=== PATIENT | female | born 1935 | race Caucasian/White ===

== ENCOUNTER 2017-10-27 21:48 | Inpatient (IN) | payer MEDICARE, MEDICAID ==
--- NOTE | 2017-10-27 22:20 | ED Physician Chart ---
ED Chief Complaint/HPI - Patient Information Date Seen:: 10/27/17 Time Seen:: 22:16 Chief Complaint:: AGITATION History of Present Illness:: 89 YR OLD FEMALE WITH AGITATION FOR 2 DAYS T HERE FOR EVALUATION Allergies:: Allergies Allergy/AdvReac Type Severity Reaction Status Date / Time haloperidol [From Haldol] Allergy Verified 10/27/17 21:59 olanzapine [From Zyprexa] Allergy Verified 10/27/17 21:59 Vitals:: Vital Signs - 8 hr 10/27/17 21:50 Temp 99.4 F HR 75 RR 20 BP 162/73 O2 Sat % 97 ED Review of Systems - Review of Systems General/Constitutional: No chills Skin: No skin lesions Eyes: No loss of vision ENT: Other Neck: No neck pain Cardio Vascular: No chest pain, other (I FEEL SHOES WITH SOME PROBLEMS) GI: No nausea, Vomiting G/U: No dysuria Psychiatric: Prior psych history Hematopoietic: No bruising Allergic/Immuno: No urticaria Neurological: No focal symptoms Family Medical History - Family Member Mother History Unknown: Yes ED Assessment - Assessment General Assessment: BACK PAIN ABD ISS ED Septic Shock - . Is Septic Shock (SBP<90, OR Lactate>4 mmol\L) present?: No - <6hrs of presentation: Vital Signs: Vital Signs - 8 hr 10/27/17 21:50 Temp 99.4 F HR 75 RR 20 BP 162/73 O2 Sat % 97 ED Discharge Plan - Patient Disposition Admit/Discharge/Transfer: Home Health IV Service
[2017-10-28 00:20] LABS: % BASOPHILS 0.4 % (0.0-2.0); % EOSINOPHILS 2.9 % (0.0-5.0); % LYMPHOCYTES 27.9 % (20.0-50.0); % MONOCYTES 8.9 % (2.0-10.0); % NEUTROPHILS 59.9 % (40.0-80.0); EOSINOPHILE ABSOLUTE 0.2 Th/cmm (0.1-0.4); HEMATOCRIT 43.6 % (41.0-60); HEMOGLOBIN 14.5 gm/dL (12-16); LYMPHOCYTE ABSOLUTE 2.1 Th/cmm (1.5-3.0); MEAN CELL VOLUME 95.9 fl (81-100); MEAN CORPUSCULAR HEMOGLOBIN 31.8 pg (27.0-31.0); MEAN CORPUSCULAR HGB CONC 33.2 pg (28.0-36.0); MEAN PLATELET VOLUME 7.7 fl; MONOCYTE ABSOLUTE 0.7 Th/cmm (0.3-1.0); NEUTROPHILE ABSOLUTE 4.5 Th/cmm (1.8-8.0); PLATELET COUNT 201 Th/cmm (150-400); RED BLOOD COUNT 4.55 Mil/cmm (3.80-5.20); RED CELL DISTRIBUTION WIDTH 13.3 % (11.5-20.0); WHITE BLOOD COUNT 7.5 Th/cmm (4.8-10.8)
[2017-10-28 00:40] LABS: ALB/GLOB RATIO 1.8 (1.0-1.8); ALBUMIN 3.7 gm/dL (3.7-5.3); ALKALINE PHOSPHATASE 97 U/L (34-104); ANION GAP 9.4 (7.0-16.0); BILIRUBIN,TOTAL 0.3 mg/dL (0.3-1.0); BUN - UREA NITROGEN 23 mg/dL (7-25); CALCIUM SERUM 9.2 mg/dL (8.6-10.3); CARBON DIOXIDE 24.1 mEq/L (21.0-31.0); CHLORIDE 110 mEq/L (98-107); CREATININE - SERUM 0.8 mg/dL (0.6-1.2); GLUCOSE 103 mg/dL (70-105); POTASSIUM SERUM 4.5 mEq/L (3.5-5.1); SGOT 14 U/L (13-39); SGPT/ALT 13 U/L (7-52); SODIUM SERUM 139 mEq/L (136-145); TOTAL PROTEIN,SERUM 5.8 gm/dL (6.0-8.3)
[2017-10-28] MEDS ORDERED: Magnesium Hydroxide (MOM) 30 mL UDC PO PRN ×2 (02:08→21:43)
[2017-10-28] MEDS ORDERED: Maalox 30 mL Cup PO PRN (02:08)
[2017-10-28 02:19] VITALS: BP 142/57
[2017-10-28] MEDS ORDERED: VALSARTAN 40 MG PO SCH (09:00)
[2017-10-28] MEDS: Multivitamin Tab PO SCH (09:16)
[2017-10-28] MEDS: Calcium Carb/Vit D 500 mg/200 U Tab PO SCH ×2 (09:17→16:13)
[2017-10-28] MEDS: Prednisolone 1% Ophth Susp 5 mL Bottle EACH EYE SCH ×3 (09:19→21:04)
--- NOTE | 2017-10-28 12:34 | Psychosocial Evaluation ---
DATE OF SERVICE: 10/28/2017 IDENTIFYING INFORMATION: The patient is an 82-year-old female. CHIEF COMPLAINT: No answer. HISTORY OF PRESENT ILLNESS: The patient was referred from [place] because of some agitation, unable to redirect, very easily agitated. I did talk to her through a minesweeping officer and the patient was very irritable. She was able to tell the date roughly. She knows this is Friday, but she does not know why she is in the hospital. She was upset, not answering questions appropriately. Easily agitated. The patient is a well well-known case to me. I have seen her at [place] with a history of dementia. The patient believes that she was sent here because she could not pay the money to the rehab place where she was at. The patient is unpredictable, impulsive, and a poor historian. PAST PSYCHIATRIC HISTORY: Psychosis, agitation. MEDICATIONS: Amlodipine 10 mg daily, atorvastatin 10 mg at bedtime, calcium 1 tablet twice a day. She is on hydralazine 50 mg daily, metoprolol 50 mg twice a day, multivitamin tablet daily, prednisone eye drops 3 times a day, valsartan 40 mg daily that was discontinued. FAMILY AND SOCIAL HISTORY: The patient has one daughter and she is . [facility] Unable to give further information. She got upset why do we want all of this information. She is paranoid, not willing to tell how much she went to school, she did for living. Denies substance abuse. MENTAL STATUS EXAMINATION: The patient is appropriately dressed, not well groomed, ____ minesweeping officer. The patient was able to tell the date roughly. She was not sure of her age. She believes she is 39 years of age. She has been agitated, unable to answer questions appropriately. Unable to participate in memory testing, paranoid, suspicious, resistant to care, refused to take medication. She has a poor long and short-term memory. Her insight and judgment is impaired. IMPRESSION: AXIS I: Psychosis, not otherwise specified, rule out bipolar disorder, also dementia. MEDICAL DIAGNOSES: Hypertension, hyperlipidemia. Her assets so far, she seems to have good support system, ____ poor coping skills. INITIAL TREATMENT PLAN: The patient will be started on Abilify. We will do group therapy, milieu therapy, and individual therapy. ESTIMATED LENGTH OF STAY: 3-7 days. DISCHARGE CRITERIA: Decreased psychosis and agitation. After discharge, outpatient treatment. JOB# [id number]
[2017-10-28] MEDS ORDERED: [UNRECOGNIZED DRUG - OTHER] PO SCH (17:00)
[2017-10-28] MEDS ORDERED: VITAMIN D3 PO SCH (17:00)
[2017-10-28] MEDS ORDERED: CALCIUM CARBONATE PO SCH (17:00)
[2017-10-28] MEDS: Atorvastatin Calcium 10 MG TAB PO SCH (20:49)
--- NOTE | 2017-10-28 22:33 | History & Physical ---
ADMIT DATE: 10/28/2017 HISTORY OF PRESENT ILLNESS: The patient is an 82-year-old female with long history of hypertension, hyperlipidemia, degenerative joint disease, dementia, and psychosis; admitted to [facility] under Dr. Antonio's service for evaluation and treatment. The patient is a very poor historian. PAST MEDICAL HISTORY: Significant for hypertension, hyperlipidemia, degenerative joint disease, dementia, and psychosis. PAST SURGICAL HISTORY: No recent surgery. ALLERGIES: She is allergic to HALOPERIDOL and OLANZAPINE. MEDICATIONS: Follow admission reconciliation. SOCIAL HISTORY: No smoking, no alcohol, no drug. FAMILY HISTORY: Noncontributory. REVIEW OF SYSTEMS: IMMUNOSYSTEM: No history of chronic renal disorder. CARDIOVASCULAR SYSTEM: She has history of hypertension. ENDOCRINE SYSTEM: No diabetes or thyroid problem. GASTROINTESTINAL SYSTEM: No upper or lower GI bleeding. NEUROLOGICAL SYSTEM: No seizure disorder. MUSCULOSKELETAL SYSTEM: She has degenerative joint disease. PHYSICAL EXAMINATION: GENERAL: She is awake, not coherent. VITAL SIGNS: Temperature 98.6, heart rate 98, and blood pressure 130/88. HEENT: Normocephalic. Pupils reactive to light and accommodation. Sclerae clear. NECK: Supple. Negative for lymphadenopathy, JVD, or bruit. CHEST: Entry of air bilateral normal. No rhonchi or wheezing. HEART: S1, S2 normal. Gallop rhythm. ABDOMEN: Soft, bowel sounds positive. EXTREMITIES: No edema. NEUROLOGIC: She is awake, alert, not fully oriented. No focal motor or sensory deficit. ASSESSMENT: 1. Hypertension. 2. Hyperlipidemia. 3. Degenerative joint disease. 4. Dementia. 5. Psychosis. PLAN: The patient admitted to the hospital under Dr. Antonio's service. Medical problems addressed during hospitalization are dementia, psychosis. Medical problem to be addressed at discharge are hypertension, hyperlipidemia, degenerative joint disease. The patient is medically stable for activity. Thank you, Dr. Antonio, for asking me to see your patient. JOB# [id number]
[2017-10-29] MEDS ORDERED: Non-Formulary Item 1 EA (Cranberry Fruit Concentrate [Cranberry] 450 MG) PO SCH (09:00)
[2017-10-29] MEDS: Multivitamin Tab PO SCH (09:20)
[2017-10-29] MEDS: Prednisolone 1% Ophth Susp 5 mL Bottle EACH EYE SCH ×3 (09:20→20:26)
[2017-10-29] MEDS: Calcium Carb/Vit D 500 mg/200 U Tab PO SCH ×2 (09:20→16:14)
--- NOTE | 2017-10-29 09:51 | Progress Notes ---
DATE: 10/29/2017 SUBJECTIVE: Case was discussed with staff of the patient, reviewed records. The patient continues to be unpredictable, impulsive, continues to have poor insight. Continues to be unable to state plan for self-care. Continues to be easily agitated. I did initiate Abilify on her however refused the medication. I asked her why she is not taking medication, she would not give me any answer. She is argumentative, loud, unable to carry out reasonable conversation or respond to questions appropriately. No side effects with the medication so far, but she is not taking most of it and will continue it. She is still at risk because of her behavior. We do have lab work on her and it shows that she has high MCH, the rest of CBC within normal range. Chemistry panel showed high chloride and low protein. The rest within normal range. TSH within normal range. She is at a fall risk. She is on a Donna chair and will continue the patient with group therapy, milieu therapy and adjust medications as needed. JOB# [id number]
--- NOTE | 2017-10-29 19:17 | Internal Medicine Prog Note ---
Internal Medicine Subjective - Subjective Service Date: 10/29/17 Patient seen and examined:: with staff Patient is:: awake, verbal, in bed, confused Per staff patient has:: no adverse event Internal Medicine Objective - Results Result Diagrams: 10/28/17 00:05 10/28/17 00:05 Recent Labs: Laboratory Last Values WBC 7.5 Th/cmm (4.8-10.8) 10/28/17 00:05 RBC 4.55 Mil/cmm (3.80-5.20) 10/28/17 00:05 Hgb 14.5 gm/dL (12-16) 10/28/17 00:05 Hct 43.6 % (41.0-60) 10/28/17 00:05 MCV 95.9 fl (81-100) 10/28/17 00:05 MCH 31.8 pg (27.0-31.0) H 10/28/17 00:05 MCHC Differential 33.2 pg (28.0-36.0) 10/28/17 00:05 RDW 13.3 % (11.5-20.0) 10/28/17 00:05 Plt Count 201 Th/cmm (150-400) 10/28/17 00:05 MPV 7.7 fl 10/28/17 00:05 Neutrophils % 59.9 % (40.0-80.0) 10/28/17 00:05 Lymphocytes % 27.9 % (20.0-50.0) 10/28/17 00:05 Monocytes % 8.9 % (2.0-10.0) 10/28/17 00:05 Eosinophils % 2.9 % (0.0-5.0) 10/28/17 00:05 Basophils % 0.4 % (0.0-2.0) 10/28/17 00:05 Sodium 139 mEq/L (136-145) 10/28/17 00:05 Potassium 4.5 mEq/L (3.5-5.1) 10/28/17 00:05 Chloride 110 mEq/L (98-107) H 10/28/17 00:05 Carbon Dioxide 24.1 mEq/L (21.0-31.0) 10/28/17 00:05 Anion Gap 9.4 (7.0-16.0) 10/28/17 00:05 BUN 23 mg/dL (7-25) 10/28/17 00:05 Creatinine 0.8 mg/dL (0.6-1.2) 10/28/17 00:05 Est GFR ( Amer) TNP 10/28/17 00:05 Est GFR (Non-Af Amer) TNP 10/28/17 00:05 BUN/Creatinine Ratio 28.8 10/28/17 00:05 Glucose 103 mg/dL (70-105) 10/28/17 00:05 Calcium 9.2 mg/dL (8.6-10.3) 10/28/17 00:05 Total Bilirubin 0.3 mg/dL (0.3-1.0) 10/28/17 00:05 AST 14 U/L (13-39) 10/28/17 00:05 ALT 13 U/L (7-52) 10/28/17 00:05 Alkaline Phosphatase 97 U/L (34-104) 10/28/17 00:05 Total Protein 5.8 gm/dL (6.0-8.3) L 10/28/17 00:05 Albumin 3.7 gm/dL (3.7-5.3) 10/28/17 00:05 Globulin 2.1 gm/dL 10/28/17 00:05 Albumin/Globulin Ratio 1.8 (1.0-1.8) 10/28/17 00:05 TSH 1.34 uIU/ml (0.34-5.60) 10/28/17 00:05 - Physical Exam Vitals and I&O: Vital Signs Temp 97.9 F 10/29/17 14:51 Pulse 94 10/29/17 14:51 Resp 20 10/29/17 14:51 BP 158/84 10/29/17 14:51 Pulse Ox 96 10/29/17 14:51 Intake & Output 10/29/17 10/29/17 10/30/17 06:59 18:59 06:59 Intake Total 120 Balance 120 Intake: Oral 120 Other: # Voids 3 Active Medications: Current Medications Acetaminophen (Tylenol) 650 mg PO Q4HR PRN PRN Reason: Mild Pain / Temp above 100 Stop: 12/27/17 02:07 Al Hydrox/Mg Hydrox/Simethicone (Maalox) 30 ml PO Q4HR PRN PRN Reason: GI DISTRESS Stop: 12/27/17 02:07 Amlodipine Besylate (Norvasc) 10 mg PO DAILY COUNT [facility]CLUDES [facility] Stop: 12/27/17 08:59 Last Admin: 10/29/17 09:20 Dose: Not Given Aripiprazole (Abilify) 2.5 mg PO DAILY COUNT INCLUDES THE [facility]; Protocol Stop: 12/28/17 08:59 Last Admin: 10/29/17 09:20 Dose: Not Given Atorvastatin Calcium (Lipitor) 10 mg PO HS COUNT INCLUDES THE [facility]; Protocol Stop: 12/27/17 20:59 Last Admin: 10/28/17 20:49 Dose: Not Given Calcium/Vitamin D (Oscal W/Vitamin D) 1 tab PO BID COUNT INCLUDES THE [facility] Stop: 12/27/17 08:59 Last Admin: 10/29/17 16:14 Dose: Not Given Clonidine HCl (Kmwbrlde-Iox-6) 1 patch TD Mo@0900 COUNT INCLUDES THE [facility] Stop: 01/02/18 08:59 Docusate Sodium (Colace) 100 mg PO DAILY COUNT INCLUDES THE [facility] Stop: 12/27/17 08:59 Last Admin: 10/29/17 09:20 Dose: Not Given Hydralazine HCl (Apresoline) 50 mg PO DAILY COUNT INCLUDES [facility] Stop: 12/27/17 08:59 Last Admin: 10/29/17 09:20 Dose: Not Given Lorazepam (Ativan) 0.5 mg PO Q4HR PRN; Protocol PRN Reason: Anxiety/agitation Stop: 11/27/17 02:07 Last Admin: 10/29/17 17:36 Dose: 0.5 mg Losartan Potassium (Cozaar) 25 mg PO DAILY COUNT INCLUDES THE [facility] Stop: 12/27/17 08:59 Last Admin: 10/29/17 09:20 Dose: Not Given Magnesium Hydroxide (Milk Of Magnesia) 30 ml PO HS PRN PRN Reason: Constipation Metoprolol Tartrate (Lopressor) 50 mg PO BID COUNT INCLUDES THE [facility] Stop: 12/27/17 08:59 Last Admin: 10/29/17 16:15 Dose: Not Given Multivitamins/Vitamin C (Theragran) 1 tab PO DAILY COUNT INCLUDES THE [facility] Stop: 12/27/17 08:59 Last Admin: 10/29/17 09:20 Dose: Not Given Prednisolone Acetate (Pred Forte 1% Ophth Susp) 2 drop EACH EYE TID COUNT INCLUDES THE [facility] Stop: 12/27/17 08:59 Last Admin: 10/29/17 13:24 Dose: Not Given Zolpidem Tartrate (Ambien) 5 mg PO HS PRN PRN Reason: Insomnia Stop: 12/27/17 02:07 General: demented HEENT: NC/AT, PERRLA, EOMI, anicteric sclerae, throat clear Neck: Supple, No JVD, No thyromegaly, +2 carotid pulse wo bruit, No LAD Lungs: CTAB Cardiovascular: Normal S1, Normal S2, without murmur Abdomen: non-tender, non-distended Extremities: clear Neurological: no change Internal Medicine Assmt/Plan - Assessment Assessment: 1.HTN. 2.HYPERLIPIDEMIA. 3.DJD. 4.DEMENTIA. - Plan Plan: CONTINUE ON CURRENT MEDICATION AND DIET.
[2017-10-29] MEDS: Atorvastatin Calcium 10 MG TAB PO SCH (20:27)
[2017-10-30] MEDS: Calcium Carb/Vit D 500 mg/200 U Tab PO SCH ×2 (09:48→18:38)
[2017-10-30] MEDS: Prednisolone 1% Ophth Susp 5 mL Bottle EACH EYE SCH ×3 (09:49→20:17)
[2017-10-30] MEDS: Multivitamin Tab PO SCH (09:49)
--- NOTE | 2017-10-30 17:37 | Internal Medicine Prog Note ---
Internal Medicine Subjective - Subjective Service Date: 10/30/17 Patient seen and examined:: with staff Patient is:: awake, verbal, in bed, confused Per staff patient has:: no adverse event Internal Medicine Objective - Results Result Diagrams: 10/28/17 00:05 10/28/17 00:05 Recent Labs: Laboratory Last Values WBC 7.5 Th/cmm (4.8-10.8) 10/28/17 00:05 RBC 4.55 Mil/cmm (3.80-5.20) 10/28/17 00:05 Hgb 14.5 gm/dL (12-16) 10/28/17 00:05 Hct 43.6 % (41.0-60) 10/28/17 00:05 MCV 95.9 fl (81-100) 10/28/17 00:05 MCH 31.8 pg (27.0-31.0) H 10/28/17 00:05 MCHC Differential 33.2 pg (28.0-36.0) 10/28/17 00:05 RDW 13.3 % (11.5-20.0) 10/28/17 00:05 Plt Count 201 Th/cmm (150-400) 10/28/17 00:05 MPV 7.7 fl 10/28/17 00:05 Neutrophils % 59.9 % (40.0-80.0) 10/28/17 00:05 Lymphocytes % 27.9 % (20.0-50.0) 10/28/17 00:05 Monocytes % 8.9 % (2.0-10.0) 10/28/17 00:05 Eosinophils % 2.9 % (0.0-5.0) 10/28/17 00:05 Basophils % 0.4 % (0.0-2.0) 10/28/17 00:05 Sodium 139 mEq/L (136-145) 10/28/17 00:05 Potassium 4.5 mEq/L (3.5-5.1) 10/28/17 00:05 Chloride 110 mEq/L (98-107) H 10/28/17 00:05 Carbon Dioxide 24.1 mEq/L (21.0-31.0) 10/28/17 00:05 Anion Gap 9.4 (7.0-16.0) 10/28/17 00:05 BUN 23 mg/dL (7-25) 10/28/17 00:05 Creatinine 0.8 mg/dL (0.6-1.2) 10/28/17 00:05 Est GFR ( Amer) TNP 10/28/17 00:05 Est GFR (Non-Af Amer) TNP 10/28/17 00:05 BUN/Creatinine Ratio 28.8 10/28/17 00:05 Glucose 103 mg/dL (70-105) 10/28/17 00:05 Calcium 9.2 mg/dL (8.6-10.3) 10/28/17 00:05 Total Bilirubin 0.3 mg/dL (0.3-1.0) 10/28/17 00:05 AST 14 U/L (13-39) 10/28/17 00:05 ALT 13 U/L (7-52) 10/28/17 00:05 Alkaline Phosphatase 97 U/L (34-104) 10/28/17 00:05 Total Protein 5.8 gm/dL (6.0-8.3) L 10/28/17 00:05 Albumin 3.7 gm/dL (3.7-5.3) 10/28/17 00:05 Globulin 2.1 gm/dL 10/28/17 00:05 Albumin/Globulin Ratio 1.8 (1.0-1.8) 10/28/17 00:05 TSH 1.34 uIU/ml (0.34-5.60) 10/28/17 00:05 - Physical Exam Vitals and I&O: Vital Signs Temp 98.0 F 10/30/17 14:00 Pulse 70 10/30/17 14:00 Resp 20 10/30/17 14:00 BP 129/73 10/30/17 14:00 Pulse Ox 99 10/30/17 14:00 Intake & Output 10/29/17 10/30/17 10/30/17 18:59 06:59 18:59 Intake Total 120 Balance 120 Intake: Oral 120 Other: # Voids 3 Active Medications: Current Medications Acetaminophen (Tylenol) 650 mg PO Q4HR PRN PRN Reason: Mild Pain / Temp above 100 Stop: 12/27/17 02:07 Al Hydrox/Mg Hydrox/Simethicone (Maalox) 30 ml PO Q4HR PRN PRN Reason: GI DISTRESS Stop: 12/27/17 02:07 Amlodipine Besylate (Norvasc) 10 mg PO DAILY [facility] Stop: 12/27/17 08:59 Last Admin: 10/30/17 09:47 Dose: Not Given Aripiprazole (Abilify) 2.5 mg PO DAILY [facility]; Protocol Stop: 12/28/17 08:59 Last Admin: 10/30/17 09:47 Dose: Not Given Atorvastatin Calcium (Lipitor) 10 mg PO HS [facility]; Protocol Stop: 12/27/17 20:59 Last Admin: 10/29/17 20:27 Dose: 10 mg Calcium/Vitamin D (Oscal W/Vitamin D) 1 tab PO BID [facility] Stop: 12/27/17 08:59 Last Admin: 10/30/17 09:48 Dose: Not Given Clonidine HCl (Ewshmrdy-Won-9) 1 patch TD Mo@0900 [facility] Stop: 01/02/18 08:59 Docusate Sodium (Colace) 100 mg PO DAILY [facility] Stop: 12/27/17 08:59 Last Admin: 10/30/17 09:48 Dose: Not Given Hydralazine HCl (Apresoline) 50 mg PO DAILY [facility] Stop: 12/27/17 08:59 Last Admin: 10/30/17 09:48 Dose: Not Given Lorazepam (Ativan) 0.5 mg PO Q4HR PRN; Protocol PRN Reason: Anxiety/agitation Stop: 11/27/17 02:07 Last Admin: 10/29/17 17:36 Dose: 0.5 mg Losartan Potassium (Cozaar) 25 mg PO DAILY [facility] Stop: 12/27/17 08:59 Last Admin: 10/30/17 09:48 Dose: Not Given Magnesium Hydroxide (Milk Of Magnesia) 30 ml PO HS PRN PRN Reason: Constipation Metoprolol Tartrate (Lopressor) 50 mg PO BID [facility] Stop: 12/27/17 08:59 Last Admin: 10/30/17 09:49 Dose: Not Given Multivitamins/Vitamin C (Theragran) 1 tab PO DAILY [facility] Stop: 12/27/17 08:59 Last Admin: 10/30/17 09:49 Dose: Not Given Prednisolone Acetate (Pred Forte 1% Ophth Susp) 2 drop EACH EYE TID [facility] Stop: 12/27/17 08:59 Last Admin: 10/30/17 14:19 Dose: 2 drop Zolpidem Tartrate (Ambien) 5 mg PO HS PRN PRN Reason: Insomnia Stop: 12/27/17 02:07 Last Admin: 10/29/17 20:27 Dose: 5 mg General: demented HEENT: NC/AT, PERRLA, EOMI, anicteric sclerae, throat clear Neck: Supple, No JVD, No thyromegaly, +2 carotid pulse wo bruit, No LAD Lungs: CTAB Cardiovascular: Normal S1, Normal S2, without murmur Abdomen: non-tender, non-distended Extremities: clear Neurological: no change Internal Medicine Assmt/Plan - Assessment Assessment: 1.HTN. 2.HYPERLIPIDEMIA. 3.DJD. 4.DEMENTIA. - Plan Plan: CONTINUE ON CURRENT MEDICATION AND DIET.
[2017-10-30] MEDS: Atorvastatin Calcium 10 MG TAB PO SCH (20:16)
--- NOTE | 2017-10-30 21:47 | Progress Notes ---
DATE: 10/30/2017 Case was discussed with staff of the patient, reviewed records. The patient continues to be unpredictable, impulsive, angry. She has been refusing medication and is responding well to redirection. She is unpredictable, impulsive, very poor insight. Unable to participate in meaningful conversation even having a blackjack dealer. She is rambling. We will try to pursue R[place] hearing because she refused medications. Depending on her behavior, we will continue to have the patient in group therapy, milieu therapy, and adjust medications as needed. JOB# [id number]
[2017-10-31] MEDS: Calcium Carb/Vit D 500 mg/200 U Tab PO SCH ×2 (08:02→16:33)
[2017-10-31] MEDS: Multivitamin Tab PO SCH (08:03)
[2017-10-31] MEDS: Prednisolone 1% Ophth Susp 5 mL Bottle EACH EYE SCH ×3 (08:03→22:04)
[2017-10-31] MEDS ORDERED: chlorproMAZINE 25 mg/mL 2mL Amp IM ONE (08:10)
[2017-10-31] MEDS ORDERED: chlorproMAZINE 25 mg/mL 2mL Amp ONE (08:11)
--- NOTE | 2017-10-31 16:10 | Internal Medicine Prog Note ---
Internal Medicine Subjective - Subjective Service Date: 10/31/17 Patient seen and examined:: with staff Patient is:: awake, verbal, in bed, confused Per staff patient has:: no adverse event Internal Medicine Objective - Results Result Diagrams: 10/28/17 00:05 10/28/17 00:05 Recent Labs: Laboratory Last Values WBC 7.5 Th/cmm (4.8-10.8) 10/28/17 00:05 RBC 4.55 Mil/cmm (3.80-5.20) 10/28/17 00:05 Hgb 14.5 gm/dL (12-16) 10/28/17 00:05 Hct 43.6 % (41.0-60) 10/28/17 00:05 MCV 95.9 fl (81-100) 10/28/17 00:05 MCH 31.8 pg (27.0-31.0) H 10/28/17 00:05 MCHC Differential 33.2 pg (28.0-36.0) 10/28/17 00:05 RDW 13.3 % (11.5-20.0) 10/28/17 00:05 Plt Count 201 Th/cmm (150-400) 10/28/17 00:05 MPV 7.7 fl 10/28/17 00:05 Neutrophils % 59.9 % (40.0-80.0) 10/28/17 00:05 Lymphocytes % 27.9 % (20.0-50.0) 10/28/17 00:05 Monocytes % 8.9 % (2.0-10.0) 10/28/17 00:05 Eosinophils % 2.9 % (0.0-5.0) 10/28/17 00:05 Basophils % 0.4 % (0.0-2.0) 10/28/17 00:05 Sodium 139 mEq/L (136-145) 10/28/17 00:05 Potassium 4.5 mEq/L (3.5-5.1) 10/28/17 00:05 Chloride 110 mEq/L (98-107) H 10/28/17 00:05 Carbon Dioxide 24.1 mEq/L (21.0-31.0) 10/28/17 00:05 Anion Gap 9.4 (7.0-16.0) 10/28/17 00:05 BUN 23 mg/dL (7-25) 10/28/17 00:05 Creatinine 0.8 mg/dL (0.6-1.2) 10/28/17 00:05 Est GFR ( Amer) TNP 10/28/17 00:05 Est GFR (Non-Af Amer) TNP 10/28/17 00:05 BUN/Creatinine Ratio 28.8 10/28/17 00:05 Glucose 103 mg/dL (70-105) 10/28/17 00:05 Calcium 9.2 mg/dL (8.6-10.3) 10/28/17 00:05 Total Bilirubin 0.3 mg/dL (0.3-1.0) 10/28/17 00:05 AST 14 U/L (13-39) 10/28/17 00:05 ALT 13 U/L (7-52) 10/28/17 00:05 Alkaline Phosphatase 97 U/L (34-104) 10/28/17 00:05 Total Protein 5.8 gm/dL (6.0-8.3) L 10/28/17 00:05 Albumin 3.7 gm/dL (3.7-5.3) 10/28/17 00:05 Globulin 2.1 gm/dL 10/28/17 00:05 Albumin/Globulin Ratio 1.8 (1.0-1.8) 10/28/17 00:05 TSH 1.34 uIU/ml (0.34-5.60) 10/28/17 00:05 RPR NONREACTIVE (NONREACTIVE) 10/28/17 00:05 - Physical Exam Vitals and I&O: Vital Signs Temp 98.0 F 10/30/17 14:00 Pulse 70 10/30/17 14:00 Resp 20 10/30/17 14:00 BP 129/73 10/30/17 14:00 Pulse Ox 99 10/30/17 14:00 Intake & Output 10/30/17 10/31/17 10/31/17 18:59 06:59 18:59 Intake Total 1000 Balance 1000 Intake: Oral 1000 Other: # Voids 3 # Bowel Movements 1 Active Medications: Current Medications Acetaminophen (Tylenol) 650 mg PO Q4HR PRN PRN Reason: Mild Pain / Temp above 100 Stop: 12/27/17 02:07 Al Hydrox/Mg Hydrox/Simethicone (Maalox) 30 ml PO Q4HR PRN PRN Reason: GI DISTRESS Stop: 12/27/17 02:07 Amlodipine Besylate (Norvasc) 10 mg PO DAILY [facility] Stop: 12/27/17 08:59 Last Admin: 10/31/17 08:02 Dose: Not Given Aripiprazole (Abilify) 2.5 mg PO DAILY [facility]; Protocol Stop: 12/28/17 08:59 Last Admin: 10/31/17 08:02 Dose: Not Given Atorvastatin Calcium (Lipitor) 10 mg PO HS [facility]; Protocol Stop: 12/27/17 20:59 Last Admin: 10/30/17 20:16 Dose: 10 mg Calcium/Vitamin D (Oscal W/Vitamin D) 1 tab PO BID [facility] Stop: 12/27/17 08:59 Last Admin: 10/31/17 08:02 Dose: Not Given Clonidine HCl (Tqycgtnr-Apk-1) 1 patch TD Mo@0900 [facility] Stop: 01/02/18 08:59 Docusate Sodium (Colace) 100 mg PO DAILY [facility] Stop: 12/27/17 08:59 Last Admin: 10/31/17 08:02 Dose: Not Given Hydralazine HCl (Apresoline) 50 mg PO DAILY [facility] Stop: 12/27/17 08:59 Last Admin: 10/31/17 08:02 Dose: Not Given Lorazepam (Ativan) 0.5 mg PO Q4HR PRN; Protocol PRN Reason: Anxiety/agitation Stop: 11/27/17 02:07 Last Admin: 10/29/17 17:36 Dose: 0.5 mg Losartan Potassium (Cozaar) 25 mg PO DAILY [facility] Stop: 12/27/17 08:59 Last Admin: 10/31/17 08:02 Dose: Not Given Magnesium Hydroxide (Milk Of Magnesia) 30 ml PO HS PRN PRN Reason: Constipation Metoprolol Tartrate (Lopressor) 50 mg PO BID [facility] Stop: 12/27/17 08:59 Last Admin: 10/31/17 08:03 Dose: Not Given Multivitamins/Vitamin C (Theragran) 1 tab PO DAILY [facility] Stop: 12/27/17 08:59 Last Admin: 10/31/17 08:03 Dose: Not Given Prednisolone Acetate (Pred Forte 1% Ophth Susp) 2 drop EACH EYE TID NANCY Stop: 12/27/17 08:59 Last Admin: 10/31/17 13:49 Dose: Not Given Zolpidem Tartrate (Ambien) 5 mg PO HS PRN PRN Reason: Insomnia Stop: 12/27/17 02:07 Last Admin: 10/30/17 20:17 Dose: 5 mg General: demented HEENT: NC/AT, PERRLA, EOMI, anicteric sclerae, throat clear Neck: Supple, No JVD, No thyromegaly, +2 carotid pulse wo bruit, No LAD Lungs: CTAB Cardiovascular: Normal S1, Normal S2, without murmur Abdomen: non-tender, non-distended Extremities: clear Neurological: no change Internal Medicine Assmt/Plan - Assessment Assessment: 1.HTN. 2.HYPERLIPIDEMIA. 3.DJD. 4.DEMENTIA. - Plan Plan: CONTINUE ON CURRENT MEDICATION AND DIET. Nutritional Asmnt/Malnutr-PDOC - Dietary Evaluation Malnutrition Findings (Please click <Entered> for more info): Nutritional Asmnt/Malnutrition Start: 10/31/17 14: 08 Text: Status: Complete Freq: Protocol: Document 10/31/17 14:08 LCHENG (Rec: 10/31/17 14:15 [email or web address]) Nutritional Asmnt/Malnutrition Patient General Information Nutritional Screening Moderate Risk Diagnosis psychosis Pertinent Medical Hx/Surgical Hx HTN, hyperlipidemia, DJD, dementia, psychosis Subjective Information Pt seen in gallo-chair at time of visit. Pt has episodes of agitation. per CLOTH WEIGHER, pt eats everything. Per EMR, Po intake 100% of meals. Current Diet Order/ [facility], LUCY Pertinent Medications lipitor, oscal w/vit D, colace , theragran Pertinent Labs 10/28 Cl 110 Nutritional Hx/Data Height 1.6 m Height (Calculated Centimeters) 160.0 Current Weight (lbs) 54.431 kg Weight (Calculated Kilograms) 54.4 Weight (Calculated Grams) 84862.1 [place] Body Weight 115 Body Mass Index (BMI) 21.2 Weight Status Approriate GI Symptoms GI Symptoms None Last BM 10/30 Difficult in: None Skin Integrity/Comment: intact Current %PO Good (75-100%) Estimated Nutritional Goals BEE in Kcals: Using Current wt Calories/Kcals/Kg 25-30 Kcals Calculated 5785-1942 Protein: Using Current wt Protein g/k Protein Calculated 55 Fluid: ml 1375-1650ml (1ml/kcal) Nutritional Problem No current Nutrition Prob Problem N/A Malnutrition Alert Is there a minimum of two criteria No selected? Query Text:Check all the applicable criteria. A minimum of two criteria are recommended for diagnosis of either severe or non-severe malnutrition. Malnutrition Related to Morbid Obesity Malnutrition related to morbid obesity No Intervention/Recommendation Comments 1. Continue with [facility] soft chopped LUCY diet as ordered. 2. Monitor PO intake, wt, labs and skin integrity 3. F/U as low risk in 7 days, / Expected Outcomes/Goals Expected Outcomes/Goals 1. PO intake to meet at least 75% of nutritional needs. 2. Wt stability, skin to remain intact, labs to approach WNL.
[2017-10-31] MEDS: Atorvastatin Calcium 10 MG TAB PO SCH ×2 (21:36→21:45)
--- NOTE | 2017-11-01 00:17 | Progress Notes ---
DATE: 10/31/2017 Case was discussed with staff of the patient, reviewed records. The patient has been acting out this morning, very hard to redirect, had to be medicated with chlorpromazine as she is ALLERGIC TO HALDOL AND ZYPREXA. Also, Prolixin was not available as an injection. The patient continues to have poor insight, easily agitated, and unable to make safe plan for self-care. Unable to participate in meaningful conversation, demented, confused. She did take larger pill earlier today and it did not really affect her, so ____ no side effects of the medications. ____ as this is the medication she took this morning, not the chlorpromazine. She has not been taking her medication ____. We will continue the patient in group therapy, milieu therapy, and adjust the medication as needed. JOB# [id number]
[2017-11-01] MEDS: Calcium Carb/Vit D 500 mg/200 U Tab PO SCH ×2 (09:09→16:12)
[2017-11-01] MEDS: Prednisolone 1% Ophth Susp 5 mL Bottle EACH EYE SCH ×3 (09:10→21:54)
[2017-11-01] MEDS: Multivitamin Tab PO SCH (09:10)
--- NOTE | 2017-11-01 11:07 | Internal Medicine Prog Note ---
Internal Medicine Subjective - Subjective Service Date: 11/01/17 Patient seen and examined:: with staff Patient is:: awake, verbal, in bed, confused Per staff patient has:: no adverse event Internal Medicine Objective - Results Result Diagrams: 10/28/17 00:05 10/28/17 00:05 Recent Labs: Laboratory Last Values WBC 7.5 Th/cmm (4.8-10.8) 10/28/17 00:05 RBC 4.55 Mil/cmm (3.80-5.20) 10/28/17 00:05 Hgb 14.5 gm/dL (12-16) 10/28/17 00:05 Hct 43.6 % (41.0-60) 10/28/17 00:05 MCV 95.9 fl (81-100) 10/28/17 00:05 MCH 31.8 pg (27.0-31.0) H 10/28/17 00:05 MCHC Differential 33.2 pg (28.0-36.0) 10/28/17 00:05 RDW 13.3 % (11.5-20.0) 10/28/17 00:05 Plt Count 201 Th/cmm (150-400) 10/28/17 00:05 MPV 7.7 fl 10/28/17 00:05 Neutrophils % 59.9 % (40.0-80.0) 10/28/17 00:05 Lymphocytes % 27.9 % (20.0-50.0) 10/28/17 00:05 Monocytes % 8.9 % (2.0-10.0) 10/28/17 00:05 Eosinophils % 2.9 % (0.0-5.0) 10/28/17 00:05 Basophils % 0.4 % (0.0-2.0) 10/28/17 00:05 Sodium 139 mEq/L (136-145) 10/28/17 00:05 Potassium 4.5 mEq/L (3.5-5.1) 10/28/17 00:05 Chloride 110 mEq/L (98-107) H 10/28/17 00:05 Carbon Dioxide 24.1 mEq/L (21.0-31.0) 10/28/17 00:05 Anion Gap 9.4 (7.0-16.0) 10/28/17 00:05 BUN 23 mg/dL (7-25) 10/28/17 00:05 Creatinine 0.8 mg/dL (0.6-1.2) 10/28/17 00:05 Est GFR ( Amer) TNP 10/28/17 00:05 Est GFR (Non-Af Amer) TNP 10/28/17 00:05 BUN/Creatinine Ratio 28.8 10/28/17 00:05 Glucose 103 mg/dL (70-105) 10/28/17 00:05 Calcium 9.2 mg/dL (8.6-10.3) 10/28/17 00:05 Total Bilirubin 0.3 mg/dL (0.3-1.0) 10/28/17 00:05 AST 14 U/L (13-39) 10/28/17 00:05 ALT 13 U/L (7-52) 10/28/17 00:05 Alkaline Phosphatase 97 U/L (34-104) 10/28/17 00:05 Total Protein 5.8 gm/dL (6.0-8.3) L 10/28/17 00:05 Albumin 3.7 gm/dL (3.7-5.3) 10/28/17 00:05 Globulin 2.1 gm/dL 10/28/17 00:05 Albumin/Globulin Ratio 1.8 (1.0-1.8) 10/28/17 00:05 TSH 1.34 uIU/ml (0.34-5.60) 10/28/17 00:05 RPR NONREACTIVE (NONREACTIVE) 10/28/17 00:05 - Physical Exam Vitals and I&O: Vital Signs Temp 98.2 F 11/01/17 06:52 Pulse 74 11/01/17 06:52 Resp 19 11/01/17 06:52 BP 134/79 11/01/17 06:52 Pulse Ox 97 11/01/17 06:52 Intake & Output 10/31/17 11/01/17 11/01/17 18:59 06:59 18:59 Intake Total 1000 360 Output Total 1 Balance 1000 359 Intake: Oral 1000 360 Output: Urine/Stool Mix 1 Other: # Voids 3 1 # Bowel Movements 1 Active Medications: Current Medications Acetaminophen (Tylenol) 650 mg PO Q4HR PRN PRN Reason: Mild Pain / Temp above 100 Stop: 12/27/17 02:07 Al Hydrox/Mg Hydrox/Simethicone (Maalox) 30 ml PO Q4HR PRN PRN Reason: GI DISTRESS Stop: 12/27/17 02:07 Amlodipine Besylate (Norvasc) 10 mg PO DAILY [facility] Stop: 12/27/17 08:59 Last Admin: 11/01/17 09:09 Dose: Not Given Aripiprazole (Abilify) 2.5 mg PO DAILY [facility]; Protocol Stop: 12/28/17 08:59 Last Admin: 11/01/17 10:00 Dose: Not Given Atorvastatin Calcium (Lipitor) 10 mg PO HS [facility]; Protocol Stop: 12/27/17 20:59 Last Admin: 10/31/17 21:45 Dose: 10 mg Calcium/Vitamin D (Oscal W/Vitamin D) 1 tab PO BID [facility] Stop: 12/27/17 08:59 Last Admin: 11/01/17 09:09 Dose: Not Given Clonidine HCl (Esuomshk-Aan-4) 1 patch TD Mo@0900 [facility] Stop: 01/02/18 08:59 Docusate Sodium (Colace) 100 mg PO DAILY [facility] Stop: 12/27/17 08:59 Last Admin: 11/01/17 09:09 Dose: Not Given Hydralazine HCl (Apresoline) 50 mg PO DAILY [facility] Stop: 12/27/17 08:59 Last Admin: 11/01/17 09:10 Dose: Not Given Lorazepam (Ativan) 0.5 mg PO Q4HR PRN; Protocol PRN Reason: Anxiety/agitation Stop: 11/27/17 02:07 Last Admin: 10/29/17 17:36 Dose: 0.5 mg Losartan Potassium (Cozaar) 25 mg PO DAILY [facility] Stop: 12/27/17 08:59 Last Admin: 11/01/17 09:11 Dose: Not Given Magnesium Hydroxide (Milk Of Magnesia) 30 ml PO HS PRN PRN Reason: Constipation Metoprolol Tartrate (Lopressor) 50 mg PO BID [facility] Stop: 12/27/17 08:59 Last Admin: 11/01/17 09:10 Dose: Not Given Multivitamins/Vitamin C (Theragran) 1 tab PO DAILY [facility] Stop: 12/27/17 08:59 Last Admin: 11/01/17 09:10 Dose: Not Given Prednisolone Acetate (Pred Forte 1% Ophth Susp) 2 drop EACH EYE TID NANCY Stop: 12/27/17 08:59 Last Admin: 11/01/17 09:10 Dose: Not Given Zolpidem Tartrate (Ambien) 5 mg PO HS PRN PRN Reason: Insomnia Stop: 12/27/17 02:07 Last Admin: 10/31/17 22:04 Dose: 5 mg General: demented HEENT: NC/AT, PERRLA, EOMI, anicteric sclerae, throat clear Neck: Supple, No JVD, No thyromegaly, +2 carotid pulse wo bruit, No LAD Lungs: CTAB Cardiovascular: Normal S1, Normal S2, without murmur Abdomen: non-tender, non-distended Extremities: clear Neurological: no change Internal Medicine Assmt/Plan - Assessment Assessment: 1.HTN. 2.HYPERLIPIDEMIA. 3.DJD. 4.DEMENTIA. - Plan Plan: CONTINUE ON CURRENT MEDICATION AND DIET. Nutritional Asmnt/Malnutr-PDOC - Dietary Evaluation Malnutrition Findings (Please click <Entered> for more info): Nutritional Asmnt/Malnutrition Start: 10/31/17 14: 08 Text: Status: Complete Freq: Protocol: Document 10/31/17 14:08 LCHENG (Rec: 10/31/17 14:15 [email or web address]) Nutritional Asmnt/Malnutrition Patient General Information Nutritional Screening Moderate Risk Diagnosis psychosis Pertinent Medical Hx/Surgical Hx HTN, hyperlipidemia, DJD, dementia, psychosis Subjective Information Pt seen in gallo-chair at time of visit. Pt has episodes of agitation. per SAP PROJECT MANAGER, pt eats everything. Per EMR, Po intake 100% of meals. Current Diet Order/ [facility], LUCY Pertinent Medications lipitor, oscal w/vit D, colace , theragran Pertinent Labs 10/28 Cl 110 Nutritional Hx/Data Height 1.6 m Height (Calculated Centimeters) 160.0 Current Weight (lbs) 54.431 kg Weight (Calculated Kilograms) 54.4 Weight (Calculated Grams) 34010.1 [place] Body Weight 115 Body Mass Index (BMI) 21.2 Weight Status Approriate GI Symptoms GI Symptoms None Last BM 10/30 Difficult in: None Skin Integrity/Comment: intact Current %PO Good (75-100%) Estimated Nutritional Goals BEE in Kcals: Using Current wt Calories/Kcals/Kg 25-30 Kcals Calculated 6144-5264 Protein: Using Current wt Protein g/k Protein Calculated 55 Fluid: ml 1375-1650ml (1ml/kcal) Nutritional Problem No current Nutrition Prob Problem N/A Malnutrition Alert Is there a minimum of two criteria No selected? Query Text:Check all the applicable criteria. A minimum of two criteria are recommended for diagnosis of either severe or non-severe malnutrition. Malnutrition Related to Morbid Obesity Malnutrition related to morbid obesity No Intervention/Recommendation Comments 1. Continue with [facility] soft chopped LUCY diet as ordered. 2. Monitor PO intake, wt, labs and skin integrity 3. F/U as low risk in 7 days, 11/07 Expected Outcomes/Goals Expected Outcomes/Goals 1. PO intake to meet at least 75% of nutritional needs. 2. Wt stability, skin to remain intact, labs to approach WNL.
[2017-11-01] MEDS ORDERED: chlorproMAZINE 25 mg/mL 2mL Amp ONE (11:20)
[2017-11-01] MEDS ORDERED: chlorproMAZINE 25 mg/mL 2mL Amp IM ONE (11:27)
--- NOTE | 2017-11-01 18:38 | Progress Notes ---
DATE: 11/01/2017 Case was discussed with staff of the patient. The patient continues to be extremely agitated, irritable, continues to refuse medication, had to be medicated today with Thorazine 50 mg at an IM. We gave her Thorazine yesterday 25 ____ to be followed within 1-2 hours with Ativan and Benadryl because of her extremely psychotic, agitated behavior. Today, we decided that 50 mg may be better idea, so we do not have to give her so many medication. The patient continues to have poor insight, aggressive, irritable, acting out, threatening staff, ____ staff. No side effects to the medication, no sedation, no nausea and no extrapyramidal symptoms. We will continue to work with the patient in group therapy, milieu therapy, and adjust the medication as needed. JOB# [id number]
[2017-11-01] MEDS: Atorvastatin Calcium 10 MG TAB PO SCH (21:54)
[2017-11-02] MEDS: Multivitamin Tab PO SCH (09:15)
[2017-11-02] MEDS: Calcium Carb/Vit D 500 mg/200 U Tab PO SCH ×2 (09:15→17:26)
[2017-11-02] MEDS: Prednisolone 1% Ophth Susp 5 mL Bottle EACH EYE SCH ×3 (09:16→20:57)
[2017-11-02] MEDS ORDERED: chlorproMAZINE 25 mg/mL 2mL Amp IM STA (10:59)
--- NOTE | 2017-11-02 13:36 | Internal Medicine Prog Note ---
Internal Medicine Subjective - Subjective Service Date: 11/02/17 Patient seen and examined:: with staff Patient is:: awake, verbal, in bed, confused Per staff patient has:: no adverse event Internal Medicine Objective - Results Result Diagrams: 10/28/17 00:05 10/28/17 00:05 Recent Labs: Laboratory Last Values WBC 7.5 Th/cmm (4.8-10.8) 10/28/17 00:05 RBC 4.55 Mil/cmm (3.80-5.20) 10/28/17 00:05 Hgb 14.5 gm/dL (12-16) 10/28/17 00:05 Hct 43.6 % (41.0-60) 10/28/17 00:05 MCV 95.9 fl (81-100) 10/28/17 00:05 MCH 31.8 pg (27.0-31.0) H 10/28/17 00:05 MCHC Differential 33.2 pg (28.0-36.0) 10/28/17 00:05 RDW 13.3 % (11.5-20.0) 10/28/17 00:05 Plt Count 201 Th/cmm (150-400) 10/28/17 00:05 MPV 7.7 fl 10/28/17 00:05 Neutrophils % 59.9 % (40.0-80.0) 10/28/17 00:05 Lymphocytes % 27.9 % (20.0-50.0) 10/28/17 00:05 Monocytes % 8.9 % (2.0-10.0) 10/28/17 00:05 Eosinophils % 2.9 % (0.0-5.0) 10/28/17 00:05 Basophils % 0.4 % (0.0-2.0) 10/28/17 00:05 Sodium 139 mEq/L (136-145) 10/28/17 00:05 Potassium 4.5 mEq/L (3.5-5.1) 10/28/17 00:05 Chloride 110 mEq/L (98-107) H 10/28/17 00:05 Carbon Dioxide 24.1 mEq/L (21.0-31.0) 10/28/17 00:05 Anion Gap 9.4 (7.0-16.0) 10/28/17 00:05 BUN 23 mg/dL (7-25) 10/28/17 00:05 Creatinine 0.8 mg/dL (0.6-1.2) 10/28/17 00:05 Est GFR ( Amer) TNP 10/28/17 00:05 Est GFR (Non-Af Amer) TNP 10/28/17 00:05 BUN/Creatinine Ratio 28.8 10/28/17 00:05 Glucose 103 mg/dL (70-105) 10/28/17 00:05 Calcium 9.2 mg/dL (8.6-10.3) 10/28/17 00:05 Total Bilirubin 0.3 mg/dL (0.3-1.0) 10/28/17 00:05 AST 14 U/L (13-39) 10/28/17 00:05 ALT 13 U/L (7-52) 10/28/17 00:05 Alkaline Phosphatase 97 U/L (34-104) 10/28/17 00:05 Total Protein 5.8 gm/dL (6.0-8.3) L 10/28/17 00:05 Albumin 3.7 gm/dL (3.7-5.3) 10/28/17 00:05 Globulin 2.1 gm/dL 10/28/17 00:05 Albumin/Globulin Ratio 1.8 (1.0-1.8) 10/28/17 00:05 TSH 1.34 uIU/ml (0.34-5.60) 10/28/17 00:05 RPR NONREACTIVE (NONREACTIVE) 10/28/17 00:05 - Physical Exam Vitals and I&O: Vital Signs Temp 97.2 F 11/02/17 06:31 Pulse 64 11/02/17 06:31 Resp 18 11/02/17 06:31 BP 118/66 11/02/17 06:31 Pulse Ox 97 11/02/17 06:31 Intake & Output 11/01/17 11/02/17 11/02/17 18:59 06:59 18:59 Intake Total 1000 120 Balance 1000 120 Intake: Oral 1000 120 Other: # Voids 3 3 # Bowel Movements 1 Active Medications: Current Medications Acetaminophen (Tylenol) 650 mg PO Q4HR PRN PRN Reason: Mild Pain / Temp above 100 Stop: 12/27/17 02:07 Al Hydrox/Mg Hydrox/Simethicone (Maalox) 30 ml PO Q4HR PRN PRN Reason: GI DISTRESS Stop: 12/27/17 02:07 Amlodipine Besylate (Norvasc) 10 mg PO DAILY [facility] Stop: 12/27/17 08:59 Last Admin: 11/02/17 09:15 Dose: Not Given Aripiprazole (Abilify) 2.5 mg PO DAILY [facility]; Protocol Stop: 12/28/17 08:59 Last Admin: 11/02/17 09:15 Dose: Not Given Atorvastatin Calcium (Lipitor) 10 mg PO HS [facility]; Protocol Stop: 12/27/17 20:59 Last Admin: 11/01/17 21:54 Dose: Not Given Calcium/Vitamin D (Oscal W/Vitamin D) 1 tab PO BID [facility] Stop: 12/27/17 08:59 Last Admin: 11/02/17 09:15 Dose: Not Given Clonidine HCl (Stwzitdg-Jyf-5) 1 patch TD Mo@0900 [facility] Stop: 01/02/18 08:59 Docusate Sodium (Colace) 100 mg PO DAILY [facility] Stop: 12/27/17 08:59 Last Admin: 11/02/17 09:15 Dose: Not Given Hydralazine HCl (Apresoline) 50 mg PO DAILY [facility] Stop: 12/27/17 08:59 Last Admin: 11/02/17 09:15 Dose: Not Given Lorazepam (Ativan) 0.5 mg PO Q4HR PRN; Protocol PRN Reason: Anxiety/agitation Stop: 11/27/17 02:07 Last Admin: 10/29/17 17:36 Dose: 0.5 mg Losartan Potassium (Cozaar) 25 mg PO DAILY [facility] Stop: 12/27/17 08:59 Last Admin: 11/02/17 09:15 Dose: Not Given Magnesium Hydroxide (Milk Of Magnesia) 30 ml PO HS PRN PRN Reason: Constipation Metoprolol Tartrate (Lopressor) 50 mg PO BID [facility] Stop: 12/27/17 08:59 Last Admin: 11/02/17 09:15 Dose: Not Given Multivitamins/Vitamin C (Theragran) 1 tab PO DAILY [facility] Stop: 12/27/17 08:59 Last Admin: 11/02/17 09:15 Dose: Not Given Prednisolone Acetate (Pred Forte 1% Ophth Susp) 2 drop EACH EYE TID NANCY Stop: 12/27/17 08:59 Last Admin: 11/02/17 09:16 Dose: Not Given Zolpidem Tartrate (Ambien) 5 mg PO HS PRN PRN Reason: Insomnia Stop: 12/27/17 02:07 Last Admin: 10/31/17 22:04 Dose: 5 mg General: demented HEENT: NC/AT, PERRLA, EOMI, anicteric sclerae, throat clear Neck: Supple, No JVD, No thyromegaly, +2 carotid pulse wo bruit, No LAD Lungs: CTAB Cardiovascular: Normal S1, Normal S2, without murmur Abdomen: non-tender, non-distended Extremities: clear Neurological: no change Internal Medicine Assmt/Plan - Assessment Assessment: 1.HTN. 2.HYPERLIPIDEMIA. 3.DJD. 4.DEMENTIA. - Plan Plan: CONTINUE ON CURRENT MEDICATION AND DIET. Nutritional Asmnt/Malnutr-PDOC - Dietary Evaluation Malnutrition Findings (Please click <Entered> for more info): Nutritional Asmnt/Malnutrition Start: 10/31/17 14: 08 Text: Status: Complete Freq: Protocol: Document 10/31/17 14:08 LCHENG (Rec: 10/31/17 14:15 [email or web address] [email or web address]) Nutritional Asmnt/Malnutrition Patient General Information Nutritional Screening Moderate Risk Diagnosis psychosis Pertinent Medical Hx/Surgical Hx HTN, hyperlipidemia, DJD, dementia, psychosis Subjective Information Pt seen in gallo-chair at time of visit. Pt has episodes of agitation. per EXECUTIVE LEGAL SECRETARY, pt eats everything. Per EMR, Po intake 100% of meals. Current Diet Order/ Nutrition Support [facility] soft chopped, LUCY Pertinent Medications lipitor, oscal w/vit D, colace , theragran Pertinent Labs 10/28 Cl 110 Nutritional Hx/Data Height 1.6 m Height (Calculated Centimeters) 160.0 Current Weight (lbs) 54.431 kg Weight (Calculated Kilograms) 54.4 Weight (Calculated Grams) 96907.1 [place] Body Weight 115 Body Mass Index (BMI) 21.2 Weight Status Approriate GI Symptoms GI Symptoms None Last BM 10/30 Difficult in: None Skin Integrity/Comment: intact Current %PO Good (75-100%) Estimated Nutritional Goals BEE in Kcals: Using Current wt Calories/Kcals/Kg 25-30 Kcals Calculated 1063-3067 Protein: Using Current wt Protein g/k Protein Calculated 55 Fluid: ml 1375-1650ml (1ml/kcal) Nutritional Problem No current Nutrition Prob Problem N/A Malnutrition Alert Is there a minimum of two criteria No selected? Query Text:Check all the applicable criteria. A minimum of two criteria are recommended for diagnosis of either severe or non-severe malnutrition. Malnutrition Related to Morbid Obesity Malnutrition related to morbid obesity No Intervention/Recommendation Comments 1. Continue with [facility] soft chopped LUCY diet as ordered. 2. Monitor PO intake, wt, labs and skin integrity 3. F/U as low risk in 7 days, 11/07 Expected Outcomes/Goals Expected Outcomes/Goals 1. PO intake to meet at least 75% of nutritional needs. 2. Wt stability, skin to remain intact, labs to approach WNL.
--- NOTE | 2017-11-02 20:03 | Progress Notes ---
DATE: 11/02/2017 Case was discussed with staff of the patient, reviewed records. The patient continues to be yelling and screaming, acting out, refusing to take her medication. Continues to be unpredictable, impulsive, needing redirection. Continues to have poor insight. Continues to need emergency medication and will be giving her 50 mg IM now because of her yelling and screaming, pounding on the table, screaming loud, refusing to take her medication. ____ taking her medications. She would no answer me. She kept yelling and screaming, unable to carry on a conversation or make safe plan for self-care and unpredictable and impulsive. She is a high fall risk. She is on a wheelchair. I will continue to work with the patient in group therapy, milieu therapy, adjusting medications as needed. JOB# [id number]
[2017-11-02] MEDS: Atorvastatin Calcium 10 MG TAB PO SCH (20:57)
[2017-11-03] MEDS: Calcium Carb/Vit D 500 mg/200 U Tab PO SCH ×2 (08:28→16:11)
[2017-11-03] MEDS: cloNIDine 0.2 mg/24 hr Tdm TD SCH (08:28)
[2017-11-03] MEDS: Prednisolone 1% Ophth Susp 5 mL Bottle EACH EYE SCH ×3 (08:29→22:00)
[2017-11-03] MEDS: Multivitamin Tab PO SCH (08:29)
--- NOTE | 2017-11-03 18:20 | Internal Medicine Prog Note ---
Internal Medicine Subjective - Subjective Service Date: 11/03/17 Patient seen and examined:: with staff Patient is:: awake, verbal, in bed, confused Per staff patient has:: no adverse event Internal Medicine Objective - Results Result Diagrams: 10/28/17 00:05 10/28/17 00:05 Recent Labs: Laboratory Last Values WBC 7.5 Th/cmm (4.8-10.8) 10/28/17 00:05 RBC 4.55 Mil/cmm (3.80-5.20) 10/28/17 00:05 Hgb 14.5 gm/dL (12-16) 10/28/17 00:05 Hct 43.6 % (41.0-60) 10/28/17 00:05 MCV 95.9 fl (81-100) 10/28/17 00:05 MCH 31.8 pg (27.0-31.0) H 10/28/17 00:05 MCHC Differential 33.2 pg (28.0-36.0) 10/28/17 00:05 RDW 13.3 % (11.5-20.0) 10/28/17 00:05 Plt Count 201 Th/cmm (150-400) 10/28/17 00:05 MPV 7.7 fl 10/28/17 00:05 Neutrophils % 59.9 % (40.0-80.0) 10/28/17 00:05 Lymphocytes % 27.9 % (20.0-50.0) 10/28/17 00:05 Monocytes % 8.9 % (2.0-10.0) 10/28/17 00:05 Eosinophils % 2.9 % (0.0-5.0) 10/28/17 00:05 Basophils % 0.4 % (0.0-2.0) 10/28/17 00:05 Sodium 139 mEq/L (136-145) 10/28/17 00:05 Potassium 4.5 mEq/L (3.5-5.1) 10/28/17 00:05 Chloride 110 mEq/L (98-107) H 10/28/17 00:05 Carbon Dioxide 24.1 mEq/L (21.0-31.0) 10/28/17 00:05 Anion Gap 9.4 (7.0-16.0) 10/28/17 00:05 BUN 23 mg/dL (7-25) 10/28/17 00:05 Creatinine 0.8 mg/dL (0.6-1.2) 10/28/17 00:05 Est GFR ( Amer) TNP 10/28/17 00:05 Est GFR (Non-Af Amer) TNP 10/28/17 00:05 BUN/Creatinine Ratio 28.8 10/28/17 00:05 Glucose 103 mg/dL (70-105) 10/28/17 00:05 Calcium 9.2 mg/dL (8.6-10.3) 10/28/17 00:05 Total Bilirubin 0.3 mg/dL (0.3-1.0) 10/28/17 00:05 AST 14 U/L (13-39) 10/28/17 00:05 ALT 13 U/L (7-52) 10/28/17 00:05 Alkaline Phosphatase 97 U/L (34-104) 10/28/17 00:05 Total Protein 5.8 gm/dL (6.0-8.3) L 10/28/17 00:05 Albumin 3.7 gm/dL (3.7-5.3) 10/28/17 00:05 Globulin 2.1 gm/dL 10/28/17 00:05 Albumin/Globulin Ratio 1.8 (1.0-1.8) 10/28/17 00:05 TSH 1.34 uIU/ml (0.34-5.60) 10/28/17 00:05 RPR NONREACTIVE (NONREACTIVE) 10/28/17 00:05 - Physical Exam Vitals and I&O: Vital Signs Temp 98.0 F 11/03/17 15:10 Pulse 87 11/03/17 15:10 Resp 19 11/03/17 15:10 BP 138/68 11/03/17 15:10 Pulse Ox 97 11/03/17 15:10 Intake & Output 11/02/17 11/03/17 11/03/17 18:59 06:59 18:59 Intake Total 1200 120 900 Balance 1200 120 900 Intake: Oral 1200 120 900 Other: # Voids 3 3 4 # Bowel Movements 1 Active Medications: Current Medications Acetaminophen (Tylenol) 650 mg PO Q4HR PRN PRN Reason: Mild Pain / Temp above 100 Stop: 12/27/17 02:07 Al Hydrox/Mg Hydrox/Simethicone (Maalox) 30 ml PO Q4HR PRN PRN Reason: GI DISTRESS Stop: 12/27/17 02:07 Amlodipine Besylate (Norvasc) 10 mg PO DAILY [facility] Stop: 12/27/17 08:59 Last Admin: 11/03/17 08:28 Dose: Not Given Aripiprazole (Abilify) 2.5 mg PO DAILY [facility]; Protocol Stop: 12/28/17 08:59 Last Admin: 11/03/17 08:28 Dose: Not Given Atorvastatin Calcium (Lipitor) 10 mg PO HS [facility]; Protocol Stop: 12/27/17 20:59 Last Admin: 11/02/17 20:57 Dose: 10 mg Calcium/Vitamin D (Oscal W/Vitamin D) 1 tab PO BID [facility] Stop: 12/27/17 08:59 Last Admin: 11/03/17 16:11 Dose: Not Given Clonidine HCl (Adkrtyhc-Osp-8) 1 patch TD Mo@0900 [facility] Stop: 01/02/18 08:59 Last Admin: 11/03/17 08:28 Dose: Not Given Docusate Sodium (Colace) 100 mg PO DAILY [facility] Stop: 12/27/17 08:59 Last Admin: 11/03/17 08:28 Dose: Not Given Hydralazine HCl (Apresoline) 50 mg PO DAILY [facility] Stop: 12/27/17 08:59 Last Admin: 11/03/17 08:29 Dose: Not Given Lorazepam (Ativan) 0.5 mg PO Q4HR PRN; Protocol PRN Reason: Anxiety/agitation Stop: 11/27/17 02:07 Last Admin: 11/03/17 05:09 Dose: 0.5 mg Losartan Potassium (Cozaar) 25 mg PO DAILY [facility] Stop: 12/27/17 08:59 Last Admin: 11/03/17 08:29 Dose: Not Given Magnesium Hydroxide (Milk Of Magnesia) 30 ml PO HS PRN PRN Reason: Constipation Metoprolol Tartrate (Lopressor) 50 mg PO BID [facility] Stop: 12/27/17 08:59 Last Admin: 11/03/17 16:11 Dose: Not Given Multivitamins/Vitamin C (Theragran) 1 tab PO DAILY [facility] Stop: 12/27/17 08:59 Last Admin: 11/03/17 08:29 Dose: Not Given Prednisolone Acetate (Pred Forte 1% Ophth Susp) 2 drop EACH EYE TID [facility] Stop: 12/27/17 08:59 Last Admin: 11/03/17 14:31 Dose: Not Given Zolpidem Tartrate (Ambien) 5 mg PO HS PRN PRN Reason: Insomnia Stop: 12/27/17 02:07 Last Admin: 11/02/17 20:58 Dose: 5 mg General: demented HEENT: NC/AT, PERRLA, EOMI, anicteric sclerae, throat clear Neck: Supple, No JVD, No thyromegaly, +2 carotid pulse wo bruit, No LAD Lungs: CTAB Cardiovascular: Normal S1, Normal S2, without murmur Abdomen: non-tender, non-distended Extremities: clear Neurological: no change Internal Medicine Assmt/Plan - Assessment Assessment: 1.HTN. 2.HYPERLIPIDEMIA. 3.DJD. 4.DEMENTIA. - Plan Plan: CONTINUE ON CURRENT MEDICATION AND DIET. Nutritional Asmnt/Malnutr-PDOC - Dietary Evaluation Malnutrition Findings (Please click <Entered> for more info): Nutritional Asmnt/Malnutrition Start: 10/31/17 14: 08 Text: Status: Complete Freq: Protocol: Document 10/31/17 14:08 LCHENG (Rec: 10/31/17 14:15 [email or web address] [email or web address]) Nutritional Asmnt/Malnutrition Patient General Information Nutritional Screening Moderate Risk Diagnosis psychosis Pertinent Medical Hx/Surgical Hx HTN, hyperlipidemia, DJD, dementia, psychosis Subjective Information Pt seen in gallo-chair at time of visit. Pt has episodes of agitation. per DRESS FINISHER, pt eats everything. Per EMR, Po intake 100% of meals. Current Diet Order/ Nutrition Support mech soft chopped, LUCY Pertinent Medications lipitor, oscal w/vit D, colace , theragran Pertinent Labs 10/28 Cl 110 Nutritional Hx/Data Height 1.6 m Height (Calculated Centimeters) 160.0 Current Weight (lbs) 54.431 kg Weight (Calculated Kilograms) 54.4 Weight (Calculated Grams) 74216.1 [place] Body Weight 115 Body Mass Index (BMI) 21.2 Weight Status Approriate GI Symptoms GI Symptoms None Last BM 6/28 Difficult in: None Skin Integrity/Comment: intact Current %PO Good (75-100%) Estimated Nutritional Goals BEE in Kcals: Using Current wt Calories/Kcals/Kg 25-30 Kcals Calculated 7777-4327 Protein: Using Current wt Protein g/k Protein Calculated 55 Fluid: ml 1375-1650ml (1ml/kcal) Nutritional Problem No current Nutrition Prob Problem N/A Malnutrition Alert Is there a minimum of two criteria No selected? Query Text:Check all the applicable criteria. A minimum of two criteria are recommended for diagnosis of either severe or non-severe malnutrition. Malnutrition Related to Morbid Obesity Malnutrition related to morbid obesity No Intervention/Recommendation Comments 1. Continue with [facility] soft chopped LUCY diet as ordered. 2. Monitor PO intake, wt, labs and skin integrity 3. F/U as low risk in 7 days, /6 Expected Outcomes/Goals Expected Outcomes/Goals 1. PO intake to meet at least 75% of nutritional needs. 2. Wt stability, skin to remain intact, labs to approach WNL.
--- NOTE | 2017-11-03 19:12 | Internal Medicine Prog Note ---
Internal Medicine Subjective - Subjective Service Date: 11/03/17 Patient seen and examined:: with staff Patient is:: awake, verbal, in bed, confused Per staff patient has:: no adverse event Internal Medicine Objective - Results Result Diagrams: 10/28/17 00:05 10/28/17 00:05 Recent Labs: Laboratory Last Values WBC 7.5 Th/cmm (4.8-10.8) 10/28/17 00:05 RBC 4.55 Mil/cmm (3.80-5.20) 10/28/17 00:05 Hgb 14.5 gm/dL (12-16) 10/28/17 00:05 Hct 43.6 % (41.0-60) 10/28/17 00:05 MCV 95.9 fl (81-100) 10/28/17 00:05 MCH 31.8 pg (27.0-31.0) H 10/28/17 00:05 MCHC Differential 33.2 pg (28.0-36.0) 10/28/17 00:05 RDW 13.3 % (11.5-20.0) 10/28/17 00:05 Plt Count 201 Th/cmm (150-400) 10/28/17 00:05 MPV 7.7 fl 10/28/17 00:05 Neutrophils % 59.9 % (40.0-80.0) 10/28/17 00:05 Lymphocytes % 27.9 % (20.0-50.0) 10/28/17 00:05 Monocytes % 8.9 % (2.0-10.0) 10/28/17 00:05 Eosinophils % 2.9 % (0.0-5.0) 10/28/17 00:05 Basophils % 0.4 % (0.0-2.0) 10/28/17 00:05 Sodium 139 mEq/L (136-145) 10/28/17 00:05 Potassium 4.5 mEq/L (3.5-5.1) 10/28/17 00:05 Chloride 110 mEq/L (98-107) H 10/28/17 00:05 Carbon Dioxide 24.1 mEq/L (21.0-31.0) 10/28/17 00:05 Anion Gap 9.4 (7.0-16.0) 10/28/17 00:05 BUN 23 mg/dL (7-25) 10/28/17 00:05 Creatinine 0.8 mg/dL (0.6-1.2) 10/28/17 00:05 Est GFR ( Amer) TNP 10/28/17 00:05 Est GFR (Non-Af Amer) TNP 10/28/17 00:05 BUN/Creatinine Ratio 28.8 10/28/17 00:05 Glucose 103 mg/dL (70-105) 10/28/17 00:05 Calcium 9.2 mg/dL (8.6-10.3) 10/28/17 00:05 Total Bilirubin 0.3 mg/dL (0.3-1.0) 10/28/17 00:05 AST 14 U/L (13-39) 10/28/17 00:05 ALT 13 U/L (7-52) 10/28/17 00:05 Alkaline Phosphatase 97 U/L (34-104) 10/28/17 00:05 Total Protein 5.8 gm/dL (6.0-8.3) L 10/28/17 00:05 Albumin 3.7 gm/dL (3.7-5.3) 10/28/17 00:05 Globulin 2.1 gm/dL 10/28/17 00:05 Albumin/Globulin Ratio 1.8 (1.0-1.8) 10/28/17 00:05 TSH 1.34 uIU/ml (0.34-5.60) 10/28/17 00:05 RPR NONREACTIVE (NONREACTIVE) 10/28/17 00:05 - Physical Exam Vitals and I&O: Vital Signs Temp 98.0 F 11/03/17 15:10 Pulse 87 11/03/17 15:10 Resp 19 11/03/17 15:10 BP 138/68 11/03/17 15:10 Pulse Ox 97 11/03/17 15:10 Intake & Output 11/03/17 11/03/17 11/04/17 06:59 18:59 06:59 Intake Total 120 900 Balance 120 900 Intake: Oral 120 900 Other: # Voids 3 4 # Bowel Movements 1 Active Medications: Current Medications Acetaminophen (Tylenol) 650 mg PO Q4HR PRN PRN Reason: Mild Pain / Temp above 100 Stop: 12/27/17 02:07 Al Hydrox/Mg Hydrox/Simethicone (Maalox) 30 ml PO Q4HR PRN PRN Reason: GI DISTRESS Stop: 12/27/17 02:07 Amlodipine Besylate (Norvasc) [address] [facility] Stop: 12/27/17 08:59 Last Admin: 11/03/17 08:28 Dose: Not Given Aripiprazole (Abilify) 2.[address] [facility]; Protocol Stop: 12/28/17 08:59 Last Admin: 11/03/17 08:28 Dose: Not Given Atorvastatin Calcium (Lipitor) [address] [facility]; Protocol Stop: 12/27/17 20:59 Last Admin: 11/02/17 20:57 Dose: 10 mg Calcium/Vitamin D (Oscal W/Vitamin D) [address] [facility] Stop: 12/27/17 08:59 Last Admin: 11/03/17 16:11 Dose: Not Given Clonidine HCl (Bkgmbgbg-Zcv-3) 1 patch TD Mo@0900 [facility] Stop: 01/02/18 08:59 Last Admin: 11/03/17 08:28 Dose: Not Given Docusate Sodium (Colace) [address] [facility] Stop: 12/27/17 08:59 Last Admin: 11/03/17 08:28 Dose: Not Given Hydralazine HCl (Apresoline) [address] [facility] Stop: 12/27/17 08:59 Last Admin: 11/03/17 08:29 Dose: Not Given Lorazepam (Ativan) 0.5 mg PO Q4HR PRN; Protocol PRN Reason: Anxiety/agitation Stop: 11/27/17 02:07 Last Admin: 11/03/17 05:09 Dose: 0.5 mg Losartan Potassium (Cozaar) [address] [facility] Stop: 12/27/17 08:59 Last Admin: 11/03/17 08:29 Dose: Not Given Magnesium Hydroxide (Milk Of Magnesia) 30 ml PO HS PRN PRN Reason: Constipation Metoprolol Tartrate (Lopressor) [address] [facility] Stop: 12/27/17 08:59 Last Admin: 11/03/17 16:11 Dose: Not Given Multivitamins/Vitamin C (Theragran) [address] [facility] Stop: 12/27/17 08:59 Last Admin: 11/03/17 08:29 Dose: Not Given Prednisolone Acetate (Pred Forte 1% Ophth Susp) 2 drop EACH EYE TID [facility] Stop: 12/27/17 08:59 Last Admin: 11/03/17 14:31 Dose: Not Given Zolpidem Tartrate (Ambien) 5 mg PO HS PRN PRN Reason: Insomnia Stop: 12/27/17 02:07 Last Admin: 11/02/17 20:58 Dose: 5 mg General: demented HEENT: NC/AT, PERRLA, EOMI, anicteric sclerae, throat clear Neck: Supple, No JVD, No thyromegaly, +2 carotid pulse wo bruit, No LAD Lungs: CTAB Cardiovascular: Normal S1, Normal S2, without murmur Abdomen: non-tender, non-distended Extremities: clear Neurological: no change Internal Medicine Assmt/Plan - Assessment Assessment: 1.HTN. 2.HYPERLIPIDEMIA. 3.DJD. 4.DEMENTIA. - Plan Plan: CONTINUE ON CURRENT MEDICATION AND DIET. Nutritional Asmnt/Malnutr-PDOC - Dietary Evaluation Malnutrition Findings (Please click <Entered> for more info): Nutritional Asmnt/Malnutrition Start: 10/31/17 14: 08 Text: Status: Complete Freq: Protocol: Document 10/31/17 14:08 LCHENG (Rec: 10/31/17 14:15 [email or web address] [email or web address]) Nutritional Asmnt/Malnutrition Patient General Information Nutritional Screening Moderate Risk Diagnosis psychosis Pertinent Medical Hx/Surgical Hx HTN, hyperlipidemia, DJD, dementia, psychosis Subjective Information Pt seen in gallo-chair at time of visit. Pt has episodes of agitation. per MANAGER UI, pt eats everything. Per EMR, Po intake 100% of meals. Current Diet Order/ [facility]UC[facility] Pertinent Medications lipitor, oscal w/vit D, colace , theragran Pertinent Labs 10/28 Cl 110 Nutritional Hx/Data Height 1.6 m Height (Calculated Centimeters) 160.0 Current Weight (lbs) 54.431 kg Weight (Calculated Kilograms) 54.4 Weight (Calculated Grams) 88675.1 [place] Body Weight 115 Body Mass Index (BMI) 21.2 Weight Status Approriate GI Symptoms GI Symptoms None Last BM 10/30 Difficult in: None Skin Integrity/Comment: intact Current %PO Good (75-100%) Estimated Nutritional Goals BEE in Kcals: Using Current wt Calories/Kcals/Kg 25-30 Kcals Calculated 1522-0944 Protein: Using Current wt Protein g/k Protein Calculated 55 Fluid: ml 1375-1650ml (1ml/kcal) Nutritional Problem No current Nutrition Prob Problem N/A Malnutrition Alert Is there a minimum of two criteria No selected? Query Text:Check all the applicable criteria. A minimum of two criteria are recommended for diagnosis of either severe or non-severe malnutrition. Malnutrition Related to Morbid Obesity Malnutrition related to morbid obesity No Intervention/Recommendation Comments 1. Continue with [facility] soft chopped LUCY diet as ordered. 2. Monitor PO intake, wt, labs and skin integrity 3. F/U as low risk in 7 days, 11/07 Expected Outcomes/Goals Expected Outcomes/Goals 1. PO intake to meet at least 75% of nutritional needs. 2. Wt stability, skin to remain intact, labs to approach WNL.
[2017-11-03] MEDS: Atorvastatin Calcium 10 MG TAB PO SCH (22:00)
--- NOTE | 2017-11-03 23:34 | Progress Notes ---
DATE: 11/03/2017 SUBJECTIVE: Case was discussed with staff of the patient, reviewed records. The patient continues to be agitated, refusing medication. She continues to be unable to make safe plan for self-care. She is very agitated, yelling and screaming, threatening staff at times. When I talked to her with a [place] speaking staff about the reason why she is not taking medication, she said she should not be on medication that the doctor only prescribed her eye drops and I told her I am a doctor and I am prescribing her medications. She said I am not doctor. She would not listen, would not tell me why, or participate in meaningful conversation. She is still gravely disabled. She is unable to make safe plan for self-care. So, we are going to initiated the process of trying to put her on medication. We will continue to work with the patient in group therapy, milieu therapy, and adjust the medications as needed. JOB# [id number]
[2017-11-04] MEDS: Multivitamin Tab PO SCH ×2 (10:20→11:11)
[2017-11-04] MEDS: Calcium Carb/Vit D 500 mg/200 U Tab PO SCH ×3 (10:21→14:34)
[2017-11-04] MEDS: Prednisolone 1% Ophth Susp 5 mL Bottle EACH EYE SCH ×3 (11:11→20:25)
[2017-11-04] MEDS: Atorvastatin Calcium 10 MG TAB PO SCH (20:25)
--- NOTE | 2017-11-04 21:32 | Internal Medicine Prog Note ---
Internal Medicine Subjective - Subjective Service Date: 11/04/17 Patient seen and examined:: with staff Patient is:: awake, verbal, in bed, confused Per staff patient has:: no adverse event Internal Medicine Objective - Results Result Diagrams: 10/28/17 00:05 10/28/17 00:05 Recent Labs: Laboratory Last Values WBC 7.5 Th/cmm (4.8-10.8) 10/28/17 00:05 RBC 4.55 Mil/cmm (3.80-5.20) 10/28/17 00:05 Hgb 14.5 gm/dL (12-16) 10/28/17 00:05 Hct 43.6 % (41.0-60) 10/28/17 00:05 MCV 95.9 fl (81-100) 10/28/17 00:05 MCH 31.8 pg (27.0-31.0) H 10/28/17 00:05 MCHC Differential 33.2 pg (28.0-36.0) 10/28/17 00:05 RDW 13.3 % (11.5-20.0) 10/28/17 00:05 Plt Count 201 Th/cmm (150-400) 10/28/17 00:05 MPV 7.7 fl 10/28/17 00:05 Neutrophils % 59.9 % (40.0-80.0) 10/28/17 00:05 Lymphocytes % 27.9 % (20.0-50.0) 10/28/17 00:05 Monocytes % 8.9 % (2.0-10.0) 10/28/17 00:05 Eosinophils % 2.9 % (0.0-5.0) 10/28/17 00:05 Basophils % 0.4 % (0.0-2.0) 10/28/17 00:05 Sodium 139 mEq/L (136-145) 10/28/17 00:05 Potassium 4.5 mEq/L (3.5-5.1) 10/28/17 00:05 Chloride 110 mEq/L (98-107) H 10/28/17 00:05 Carbon Dioxide 24.1 mEq/L (21.0-31.0) 10/28/17 00:05 Anion Gap 9.4 (7.0-16.0) 10/28/17 00:05 BUN 23 mg/dL (7-25) 10/28/17 00:05 Creatinine 0.8 mg/dL (0.6-1.2) 10/28/17 00:05 Est GFR ( Amer) TNP 10/28/17 00:05 Est GFR (Non-Af Amer) TNP 10/28/17 00:05 BUN/Creatinine Ratio 28.8 10/28/17 00:05 Glucose 103 mg/dL (70-105) 10/28/17 00:05 Calcium 9.2 mg/dL (8.6-10.3) 10/28/17 00:05 Total Bilirubin 0.3 mg/dL (0.3-1.0) 10/28/17 00:05 AST 14 U/L (13-39) 10/28/17 00:05 ALT 13 U/L (7-52) 10/28/17 00:05 Alkaline Phosphatase 97 U/L (34-104) 10/28/17 00:05 Total Protein 5.8 gm/dL (6.0-8.3) L 10/28/17 00:05 Albumin 3.7 gm/dL (3.7-5.3) 10/28/17 00:05 Globulin 2.1 gm/dL 10/28/17 00:05 Albumin/Globulin Ratio 1.8 (1.0-1.8) 10/28/17 00:05 TSH 1.34 uIU/ml (0.34-5.60) 10/28/17 00:05 RPR NONREACTIVE (NONREACTIVE) 10/28/17 00:05 - Physical Exam Vitals and I&O: Vital Signs Temp 99.4 F 11/04/17 15:09 Pulse 93 11/04/17 15:09 Resp 20 11/04/17 15:09 BP 157/93 11/04/17 15:09 Pulse Ox 96 11/04/17 15:09 Intake & Output 11/04/17 11/04/17 11/05/17 06:59 18:59 06:59 Intake Total 240 900 120 Output Total 1 Balance 239 900 120 Intake: Oral 240 900 120 Output: Urine/Stool Mix 1 Other: # Voids 1 3 1 # Bowel Movements 1 0 Active Medications: Current Medications Acetaminophen (Tylenol) 650 mg PO Q4HR PRN PRN Reason: Mild Pain / Temp above 100 Stop: 12/27/17 02:07 Al Hydrox/Mg Hydrox/Simethicone (Maalox) 30 ml PO Q4HR PRN PRN Reason: GI DISTRESS Stop: 12/27/17 02:07 Amlodipine Besylate (Norvasc) 10 mg PO DAILY [facility] Stop: 12/27/17 08:59 Last Admin: 11/04/17 11:09 Dose: Not Given Aripiprazole (Abilify) 2.5 mg PO DAILY [facility]; Protocol Stop: 12/28/17 08:59 Last Admin: 11/04/17 11:10 Dose: Not Given Atorvastatin Calcium (Lipitor) 10 mg PO HS [facility]; Protocol Stop: 12/27/17 20:59 Last Admin: 11/04/17 20:25 Dose: Not Given Calcium/Vitamin D (Oscal W/Vitamin D) 1 tab PO BID [facility] Stop: 12/27/17 08:59 Last Admin: 11/04/17 14:34 Dose: Not Given Clonidine HCl (Fecqtcoz-Iod-7) 1 patch TD Mo@0900 [facility] Stop: 01/02/18 08:59 Last Admin: 11/03/17 08:28 Dose: Not Given Docusate Sodium (Colace) 100 mg PO DAILY [facility] Stop: 12/27/17 08:59 Last Admin: 11/04/17 11:10 Dose: Not Given Hydralazine HCl (Apresoline) 50 mg PO DAILY [facility] Stop: 12/27/17 08:59 Last Admin: 11/04/17 11:10 Dose: Not Given Lorazepam (Ativan) 0.5 mg PO Q4HR PRN; Protocol PRN Reason: Anxiety/agitation Stop: 11/27/17 02:07 Last Admin: 11/03/17 05:09 Dose: 0.5 mg Losartan Potassium (Cozaar) 25 mg PO DAILY [facility] Stop: 12/27/17 08:59 Last Admin: 11/04/17 11:10 Dose: Not Given Magnesium Hydroxide (Milk Of Magnesia) 30 ml PO HS PRN PRN Reason: Constipation Metoprolol Tartrate (Lopressor) 50 mg PO BID [facility] Stop: 12/27/17 08:59 Last Admin: 11/04/17 14:34 Dose: Not Given Multivitamins/Vitamin C (Theragran) 1 tab PO DAILY [facility] Stop: 12/27/17 08:59 Last Admin: 11/04/17 11:11 Dose: Not Given Prednisolone Acetate (Pred Forte 1% Ophth Susp) 2 drop EACH EYE TID [facility] Stop: 12/27/17 08:59 Last Admin: 11/04/17 20:25 Dose: Not Given Zolpidem Tartrate (Ambien) 5 mg PO HS PRN PRN Reason: Insomnia Stop: 12/27/17 02:07 Last Admin: 11/02/17 20:58 Dose: 5 mg General: demented HEENT: NC/AT, PERRLA, EOMI, anicteric sclerae, throat clear Neck: Supple, No JVD, No thyromegaly, +2 carotid pulse wo bruit, No LAD Lungs: CTAB Cardiovascular: Normal S1, Normal S2, without murmur Abdomen: non-tender, non-distended Extremities: clear Neurological: no change Internal Medicine Assmt/Plan - Assessment Assessment: 1.HTN. 2.HYPERLIPIDEMIA. 3.DJD. 4.DEMENTIA. - Plan Plan: CONTINUE ON CURRENT MEDICATION AND DIET. Nutritional Asmnt/Malnutr-PDOC - Dietary Evaluation Malnutrition Findings (Please click <Entered> for more info): Nutritional Asmnt/Malnutrition Start: 10/31/17 14: 08 Text: Status: Complete Freq: Protocol: Document 10/31/17 14:08 LCHENG (Rec: 10/31/17 14:15 LCHENG [email or web address]) Nutritional Asmnt/Malnutrition Patient General Information Nutritional Screening Moderate Risk Diagnosis psychosis Pertinent Medical Hx/Surgical Hx HTN, hyperlipidemia, DJD, dementia, psychosis Subjective Information Pt seen in gallo-chair at time of visit. Pt has episodes of agitation. per BATTERY CHARGER TESTER, pt eats everything. Per EMR, Po intake 100% of meals. Current Diet Order/ Nutrition Support mech soft chopped, LUCY Pertinent Medications lipitor, oscal w/vit D, colace , theragran Pertinent Labs 10/28 Cl 110 Nutritional Hx/Data Height 1.6 m Height (Calculated Centimeters) 160.0 Current Weight (lbs) 54.431 kg Weight (Calculated Kilograms) 54.4 Weight (Calculated Grams) 67919.1 [place] Body Weight 115 Body Mass Index (BMI) 21.2 Weight Status Approriate GI Symptoms GI Symptoms None Last BM 6/28 Difficult in: None Skin Integrity/Comment: intact Current %PO Good (75-100%) Estimated Nutritional Goals BEE in Kcals: Using Current wt Calories/Kcals/Kg 25-30 Kcals Calculated 3451-9683 Protein: Using Current wt Protein g/k Protein Calculated 55 Fluid: ml 1375-1650ml (1ml/kcal) Nutritional Problem No current Nutrition Prob Problem N/A Malnutrition Alert Is there a minimum of two criteria No selected? Query Text:Check all the applicable criteria. A minimum of two criteria are recommended for diagnosis of either severe or non-severe malnutrition. Malnutrition Related to Morbid Obesity Malnutrition related to morbid obesity No Intervention/Recommendation Comments 1. [facility]UC[facility] as ordered. 2. Monitor PO intake, wt, labs and skin integrity 3. F/U as low risk in 7 days, 11/07 Expected Outcomes/Goals Expected Outcomes/Goals 1. PO intake to meet at least 75% of nutritional needs. 2. Wt stability, skin to remain intact, labs to approach WNL.
--- NOTE | 2017-11-04 23:52 | Progress Notes ---
DATE: 11/04/2017 SUBJECTIVE: Case was discussed with staff of the patient, reviewed records. The patient continues to refuse medication and continues to be acting out. Continues to be yelling and screaming, paranoid, continues to have poor insight. I talked a hand cloth examiner, asked why she is not taking medication and she said, she is not supposed to be on medication that doctor only gave her eyedrops and the staff told her that I am the doctor, she said, no, I am not a doctor. She is delusional, psychotic, confused, demented, unable to make safe plan for self-care. I will be initiating a ____ on her. JOB# [id number]
[2017-11-05] MEDS: Calcium Carb/Vit D 500 mg/200 U Tab PO SCH ×2 (10:17→17:51)
[2017-11-05] MEDS: Prednisolone 1% Ophth Susp 5 mL Bottle EACH EYE SCH ×3 (10:17→21:59)
[2017-11-05] MEDS: Multivitamin Tab PO SCH (10:17)
--- NOTE | 2017-11-05 20:56 | Internal Medicine Prog Note ---
Internal Medicine Subjective - Subjective Service Date: 11/05/17 Patient seen and examined:: with staff Patient is:: awake, verbal, in bed, confused Per staff patient has:: no adverse event Internal Medicine Objective - Results Result Diagrams: 10/28/17 00:05 10/28/17 00:05 Recent Labs: Laboratory Last Values WBC 7.5 Th/cmm (4.8-10.8) 10/28/17 00:05 RBC 4.55 Mil/cmm (3.80-5.20) 10/28/17 00:05 Hgb 14.5 gm/dL (12-16) 10/28/17 00:05 Hct 43.6 % (41.0-60) 10/28/17 00:05 MCV 95.9 fl (81-100) 10/28/17 00:05 MCH 31.8 pg (27.0-31.0) H 10/28/17 00:05 MCHC Differential 33.2 pg (28.0-36.0) 10/28/17 00:05 RDW 13.3 % (11.5-20.0) 10/28/17 00:05 Plt Count 201 Th/cmm (150-400) 10/28/17 00:05 MPV 7.7 fl 10/28/17 00:05 Neutrophils % 59.9 % (40.0-80.0) 10/28/17 00:05 Lymphocytes % 27.9 % (20.0-50.0) 10/28/17 00:05 Monocytes % 8.9 % (2.0-10.0) 10/28/17 00:05 Eosinophils % 2.9 % (0.0-5.0) 10/28/17 00:05 Basophils % 0.4 % (0.0-2.0) 10/28/17 00:05 Sodium 139 mEq/L (136-145) 10/28/17 00:05 Potassium 4.5 mEq/L (3.5-5.1) 10/28/17 00:05 Chloride 110 mEq/L (98-107) H 10/28/17 00:05 Carbon Dioxide 24.1 mEq/L (21.0-31.0) 10/28/17 00:05 Anion Gap 9.4 (7.0-16.0) 10/28/17 00:05 BUN 23 mg/dL (7-25) 10/28/17 00:05 Creatinine 0.8 mg/dL (0.6-1.2) 10/28/17 00:05 Est GFR ( Amer) TNP 10/28/17 00:05 Est GFR (Non-Af Amer) TNP 10/28/17 00:05 BUN/Creatinine Ratio 28.8 10/28/17 00:05 Glucose 103 mg/dL (70-105) 10/28/17 00:05 Calcium 9.2 mg/dL (8.6-10.3) 10/28/17 00:05 Total Bilirubin 0.3 mg/dL (0.3-1.0) 10/28/17 00:05 AST 14 U/L (13-39) 10/28/17 00:05 ALT 13 U/L (7-52) 10/28/17 00:05 Alkaline Phosphatase 97 U/L (34-104) 10/28/17 00:05 Total Protein 5.8 gm/dL (6.0-8.3) L 10/28/17 00:05 Albumin 3.7 gm/dL (3.7-5.3) 10/28/17 00:05 Globulin 2.1 gm/dL 10/28/17 00:05 Albumin/Globulin Ratio 1.8 (1.0-1.8) 10/28/17 00:05 TSH 1.34 uIU/ml (0.34-5.60) 10/28/17 00:05 RPR NONREACTIVE (NONREACTIVE) 10/28/17 00:05 - Physical Exam Vitals and I&O: Vital Signs Temp 98 F 11/05/17 06:36 Pulse 62 11/05/17 06:36 Resp 18 11/05/17 06:36 BP 140/67 11/05/17 06:36 Pulse Ox 98 11/05/17 06:36 Intake & Output 11/05/17 11/05/17 11/06/17 06:59 18:59 06:59 Intake Total 360 1200 Output Total 2 Balance 358 1200 Intake: Oral 360 1200 Output: Urine 1 Urine/Stool Mix 1 Other: # Voids 1 3 # Bowel Movements 0 Active Medications: Current Medications Acetaminophen (Tylenol) 650 mg PO Q4HR PRN PRN Reason: Mild Pain / Temp above 100 Stop: 12/27/17 02:07 Al Hydrox/Mg Hydrox/Simethicone (Maalox) 30 ml PO Q4HR PRN PRN Reason: GI DISTRESS Stop: 12/27/17 02:07 Amlodipine Besylate (Norvasc) 10 mg PO DAILY [facility] Stop: 12/27/17 08:59 Last Admin: 11/05/17 10:16 Dose: Not Given Aripiprazole (Abilify) 2.5 mg PO DAILY [facility]; Protocol Stop: 12/28/17 08:59 Last Admin: 11/05/17 10:17 Dose: Not Given Atorvastatin Calcium (Lipitor) 10 mg PO HS [facility]; Protocol Stop: 12/27/17 20:59 Last Admin: 11/04/17 20:25 Dose: Not Given Calcium/Vitamin D (Oscal W/Vitamin D) 1 tab PO BID [facility] Stop: 12/27/17 08:59 Last Admin: 11/05/17 17:51 Dose: Not Given Clonidine HCl (Rqdcqoeb-Yxw-4) 1 patch TD Mo@0900 [facility] Stop: 01/02/18 08:59 Last Admin: 11/03/17 08:28 Dose: Not Given Docusate Sodium (Colace) 100 mg PO DAILY [facility] Stop: 12/27/17 08:59 Last Admin: 11/05/17 10:17 Dose: Not Given Hydralazine HCl (Apresoline) 50 mg PO DAILY [facility] Stop: 12/27/17 08:59 Last Admin: 11/05/17 10:17 Dose: Not Given Lorazepam (Ativan) 0.5 mg PO Q4HR PRN; Protocol PRN Reason: Anxiety/agitation Stop: 11/27/17 02:07 Last Admin: 11/03/17 05:09 Dose: 0.5 mg Losartan Potassium (Cozaar) 25 mg PO DAILY [facility] Stop: 12/27/17 08:59 Last Admin: 11/05/17 10:17 Dose: Not Given Magnesium Hydroxide (Milk Of Magnesia) 30 ml PO HS PRN PRN Reason: Constipation Metoprolol Tartrate (Lopressor) 50 mg PO BID [facility] Stop: 12/27/17 08:59 Last Admin: 11/05/17 17:51 Dose: Not Given Multivitamins/Vitamin C (Theragran) 1 tab PO DAILY [facility] Stop: 12/27/17 08:59 Last Admin: 11/05/17 10:17 Dose: Not Given Prednisolone Acetate (Pred Forte 1% Ophth Susp) 2 drop EACH EYE TID NANCY Stop: 12/27/17 08:59 Last Admin: 11/05/17 13:09 Dose: Not Given Zolpidem Tartrate (Ambien) 5 mg PO HS PRN PRN Reason: Insomnia Stop: 12/27/17 02:07 Last Admin: 11/02/17 20:58 Dose: 5 mg General: demented HEENT: NC/AT, PERRLA, EOMI, anicteric sclerae, throat clear Neck: Supple, No JVD, No thyromegaly, +2 carotid pulse wo bruit, No LAD Lungs: CTAB Cardiovascular: Normal S1, Normal S2, without murmur Abdomen: non-tender, non-distended Extremities: clear Neurological: no change Internal Medicine Assmt/Plan - Assessment Assessment: 1.HTN. 2.HYPERLIPIDEMIA. 3.DJD. 4.DEMENTIA. - Plan Plan: CONTINUE ON CURRENT MEDICATION AND DIET. Nutritional Asmnt/Malnutr-PDOC - Dietary Evaluation Malnutrition Findings (Please click <Entered> for more info): Nutritional Asmnt/Malnutrition Start: 10/31/17 14: 08 Text: Status: Complete Freq: Protocol: Document 10/31/17 14:08 LCHENG (Rec: 10/31/17 14:15 [email or web address]) Nutritional Asmnt/Malnutrition Patient General Information Nutritional Screening Moderate Risk Diagnosis psychosis Pertinent Medical Hx/Surgical Hx HTN, hyperlipidemia, DJD, dementia, psychosis Subjective Information Pt seen in gallo-chair at time of visit. Pt has episodes of agitation. per FIRESTOPPER INSTALLER, pt eats everything. Per EMR, Po intake 100% of meals. Current Diet Order/ Nutrition Support [facility] soft chopped, LUCY Pertinent Medications lipitor, oscal w/vit D, colace , theragran Pertinent Labs 10/28 Cl 110 Nutritional Hx/Data Height 1.6 m Height (Calculated Centimeters) 160.0 Current Weight (lbs) 54.431 kg Weight (Calculated Kilograms) 54.4 Weight (Calculated Grams) 52445.1 [place] Body Weight 115 Body Mass Index (BMI) 21.2 Weight Status Approriate GI Symptoms GI Symptoms None Last BM 10/30 Difficult in: None Skin Integrity/Comment: intact Current %PO Good (75-100%) Estimated Nutritional Goals BEE in Kcals: Using Current wt Calories/Kcals/Kg 25-30 Kcals Calculated 1754-2697 Protein: Using Current wt Protein g/k Protein Calculated 55 Fluid: ml 1375-1650ml (1ml/kcal) Nutritional Problem No current Nutrition Prob Problem N/A Malnutrition Alert Is there a minimum of two criteria No selected? Query Text:Check all the applicable criteria. A minimum of two criteria are recommended for diagnosis of either severe or non-severe malnutrition. Malnutrition Related to Morbid Obesity Malnutrition related to morbid obesity No Intervention/Recommendation Comments 1. Continue with [facility] soft chopped LUCY diet as ordered. 2. Monitor PO intake, wt, labs and skin integrity 3. F/U as low risk in 7 days, 11/07 Expected Outcomes/Goals Expected Outcomes/Goals 1. PO intake to meet at least 75% of nutritional needs. 2. Wt stability, skin to remain intact, labs to approach WNL.
[2017-11-05] MEDS: Atorvastatin Calcium 10 MG TAB PO SCH (21:59)
--- NOTE | 2017-11-05 23:59 | Progress Notes ---
DATE: 11/05/2017 Case was discussed with staff of the patient. The patient continues to refuse medication. Continues to be rambling, continues to be unable to make safe plan for self-care. Files for Michelle for her, but we do not have a date yet. She is sleeping well, eating well. Continues to have episodes of agitation, irritability, needing multiple times of having to take emergency medication, but none in the last day. She is a bit calmer since she got an injection in the last 2 days. No side effects with the medication, no sedation, no nausea, no extrapyramidal symptoms. The patient would not tell me why she is not taking her medication or if there is any medication to take or any side effects and she says she does not take medication. The only medication she was prescribed is eyedrops. We will continue to have the patient in group therapy, milieu therapy, and adjust medications as needed. JOB# [id number]
[2017-11-06] MEDS: Calcium Carb/Vit D 500 mg/200 U Tab PO SCH ×2 (12:48→17:13)
[2017-11-06] MEDS: Prednisolone 1% Ophth Susp 5 mL Bottle EACH EYE SCH ×3 (12:49→21:40)
[2017-11-06] MEDS: Multivitamin Tab PO SCH (12:49)
[2017-11-06] MEDS ORDERED: chlorproMAZINE 25 mg/mL 2mL Amp IM STA (14:15)
--- NOTE | 2017-11-06 17:14 | Internal Medicine Prog Note ---
Internal Medicine Subjective - Subjective Service Date: 11/06/17 Patient seen and examined:: with staff Patient is:: awake, verbal, in bed, confused Per staff patient has:: no adverse event Internal Medicine Objective - Results Result Diagrams: 10/28/17 00:05 10/28/17 00:05 Recent Labs: Laboratory Last Values WBC 7.5 Th/cmm (4.8-10.8) 10/28/17 00:05 RBC 4.55 Mil/cmm (3.80-5.20) 10/28/17 00:05 Hgb 14.5 gm/dL (12-16) 10/28/17 00:05 Hct 43.6 % (41.0-60) 10/28/17 00:05 MCV 95.9 fl (81-100) 10/28/17 00:05 MCH 31.8 pg (27.0-31.0) H 10/28/17 00:05 MCHC Differential 33.2 pg (28.0-36.0) 10/28/17 00:05 RDW 13.3 % (11.5-20.0) 10/28/17 00:05 Plt Count 201 Th/cmm (150-400) 10/28/17 00:05 MPV 7.7 fl 10/28/17 00:05 Neutrophils % 59.9 % (40.0-80.0) 10/28/17 00:05 Lymphocytes % 27.9 % (20.0-50.0) 10/28/17 00:05 Monocytes % 8.9 % (2.0-10.0) 10/28/17 00:05 Eosinophils % 2.9 % (0.0-5.0) 10/28/17 00:05 Basophils % 0.4 % (0.0-2.0) 10/28/17 00:05 Sodium 139 mEq/L (136-145) 10/28/17 00:05 Potassium 4.5 mEq/L (3.5-5.1) 10/28/17 00:05 Chloride 110 mEq/L (98-107) H 10/28/17 00:05 Carbon Dioxide 24.1 mEq/L (21.0-31.0) 10/28/17 00:05 Anion Gap 9.4 (7.0-16.0) 10/28/17 00:05 BUN 23 mg/dL (7-25) 10/28/17 00:05 Creatinine 0.8 mg/dL (0.6-1.2) 10/28/17 00:05 Est GFR ( Amer) TNP 10/28/17 00:05 Est GFR (Non-Af Amer) TNP 10/28/17 00:05 BUN/Creatinine Ratio 28.8 10/28/17 00:05 Glucose 103 mg/dL (70-105) 10/28/17 00:05 Calcium 9.2 mg/dL (8.6-10.3) 10/28/17 00:05 Total Bilirubin 0.3 mg/dL (0.3-1.0) 10/28/17 00:05 AST 14 U/L (13-39) 10/28/17 00:05 ALT 13 U/L (7-52) 10/28/17 00:05 Alkaline Phosphatase 97 U/L (34-104) 10/28/17 00:05 Total Protein 5.8 gm/dL (6.0-8.3) L 10/28/17 00:05 Albumin 3.7 gm/dL (3.7-5.3) 10/28/17 00:05 Globulin 2.1 gm/dL 10/28/17 00:05 Albumin/Globulin Ratio 1.8 (1.0-1.8) 10/28/17 00:05 TSH 1.34 uIU/ml (0.34-5.60) 10/28/17 00:05 RPR NONREACTIVE (NONREACTIVE) 10/28/17 00:05 - Physical Exam Vitals and I&O: Vital Signs Temp 97.9 F 11/05/17 20:00 Pulse 97 11/05/17 20:00 Resp 20 11/05/17 20:00 BP 185/96 11/05/17 20:00 Pulse Ox 97 11/05/17 20:00 Intake & Output 11/05/17 11/06/17 11/06/17 18:59 06:59 18:59 Intake Total 1200 540 Balance 1200 540 Intake: Oral 1200 540 Other: # Voids 3 1 Active Medications: Current Medications Acetaminophen (Tylenol) 650 mg PO Q4HR PRN PRN Reason: Mild Pain / Temp above 100 Stop: 12/27/17 02:07 Al Hydrox/Mg Hydrox/Simethicone (Maalox) 30 ml PO Q4HR PRN PRN Reason: GI DISTRESS Stop: 12/27/17 02:07 Amlodipine Besylate (Norvasc) 10 mg PO DAILY [facility] Stop: 12/27/17 08:59 Last Admin: 11/06/17 12:48 Dose: Not Given Aripiprazole (Abilify) 2.5 mg PO DAILY [facility]; Protocol Stop: 12/28/17 08:59 Last Admin: 11/06/17 12:48 Dose: Not Given Atorvastatin Calcium (Lipitor) 10 mg PO HS [facility]; Protocol Stop: 12/27/17 20:59 Last Admin: 11/05/17 21:59 Dose: Not Given Calcium/Vitamin D (Oscal W/Vitamin D) 1 tab PO BID [facility] Stop: 12/27/17 08:59 Last Admin: 11/06/17 17:13 Dose: Not Given Clonidine HCl (Tvybxdjp-Qft-7) 1 patch TD Mo@0900 [facility] Stop: 01/02/18 08:59 Last Admin: 11/03/17 08:28 Dose: Not Given Docusate Sodium (Colace) 100 mg PO DAILY [facility] Stop: 12/27/17 08:59 Last Admin: 11/06/17 12:48 Dose: Not Given Hydralazine HCl (Apresoline) 50 mg PO DAILY [facility] Stop: 12/27/17 08:59 Last Admin: 11/06/17 12:49 Dose: Not Given Lorazepam (Ativan) 0.5 mg PO Q4HR PRN; Protocol PRN Reason: Anxiety/agitation Stop: 11/27/17 02:07 Last Admin: 11/03/17 05:09 Dose: 0.5 mg Losartan Potassium (Cozaar) 25 mg PO DAILY [facility] Stop: 12/27/17 08:59 Last Admin: 11/06/17 12:49 Dose: Not Given Magnesium Hydroxide (Milk Of Magnesia) 30 ml PO HS PRN PRN Reason: Constipation Metoprolol Tartrate (Lopressor) 50 mg PO BID [facility] Stop: 12/27/17 08:59 Last Admin: 11/06/17 17:13 Dose: Not Given Multivitamins/Vitamin C (Theragran) 1 tab PO DAILY [facility] Stop: 12/27/17 08:59 Last Admin: 11/06/17 12:49 Dose: Not Given Prednisolone Acetate (Pred Forte 1% Ophth Susp) 2 drop EACH EYE TID NANCY Stop: 12/27/17 08:59 Last Admin: 11/06/17 17:13 Dose: Not Given Zolpidem Tartrate (Ambien) 5 mg PO HS PRN PRN Reason: Insomnia Stop: 12/27/17 02:07 Last Admin: 11/02/17 20:58 Dose: 5 mg General: demented HEENT: NC/AT, PERRLA, EOMI, anicteric sclerae, throat clear Neck: Supple, No JVD, No thyromegaly, +2 carotid pulse wo bruit, No LAD Lungs: CTAB Cardiovascular: Normal S1, Normal S2, without murmur Abdomen: non-tender, non-distended Extremities: clear Neurological: no change Internal Medicine Assmt/Plan - Assessment Assessment: 1.HTN. 2.HYPERLIPIDEMIA. 3.DJD. 4.DEMENTIA. - Plan Plan: CONTINUE ON CURRENT MEDICATION AND DIET. Nutritional Asmnt/Malnutr-PDOC - Dietary Evaluation Malnutrition Findings (Please click <Entered> for more info): Nutritional Asmnt/Malnutrition Start: 10/31/17 14: 08 Text: Status: Complete Freq: Protocol: Document 10/31/17 14:08 LCHENG (Rec: 10/31/17 14:15 [email or web address]) Nutritional Asmnt/Malnutrition Patient General Information Nutritional Screening Moderate Risk Diagnosis psychosis Pertinent Medical Hx/Surgical Hx HTN, hyperlipidemia, DJD, dementia, psychosis Subjective Information Pt seen in gallo-chair at time of visit. Pt has episodes of agitation. per CLASSIFIED COPY CONTROL CLERK, pt eats everything. Per EMR, Po intake 100% of meals. Current Diet Order/ Nutrition Support [facility] soft chopped, LUCY Pertinent Medications lipitor, oscal w/vit D, colace , theragran Pertinent Labs 10/28 Cl 110 Nutritional Hx/Data Height 1.6 m Height (Calculated Centimeters) 160.0 Current Weight (lbs) 54.431 kg Weight (Calculated Kilograms) 54.4 Weight (Calculated Grams) 46969.1 [place] Body Weight 115 Body Mass Index (BMI) 21.2 Weight Status Approriate GI Symptoms GI Symptoms None Last BM 10/30 Difficult in: None Skin Integrity/Comment: intact Current %PO Good (75-100%) Estimated Nutritional Goals BEE in Kcals: Using Current wt Calories/Kcals/Kg 25-30 Kcals Calculated 2168-4692 Protein: Using Current wt Protein g/k Protein Calculated 55 Fluid: ml 1375-1650ml (1ml/kcal) Nutritional Problem No current Nutrition Prob Problem N/A Malnutrition Alert Is there a minimum of two criteria No selected? Query Text:Check all the applicable criteria. A minimum of two criteria are recommended for diagnosis of either severe or non-severe malnutrition. Malnutrition Related to Morbid Obesity Malnutrition related to morbid obesity No Intervention/Recommendation Comments 1. Continue with [facility] soft chopped LUCY diet as ordered. 2. Monitor PO intake, wt, labs and skin integrity 3. F/U as low risk in 7 days, 11/07 Expected Outcomes/Goals Expected Outcomes/Goals 1. PO intake to meet at least 75% of nutritional needs. 2. Wt stability, skin to remain intact, labs to approach WNL.
--- NOTE | 2017-11-06 20:40 | Progress Notes ---
DATE: 11/06/2017 Case was discussed with staff of the patient, reviewed records. The patient continues to be acting agitated, refusing medication. I talked with her conductor and engineer why she would not take her medication, she does not believe she needs to be on medication. Continues to be unpredictable, impulsive, needing redirection. Continues to have poor insight. I did file for Rimarnie waiting for date. She has been combative and we will be giving her medication today, Thorazine ____ mg IM because of her agitated, combative behavior, and work with the patient in group therapy and milieu therapy, adjust medications as needed. JOB# [id number]
[2017-11-06] MEDS: Atorvastatin Calcium 10 MG TAB PO SCH (21:39)
--- NOTE | 2017-11-07 16:31 | Internal Medicine Prog Note ---
Internal Medicine Subjective - Subjective Service Date: 11/07/17 Patient seen and examined:: with staff Patient is:: awake, verbal, in bed, confused Per staff patient has:: no adverse event Internal Medicine Objective - Results Result Diagrams: 10/28/17 00:05 10/28/17 00:05 Recent Labs: Laboratory Last Values WBC 7.5 Th/cmm (4.8-10.8) 10/28/17 00:05 RBC 4.55 Mil/cmm (3.80-5.20) 10/28/17 00:05 Hgb 14.5 gm/dL (12-16) 10/28/17 00:05 Hct 43.6 % (41.0-60) 10/28/17 00:05 MCV 95.9 fl (81-100) 10/28/17 00:05 MCH 31.8 pg (27.0-31.0) H 10/28/17 00:05 MCHC Differential 33.2 pg (28.0-36.0) 10/28/17 00:05 RDW 13.3 % (11.5-20.0) 10/28/17 00:05 Plt Count 201 Th/cmm (150-400) 10/28/17 00:05 MPV 7.7 fl 10/28/17 00:05 Neutrophils % 59.9 % (40.0-80.0) 10/28/17 00:05 Lymphocytes % 27.9 % (20.0-50.0) 10/28/17 00:05 Monocytes % 8.9 % (2.0-10.0) 10/28/17 00:05 Eosinophils % 2.9 % (0.0-5.0) 10/28/17 00:05 Basophils % 0.4 % (0.0-2.0) 10/28/17 00:05 Sodium 139 mEq/L (136-145) 10/28/17 00:05 Potassium 4.5 mEq/L (3.5-5.1) 10/28/17 00:05 Chloride 110 mEq/L (98-107) H 10/28/17 00:05 Carbon Dioxide 24.1 mEq/L (21.0-31.0) 10/28/17 00:05 Anion Gap 9.4 (7.0-16.0) 10/28/17 00:05 BUN 23 mg/dL (7-25) 10/28/17 00:05 Creatinine 0.8 mg/dL (0.6-1.2) 10/28/17 00:05 Est GFR ( Amer) TNP 10/28/17 00:05 Est GFR (Non-Af Amer) TNP 10/28/17 00:05 BUN/Creatinine Ratio 28.8 10/28/17 00:05 Glucose 103 mg/dL (70-105) 10/28/17 00:05 Calcium 9.2 mg/dL (8.6-10.3) 10/28/17 00:05 Total Bilirubin 0.3 mg/dL (0.3-1.0) 10/28/17 00:05 AST 14 U/L (13-39) 10/28/17 00:05 ALT 13 U/L (7-52) 10/28/17 00:05 Alkaline Phosphatase 97 U/L (34-104) 10/28/17 00:05 Total Protein 5.8 gm/dL (6.0-8.3) L 10/28/17 00:05 Albumin 3.7 gm/dL (3.7-5.3) 10/28/17 00:05 Globulin 2.1 gm/dL 10/28/17 00:05 Albumin/Globulin Ratio 1.8 (1.0-1.8) 10/28/17 00:05 TSH 1.34 uIU/ml (0.34-5.60) 10/28/17 00:05 RPR NONREACTIVE (NONREACTIVE) 10/28/17 00:05 - Physical Exam Vitals and I&O: Vital Signs Temp 98.2 F 11/07/17 14:00 Pulse 91 11/07/17 14:00 Resp 20 11/07/17 14:00 BP 172/90 11/07/17 14:00 Pulse Ox 97 11/07/17 14:00 Intake & Output 11/06/17 11/07/17 11/07/17 18:59 06:59 18:59 Intake Total 1200 Balance 1200 Intake: Oral 1200 Other: # Voids 3 Active Medications: Current Medications Acetaminophen (Tylenol) 650 mg PO Q4HR PRN PRN Reason: Mild Pain / Temp above 100 Stop: 12/27/17 02:07 Al Hydrox/Mg Hydrox/Simethicone (Maalox) 30 ml PO Q4HR PRN PRN Reason: GI DISTRESS Stop: 12/27/17 02:07 Amlodipine Besylate (Norvasc) 10 mg PO DAILY [facility] Stop: 12/27/17 08:59 Last Admin: 11/06/17 12:48 Dose: Not Given Aripiprazole (Abilify) 2.5 mg PO DAILY [facility]; Protocol Stop: 12/28/17 08:59 Last Admin: 11/06/17 12:48 Dose: Not Given Atorvastatin Calcium (Lipitor) 10 mg PO HS [facility]; Protocol Stop: 12/27/17 20:59 Last Admin: 11/06/17 21:39 Dose: Not Given Calcium/Vitamin D (Oscal W/Vitamin D) 1 tab PO BID [facility] Stop: 12/27/17 08:59 Last Admin: 11/06/17 17:13 Dose: Not Given Clonidine HCl (Nkmbcnxp-Xbe-0) 1 patch TD Mo@0900 [facility] Stop: 01/02/18 08:59 Last Admin: 11/03/17 08:28 Dose: Not Given Docusate Sodium (Colace) 100 mg PO DAILY [facility] Stop: 12/27/17 08:59 Last Admin: 11/06/17 12:48 Dose: Not Given Hydralazine HCl (Apresoline) 50 mg PO DAILY [facility] Stop: 12/27/17 08:59 Last Admin: 11/06/17 12:49 Dose: Not Given Lorazepam (Ativan) 0.5 mg PO Q4HR PRN; Protocol PRN Reason: Anxiety/agitation Stop: 11/27/17 02:07 Last Admin: 11/07/17 14:32 Dose: 0.5 mg Losartan Potassium (Cozaar) 25 mg PO DAILY [facility] Stop: 12/27/17 08:59 Last Admin: 11/06/17 12:49 Dose: Not Given Magnesium Hydroxide (Milk Of Magnesia) 30 ml PO HS PRN PRN Reason: Constipation Metoprolol Tartrate (Lopressor) 50 mg PO BID [facility] Stop: 12/27/17 08:59 Last Admin: 11/06/17 17:13 Dose: Not Given Multivitamins/Vitamin C (Theragran) 1 tab PO DAILY [facility] Stop: 12/27/17 08:59 Last Admin: 11/06/17 12:49 Dose: Not Given Prednisolone Acetate (Pred Forte 1% Ophth Susp) 2 drop EACH EYE TID NANCY Stop: 12/27/17 08:59 Last Admin: 11/06/17 21:40 Dose: 2 drop Zolpidem Tartrate (Ambien) 5 mg PO HS PRN PRN Reason: Insomnia Stop: 12/27/17 02:07 Last Admin: 11/02/17 20:58 Dose: 5 mg General: demented HEENT: NC/AT, PERRLA, EOMI, anicteric sclerae, throat clear Neck: Supple, No JVD, No thyromegaly, +2 carotid pulse wo bruit, No LAD Lungs: CTAB Cardiovascular: Normal S1, Normal S2, without murmur Abdomen: non-tender, non-distended Extremities: clear Neurological: no change Internal Medicine Assmt/Plan - Assessment Assessment: 1.HTN. 2.HYPERLIPIDEMIA. 3.DJD. 4.DEMENTIA. - Plan Plan: CONTINUE ON CURRENT MEDICATION AND DIET. Nutritional Asmnt/Malnutr-PDOC - Dietary Evaluation Malnutrition Findings (Please click <Entered> for more info): Nutritional Asmnt/Malnutrition Start: 10/31/17 14: 08 Text: Status: Complete Freq: Protocol: Document 10/31/17 14:08 LCHENG (Rec: 10/31/17 14:15 LCHENG [email or web address]) Nutritional Asmnt/Malnutrition Patient General Information Nutritional Screening Moderate Risk Diagnosis psychosis Pertinent Medical Hx/Surgical Hx HTN, hyperlipidemia, DJD, dementia, psychosis Subjective Information Pt seen in gallo-chair at time of visit. Pt has episodes of agitation. per VESSEL ENGINEER, pt eats everything. Per EMR, Po intake 100% of meals. Current Diet Order/ Nutrition Support [facility] soft chopped, LUCY Pertinent Medications lipitor, oscal w/vit D, colace , theragran Pertinent Labs 10/28 Cl 110 Nutritional Hx/Data Height 1.6 m Height (Calculated Centimeters) 160.0 Current Weight (lbs) 54.431 kg Weight (Calculated Kilograms) 54.4 Weight (Calculated Grams) 92814.1 [place] Body Weight 115 Body Mass Index (BMI) 21.2 Weight Status Approriate GI Symptoms GI Symptoms None Last BM 10/30 Difficult in: None Skin Integrity/Comment: intact Current %PO Good (75-100%) Estimated Nutritional Goals BEE in Kcals: Using Current wt Calories/Kcals/Kg 25-30 Kcals Calculated 9252-0982 Protein: Using Current wt Protein g/k Protein Calculated 55 Fluid: ml 1375-1650ml (1ml/kcal) Nutritional Problem No current Nutrition Prob Problem N/A Malnutrition Alert Is there a minimum of two criteria No selected? Query Text:Check all the applicable criteria. A minimum of two criteria are recommended for diagnosis of either severe or non-severe malnutrition. Malnutrition Related to Morbid Obesity Malnutrition related to morbid obesity No Intervention/Recommendation Comments 1. Continue with [facility] soft chopped LUCY diet as ordered. 2. Monitor PO intake, wt, labs and skin integrity 3. F/U as low risk in 7 days, 11/07 Expected Outcomes/Goals Expected Outcomes/Goals 1. PO intake to meet at least 75% of nutritional needs. 2. Wt stability, skin to remain intact, labs to approach WNL.
[2017-11-07] MEDS: Prednisolone 1% Ophth Susp 5 mL Bottle EACH EYE SCH ×2 (18:06→21:29)
[2017-11-07] MEDS: Multivitamin Tab PO SCH (18:06)
[2017-11-07] MEDS: Calcium Carb/Vit D 500 mg/200 U Tab PO SCH ×2 (18:07)
[2017-11-07] MEDS: Atorvastatin Calcium 10 MG TAB PO SCH (21:30)
--- NOTE | 2017-11-08 02:33 | Progress Notes ---
DATE: 11/07/2017 SUBJECTIVE: Case was discussed with the staff of the patient and reviewed records. The patient had a Riese hearing today and it was upheld by the gore seamer on the ground of grave disability and danger to others. The patient attended the meeting. The patient continues to be irritable and aggressive, continues to have poor insight, continues to be easily agitated, very poor insight about the whole process, unable to make safe plan for her self-care. ASSESSMENT AND PLAN: She is already on Abilify and I added Thorazine 50 mg to be given when the patient refuses to take Abilify by mouth and discussed side effects. We will continue to have the patient in group therapy, milieu therapy, and adjust medications as needed. JOB# [id number]
--- NOTE | 2017-11-08 15:57 | Internal Medicine Prog Note ---
Internal Medicine Subjective - Subjective Service Date: 11/08/17 Patient seen and examined:: with staff Patient is:: awake, verbal, in bed, confused Per staff patient has:: no adverse event Internal Medicine Objective - Results Result Diagrams: 10/28/17 00:05 10/28/17 00:05 Recent Labs: Laboratory Last Values WBC 7.5 Th/cmm (4.8-10.8) 10/28/17 00:05 RBC 4.55 Mil/cmm (3.80-5.20) 10/28/17 00:05 Hgb 14.5 gm/dL (12-16) 10/28/17 00:05 Hct 43.6 % (41.0-60) 10/28/17 00:05 MCV 95.9 fl (81-100) 10/28/17 00:05 MCH 31.8 pg (27.0-31.0) H 10/28/17 00:05 MCHC Differential 33.2 pg (28.0-36.0) 10/28/17 00:05 RDW 13.3 % (11.5-20.0) 10/28/17 00:05 Plt Count 201 Th/cmm (150-400) 10/28/17 00:05 MPV 7.7 fl 10/28/17 00:05 Neutrophils % 59.9 % (40.0-80.0) 10/28/17 00:05 Lymphocytes % 27.9 % (20.0-50.0) 10/28/17 00:05 Monocytes % 8.9 % (2.0-10.0) 10/28/17 00:05 Eosinophils % 2.9 % (0.0-5.0) 10/28/17 00:05 Basophils % 0.4 % (0.0-2.0) 10/28/17 00:05 Sodium 139 mEq/L (136-145) 10/28/17 00:05 Potassium 4.5 mEq/L (3.5-5.1) 10/28/17 00:05 Chloride 110 mEq/L (98-107) H 10/28/17 00:05 Carbon Dioxide 24.1 mEq/L (21.0-31.0) 10/28/17 00:05 Anion Gap 9.4 (7.0-16.0) 10/28/17 00:05 BUN 23 mg/dL (7-25) 10/28/17 00:05 Creatinine 0.8 mg/dL (0.6-1.2) 10/28/17 00:05 Est GFR ( Amer) TNP 10/28/17 00:05 Est GFR (Non-Af Amer) TNP 10/28/17 00:05 BUN/Creatinine Ratio 28.8 10/28/17 00:05 Glucose 103 mg/dL (70-105) 10/28/17 00:05 Calcium 9.2 mg/dL (8.6-10.3) 10/28/17 00:05 Total Bilirubin 0.3 mg/dL (0.3-1.0) 10/28/17 00:05 AST 14 U/L (13-39) 10/28/17 00:05 ALT 13 U/L (7-52) 10/28/17 00:05 Alkaline Phosphatase 97 U/L (34-104) 10/28/17 00:05 Total Protein 5.8 gm/dL (6.0-8.3) L 10/28/17 00:05 Albumin 3.7 gm/dL (3.7-5.3) 10/28/17 00:05 Globulin 2.1 gm/dL 10/28/17 00:05 Albumin/Globulin Ratio 1.8 (1.0-1.8) 10/28/17 00:05 TSH 1.34 uIU/ml (0.34-5.60) 10/28/17 00:05 RPR NONREACTIVE (NONREACTIVE) 10/28/17 00:05 - Physical Exam Vitals and I&O: Vital Signs Temp 98.2 F 11/07/17 14:00 Pulse 89 11/07/17 18:06 Resp 18 11/07/17 20:00 BP 165/89 11/07/17 18:06 Pulse Ox 97 11/07/17 14:00 Intake & Output 11/07/17 11/08/17 11/08/17 18:59 06:59 18:59 Intake Total 1000 Balance 1000 Intake: Oral 1000 Other: # Voids 3 # Bowel Movements 1 Active Medications: Current Medications Acetaminophen (Tylenol) 650 mg PO Q4HR PRN PRN Reason: Mild Pain / Temp above 100 Stop: 12/27/17 02:07 Al Hydrox/Mg Hydrox/Simethicone (Maalox) 30 ml PO Q4HR PRN PRN Reason: GI DISTRESS Stop: 12/27/17 02:07 Amlodipine Besylate (Norvasc) 10 mg PO DAILY [facility] Stop: 12/27/17 08:59 Last Admin: 11/07/17 18:07 Dose: Not Given Aripiprazole (Abilify) 2.5 mg PO DAILY [facility]; Protocol Stop: 12/28/17 08:59 Last Admin: 11/07/17 18:06 Dose: 2.5 mg Atorvastatin Calcium (Lipitor) 10 mg PO HS [facility]; Protocol Stop: 12/27/17 20:59 Last Admin: 11/07/17 21:30 Dose: 10 mg Calcium/Vitamin D (Oscal W/Vitamin D) 1 tab PO BID [facility] Stop: 12/27/17 08:59 Last Admin: 11/07/17 18:07 Dose: 1 tab Clonidine HCl (Tjxlfbml-Nmt-0) 1 patch TD Mo@0900 [facility] Stop: 01/02/18 08:59 Last Admin: 11/03/17 08:28 Dose: Not Given Docusate Sodium (Colace) 100 mg PO DAILY [facility] Stop: 12/27/17 08:59 Last Admin: 11/07/17 18:07 Dose: Not Given Hydralazine HCl (Apresoline) 50 mg PO DAILY [facility] Stop: 12/27/17 08:59 Last Admin: 11/07/17 18:07 Dose: Not Given Lorazepam (Ativan) 0.5 mg PO Q4HR PRN; Protocol PRN Reason: Anxiety/agitation Stop: 11/27/17 02:07 Last Admin: 11/07/17 20:05 Dose: 0.5 mg Losartan Potassium (Cozaar) 25 mg PO DAILY [facility] Stop: 12/27/17 08:59 Last Admin: 11/07/17 18:07 Dose: Not Given Magnesium Hydroxide (Milk Of Magnesia) 30 ml PO HS PRN PRN Reason: Constipation Metoprolol Tartrate (Lopressor) 50 mg PO BID [facility] Stop: 12/27/17 08:59 Last Admin: 11/07/17 18:06 Dose: 50 mg Multivitamins/Vitamin C (Theragran) 1 tab PO DAILY [facility] Stop: 12/27/17 08:59 Last Admin: 11/07/17 18:06 Dose: Not Given Prednisolone Acetate (Pred Forte 1% Ophth Susp) 2 drop EACH EYE TID [facility] Stop: 12/27/17 08:59 Last Admin: 11/07/17 21:29 Dose: 2 drop Zolpidem Tartrate (Ambien) 5 mg PO HS PRN PRN Reason: Insomnia Stop: 12/27/17 02:07 Last Admin: 11/07/17 20:30 Dose: 5 mg General: demented HEENT: NC/AT, PERRLA, EOMI, anicteric sclerae, throat clear Neck: Supple, No JVD, No thyromegaly, +2 carotid pulse wo bruit, No LAD Lungs: CTAB Cardiovascular: Normal S1, Normal S2, without murmur Abdomen: non-tender, non-distended Extremities: clear Neurological: no change Internal Medicine Assmt/Plan - Assessment Assessment: 1.HTN. 2.HYPERLIPIDEMIA. 3.DJD. 4.DEMENTIA. - Plan Plan: CONTINUE ON CURRENT MEDICATION AND DIET. Nutritional Asmnt/Malnutr-PDOC - Dietary Evaluation Malnutrition Findings (Please click <Entered> for more info): Nutritional Asmnt/Malnutrition Start: 10/31/17 14: 08 Text: Status: Complete Freq: Protocol: Document 10/31/17 14:08 LCHENG (Rec: 10/31/17 14:15 [email or web address]) Nutritional Asmnt/Malnutrition Patient General Information Nutritional Screening Moderate Risk Diagnosis psychosis Pertinent Medical Hx/Surgical Hx HTN, hyperlipidemia, DJD, dementia, psychosis Subjective Information Pt seen in gallo-chair at time of visit. Pt has episodes of agitation. per RISK CONTROL FIELD REPRESENTATIVE, pt eats everything. Per EMR, Po intake 100% of meals. Current Diet Order/ Nutrition Support mech soft chopped, LUCY Pertinent Medications lipitor, oscal w/vit D, colace , theragran Pertinent Labs 10/28 Cl 110 Nutritional Hx/Data Height 1.6 m Height (Calculated Centimeters) 160.0 Current Weight (lbs) 54.431 kg Weight (Calculated Kilograms) 54.4 Weight (Calculated Grams) 70715.1 [place] Body Weight 115 Body Mass Index (BMI) 21.2 Weight Status Approriate GI Symptoms GI Symptoms None Last BM 10/30 Difficult in: None Skin Integrity/Comment: intact Current %PO Good (75-100%) Estimated Nutritional Goals BEE in Kcals: Using Current wt Calories/Kcals/Kg 25-30 Kcals Calculated 9002-8658 Protein: Using Current wt Protein g/k Protein Calculated 55 Fluid: ml 1375-1650ml (1ml/kcal) Nutritional Problem No current Nutrition Prob Problem N/A Malnutrition Alert Is there a minimum of two criteria No selected? Query Text:Check all the applicable criteria. A minimum of two criteria are recommended for diagnosis of either severe or non-severe malnutrition. Malnutrition Related to Morbid Obesity Malnutrition related to morbid obesity No Intervention/Recommendation Comments 1. Continue with [facility] soft chopped LUCY diet as ordered. 2. Monitor PO intake, wt, labs and skin integrity 3. F/U as low risk in 7 days, 11/07 Expected Outcomes/Goals Expected Outcomes/Goals 1. PO intake to meet at least 75% of nutritional needs. 2. Wt stability, skin to remain intact, labs to approach WNL.
[2017-11-08] MEDS: Calcium Carb/Vit D 500 mg/200 U Tab PO SCH ×2 (16:51→17:41)
[2017-11-08] MEDS: Prednisolone 1% Ophth Susp 5 mL Bottle EACH EYE SCH ×2 (16:52→21:28)
[2017-11-08] MEDS: Multivitamin Tab PO SCH (16:52)
[2017-11-08] MEDS: Atorvastatin Calcium 10 MG TAB PO SCH (21:22)
--- NOTE | 2017-11-09 00:27 | Progress Notes ---
DATE: The patient irate, angry, states that she wants to leave, does not want to go back to her son and daughter. States they are not visiting her. She is very angry with them, mostly isolative, withdrawn, poorly oriented at times. Noted to be labile, yelling at times. Medications were noted including doses and frequencies. ASSESSMENT: The patient has been provoking peers, labile, angry, upset, upset with family. Tells me "I am not crazy and my son and daughter put me here." PLAN: We will continue to monitor. Given her ongoing symptoms, she is not safe for discharge, not safe for a lower level of care. JOB# [id number]
--- NOTE | 2017-11-09 07:31 | Progress Notes ---
DATE: 11/09/2017 SUBJECTIVE: The patient is currently in the hospital very angry, refusing treatment, refusing medications, noted to be combative, shouting, hostile at times. Staff noting she is difficult to approach, difficult to understand at times, seems there may be a history of cognitive decline. The patient slept for about 6 hours. She remains unkempt, easily agitated, demanding, aggressive towards staff, verbally. Medications were noted including doses and frequencies. ASSESSMENT: The patient remains symptomatic, still hostile, combative, refusing treatments except eye drops. PLAN: We will continue to monitor given her ongoing symptoms. She remains symptomatic, highly impulsive and unpredictable, not safe for a lower level of care. [facility]# [id number]
[2017-11-09] MEDS: Calcium Carb/Vit D 500 mg/200 U Tab PO SCH ×2 (09:40→17:15)
[2017-11-09] MEDS: Prednisolone 1% Ophth Susp 5 mL Bottle EACH EYE SCH ×3 (09:41→20:22)
[2017-11-09] MEDS: Multivitamin Tab PO SCH (09:41)
--- NOTE | 2017-11-09 16:04 | Internal Medicine Prog Note ---
Internal Medicine Subjective - Subjective Service Date: 11/09/17 Patient seen and examined:: with staff Patient is:: awake, verbal, in bed, confused Per staff patient has:: no adverse event Internal Medicine Objective - Results Result Diagrams: 10/28/17 00:05 10/28/17 00:05 Recent Labs: Laboratory Last Values WBC 7.5 Th/cmm (4.8-10.8) 10/28/17 00:05 RBC 4.55 Mil/cmm (3.80-5.20) 10/28/17 00:05 Hgb 14.5 gm/dL (12-16) 10/28/17 00:05 Hct 43.6 % (41.0-60) 10/28/17 00:05 MCV 95.9 fl (81-100) 10/28/17 00:05 MCH 31.8 pg (27.0-31.0) H 10/28/17 00:05 MCHC Differential 33.2 pg (28.0-36.0) 10/28/17 00:05 RDW 13.3 % (11.5-20.0) 10/28/17 00:05 Plt Count 201 Th/cmm (150-400) 10/28/17 00:05 MPV 7.7 fl 10/28/17 00:05 Neutrophils % 59.9 % (40.0-80.0) 10/28/17 00:05 Lymphocytes % 27.9 % (20.0-50.0) 10/28/17 00:05 Monocytes % 8.9 % (2.0-10.0) 10/28/17 00:05 Eosinophils % 2.9 % (0.0-5.0) 10/28/17 00:05 Basophils % 0.4 % (0.0-2.0) 10/28/17 00:05 Sodium 139 mEq/L (136-145) 10/28/17 00:05 Potassium 4.5 mEq/L (3.5-5.1) 10/28/17 00:05 Chloride 110 mEq/L (98-107) H 10/28/17 00:05 Carbon Dioxide 24.1 mEq/L (21.0-31.0) 10/28/17 00:05 Anion Gap 9.4 (7.0-16.0) 10/28/17 00:05 BUN 23 mg/dL (7-25) 10/28/17 00:05 Creatinine 0.8 mg/dL (0.6-1.2) 10/28/17 00:05 Est GFR ( Amer) TNP 10/28/17 00:05 Est GFR (Non-Af Amer) TNP 10/28/17 00:05 BUN/Creatinine Ratio 28.8 10/28/17 00:05 Glucose 103 mg/dL (70-105) 10/28/17 00:05 Calcium 9.2 mg/dL (8.6-10.3) 10/28/17 00:05 Total Bilirubin 0.3 mg/dL (0.3-1.0) 10/28/17 00:05 AST 14 U/L (13-39) 10/28/17 00:05 ALT 13 U/L (7-52) 10/28/17 00:05 Alkaline Phosphatase 97 U/L (34-104) 10/28/17 00:05 Total Protein 5.8 gm/dL (6.0-8.3) L 10/28/17 00:05 Albumin 3.7 gm/dL (3.7-5.3) 10/28/17 00:05 Globulin 2.1 gm/dL 10/28/17 00:05 Albumin/Globulin Ratio 1.8 (1.0-1.8) 10/28/17 00:05 TSH 1.34 uIU/ml (0.34-5.60) 10/28/17 00:05 RPR NONREACTIVE (NONREACTIVE) 10/28/17 00:05 - Physical Exam Vitals and I&O: Vital Signs Temp 98.2 F 11/09/17 15:24 Pulse 67 11/09/17 15:24 Resp 20 11/09/17 15:24 BP 144/73 11/09/17 15:24 Pulse Ox 96 11/09/17 15:24 Intake & Output 11/08/17 11/09/17 11/09/17 18:59 06:59 18:59 Intake Total 900 Balance 900 Intake: Oral 900 Other: # Voids 4 # Bowel Movements 1 Active Medications: Current Medications Acetaminophen (Tylenol) 650 mg PO Q4HR PRN PRN Reason: Mild Pain / Temp above 100 Stop: 12/27/17 02:07 Al Hydrox/Mg Hydrox/Simethicone (Maalox) 30 ml PO Q4HR PRN PRN Reason: GI DISTRESS Stop: 12/27/17 02:07 Amlodipine Besylate (Norvasc) 10 mg PO DAILY [facility] Stop: 12/27/17 08:59 Last Admin: 11/09/17 09:40 Dose: Not Given Aripiprazole (Abilify) 2.5 mg PO DAILY [facility]; Protocol Stop: 12/28/17 08:59 Last Admin: 11/09/17 09:40 Dose: Not Given Atorvastatin Calcium (Lipitor) 10 mg PO HS [facility]; Protocol Stop: 12/27/17 20:59 Last Admin: 11/08/17 21:22 Dose: Not Given Calcium/Vitamin D (Oscal W/Vitamin D) 1 tab PO BID [facility] Stop: 12/27/17 08:59 Last Admin: 11/09/17 09:40 Dose: Not Given Clonidine HCl (Xunkkotg-Aow-3) 1 patch TD Mo@0900 [facility] Stop: 01/02/18 08:59 Last Admin: 11/03/17 08:28 Dose: Not Given Docusate Sodium (Colace) 100 mg PO DAILY [facility] Stop: 12/27/17 08:59 Last Admin: 11/09/17 09:40 Dose: Not Given Hydralazine HCl (Apresoline) 50 mg PO DAILY [facility] Stop: 12/27/17 08:59 Last Admin: 11/09/17 09:40 Dose: Not Given Lorazepam (Ativan) 0.5 mg PO Q4HR PRN; Protocol PRN Reason: Anxiety/agitation Stop: 11/27/17 02:07 Last Admin: 11/08/17 17:42 Dose: 0.5 mg Losartan Potassium (Cozaar) 25 mg PO DAILY [facility] Stop: 12/27/17 08:59 Last Admin: 11/09/17 09:41 Dose: Not Given Magnesium Hydroxide (Milk Of Magnesia) 30 ml PO HS PRN PRN Reason: Constipation Metoprolol Tartrate (Lopressor) 50 mg PO BID [facility] Stop: 12/27/17 08:59 Last Admin: 11/09/17 09:41 Dose: Not Given Multivitamins/Vitamin C (Theragran) 1 tab PO DAILY [facility] Stop: 12/27/17 08:59 Last Admin: 11/09/17 09:41 Dose: Not Given Prednisolone Acetate (Pred Forte 1% Ophth Susp) 2 drop EACH EYE TID [facility] Stop: 12/27/17 08:59 Last Admin: 11/09/17 15:12 Dose: Not Given Zolpidem Tartrate (Ambien) 5 mg PO HS PRN PRN Reason: Insomnia Stop: 12/27/17 02:07 Last Admin: 11/07/17 20:30 Dose: 5 mg General: demented HEENT: NC/AT, PERRLA, EOMI, anicteric sclerae, throat clear Neck: Supple, No JVD, No thyromegaly, +2 carotid pulse wo bruit, No LAD Lungs: CTAB Cardiovascular: Normal S1, Normal S2, without murmur Abdomen: non-tender, non-distended Extremities: clear Neurological: no change Internal Medicine Assmt/Plan - Assessment Assessment: 1.HTN. 2.HYPERLIPIDEMIA. 3.DJD. 4.DEMENTIA. - Plan Plan: CONTINUE ON CURRENT MEDICATION AND DIET. Nutritional Asmnt/Malnutr-PDOC - Dietary Evaluation Malnutrition Findings (Please click <Entered> for more info): Nutritional Asmnt/Malnutrition Start: 10/31/17 14: 08 Text: Status: Complete Freq: Protocol: Document 10/31/17 14:08 LCHENG (Rec: 10/31/17 14:15 [email or web address]) Nutritional Asmnt/Malnutrition Patient General Information Nutritional Screening Moderate Risk Diagnosis psychosis Pertinent Medical Hx/Surgical Hx HTN, hyperlipidemia, DJD, dementia, psychosis Subjective Information Pt seen in gallo-chair at time of visit. Pt has episodes of agitation. per MANAGER EDUCATION, pt eats everything. Per EMR, Po intake 100% of meals. Current Diet Order/ Nutrition Support mech soft chopped, LUCY Pertinent Medications lipitor, oscal w/vit D, colace , theragran Pertinent Labs 10/28 Cl 110 Nutritional Hx/Data Height 1.6 m Height (Calculated Centimeters) 160.0 Current Weight (lbs) 54.431 kg Weight (Calculated Kilograms) 54.4 Weight (Calculated Grams) 80741.1 [place] Body Weight 115 Body Mass Index (BMI) 21.2 Weight Status Approriate GI Symptoms GI Symptoms None Last BM 10/30 Difficult in: None Skin Integrity/Comment: intact Current %PO Good (75-100%) Estimated Nutritional Goals BEE in Kcals: Using Current wt Calories/Kcals/Kg 25-30 Kcals Calculated 4580-3666 Protein: Using Current wt Protein g/k Protein Calculated 55 Fluid: ml 1375-1650ml (1ml/kcal) Nutritional Problem No current Nutrition Prob Problem N/A Malnutrition Alert Is there a minimum of two criteria No selected? Query Text:Check all the applicable criteria. A minimum of two criteria are recommended for diagnosis of either severe or non-severe malnutrition. Malnutrition Related to Morbid Obesity Malnutrition related to morbid obesity No Intervention/Recommendation Comments 1. Continue with [facility] soft chopped LUCY diet as ordered. 2. Monitor PO intake, wt, labs and skin integrity 3. F/U as low risk in 7 days, 11/07 Expected Outcomes/Goals Expected Outcomes/Goals 1. PO intake to meet at least 75% of nutritional needs. 2. Wt stability, skin to remain intact, labs to approach WNL.
[2017-11-09] MEDS: Atorvastatin Calcium 10 MG TAB PO SCH (20:21)
[2017-11-10] MEDS: Multivitamin Tab PO SCH (09:14)
[2017-11-10] MEDS: Calcium Carb/Vit D 500 mg/200 U Tab PO SCH ×2 (09:16→16:57)
[2017-11-10] MEDS: cloNIDine 0.2 mg/24 hr Tdm TD SCH ×2 (09:23→10:00)
[2017-11-10] MEDS: Prednisolone 1% Ophth Susp 5 mL Bottle EACH EYE SCH ×3 (09:23→20:32)
--- NOTE | 2017-11-10 17:57 | Internal Medicine Prog Note ---
Internal Medicine Subjective - Subjective Service Date: 11/10/17 Patient seen and examined:: with staff Patient is:: awake, verbal, in bed, confused Per staff patient has:: no adverse event Internal Medicine Objective - Results Result Diagrams: 10/28/17 00:05 10/28/17 00:05 Recent Labs: Laboratory Last Values WBC 7.5 Th/cmm (4.8-10.8) 10/28/17 00:05 RBC 4.55 Mil/cmm (3.80-5.20) 10/28/17 00:05 Hgb 14.5 gm/dL (12-16) 10/28/17 00:05 Hct 43.6 % (41.0-60) 10/28/17 00:05 MCV 95.9 fl (81-100) 10/28/17 00:05 MCH 31.8 pg (27.0-31.0) H 10/28/17 00:05 MCHC Differential 33.2 pg (28.0-36.0) 10/28/17 00:05 RDW 13.3 % (11.5-20.0) 10/28/17 00:05 Plt Count 201 Th/cmm (150-400) 10/28/17 00:05 MPV 7.7 fl 10/28/17 00:05 Neutrophils % 59.9 % (40.0-80.0) 10/28/17 00:05 Lymphocytes % 27.9 % (20.0-50.0) 10/28/17 00:05 Monocytes % 8.9 % (2.0-10.0) 10/28/17 00:05 Eosinophils % 2.9 % (0.0-5.0) 10/28/17 00:05 Basophils % 0.4 % (0.0-2.0) 10/28/17 00:05 Sodium 139 mEq/L (136-145) 10/28/17 00:05 Potassium 4.5 mEq/L (3.5-5.1) 10/28/17 00:05 Chloride 110 mEq/L (98-107) H 10/28/17 00:05 Carbon Dioxide 24.1 mEq/L (21.0-31.0) 10/28/17 00:05 Anion Gap 9.4 (7.0-16.0) 10/28/17 00:05 BUN 23 mg/dL (7-25) 10/28/17 00:05 Creatinine 0.8 mg/dL (0.6-1.2) 10/28/17 00:05 Est GFR ( Amer) TNP 10/28/17 00:05 Est GFR (Non-Af Amer) TNP 10/28/17 00:05 BUN/Creatinine Ratio 28.8 10/28/17 00:05 Glucose 103 mg/dL (70-105) 10/28/17 00:05 Calcium 9.2 mg/dL (8.6-10.3) 10/28/17 00:05 Total Bilirubin 0.3 mg/dL (0.3-1.0) 10/28/17 00:05 AST 14 U/L (13-39) 10/28/17 00:05 ALT 13 U/L (7-52) 10/28/17 00:05 Alkaline Phosphatase 97 U/L (34-104) 10/28/17 00:05 Total Protein 5.8 gm/dL (6.0-8.3) L 10/28/17 00:05 Albumin 3.7 gm/dL (3.7-5.3) 10/28/17 00:05 Globulin 2.1 gm/dL 10/28/17 00:05 Albumin/Globulin Ratio 1.8 (1.0-1.8) 10/28/17 00:05 TSH 1.34 uIU/ml (0.34-5.60) 10/28/17 00:05 RPR NONREACTIVE (NONREACTIVE) 10/28/17 00:05 - Physical Exam Vitals and I&O: Vital Signs Temp 97.5 F 11/10/17 15:26 Pulse 71 11/10/17 16:58 Resp 20 11/10/17 15:26 BP 156/65 11/10/17 16:58 Pulse Ox 98 11/10/17 15:26 Intake & Output 11/09/17 11/10/17 11/10/17 18:59 06:59 18:59 Intake Total 1200 240 Balance 1200 240 Intake: Oral 1200 240 Other: # Voids 4 1 # Bowel Movements 1 1 Active Medications: Current Medications Acetaminophen (Tylenol) 650 mg PO Q4HR PRN PRN Reason: Mild Pain / Temp above 100 Stop: 12/27/17 02:07 Al Hydrox/Mg Hydrox/Simethicone (Maalox) 30 ml PO Q4HR PRN PRN Reason: GI DISTRESS Stop: 12/27/17 02:07 Amlodipine Besylate (Norvasc) 10 mg PO DAILY [facility] Stop: 12/27/17 08:59 Last Admin: 11/10/17 09:17 Dose: 10 mg Atorvastatin Calcium (Lipitor) 10 mg PO HS [facility]; Protocol Stop: 12/27/17 20:59 Last Admin: 11/09/17 20:21 Dose: 10 mg Calcium/Vitamin D (Oscal W/Vitamin D) 1 tab PO BID [facility] Stop: 12/27/17 08:59 Last Admin: 11/10/17 16:57 Dose: 1 tab Chlorpromazine (Thorazine) 50 mg PO BID [facility]; Protocol Stop: 01/09/18 16:59 Last Admin: 11/10/17 16:57 Dose: 50 mg Chlorpromazine (Thorazine) 50 mg IM BID PRN PRN Reason: IF REFUSED PO Stop: 01/09/18 13:35 Clonidine HCl (Qaxzqkfo-Fbu-6) 1 patch TD Mo@0900 [facility] Stop: 01/02/18 08:59 Last Admin: 11/10/17 10:00 Dose: Not Given Docusate Sodium (Colace) 100 mg PO DAILY [facility] Stop: 12/27/17 08:59 Last Admin: 11/10/17 09:14 Dose: 100 mg Hydralazine HCl (Apresoline) 50 mg PO DAILY [facility] Stop: 12/27/17 08:59 Last Admin: 11/10/17 09:17 Dose: 50 mg Lorazepam (Ativan) 0.5 mg PO Q4HR PRN; Protocol PRN Reason: Anxiety/agitation Stop: 11/27/17 02:07 Last Admin: 11/08/17 17:42 Dose: 0.5 mg Losartan Potassium (Cozaar) 25 mg PO DAILY [facility] Stop: 12/27/17 08:59 Last Admin: 11/10/17 09:17 Dose: 25 mg Magnesium Hydroxide (Milk Of Magnesia) 30 ml PO HS PRN PRN Reason: Constipation Metoprolol Tartrate (Lopressor) 50 mg PO BID [facility] Stop: 12/27/17 08:59 Last Admin: 11/10/17 16:58 Dose: 50 mg Multivitamins/Vitamin C (Theragran) 1 tab PO DAILY [facility] Stop: 12/27/17 08:59 Last Admin: 11/10/17 09:14 Dose: 1 tab Prednisolone Acetate (Pred Forte 1% Ophth Susp) 2 drop EACH EYE TID [facility] Stop: 12/27/17 08:59 Last Admin: 11/10/17 15:13 Dose: 2 drop Zolpidem Tartrate (Ambien) 5 mg PO HS PRN PRN Reason: Insomnia Stop: 12/27/17 02:07 Last Admin: 11/07/17 20:30 Dose: 5 mg General: demented HEENT: NC/AT, PERRLA, EOMI, anicteric sclerae, throat clear Neck: Supple, No JVD, No thyromegaly, +2 carotid pulse wo bruit, No LAD Lungs: CTAB Cardiovascular: Normal S1, Normal S2, without murmur Abdomen: non-tender, non-distended Extremities: clear Neurological: no change Internal Medicine Assmt/Plan - Assessment Assessment: 1.HTN. 2.HYPERLIPIDEMIA. 3.DJD. 4.DEMENTIA. - Plan Plan: CONTINUE ON CURRENT MEDICATION AND DIET. Nutritional Asmnt/Malnutr-PDOC - Dietary Evaluation Malnutrition Findings (Please click <Entered> for more info): Nutritional Asmnt/Malnutrition Start: 10/31/17 14: 08 Text: Status: Complete Freq: Protocol: Document 10/31/17 14:08 LCHENG (Rec: 10/31/17 14:15 LCHENG [email or web address]) Nutritional Asmnt/Malnutrition Patient General Information Nutritional Screening Moderate Risk Diagnosis psychosis Pertinent Medical Hx/Surgical Hx HTN, hyperlipidemia, DJD, dementia, psychosis Subjective Information Pt seen in gallo-chair at time of visit. Pt has episodes of agitation. per SURGICAL GARMENT ASSEMBLY SUPERVISOR, pt eats everything. Per EMR, Po intake 100% of meals. Current Diet Order/ Nutrition Support [facility] soft chopped, LUCY Pertinent Medications lipitor, oscal w/vit D, colace , theragran Pertinent Labs 10/28 Cl 110 Nutritional Hx/Data Height 1.6 m Height (Calculated Centimeters) 160.0 Current Weight (lbs) 54.431 kg Weight (Calculated Kilograms) 54.4 Weight (Calculated Grams) 30978.1 [place] Body Weight 115 Body Mass Index (BMI) 21.2 Weight Status Approriate GI Symptoms GI Symptoms None Last BM 10/30 Difficult in: None Skin Integrity/Comment: intact Current %PO Good (75-100%) Estimated Nutritional Goals BEE in Kcals: Using Current wt Calories/Kcals/Kg 25-30 Kcals Calculated 0949-8879 Protein: Using Current wt Protein g/k Protein Calculated 55 Fluid: ml 1375-1650ml (1ml/kcal) Nutritional Problem No current Nutrition Prob Problem N/A Malnutrition Alert Is there a minimum of two criteria No selected? Query Text:Check all the applicable criteria. A minimum of two criteria are recommended for diagnosis of either severe or non-severe malnutrition. Malnutrition Related to Morbid Obesity Malnutrition related to morbid obesity No Intervention/Recommendation Comments 1. Continue with [facility] soft chopped LUCY diet as ordered. 2. Monitor PO intake, wt, labs and skin integrity 3. F/U as low risk in 7 days, 11/07 Expected Outcomes/Goals Expected Outcomes/Goals 1. PO intake to meet at least 75% of nutritional needs. 2. Wt stability, skin to remain intact, labs to approach WNL.
[2017-11-10] MEDS: chlorproMAZINE 25 mg/mL 2mL Amp IM PRN (18:04)
[2017-11-10] MEDS: Atorvastatin Calcium 10 MG TAB PO SCH (20:32)
--- NOTE | 2017-11-10 21:33 | Progress Notes ---
DATE: 11/10/2017 SUBJECTIVE: Case was discussed with staff of the patient, reviewed records. The staff report the patient has been inappropriate. Continues to be unpredictable, impulsive, needing redirection. Continues to have poor insight. Acting psychotic, hypersexual, lying on the floor with her legs open and naked. Continues to be unable to make safe plan for self-care. If she is not showing much progress, I will be increasing the Abilify dose and we will continue the patient in group therapy, milieu therapy, and adjust medication as needed. JOB# [id number]
[2017-11-11] MEDS: Calcium Carb/Vit D 500 mg/200 U Tab PO SCH ×3 (09:27→17:06)
[2017-11-11] MEDS: Multivitamin Tab PO SCH ×2 (09:27→11:25)
[2017-11-11] MEDS: Prednisolone 1% Ophth Susp 5 mL Bottle EACH EYE SCH ×4 (09:30→20:47)
[2017-11-11] MEDS: chlorproMAZINE 25 mg/mL 2mL Amp IM PRN (17:06)
[2017-11-11] MEDS: Atorvastatin Calcium 10 MG TAB PO SCH (20:47)
--- NOTE | 2017-11-11 21:23 | Internal Medicine Prog Note ---
Internal Medicine Subjective - Subjective Service Date: 11/11/17 Patient seen and examined:: with staff Patient is:: awake, verbal, in bed, confused Per staff patient has:: no adverse event Internal Medicine Objective - Results Result Diagrams: 10/28/17 00:05 10/28/17 00:05 Recent Labs: Laboratory Last Values WBC 7.5 Th/cmm (4.8-10.8) 10/28/17 00:05 RBC 4.55 Mil/cmm (3.80-5.20) 10/28/17 00:05 Hgb 14.5 gm/dL (12-16) 10/28/17 00:05 Hct 43.6 % (41.0-60) 10/28/17 00:05 MCV 95.9 fl (81-100) 10/28/17 00:05 MCH 31.8 pg (27.0-31.0) H 10/28/17 00:05 MCHC Differential 33.2 pg (28.0-36.0) 10/28/17 00:05 RDW 13.3 % (11.5-20.0) 10/28/17 00:05 Plt Count 201 Th/cmm (150-400) 10/28/17 00:05 MPV 7.7 fl 10/28/17 00:05 Neutrophils % 59.9 % (40.0-80.0) 10/28/17 00:05 Lymphocytes % 27.9 % (20.0-50.0) 10/28/17 00:05 Monocytes % 8.9 % (2.0-10.0) 10/28/17 00:05 Eosinophils % 2.9 % (0.0-5.0) 10/28/17 00:05 Basophils % 0.4 % (0.0-2.0) 10/28/17 00:05 Sodium 139 mEq/L (136-145) 10/28/17 00:05 Potassium 4.5 mEq/L (3.5-5.1) 10/28/17 00:05 Chloride 110 mEq/L (98-107) H 10/28/17 00:05 Carbon Dioxide 24.1 mEq/L (21.0-31.0) 10/28/17 00:05 Anion Gap 9.4 (7.0-16.0) 10/28/17 00:05 BUN 23 mg/dL (7-25) 10/28/17 00:05 Creatinine 0.8 mg/dL (0.6-1.2) 10/28/17 00:05 Est GFR ( Amer) TNP 10/28/17 00:05 Est GFR (Non-Af Amer) TNP 10/28/17 00:05 BUN/Creatinine Ratio 28.8 10/28/17 00:05 Glucose 103 mg/dL (70-105) 10/28/17 00:05 Calcium 9.2 mg/dL (8.6-10.3) 10/28/17 00:05 Total Bilirubin 0.3 mg/dL (0.3-1.0) 10/28/17 00:05 AST 14 U/L (13-39) 10/28/17 00:05 ALT 13 U/L (7-52) 10/28/17 00:05 Alkaline Phosphatase 97 U/L (34-104) 10/28/17 00:05 Total Protein 5.8 gm/dL (6.0-8.3) L 10/28/17 00:05 Albumin 3.7 gm/dL (3.7-5.3) 10/28/17 00:05 Globulin 2.1 gm/dL 10/28/17 00:05 Albumin/Globulin Ratio 1.8 (1.0-1.8) 10/28/17 00:05 TSH 1.34 uIU/ml (0.34-5.60) 10/28/17 00:05 RPR NONREACTIVE (NONREACTIVE) 10/28/17 00:05 - Physical Exam Vitals and I&O: Vital Signs Temp 98.3 F 11/11/17 19:58 Pulse 86 11/11/17 19:58 Resp 20 11/11/17 19:58 BP 146/66 11/11/17 19:58 Pulse Ox 97 11/11/17 19:58 Intake & Output 11/11/17 11/11/17 11/12/17 06:59 18:59 06:59 Intake Total 800 180 Balance 800 180 Intake: Oral 800 180 Other: # Voids 3 2 # Bowel Movements 1 0 Active Medications: Current Medications Acetaminophen (Tylenol) 650 mg PO Q4HR PRN PRN Reason: Mild Pain / Temp above 100 Stop: 12/27/17 02:07 Al Hydrox/Mg Hydrox/Simethicone (Maalox) 30 ml PO Q4HR PRN PRN Reason: GI DISTRESS Stop: 12/27/17 02:07 Amlodipine Besylate (Norvasc) 10 mg PO DAILY [facility] Stop: 12/27/17 08:59 Last Admin: 11/11/17 11:24 Dose: Not Given Atorvastatin Calcium (Lipitor) 10 mg PO HS [facility]; Protocol Stop: 12/27/17 20:59 Last Admin: 11/11/17 20:47 Dose: Not Given Calcium/Vitamin D (Oscal W/Vitamin D) 1 tab PO BID [facility] Stop: 12/27/17 08:59 Last Admin: 11/11/17 17:06 Dose: Not Given Chlorpromazine (Thorazine) 50 mg PO BID [facility]; Protocol Stop: 01/09/18 16:59 Last Admin: 11/11/17 17:06 Dose: Not Given Chlorpromazine (Thorazine) 50 mg IM BID PRN PRN Reason: IF REFUSED PO Stop: 01/09/18 13:35 Last Admin: 11/11/17 17:06 Dose: 50 mg Clonidine HCl (Kmvncnlx-Hto-2) 1 patch TD Mo@0900 [facility] Stop: 01/02/18 08:59 Last Admin: 11/10/17 10:00 Dose: Not Given Docusate Sodium (Colace) 100 mg PO DAILY [facility] Stop: 12/27/17 08:59 Last Admin: 11/11/17 11:24 Dose: Not Given Hydralazine HCl (Apresoline) 50 mg PO DAILY [facility] Stop: 12/27/17 08:59 Last Admin: 11/11/17 11:24 Dose: Not Given Lorazepam (Ativan) 0.5 mg PO Q4HR PRN; Protocol PRN Reason: Anxiety/agitation Stop: 11/27/17 02:07 Last Admin: 11/08/17 17:42 Dose: 0.5 mg Losartan Potassium (Cozaar) 25 mg PO DAILY [facility] Stop: 12/27/17 08:59 Last Admin: 11/11/17 11:24 Dose: Not Given Magnesium Hydroxide (Milk Of Magnesia) 30 ml PO HS PRN PRN Reason: Constipation Metoprolol Tartrate (Lopressor) 50 mg PO BID [facility] Stop: 12/27/17 08:59 Last Admin: 11/11/17 17:07 Dose: Not Given Multivitamins/Vitamin C (Theragran) 1 tab PO DAILY [facility] Stop: 12/27/17 08:59 Last Admin: 11/11/17 11:25 Dose: Not Given Prednisolone Acetate (Pred Forte 1% Ophth Susp) 2 drop EACH EYE TID [facility] Stop: 12/27/17 08:59 Last Admin: 11/11/17 20:47 Dose: Not Given Zolpidem Tartrate (Ambien) 5 mg PO HS PRN PRN Reason: Insomnia Stop: 12/27/17 02:07 Last Admin: 11/07/17 20:30 Dose: 5 mg General: demented HEENT: NC/AT, PERRLA, EOMI, anicteric sclerae, throat clear Neck: Supple, No JVD, No thyromegaly, +2 carotid pulse wo bruit, No LAD Lungs: CTAB Cardiovascular: Normal S1, Normal S2, without murmur Abdomen: non-tender, non-distended Extremities: clear Neurological: no change Internal Medicine Assmt/Plan - Assessment Assessment: 1.HTN. 2.HYPERLIPIDEMIA. 3.DJD. 4.DEMENTIA. - Plan Plan: CONTINUE ON CURRENT MEDICATION AND DIET. Nutritional Asmnt/Malnutr-PDOC - Dietary Evaluation Malnutrition Findings (Please click <Entered> for more info): Nutritional Asmnt/Malnutrition Start: 10/31/17 14: 08 Text: Status: Complete Freq: Protocol: Document 10/31/17 14:08 JIMENA (Rec: 10/31/17 14:15 BROOKE [email or web address]) Nutritional Asmnt/Malnutrition Patient General Information Nutritional Screening Moderate Risk Diagnosis psychosis Pertinent Medical Hx/Surgical Hx HTN, hyperlipidemia, DJD, dementia, psychosis Subjective Information Pt seen in gallo-chair at time of visit. Pt has episodes of agitation. per SECY, pt eats everything. Per EMR, Po intake 100% of meals. Current Diet Order/ Nutrition Support [facility] soft chopped, LUCY Pertinent Medications lipitor, oscal w/vit D, colace , theragran Pertinent Labs 10/28 Cl 110 Nutritional Hx/Data Height 1.6 m Height (Calculated Centimeters) 160.0 Current Weight (lbs) 54.431 kg Weight (Calculated Kilograms) 54.4 Weight (Calculated Grams) 58602.1 [place] Body Weight 115 Body Mass Index (BMI) 21.2 Weight Status Approriate GI Symptoms GI Symptoms None Last BM 10/30 Difficult in: None Skin Integrity/Comment: intact Current %PO Good (75-100%) Estimated Nutritional Goals BEE in Kcals: Using Current wt Calories/Kcals/Kg 25-30 Kcals Calculated 9535-4270 Protein: Using Current wt Protein g/k Protein Calculated 55 Fluid: ml 1375-1650ml (1ml/kcal) Nutritional Problem No current Nutrition Prob Problem N/A Malnutrition Alert Is there a minimum of two criteria No selected? Query Text:Check all the applicable criteria. A minimum of two criteria are recommended for diagnosis of either severe or non-severe malnutrition. Malnutrition Related to Morbid Obesity Malnutrition related to morbid obesity No Intervention/Recommendation Comments 1. Continue with [facility] soft [facility] LUCY diet as ordered. 2. Monitor PO intake, wt, labs and skin integrity 3. F/U as low risk in 7 days, 11/07 Expected Outcomes/Goals Expected Outcomes/Goals 1. PO intake to meet at least 75% of nutritional needs. 2. Wt stability, skin to remain intact, labs to approach WNL.
--- NOTE | 2017-11-11 22:14 | Progress Notes ---
DATE: 11/11/2017 SUBJECTIVE: Case was discussed with staff of the patient, reviewed records. The patient has been cheeking her medications. The staff has been watching her, they are giving her chlorpromazine injection as she splits her medication or cheeks it. The patient continues to be unpredictable, impulsive, acting inappropriately. Continues to have poor insight. Continues to be unable to make safe plan for self-care. She is able to sleep and eats well, but still very psychotic. We will continue to work with the patient in group therapy, milieu therapy, and adjust the medications as needed. JOB# [id number]
[2017-11-12] MEDS: Calcium Carb/Vit D 500 mg/200 U Tab PO SCH ×3 (09:08→16:26)
[2017-11-12] MEDS: Prednisolone 1% Ophth Susp 5 mL Bottle EACH EYE SCH ×3 (09:10→21:09)
[2017-11-12] MEDS: Multivitamin Tab PO SCH (09:10)
[2017-11-12] MEDS: chlorproMAZINE 25 mg/mL 2mL Amp IM PRN (16:25)
--- NOTE | 2017-11-12 20:23 | Internal Medicine Prog Note ---
Internal Medicine Subjective - Subjective Service Date: 11/12/17 Patient seen and examined:: with staff Patient is:: awake, verbal, in bed, confused Per staff patient has:: no adverse event Internal Medicine Objective - Results Result Diagrams: 10/28/17 00:05 10/28/17 00:05 Recent Labs: Laboratory Last Values WBC 7.5 Th/cmm (4.8-10.8) 10/28/17 00:05 RBC 4.55 Mil/cmm (3.80-5.20) 10/28/17 00:05 Hgb 14.5 gm/dL (12-16) 10/28/17 00:05 Hct 43.6 % (41.0-60) 10/28/17 00:05 MCV 95.9 fl (81-100) 10/28/17 00:05 MCH 31.8 pg (27.0-31.0) H 10/28/17 00:05 MCHC Differential 33.2 pg (28.0-36.0) 10/28/17 00:05 RDW 13.3 % (11.5-20.0) 10/28/17 00:05 Plt Count 201 Th/cmm (150-400) 10/28/17 00:05 MPV 7.7 fl 10/28/17 00:05 Neutrophils % 59.9 % (40.0-80.0) 10/28/17 00:05 Lymphocytes % 27.9 % (20.0-50.0) 10/28/17 00:05 Monocytes % 8.9 % (2.0-10.0) 10/28/17 00:05 Eosinophils % 2.9 % (0.0-5.0) 10/28/17 00:05 Basophils % 0.4 % (0.0-2.0) 10/28/17 00:05 Sodium 139 mEq/L (136-145) 10/28/17 00:05 Potassium 4.5 mEq/L (3.5-5.1) 10/28/17 00:05 Chloride 110 mEq/L (98-107) H 10/28/17 00:05 Carbon Dioxide 24.1 mEq/L (21.0-31.0) 10/28/17 00:05 Anion Gap 9.4 (7.0-16.0) 10/28/17 00:05 BUN 23 mg/dL (7-25) 10/28/17 00:05 Creatinine 0.8 mg/dL (0.6-1.2) 10/28/17 00:05 Est GFR ( Amer) TNP 10/28/17 00:05 Est GFR (Non-Af Amer) TNP 10/28/17 00:05 BUN/Creatinine Ratio 28.8 10/28/17 00:05 Glucose 103 mg/dL (70-105) 10/28/17 00:05 Calcium 9.2 mg/dL (8.6-10.3) 10/28/17 00:05 Total Bilirubin 0.3 mg/dL (0.3-1.0) 10/28/17 00:05 AST 14 U/L (13-39) 10/28/17 00:05 ALT 13 U/L (7-52) 10/28/17 00:05 Alkaline Phosphatase 97 U/L (34-104) 10/28/17 00:05 Total Protein 5.8 gm/dL (6.0-8.3) L 10/28/17 00:05 Albumin 3.7 gm/dL (3.7-5.3) 10/28/17 00:05 Globulin 2.1 gm/dL 10/28/17 00:05 Albumin/Globulin Ratio 1.8 (1.0-1.8) 10/28/17 00:05 TSH 1.34 uIU/ml (0.34-5.60) 10/28/17 00:05 RPR NONREACTIVE (NONREACTIVE) 10/28/17 00:05 - Physical Exam Vitals and I&O: Vital Signs Temp 98.1 F 11/12/17 15:00 Pulse 81 11/12/17 16:23 Resp 20 11/12/17 15:00 BP 154/74 11/12/17 16:23 Pulse Ox 96 11/12/17 15:00 Intake & Output 11/12/17 11/12/17 11/13/17 06:59 18:59 06:59 Intake Total 180 Balance 180 Intake: Oral 180 Other: # Voids 2 # Bowel Movements 0 Active Medications: Current Medications Acetaminophen (Tylenol) 650 mg PO Q4HR PRN PRN Reason: Mild Pain / Temp above 100 Stop: 12/27/17 02:07 Al Hydrox/Mg Hydrox/Simethicone (Maalox) 30 ml PO Q4HR PRN PRN Reason: GI DISTRESS Stop: 12/27/17 02:07 Amlodipine Besylate (Norvasc) 10 mg PO DAILY [facility] Stop: 12/27/17 08:59 Last Admin: 11/12/17 09:08 Dose: Not Given Atorvastatin Calcium (Lipitor) 10 mg PO HS [facility]; Protocol Stop: 12/27/17 20:59 Last Admin: 11/11/17 20:47 Dose: Not Given Calcium/Vitamin D (Oscal W/Vitamin D) 1 tab PO BID [facility] Stop: 12/27/17 08:59 Last Admin: 11/12/17 16:26 Dose: Not Given Chlorpromazine (Thorazine) 50 mg PO BID [facility]; Protocol Stop: 01/09/18 16:59 Last Admin: 11/12/17 16:22 Dose: Not Given Chlorpromazine (Thorazine) 50 mg IM BID PRN PRN Reason: IF REFUSED PO Stop: 01/09/18 13:35 Last Admin: 11/12/17 16:25 Dose: 50 mg Clonidine HCl (Fkwnurvh-Yce-4) 1 patch TD Mo@0900 [facility] Stop: 01/02/18 08:59 Last Admin: 11/10/17 10:00 Dose: Not Given Docusate Sodium (Colace) 100 mg PO DAILY [facility] Stop: 12/27/17 08:59 Last Admin: 11/12/17 09:09 Dose: Not Given Hydralazine HCl (Apresoline) 50 mg PO DAILY [facility] Stop: 12/27/17 08:59 Last Admin: 11/12/17 09:09 Dose: Not Given Lorazepam (Ativan) 0.5 mg PO Q4HR PRN; Protocol PRN Reason: Anxiety/agitation Stop: 11/27/17 02:07 Last Admin: 11/08/17 17:42 Dose: 0.5 mg Losartan Potassium (Cozaar) 25 mg PO DAILY [facility] Stop: 12/27/17 08:59 Last Admin: 11/12/17 09:09 Dose: Not Given Magnesium Hydroxide (Milk Of Magnesia) 30 ml PO HS PRN PRN Reason: Constipation Metoprolol Tartrate (Lopressor) 50 mg PO BID [facility] Stop: 12/27/17 08:59 Last Admin: 11/12/17 16:23 Dose: Not Given Multivitamins/Vitamin C (Theragran) 1 tab PO DAILY [facility] Stop: 12/27/17 08:59 Last Admin: 11/12/17 09:10 Dose: Not Given Prednisolone Acetate (Pred Forte 1% Ophth Susp) 2 drop EACH EYE TID [facility] Stop: 12/27/17 08:59 Last Admin: 11/12/17 13:58 Dose: Not Given Zolpidem Tartrate (Ambien) 5 mg PO HS PRN PRN Reason: Insomnia Stop: 12/27/17 02:07 Last Admin: 11/07/17 20:30 Dose: 5 mg General: demented HEENT: NC/AT, PERRLA, EOMI, anicteric sclerae, throat clear Neck: Supple, No JVD, No thyromegaly, +2 carotid pulse wo bruit, No LAD Lungs: CTAB Cardiovascular: Normal S1, Normal S2, without murmur Abdomen: non-tender, non-distended Extremities: clear Neurological: no change Internal Medicine Assmt/Plan - Assessment Assessment: 1.HTN. 2.HYPERLIPIDEMIA. 3.DJD. 4.DEMENTIA. - Plan Plan: CONTINUE ON CURRENT MEDICATION AND DIET. Nutritional Asmnt/Malnutr-PDOC - Dietary Evaluation Malnutrition Findings (Please click <Entered> for more info): Nutritional Asmnt/Malnutrition Start: 10/31/17 14: 08 Text: Status: Complete Freq: Protocol: Document 10/31/17 14:08 LCHENG (Rec: 10/31/17 14:15 LCHENG [email or web address]) Nutritional Asmnt/Malnutrition Patient General Information Nutritional Screening Moderate Risk Diagnosis psychosis Pertinent Medical Hx/Surgical Hx HTN, hyperlipidemia, DJD, dementia, psychosis Subjective Information Pt seen in gallo-chair at time of visit. Pt has episodes of agitation. 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 Per EMR, Po intake 100% of meals. Current Diet Order/ Nutrition Support [facility] soft chopped, LUCY Pertinent Medications lipitor, oscal w/vit D, colace , theragran Pertinent Labs 10/28 Cl 110 Nutritional Hx/Data Height 1.6 m Height (Calculated Centimeters) 160.0 Current Weight (lbs) 54.431 kg Weight (Calculated Kilograms) 54.4 Weight (Calculated Grams) 11446.1 [place] Body Weight 115 Body Mass Index (BMI) 21.2 Weight Status Approriate GI Symptoms GI Symptoms None Last BM 10/30 Difficult in: None Skin Integrity/Comment: intact Current %PO Good (75-100%) Estimated Nutritional Goals BEE in Kcals: Using Current wt Calories/Kcals/Kg 25-30 Kcals Calculated 8852-8737 Protein: Using Current wt Protein g/k Protein Calculated 55 Fluid: ml 1375-1650ml (1ml/kcal) Nutritional Problem No current Nutrition Prob Problem N/A Malnutrition Alert Is there a minimum of two criteria No selected? Query Text:Check all the applicable criteria. A minimum of two criteria are recommended for diagnosis of either severe or non-severe malnutrition. Malnutrition Related to Morbid Obesity Malnutrition related to morbid obesity No Intervention/Recommendation Comments 1. Continue with [facility] soft chopped LUCY diet as ordered. 2. Monitor PO intake, wt, labs and skin integrity 3. F/U as low risk in 7 days, 11/07 Expected Outcomes/Goals Expected Outcomes/Goals 1. PO intake to meet at least 75% of nutritional needs. 2. Wt stability, skin to remain intact, labs to approach WNL.
[2017-11-12] MEDS: Atorvastatin Calcium 10 MG TAB PO SCH (21:09)
--- NOTE | 2017-11-12 23:43 | Progress Notes ---
DATE: 11/12/2017 SUBJECTIVE: Case was discussed with staff of the patient, reviewed records. The staff report, the patient has been cheeking her medication and sometimes splitting it, so they are watching her now closely. They give an injection to make sure she does not split it. She continues to be unpredictable, impulsive, needing redirection. Continues to have poor insight. Continues to be acting inappropriate sexually. She is sleeping better. She is eating better. No side effects with the medication. No sedation, no nausea and no extrapyramidal symptoms. We will continue to work with the patient in group therapy, milieu therapy, and adjust medication as needed. JOB# [id number]
[2017-11-13] MEDS: Calcium Carb/Vit D 500 mg/200 U Tab PO SCH ×2 (08:18→16:39)
[2017-11-13] MEDS: Prednisolone 1% Ophth Susp 5 mL Bottle EACH EYE SCH ×3 (08:19→20:57)
[2017-11-13] MEDS: Multivitamin Tab PO SCH (08:19)
[2017-11-13] MEDS: chlorproMAZINE 25 mg/mL 2mL Amp IM PRN ×2 (09:46→16:38)
--- NOTE | 2017-11-13 15:56 | Progress Notes ---
DATE: 11/13/2017 SUBJECTIVE: Case was discussed with staff of the patient, reviewed records. The patient continues to be unpredictable, impulsive, cursing staff during refusing to do medication. Today, she said she would rather take the shot. She continues to be acting inappropriately very psychotic, paranoid, unpredictable, and impulsive. Lab work showed high MCH, the rest of the CBC within normal range. Chemistry panel with high chloride and low protein. The rest within normal. TSH within normal. RPR nonreactive. I will be increasing her chlorpromazine to 75 mg twice a day. No side effects to the medications, no sedation, so no extrapyramidal symptoms. We will continue to work with the patient in group therapy, milieu therapy, adjust the medication as needed. JOB# [id number]
[2017-11-13] MEDS: Atorvastatin Calcium 10 MG TAB PO SCH (20:57)
--- NOTE | 2017-11-13 23:12 | Internal Medicine Prog Note ---
Internal Medicine Subjective - Subjective Service Date: 11/13/17 Patient seen and examined:: with staff Patient is:: awake, verbal, in bed, confused Per staff patient has:: no adverse event Internal Medicine Objective - Results Result Diagrams: 10/28/17 00:05 10/28/17 00:05 Recent Labs: Laboratory Last Values WBC 7.5 Th/cmm (4.8-10.8) 10/28/17 00:05 RBC 4.55 Mil/cmm (3.80-5.20) 10/28/17 00:05 Hgb 14.5 gm/dL (12-16) 10/28/17 00:05 Hct 43.6 % (41.0-60) 10/28/17 00:05 MCV 95.9 fl (81-100) 10/28/17 00:05 MCH 31.8 pg (27.0-31.0) H 10/28/17 00:05 MCHC Differential 33.2 pg (28.0-36.0) 10/28/17 00:05 RDW 13.3 % (11.5-20.0) 10/28/17 00:05 Plt Count 201 Th/cmm (150-400) 10/28/17 00:05 MPV 7.7 fl 10/28/17 00:05 Neutrophils % 59.9 % (40.0-80.0) 10/28/17 00:05 Lymphocytes % 27.9 % (20.0-50.0) 10/28/17 00:05 Monocytes % 8.9 % (2.0-10.0) 10/28/17 00:05 Eosinophils % 2.9 % (0.0-5.0) 10/28/17 00:05 Basophils % 0.4 % (0.0-2.0) 10/28/17 00:05 Sodium 139 mEq/L (136-145) 10/28/17 00:05 Potassium 4.5 mEq/L (3.5-5.1) 10/28/17 00:05 Chloride 110 mEq/L (98-107) H 10/28/17 00:05 Carbon Dioxide 24.1 mEq/L (21.0-31.0) 10/28/17 00:05 Anion Gap 9.4 (7.0-16.0) 10/28/17 00:05 BUN 23 mg/dL (7-25) 10/28/17 00:05 Creatinine 0.8 mg/dL (0.6-1.2) 10/28/17 00:05 Est GFR ( Amer) TNP 10/28/17 00:05 Est GFR (Non-Af Amer) TNP 10/28/17 00:05 BUN/Creatinine Ratio 28.8 10/28/17 00:05 Glucose 103 mg/dL (70-105) 10/28/17 00:05 Calcium 9.2 mg/dL (8.6-10.3) 10/28/17 00:05 Total Bilirubin 0.3 mg/dL (0.3-1.0) 10/28/17 00:05 AST 14 U/L (13-39) 10/28/17 00:05 ALT 13 U/L (7-52) 10/28/17 00:05 Alkaline Phosphatase 97 U/L (34-104) 10/28/17 00:05 Total Protein 5.8 gm/dL (6.0-8.3) L 10/28/17 00:05 Albumin 3.7 gm/dL (3.7-5.3) 10/28/17 00:05 Globulin 2.1 gm/dL 10/28/17 00:05 Albumin/Globulin Ratio 1.8 (1.0-1.8) 10/28/17 00:05 TSH 1.34 uIU/ml (0.34-5.60) 10/28/17 00:05 RPR NONREACTIVE (NONREACTIVE) 10/28/17 00:05 - Physical Exam Vitals and I&O: Vital Signs Temp 98.7 F 11/13/17 14:00 Pulse 90 11/13/17 14:00 Resp 18 11/13/17 19:58 BP 174/93 11/13/17 14:00 Pulse Ox 98 11/13/17 14:00 Intake & Output 11/13/17 11/13/17 11/14/17 06:59 18:59 06:59 Intake Total 1100 Output Total 4 Balance 1096 Intake: Oral 1100 Output: Urine 4 Other: # Bowel Movements 1 Active Medications: Current Medications Acetaminophen (Tylenol) 650 mg PO Q4HR PRN PRN Reason: Mild Pain / Temp above 100 Stop: 12/27/17 02:07 Al Hydrox/Mg Hydrox/Simethicone (Maalox) 30 ml PO Q4HR PRN PRN Reason: GI DISTRESS Stop: 12/27/17 02:07 Amlodipine Besylate (Norvasc) 10 mg PO DAILY [facility] Stop: 12/27/17 08:59 Last Admin: 11/13/17 08:17 Dose: Not Given Atorvastatin Calcium (Lipitor) 10 mg PO HS [facility]; Protocol Stop: 12/27/17 20:59 Last Admin: 11/13/17 20:57 Dose: Not Given Calcium/Vitamin D (Oscal W/Vitamin D) 1 tab PO BID [facility] Stop: 12/27/17 08:59 Last Admin: 11/13/17 16:39 Dose: Not Given Chlorpromazine (Thorazine) 75 mg PO BID [facility]; Protocol Stop: 01/12/18 16:59 Last Admin: 11/13/17 16:39 Dose: Not Given Chlorpromazine (Thorazine) 75 mg IM BID PRN PRN Reason: IF REFUSED PO Stop: 01/09/18 13:35 Last Admin: 11/13/17 16:38 Dose: 75 mg Clonidine HCl (Cxlrgxjf-Gwh-5) 1 patch TD Mo@0900 [facility] Stop: 01/02/18 08:59 Last Admin: 11/10/17 10:00 Dose: Not Given Docusate Sodium (Colace) 100 mg PO DAILY [facility] Stop: 12/27/17 08:59 Last Admin: 11/13/17 08:18 Dose: Not Given Hydralazine HCl (Apresoline) 50 mg PO DAILY [facility] Stop: 12/27/17 08:59 Last Admin: 11/13/17 08:18 Dose: Not Given Lorazepam (Ativan) 0.5 mg PO Q4HR PRN; Protocol PRN Reason: Anxiety/agitation Stop: 11/27/17 02:07 Last Admin: 11/08/17 17:42 Dose: 0.5 mg Losartan Potassium (Cozaar) 25 mg PO DAILY [facility] Stop: 12/27/17 08:59 Last Admin: 11/13/17 08:18 Dose: Not Given Magnesium Hydroxide (Milk Of Magnesia) 30 ml PO HS PRN PRN Reason: Constipation Metoprolol Tartrate (Lopressor) 50 mg PO BID [facility] Stop: 12/27/17 08:59 Last Admin: 11/13/17 16:39 Dose: Not Given Multivitamins/Vitamin C (Theragran) 1 tab PO DAILY [facility] Stop: 12/27/17 08:59 Last Admin: 11/13/17 08:19 Dose: Not Given Prednisolone Acetate (Pred Forte 1% Ophth Susp) 2 drop EACH EYE TID [facility] Stop: 12/27/17 08:59 Last Admin: 11/13/17 20:57 Dose: Not Given Zolpidem Tartrate (Ambien) 5 mg PO HS PRN PRN Reason: Insomnia Stop: 12/27/17 02:07 Last Admin: 11/07/17 20:30 Dose: 5 mg General: demented HEENT: NC/AT, PERRLA, EOMI, anicteric sclerae, throat clear Neck: Supple, No JVD, No thyromegaly, +2 carotid pulse wo bruit, No LAD Lungs: CTAB Cardiovascular: Normal S1, Normal S2, without murmur Abdomen: non-tender, non-distended Extremities: clear Neurological: no change Internal Medicine Assmt/Plan - Assessment Assessment: 1.HTN. 2.HYPERLIPIDEMIA. 3.DJD. 4.DEMENTIA. - Plan Plan: CONTINUE ON CURRENT MEDICATION AND DIET. Nutritional Asmnt/Malnutr-PDOC - Dietary Evaluation Malnutrition Findings (Please click <Entered> for more info): Nutritional Asmnt/Malnutrition Start: 10/31/17 14: 08 Text: Status: Complete Freq: Protocol: Document 10/31/17 14:08 KENYAG (Rec: 10/31/17 14:15 SYLVIAG [email or web address]) Nutritional Asmnt/Malnutrition Patient General Information Nutritional Screening Moderate Risk Diagnosis psychosis Pertinent Medical Hx/Surgical Hx HTN, hyperlipidemia, DJD, dementia, psychosis Subjective Information Pt seen in gallo-chair at time of visit. Pt has episodes of agitation. 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 Per EMR, Po intake 100% of meals. Current Diet Order/ Nutrition Support [facility] soft chopped, LUCY Pertinent Medications lipitor, oscal w/vit D, colace , theragran Pertinent Labs 10/28 Cl 110 Nutritional Hx/Data Height 1.6 m Height (Calculated Centimeters) 160.0 Current Weight (lbs) 54.431 kg Weight (Calculated Kilograms) 54.4 Weight (Calculated Grams) 34766.1 [place] Body Weight 115 Body Mass Index (BMI) 21.2 Weight Status Approriate GI Symptoms GI Symptoms None Last BM 10/30 Difficult in: None Skin Integrity/Comment: intact Current %PO Good (75-100%) Estimated Nutritional Goals BEE in Kcals: Using Current wt Calories/Kcals/Kg 25-30 Kcals Calculated 4893-7293 Protein: Using Current wt Protein g/k Protein Calculated 55 Fluid: ml 1375-1650ml (1ml/kcal) Nutritional Problem No current Nutrition Prob Problem N/A Malnutrition Alert Is there a minimum of two criteria No selected? Query Text:Check all the applicable criteria. A minimum of two criteria are recommended for diagnosis of either severe or non-severe malnutrition. Malnutrition Related to Morbid Obesity Malnutrition related to morbid obesity No Intervention/Recommendation Comments 1. [facility] LUCY diet as ordered. 2. Monitor PO intake, wt, labs and skin integrity 3. F/U as low risk in 7 days, 11/07 Expected Outcomes/Goals Expected Outcomes/Goals 1. PO intake to meet at least 75% of nutritional needs. 2. Wt stability, skin to remain intact, labs to approach WNL.
[2017-11-14] MEDS: Calcium Carb/Vit D 500 mg/200 U Tab PO SCH ×2 (08:36→16:07)
[2017-11-14] MEDS: Prednisolone 1% Ophth Susp 5 mL Bottle EACH EYE SCH ×3 (08:37→21:29)
[2017-11-14] MEDS: Multivitamin Tab PO SCH (08:37)
[2017-11-14] MEDS: chlorproMAZINE 25 mg/mL 2mL Amp IM PRN ×2 (09:43→17:38)
--- NOTE | 2017-11-14 18:54 | Internal Medicine Prog Note ---
Internal Medicine Subjective - Subjective Service Date: 11/14/17 Patient seen and examined:: with staff Patient is:: awake, verbal, in bed, confused Per staff patient has:: no adverse event Internal Medicine Objective - Results Result Diagrams: 10/28/17 00:05 10/28/17 00:05 Recent Labs: Laboratory Last Values WBC 7.5 Th/cmm (4.8-10.8) 10/28/17 00:05 RBC 4.55 Mil/cmm (3.80-5.20) 10/28/17 00:05 Hgb 14.5 gm/dL (12-16) 10/28/17 00:05 Hct 43.6 % (41.0-60) 10/28/17 00:05 MCV 95.9 fl (81-100) 10/28/17 00:05 MCH 31.8 pg (27.0-31.0) H 10/28/17 00:05 MCHC Differential 33.2 pg (28.0-36.0) 10/28/17 00:05 RDW 13.3 % (11.5-20.0) 10/28/17 00:05 Plt Count 201 Th/cmm (150-400) 10/28/17 00:05 MPV 7.7 fl 10/28/17 00:05 Neutrophils % 59.9 % (40.0-80.0) 10/28/17 00:05 Lymphocytes % 27.9 % (20.0-50.0) 10/28/17 00:05 Monocytes % 8.9 % (2.0-10.0) 10/28/17 00:05 Eosinophils % 2.9 % (0.0-5.0) 10/28/17 00:05 Basophils % 0.4 % (0.0-2.0) 10/28/17 00:05 Sodium 139 mEq/L (136-145) 10/28/17 00:05 Potassium 4.5 mEq/L (3.5-5.1) 10/28/17 00:05 Chloride 110 mEq/L (98-107) H 10/28/17 00:05 Carbon Dioxide 24.1 mEq/L (21.0-31.0) 10/28/17 00:05 Anion Gap 9.4 (7.0-16.0) 10/28/17 00:05 BUN 23 mg/dL (7-25) 10/28/17 00:05 Creatinine 0.8 mg/dL (0.6-1.2) 10/28/17 00:05 Est GFR ( Amer) TNP 10/28/17 00:05 Est GFR (Non-Af Amer) TNP 10/28/17 00:05 BUN/Creatinine Ratio 28.8 10/28/17 00:05 Glucose 103 mg/dL (70-105) 10/28/17 00:05 Calcium 9.2 mg/dL (8.6-10.3) 10/28/17 00:05 Total Bilirubin 0.3 mg/dL (0.3-1.0) 10/28/17 00:05 AST 14 U/L (13-39) 10/28/17 00:05 ALT 13 U/L (7-52) 10/28/17 00:05 Alkaline Phosphatase 97 U/L (34-104) 10/28/17 00:05 Total Protein 5.8 gm/dL (6.0-8.3) L 10/28/17 00:05 Albumin 3.7 gm/dL (3.7-5.3) 10/28/17 00:05 Globulin 2.1 gm/dL 10/28/17 00:05 Albumin/Globulin Ratio 1.8 (1.0-1.8) 10/28/17 00:05 TSH 1.34 uIU/ml (0.34-5.60) 10/28/17 00:05 RPR NONREACTIVE (NONREACTIVE) 10/28/17 00:05 - Physical Exam Vitals and I&O: Vital Signs Temp 98.3 F 11/14/17 15:18 Pulse 91 11/14/17 15:18 Resp 20 11/14/17 15:18 BP 134/81 11/14/17 15:18 Pulse Ox 97 11/14/17 15:18 Intake & Output 11/13/17 11/14/17 11/14/17 18:59 06:59 18:59 Intake Total 1100 1100 Output Total 4 Balance 1096 1100 Intake: Oral 1100 1100 Output: Urine 4 Other: # Voids 4 # Bowel Movements 1 1 Active Medications: Current Medications Acetaminophen (Tylenol) 650 mg PO Q4HR PRN PRN Reason: Mild Pain / Temp above 100 Stop: 12/27/17 02:07 Al Hydrox/Mg Hydrox/Simethicone (Maalox) 30 ml PO Q4HR PRN PRN Reason: GI DISTRESS Stop: 12/27/17 02:07 Amlodipine Besylate (Norvasc) 10 mg PO DAILY [facility] Stop: 12/27/17 08:59 Last Admin: 11/14/17 08:36 Dose: Not Given Atorvastatin Calcium (Lipitor) 10 mg PO HS [facility]; Protocol Stop: 12/27/17 20:59 Last Admin: 11/13/17 20:57 Dose: Not Given Calcium/Vitamin D (Oscal W/Vitamin D) 1 tab PO BID [facility] Stop: 12/27/17 08:59 Last Admin: 11/14/17 16:07 Dose: Not Given Chlorpromazine (Thorazine) 75 mg PO BID [facility]; Protocol Stop: 01/12/18 16:59 Last Admin: 11/14/17 16:07 Dose: Not Given Chlorpromazine (Thorazine) 75 mg IM BID PRN PRN Reason: IF REFUSED PO Stop: 01/09/18 13:35 Last Admin: 11/14/17 17:38 Dose: 75 mg Clonidine HCl (Picgkmkq-Bvq-8) 1 patch TD Mo@0900 [facility] Stop: 01/02/18 08:59 Last Admin: 11/10/17 10:00 Dose: Not Given Docusate Sodium (Colace) 100 mg PO DAILY [facility] Stop: 12/27/17 08:59 Last Admin: 11/14/17 08:37 Dose: Not Given Hydralazine HCl (Apresoline) 50 mg PO DAILY [facility] Stop: 12/27/17 08:59 Last Admin: 11/14/17 08:37 Dose: Not Given Lorazepam (Ativan) 0.5 mg PO Q4HR PRN; Protocol PRN Reason: Anxiety/agitation Stop: 11/27/17 02:07 Last Admin: 11/08/17 17:42 Dose: 0.5 mg Losartan Potassium (Cozaar) 25 mg PO DAILY [facility] Stop: 12/27/17 08:59 Last Admin: 11/14/17 08:37 Dose: Not Given Magnesium Hydroxide (Milk Of Magnesia) 30 ml PO HS PRN PRN Reason: Constipation Metoprolol Tartrate (Lopressor) 50 mg PO BID [facility] Stop: 12/27/17 08:59 Last Admin: 11/14/17 16:07 Dose: Not Given Multivitamins/Vitamin C (Theragran) 1 tab PO DAILY [facility] Stop: 12/27/17 08:59 Last Admin: 11/14/17 08:37 Dose: Not Given Prednisolone Acetate (Pred Forte 1% Ophth Susp) 2 drop EACH EYE TID [facility] Stop: 12/27/17 08:59 Last Admin: 11/14/17 13:27 Dose: Not Given Zolpidem Tartrate (Ambien) 5 mg PO HS PRN PRN Reason: Insomnia Stop: 12/27/17 02:07 Last Admin: 11/07/17 20:30 Dose: 5 mg General: demented HEENT: NC/AT, PERRLA, EOMI, anicteric sclerae, throat clear Neck: Supple, No JVD, No thyromegaly, +2 carotid pulse wo bruit, No LAD Lungs: CTAB Cardiovascular: Normal S1, Normal S2, without murmur Abdomen: non-tender, non-distended Extremities: clear Neurological: no change Internal Medicine Assmt/Plan - Assessment Assessment: 1.HTN. 2.HYPERLIPIDEMIA. 3.DJD. 4.DEMENTIA. - Plan Plan: CONTINUE ON CURRENT MEDICATION AND DIET. Nutritional Asmnt/Malnutr-PDOC - Dietary Evaluation Malnutrition Findings (Please click <Entered> for more info): Nutritional Asmnt/Malnutrition Start: 10/31/17 14: 08 Text: Status: Complete Freq: Protocol: Document 10/31/17 14:08 LCHENG (Rec: 10/31/17 14:15 [email or web address]) Nutritional Asmnt/Malnutrition Patient General Information Nutritional Screening Moderate Risk Diagnosis psychosis Pertinent Medical Hx/Surgical Hx HTN, hyperlipidemia, DJD, dementia, psychosis Subjective Information Pt seen in gallo-chair at time of visit. Pt has episodes of agitation. per [employer], pt eats everything. Per EMR, Po intake 100% of meals. Current Diet Order/ Nutrition Support [facility] soft chopped, LUCY Pertinent Medications lipitor, oscal w/vit D, colace , theragran Pertinent Labs 10/28 Cl 110 Nutritional Hx/Data Height 1.6 m Height (Calculated Centimeters) 160.0 Current Weight (lbs) 54.431 kg Weight (Calculated Kilograms) 54.4 Weight (Calculated Grams) 56733.1 [place] Body Weight 115 Body Mass Index (BMI) 21.2 Weight Status Approriate GI Symptoms GI Symptoms None Last BM 10/30 Difficult in: None Skin Integrity/Comment: intact Current %PO Good (75-100%) Estimated Nutritional Goals BEE in Kcals: Using Current wt Calories/Kcals/Kg 25-30 Kcals Calculated 2363-6298 Protein: Using Current wt Protein g/k Protein Calculated 55 Fluid: ml 1375-1650ml (1ml/kcal) Nutritional Problem No current Nutrition Prob Problem N/A Malnutrition Alert Is there a minimum of two criteria No selected? Query Text:Check all the applicable criteria. A minimum of two criteria are recommended for diagnosis of either severe or non-severe malnutrition. Malnutrition Related to Morbid Obesity Malnutrition related to morbid obesity No Intervention/Recommendation Comments 1. Continue with [facility] soft chopped LUCY diet as ordered. 2. Monitor PO intake, wt, labs and skin integrity 3. F/U as low risk in 7 days, 11/07 Expected Outcomes/Goals Expected Outcomes/Goals 1. PO intake to meet at least 75% of nutritional needs. 2. Wt stability, skin to remain intact, labs to approach WNL.
[2017-11-14] MEDS: Atorvastatin Calcium 10 MG TAB PO SCH (21:26)
--- NOTE | 2017-11-14 22:14 | Progress Notes ---
DATE: 11/14/2017 Case was discussed with staff of the patient, reviewed records. The patient continues to refuse oral medications. She got an injection yesterday twice and this morning. She is telling the staff again what she was telling me before that she only take eye drops and even she refused to get the eye drops and she continues to have poor insight. She continues to be not ready to go to a lesser level of care because of her severe agitation, refusing medication, acting out behavior, acting inappropriate sexually, hard to redirect, unpredictable, impulsive and needing redirection. No side effects with the medication, no sedation, no nausea and no extrapyramidal symptoms. I will continue outpatient group therapy, milieu therapy, and adjust the medications as needed. JOB# [id number]
[2017-11-15] MEDS: Calcium Carb/Vit D 500 mg/200 U Tab PO SCH ×3 (09:24→16:30)
[2017-11-15] MEDS: Multivitamin Tab PO SCH ×2 (09:25→09:43)
[2017-11-15] MEDS: Prednisolone 1% Ophth Susp 5 mL Bottle EACH EYE SCH ×3 (09:31→20:51)
[2017-11-15] MEDS: chlorproMAZINE 25 mg/mL 2mL Amp IM PRN (16:05)
[2017-11-15] MEDS: CHLORPROMAZINE PO SCH (16:30)
--- NOTE | 2017-11-15 19:12 | Progress Notes ---
DATE: 11/15/2017 Dr. Davis is covering for Dr. Antonio. SUBJECTIVE: Chart reviewed and the patient interviewed. Also discussed the patient's condition with the staff and reviewed records and labs. The patient is still withdrawn and she still has unpredictable behavior. The patient also still needs assurance and she still needs redirections. She also is still depressed. She also had periods of impulsivity and unpredictable behavior. The patient also, according to the staff, refused to take her medications yesterday. ASSESSMENT: The patient is still depressed and withdrawn. TREATMENT PLAN: Continue to monitor her behavior and her condition closely. Also, continue to work on her unpredictable behavior and her depression and continue to follow up. [facility]# [id number]
--- NOTE | 2017-11-15 20:27 | Internal Medicine Prog Note ---
Internal Medicine Subjective - Subjective Service Date: 11/15/17 Patient seen and examined:: with staff Patient is:: awake, verbal, in bed, confused Per staff patient has:: no adverse event Internal Medicine Objective - Results Result Diagrams: 10/28/17 00:05 10/28/17 00:05 Recent Labs: Laboratory Last Values WBC 7.5 Th/cmm (4.8-10.8) 10/28/17 00:05 RBC 4.55 Mil/cmm (3.80-5.20) 10/28/17 00:05 Hgb 14.5 gm/dL (12-16) 10/28/17 00:05 Hct 43.6 % (41.0-60) 10/28/17 00:05 MCV 95.9 fl (81-100) 10/28/17 00:05 MCH 31.8 pg (27.0-31.0) H 10/28/17 00:05 MCHC Differential 33.2 pg (28.0-36.0) 10/28/17 00:05 RDW 13.3 % (11.5-20.0) 10/28/17 00:05 Plt Count 201 Th/cmm (150-400) 10/28/17 00:05 MPV 7.7 fl 10/28/17 00:05 Neutrophils % 59.9 % (40.0-80.0) 10/28/17 00:05 Lymphocytes % 27.9 % (20.0-50.0) 10/28/17 00:05 Monocytes % 8.9 % (2.0-10.0) 10/28/17 00:05 Eosinophils % 2.9 % (0.0-5.0) 10/28/17 00:05 Basophils % 0.4 % (0.0-2.0) 10/28/17 00:05 Sodium 139 mEq/L (136-145) 10/28/17 00:05 Potassium 4.5 mEq/L (3.5-5.1) 10/28/17 00:05 Chloride 110 mEq/L (98-107) H 10/28/17 00:05 Carbon Dioxide 24.1 mEq/L (21.0-31.0) 10/28/17 00:05 Anion Gap 9.4 (7.0-16.0) 10/28/17 00:05 BUN 23 mg/dL (7-25) 10/28/17 00:05 Creatinine 0.8 mg/dL (0.6-1.2) 10/28/17 00:05 Est GFR ( Amer) TNP 10/28/17 00:05 Est GFR (Non-Af Amer) TNP 10/28/17 00:05 BUN/Creatinine Ratio 28.8 10/28/17 00:05 Glucose 103 mg/dL (70-105) 10/28/17 00:05 Calcium 9.2 mg/dL (8.6-10.3) 10/28/17 00:05 Total Bilirubin 0.3 mg/dL (0.3-1.0) 10/28/17 00:05 AST 14 U/L (13-39) 10/28/17 00:05 ALT 13 U/L (7-52) 10/28/17 00:05 Alkaline Phosphatase 97 U/L (34-104) 10/28/17 00:05 Total Protein 5.8 gm/dL (6.0-8.3) L 10/28/17 00:05 Albumin 3.7 gm/dL (3.7-5.3) 10/28/17 00:05 Globulin 2.1 gm/dL 10/28/17 00:05 Albumin/Globulin Ratio 1.8 (1.0-1.8) 10/28/17 00:05 TSH 1.34 uIU/ml (0.34-5.60) 10/28/17 00:05 RPR NONREACTIVE (NONREACTIVE) 10/28/17 00:05 - Physical Exam Vitals and I&O: Vital Signs Temp 97.4 F 11/15/17 15:42 Pulse 82 11/15/17 15:42 Resp 20 11/15/17 15:42 BP 151/80 11/15/17 15:42 Pulse Ox 97 11/15/17 15:42 Intake & Output 11/15/17 11/15/17 11/16/17 06:59 18:59 06:59 Intake Total 1200 Balance 1200 Intake: Oral 1200 Other: # Voids 4 # Bowel Movements 1 Active Medications: Current Medications Acetaminophen (Tylenol) 650 mg PO Q4HR PRN PRN Reason: Mild Pain / Temp above 100 Stop: 12/27/17 02:07 Al Hydrox/Mg Hydrox/Simethicone (Maalox) 30 ml PO Q4HR PRN PRN Reason: GI DISTRESS Stop: 12/27/17 02:07 Amlodipine Besylate (Norvasc) 10 mg PO DAILY [facility] Stop: 12/27/17 08:59 Last Admin: 11/15/17 09:43 Dose: Not Given Atorvastatin Calcium (Lipitor) 10 mg PO HS [facility]; Protocol Stop: 12/27/17 20:59 Last Admin: 11/14/17 21:26 Dose: Not Given Calcium/Vitamin D (Oscal W/Vitamin D) 1 tab PO BID [facility] Stop: 12/27/17 08:59 Last Admin: 11/15/17 16:30 Dose: Not Given Chlorpromazine (Thorazine) 75 mg IM BID PRN PRN Reason: IF REFUSED PO Stop: 01/09/18 13:35 Last Admin: 11/15/17 16:05 Dose: 75 mg Chlorpromazine 50 mg/ (Chlorpromazine 25 mg) 75 mg PO BID [facility] Stop: 01/14/18 16:59 Last Admin: 11/15/17 16:30 Dose: Not Given Clonidine HCl (Uczawglp-Bcf-1) 1 patch TD Mo@0900 [facility] Stop: 01/02/18 08:59 Last Admin: 11/10/17 10:00 Dose: Not Given Docusate Sodium (Colace) 100 mg PO DAILY [facility] Stop: 12/27/17 08:59 Last Admin: 11/15/17 09:24 Dose: 100 mg Hydralazine HCl (Apresoline) 50 mg PO DAILY [facility] Stop: 12/27/17 08:59 Last Admin: 11/15/17 09:25 Dose: 50 mg Lorazepam (Ativan) 0.5 mg PO Q4HR PRN; Protocol PRN Reason: Anxiety/agitation Stop: 11/27/17 02:07 Last Admin: 11/08/17 17:42 Dose: 0.5 mg Losartan Potassium (Cozaar) 25 mg PO DAILY [facility] Stop: 12/27/17 08:59 Last Admin: 11/15/17 09:25 Dose: 25 mg Magnesium Hydroxide (Milk Of Magnesia) 30 ml PO HS PRN PRN Reason: Constipation Metoprolol Tartrate (Lopressor) 50 mg PO BID [facility] Stop: 12/27/17 08:59 Last Admin: 11/15/17 16:30 Dose: Not Given Multivitamins/Vitamin C (Theragran) 1 tab PO DAILY [facility] Stop: 12/27/17 08:59 Last Admin: 11/15/17 09:43 Dose: Not Given Prednisolone Acetate (Pred Forte 1% Ophth Susp) 2 drop EACH EYE TID [facility] Stop: 12/27/17 08:59 Last Admin: 11/15/17 13:04 Dose: Not Given Zolpidem Tartrate (Ambien) 5 mg PO HS PRN PRN Reason: Insomnia Stop: 12/27/17 02:07 Last Admin: 11/07/17 20:30 Dose: 5 mg General: demented HEENT: NC/AT, PERRLA, EOMI, anicteric sclerae, throat clear Neck: Supple, No JVD, No thyromegaly, +2 carotid pulse wo bruit, No LAD Lungs: CTAB Cardiovascular: Normal S1, Normal S2, without murmur Abdomen: non-tender, non-distended Extremities: clear Neurological: no change Internal Medicine Assmt/Plan - Assessment Assessment: 1.HTN. 2.HYPERLIPIDEMIA. 3.DJD. 4.DEMENTIA. - Plan Plan: CONTINUE ON CURRENT MEDICATION AND DIET. Nutritional Asmnt/Malnutr-PDOC - Dietary Evaluation Malnutrition Findings (Please click <Entered> for more info): Nutritional Asmnt/Malnutrition Start: 10/31/17 14: 08 Text: Status: Complete Freq: Protocol: Document 10/31/17 14:08 JIMENA (Rec: 10/31/17 14:15 BROOKE [email or web address]) Nutritional Asmnt/Malnutrition Patient General Information Nutritional Screening Moderate Risk Diagnosis psychosis Pertinent Medical Hx/Surgical Hx HTN, hyperlipidemia, DJD, dementia, psychosis Subjective Information Pt seen in gallo-chair at time of visit. Pt has episodes of agitation. per DIP BRAZIER, pt eats everything. Per EMR, Po intake 100% of meals. Current Diet Order/ Nutrition Support [facility] soft chopped, LUCY Pertinent Medications lipitor, oscal w/vit D, colace , theragran Pertinent Labs 10/28 Cl 110 Nutritional Hx/Data Height 1.6 m Height (Calculated Centimeters) 160.0 Current Weight (lbs) 54.431 kg Weight (Calculated Kilograms) 54.4 Weight (Calculated Grams) 87205.1 [place] Body Weight 115 Body Mass Index (BMI) 21.2 Weight Status Approriate GI Symptoms GI Symptoms None Last BM 10/30 Difficult in: None Skin Integrity/Comment: intact Current %PO Good (75-100%) Estimated Nutritional Goals BEE in Kcals: Using Current wt Calories/Kcals/Kg 25-30 Kcals Calculated 1777-2779 Protein: Using Current wt Protein g/k Protein Calculated 55 Fluid: ml 1375-1650ml (1ml/kcal) Nutritional Problem No current Nutrition Prob Problem N/A Malnutrition Alert Is there a minimum of two criteria No selected? Query Text:Check all the applicable criteria. A minimum of two criteria are recommended for diagnosis of either severe or non-severe malnutrition. Malnutrition Related to Morbid Obesity Malnutrition related to morbid obesity No Intervention/Recommendation Comments 1. Continue with [facility] soft chopped LUCY diet as ordered. 2. Monitor PO intake, wt, labs and skin integrity 3. F/U as low risk in 7 days, 11/07 Expected Outcomes/Goals Expected Outcomes/Goals 1. PO intake to meet at least 75% of nutritional needs. 2. Wt stability, skin to remain intact, labs to approach WNL.
[2017-11-15] MEDS: Atorvastatin Calcium 10 MG TAB PO SCH (20:51)
[2017-11-16] MEDS: Prednisolone 1% Ophth Susp 5 mL Bottle EACH EYE SCH ×3 (09:00→21:00)
[2017-11-16] MEDS: Multivitamin Tab PO SCH (09:35)
[2017-11-16] MEDS: CHLORPROMAZINE PO SCH ×2 (09:35→16:53)
[2017-11-16] MEDS: Calcium Carb/Vit D 500 mg/200 U Tab PO SCH ×2 (09:37→16:45)
--- NOTE | 2017-11-16 17:00 | Internal Medicine Prog Note ---
Internal Medicine Subjective - Subjective Service Date: 11/16/17 Patient seen and examined:: with staff (SHE IS REFUSING MEDICATION) Patient is:: awake, verbal, in bed, confused Per staff patient has:: no adverse event Internal Medicine Objective - Results Result Diagrams: 10/28/17 00:05 10/28/17 00:05 Recent Labs: Laboratory Last Values WBC 7.5 Th/cmm (4.8-10.8) 10/28/17 00:05 RBC 4.55 Mil/cmm (3.80-5.20) 10/28/17 00:05 Hgb 14.5 gm/dL (12-16) 10/28/17 00:05 Hct 43.6 % (41.0-60) 10/28/17 00:05 MCV 95.9 fl (81-100) 10/28/17 00:05 MCH 31.8 pg (27.0-31.0) H 10/28/17 00:05 MCHC Differential 33.2 pg (28.0-36.0) 10/28/17 00:05 RDW 13.3 % (11.5-20.0) 10/28/17 00:05 Plt Count 201 Th/cmm (150-400) 10/28/17 00:05 MPV 7.7 fl 10/28/17 00:05 Neutrophils % 59.9 % (40.0-80.0) 10/28/17 00:05 Lymphocytes % 27.9 % (20.0-50.0) 10/28/17 00:05 Monocytes % 8.9 % (2.0-10.0) 10/28/17 00:05 Eosinophils % 2.9 % (0.0-5.0) 10/28/17 00:05 Basophils % 0.4 % (0.0-2.0) 10/28/17 00:05 Sodium 139 mEq/L (136-145) 10/28/17 00:05 Potassium 4.5 mEq/L (3.5-5.1) 10/28/17 00:05 Chloride 110 mEq/L (98-107) H 10/28/17 00:05 Carbon Dioxide 24.1 mEq/L (21.0-31.0) 10/28/17 00:05 Anion Gap 9.4 (7.0-16.0) 10/28/17 00:05 BUN 23 mg/dL (7-25) 10/28/17 00:05 Creatinine 0.8 mg/dL (0.6-1.2) 10/28/17 00:05 Est GFR ( Amer) TNP 10/28/17 00:05 Est GFR (Non-Af Amer) TNP 10/28/17 00:05 BUN/Creatinine Ratio 28.8 10/28/17 00:05 Glucose 103 mg/dL (70-105) 10/28/17 00:05 Calcium 9.2 mg/dL (8.6-10.3) 10/28/17 00:05 Total Bilirubin 0.3 mg/dL (0.3-1.0) 10/28/17 00:05 AST 14 U/L (13-39) 10/28/17 00:05 ALT 13 U/L (7-52) 10/28/17 00:05 Alkaline Phosphatase 97 U/L (34-104) 10/28/17 00:05 Total Protein 5.8 gm/dL (6.0-8.3) L 10/28/17 00:05 Albumin 3.7 gm/dL (3.7-5.3) 10/28/17 00:05 Globulin 2.1 gm/dL 10/28/17 00:05 Albumin/Globulin Ratio 1.8 (1.0-1.8) 10/28/17 00:05 TSH 1.34 uIU/ml (0.34-5.60) 10/28/17 00:05 RPR NONREACTIVE (NONREACTIVE) 10/28/17 00:05 - Physical Exam Vitals and I&O: Vital Signs Temp 97.6 F 11/16/17 16:19 Pulse 87 11/16/17 16:45 Resp 20 11/16/17 16:19 BP 166/73 11/16/17 16:45 Pulse Ox 99 11/16/17 16:19 Intake & Output 11/15/17 11/16/17 11/16/17 18:59 06:59 18:59 Intake Total 1200 Balance 1200 Intake: Oral 1200 Other: # Voids 4 # Bowel Movements 1 Active Medications: Current Medications Acetaminophen (Tylenol) 650 mg PO Q4HR PRN PRN Reason: Mild Pain / Temp above 100 Stop: 12/27/17 02:07 Al Hydrox/Mg Hydrox/Simethicone (Maalox) 30 ml PO Q4HR PRN PRN Reason: GI DISTRESS Stop: 12/27/17 02:07 Amlodipine Besylate (Norvasc) 10 mg PO DAILY [facility] Stop: 12/27/17 08:59 Last Admin: 11/16/17 09:36 Dose: 10 mg Atorvastatin Calcium (Lipitor) 10 mg PO HS [facility]; Protocol Stop: 12/27/17 20:59 Last Admin: 11/15/17 20:51 Dose: Not Given Calcium/Vitamin D (Oscal W/Vitamin D) 1 tab PO BID [facility] Stop: 12/27/17 08:59 Last Admin: 11/16/17 16:45 Dose: Not Given Chlorpromazine (Thorazine) 75 mg IM BID PRN PRN Reason: IF REFUSED PO Stop: 01/09/18 13:35 Last Admin: 11/15/17 16:05 Dose: 75 mg Chlorpromazine 50 mg/ (Chlorpromazine 25 mg) 75 mg PO BID [facility] Stop: 01/14/18 16:59 Last Admin: 11/16/17 16:53 Dose: Not Given Clonidine HCl (Tydfqalt-Fpw-6) 1 patch TD Mo@0900 [facility] Stop: 01/02/18 08:59 Last Admin: 11/10/17 10:00 Dose: Not Given Docusate Sodium (Colace) 100 mg PO DAILY [facility] Stop: 12/27/17 08:59 Last Admin: 11/16/17 09:35 Dose: 100 mg Hydralazine HCl (Apresoline) 50 mg PO DAILY [facility] Stop: 12/27/17 08:59 Last Admin: 11/16/17 09:35 Dose: 50 mg Lorazepam (Ativan) 0.5 mg PO Q4HR PRN; Protocol PRN Reason: Anxiety/agitation Stop: 11/27/17 02:07 Last Admin: 11/08/17 17:42 Dose: 0.5 mg Losartan Potassium (Cozaar) 25 mg PO DAILY [facility] Stop: 12/27/17 08:59 Last Admin: 11/16/17 09:36 Dose: 25 mg Magnesium Hydroxide (Milk Of Magnesia) 30 ml PO HS PRN PRN Reason: Constipation Metoprolol Tartrate (Lopressor) 50 mg PO BID [facility] Stop: 12/27/17 08:59 Last Admin: 11/16/17 16:45 Dose: Not Given Multivitamins/Vitamin C (Theragran) 1 tab PO DAILY [facility] Stop: 12/27/17 08:59 Last Admin: 11/16/17 09:35 Dose: 1 tab Prednisolone Acetate (Pred Forte 1% Ophth Susp) 2 drop EACH EYE TID [facility] Stop: 12/27/17 08:59 Last Admin: 11/16/17 16:53 Dose: Not Given Zolpidem Tartrate (Ambien) 5 mg PO HS PRN PRN Reason: Insomnia Stop: 12/27/17 02:07 Last Admin: 11/15/17 20:52 Dose: 5 mg General: demented HEENT: NC/AT, PERRLA, EOMI, anicteric sclerae, throat clear Neck: Supple, No JVD, No thyromegaly, +2 carotid pulse wo bruit, No LAD Lungs: CTAB Cardiovascular: Normal S1, Normal S2, without murmur Abdomen: non-tender, non-distended Extremities: clear Neurological: no change Internal Medicine Assmt/Plan - Assessment Assessment: 1.HTN. 2.HYPERLIPIDEMIA. 3.DJD. 4.DEMENTIA. - Plan Plan: CONTINUE ON CURRENT MEDICATION AND DIET. Nutritional Asmnt/Malnutr-PDOC - Dietary Evaluation Malnutrition Findings (Please click <Entered> for more info): Nutritional Asmnt/Malnutrition Start: 10/31/17 14: 08 Text: Status: Complete Freq: Protocol: Document 10/31/17 14:08 LCHENG (Rec: 10/31/17 14:15 LCSYLVIAG [email or web address]) Nutritional Asmnt/Malnutrition Patient General Information Nutritional Screening Moderate Risk Diagnosis psychosis Pertinent Medical Hx/Surgical Hx HTN, hyperlipidemia, DJD, dementia, psychosis Subjective Information Pt seen in gallo-chair at time of visit. Pt has episodes of agitation. per [employer] W[employer]ER, pt eats everything. Per EMR, Po intake 100% of meals. Current Diet Order/ Nutrition Support [facility] soft chopped, LUCY Pertinent Medications lipitor, oscal w/vit D, colace , theragran Pertinent Labs 10/28 Cl 110 Nutritional Hx/Data Height 1.6 m Height (Calculated Centimeters) 160.0 Current Weight (lbs) 54.431 kg Weight (Calculated Kilograms) 54.4 Weight (Calculated Grams) 32662.1 [place] Body Weight 115 Body Mass Index (BMI) 21.2 Weight Status Approriate GI Symptoms GI Symptoms None Last BM 10/30 Difficult in: None Skin Integrity/Comment: intact Current %PO Good (75-100%) Estimated Nutritional Goals BEE in Kcals: Using Current wt Calories/Kcals/Kg 25-30 Kcals Calculated 5502-0832 Protein: Using Current wt Protein g/k Protein Calculated 55 Fluid: ml 1375-1650ml (1ml/kcal) Nutritional Problem No current Nutrition Prob Problem N/A Malnutrition Alert Is there a minimum of two criteria No selected? Query Text:Check all the applicable criteria. A minimum of two criteria are recommended for diagnosis of either severe or non-severe malnutrition. Malnutrition Related to Morbid Obesity Malnutrition related to morbid obesity No Intervention/Recommendation Comments 1. [facility] chopped LUCY diet as ordered. 2. Monitor PO intake, wt, labs and skin integrity 3. F/U as low risk in 7 days, 11/07 Expected Outcomes/Goals Expected Outcomes/Goals 1. PO intake to meet at least 75% of nutritional needs. 2. Wt stability, skin to remain intact, labs to approach WNL.
[2017-11-16] MEDS: chlorproMAZINE 25 mg/mL 2mL Amp IM PRN (18:20)
[2017-11-16] MEDS: Atorvastatin Calcium 10 MG TAB PO SCH (20:30)
--- NOTE | 2017-11-17 00:49 | Progress Notes ---
DATE: 11/16/2017 SUBJECTIVE: Chart reviewed and the patient interviewed. Also, discussed the patient's condition with the staff and reviewed records and labs. The patient is calm and she is still withdrawn and in a depressed mood. The patient also is still impulsive and has unpredictable behavior. She is also selective with taking her medications. The patient denies any actual side effects of medications. ASSESSMENT: The patient still needs close monitoring. TREATMENT PLAN: Continue monitoring her behavior and her condition closely and continue to work on adjusting psychotropic medications and on her compliance with taking medications. JOB# [id number]
[2017-11-17] MEDS: cloNIDine 0.2 mg/24 hr Tdm TD SCH (10:48)
[2017-11-17] MEDS: Calcium Carb/Vit D 500 mg/200 U Tab PO SCH ×2 (10:48→17:00)
[2017-11-17] MEDS: CHLORPROMAZINE PO SCH ×2 (10:48→17:00)
[2017-11-17] MEDS: Multivitamin Tab PO SCH (10:49)
[2017-11-17] MEDS: Prednisolone 1% Ophth Susp 5 mL Bottle EACH EYE SCH ×3 (10:49→21:00)
[2017-11-17] MEDS: chlorproMAZINE 25 mg/mL 2mL Amp IM PRN ×2 (10:50→17:38)
--- NOTE | 2017-11-17 20:49 | Internal Medicine Prog Note ---
Internal Medicine Subjective - Subjective Service Date: 11/17/17 Patient seen and examined:: with staff Patient is:: awake, verbal, in bed, confused Per staff patient has:: no adverse event Internal Medicine Objective - Results Result Diagrams: 10/28/17 00:05 10/28/17 00:05 Recent Labs: Laboratory Last Values WBC 7.5 Th/cmm (4.8-10.8) 10/28/17 00:05 RBC 4.55 Mil/cmm (3.80-5.20) 10/28/17 00:05 Hgb 14.5 gm/dL (12-16) 10/28/17 00:05 Hct 43.6 % (41.0-60) 10/28/17 00:05 MCV 95.9 fl (81-100) 10/28/17 00:05 MCH 31.8 pg (27.0-31.0) H 10/28/17 00:05 MCHC Differential 33.2 pg (28.0-36.0) 10/28/17 00:05 RDW 13.3 % (11.5-20.0) 10/28/17 00:05 Plt Count 201 Th/cmm (150-400) 10/28/17 00:05 MPV 7.7 fl 10/28/17 00:05 Neutrophils % 59.9 % (40.0-80.0) 10/28/17 00:05 Lymphocytes % 27.9 % (20.0-50.0) 10/28/17 00:05 Monocytes % 8.9 % (2.0-10.0) 10/28/17 00:05 Eosinophils % 2.9 % (0.0-5.0) 10/28/17 00:05 Basophils % 0.4 % (0.0-2.0) 10/28/17 00:05 Sodium 139 mEq/L (136-145) 10/28/17 00:05 Potassium 4.5 mEq/L (3.5-5.1) 10/28/17 00:05 Chloride 110 mEq/L (98-107) H 10/28/17 00:05 Carbon Dioxide 24.1 mEq/L (21.0-31.0) 10/28/17 00:05 Anion Gap 9.4 (7.0-16.0) 10/28/17 00:05 BUN 23 mg/dL (7-25) 10/28/17 00:05 Creatinine 0.8 mg/dL (0.6-1.2) 10/28/17 00:05 Est GFR ( Amer) TNP 10/28/17 00:05 Est GFR (Non-Af Amer) TNP 10/28/17 00:05 BUN/Creatinine Ratio 28.8 10/28/17 00:05 Glucose 103 mg/dL (70-105) 10/28/17 00:05 Calcium 9.2 mg/dL (8.6-10.3) 10/28/17 00:05 Total Bilirubin 0.3 mg/dL (0.3-1.0) 10/28/17 00:05 AST 14 U/L (13-39) 10/28/17 00:05 ALT 13 U/L (7-52) 10/28/17 00:05 Alkaline Phosphatase 97 U/L (34-104) 10/28/17 00:05 Total Protein 5.8 gm/dL (6.0-8.3) L 10/28/17 00:05 Albumin 3.7 gm/dL (3.7-5.3) 10/28/17 00:05 Globulin 2.1 gm/dL 10/28/17 00:05 Albumin/Globulin Ratio 1.8 (1.0-1.8) 10/28/17 00:05 TSH 1.34 uIU/ml (0.34-5.60) 10/28/17 00:05 RPR NONREACTIVE (NONREACTIVE) 10/28/17 00:05 - Physical Exam Vitals and I&O: Vital Signs Temp 97.6 F 11/17/17 20:06 Pulse 107 11/17/17 20:06 Resp 19 11/17/17 20:06 BP 138/54 11/17/17 20:06 Pulse Ox 98 11/17/17 20:06 Intake & Output 11/17/17 11/17/17 11/18/17 06:59 18:59 06:59 Intake Total 180 1320 Balance 180 1320 Intake: Oral 180 1320 Other: # Voids 3 3 # Bowel Movements 0 0 Active Medications: Current Medications Acetaminophen (Tylenol) 650 mg PO Q4HR PRN PRN Reason: Mild Pain / Temp above 100 Stop: 12/27/17 02:07 Al Hydrox/Mg Hydrox/Simethicone (Maalox) 30 ml PO Q4HR PRN PRN Reason: GI DISTRESS Stop: 12/27/17 02:07 Amlodipine Besylate (Norvasc) 10 mg PO DAILY ANNCY Stop: 12/27/17 08:59 Last Admin: 11/17/17 10:48 Dose: Not Given Atorvastatin Calcium (Lipitor) 10 mg PO HS NANCY; Protocol Stop: 12/27/17 20:59 Last Admin: 11/16/17 20:30 Dose: 10 mg Calcium/Vitamin D (Oscal W/Vitamin D) 1 tab PO BID NANCY Stop: 12/27/17 08:59 Last Admin: 11/17/17 10:48 Dose: Not Given Chlorpromazine (Thorazine) 75 mg IM BID PRN PRN Reason: IF REFUSED PO Stop: 01/09/18 13:35 Last Admin: 11/17/17 17:38 Dose: 75 mg Chlorpromazine 50 mg/ (Chlorpromazine 25 mg) 75 mg PO BID NANCY Stop: 01/14/18 16:59 Last Admin: 11/17/17 10:48 Dose: Not Given Clonidine HCl (Zqdrapaf-Uci-1) 1 patch TD Mo@0900 [facility] Stop: 01/02/18 08:59 Last Admin: 11/17/17 10:48 Dose: Not Given Docusate Sodium (Colace) 100 mg PO DAILY [facility] Stop: 12/27/17 08:59 Last Admin: 11/17/17 10:48 Dose: Not Given Donepezil HCl (Aricept) 5 mg PO HS [facility] Stop: 01/16/18 20:59 Hydralazine HCl (Apresoline) 50 mg PO DAILY [facility] Stop: 12/27/17 08:59 Last Admin: 11/17/17 10:48 Dose: Not Given Lorazepam (Ativan) 0.5 mg PO Q4HR PRN; Protocol PRN Reason: Anxiety/agitation Stop: 11/27/17 02:07 Last Admin: 11/08/17 17:42 Dose: 0.5 mg Losartan Potassium (Cozaar) 25 mg PO DAILY NANCY Stop: 12/27/17 08:59 Last Admin: 11/17/17 10:49 Dose: Not Given Magnesium Hydroxide (Milk Of Magnesia) 30 ml PO HS PRN PRN Reason: Constipation Metoprolol Tartrate (Lopressor) 50 mg PO BID NANCY Stop: 12/27/17 08:59 Last Admin: 11/17/17 10:49 Dose: Not Given Multivitamins/Vitamin C (Theragran) 1 tab PO DAILY NANCY Stop: 12/27/17 08:59 Last Admin: 11/17/17 10:49 Dose: Not Given Prednisolone Acetate (Pred Forte 1% Ophth Susp) 2 drop EACH EYE TID NANCY Stop: 12/27/17 08:59 Last Admin: 11/17/17 14:47 Dose: Not Given Zolpidem Tartrate (Ambien) 5 mg PO HS PRN PRN Reason: Insomnia Stop: 12/27/17 02:07 Last Admin: 11/17/17 20:40 Dose: 5 mg General: demented HEENT: NC/AT, PERRLA, EOMI, anicteric sclerae, throat clear Neck: Supple, No JVD, No thyromegaly, +2 carotid pulse wo bruit, No LAD Lungs: CTAB Cardiovascular: Normal S1, Normal S2, without murmur Abdomen: non-tender, non-distended Extremities: clear Neurological: no change Internal Medicine Assmt/Plan - Assessment Assessment: 1.HTN. 2.HYPERLIPIDEMIA. 3.DJD. 4.DEMENTIA. - Plan Plan: CONTINUE ON CURRENT MEDICATION AND DIET. Nutritional Asmnt/Malnutr-PDOC - Dietary Evaluation Malnutrition Findings (Please click <Entered> for more info): Nutritional Asmnt/Malnutrition Start: 10/31/17 14: 08 Text: Status: Complete Freq: Protocol: Document 10/31/17 14:08 LCHENG (Rec: 10/31/17 14:15 [email or web address] [email or web address]) Nutritional Asmnt/Malnutrition Patient General Information Nutritional Screening Moderate Risk Diagnosis psychosis Pertinent Medical Hx/Surgical Hx HTN, hyperlipidemia, DJD, dementia, psychosis Subjective Information Pt seen in gallo-chair at time of visit. Pt has episodes of agitation. per PLAY THERAPIST, pt eats everything. Per EMR, Po intake 100% of meals. Current Diet Order/ Nutrition Support mech soft chopped, LUCY Pertinent Medications lipitor, oscal w/vit D, colace , theragran Pertinent Labs 10/28 Cl 110 Nutritional Hx/Data Height 1.6 m Height (Calculated Centimeters) 160.0 Current Weight (lbs) 54.431 kg Weight (Calculated Kilograms) 54.4 Weight (Calculated Grams) 75808.1 [place] Body Weight 115 Body Mass Index (BMI) 21.2 Weight Status Approriate GI Symptoms GI Symptoms None Last BM 10/30 Difficult in: None Skin Integrity/Comment: intact Current %PO Good (75-100%) Estimated Nutritional Goals BEE in Kcals: Using Current wt Calories/Kcals/Kg 25-30 Kcals Calculated 4350-1642 Protein: Using Current wt Protein g/k Protein Calculated 55 Fluid: ml 1375-1650ml (1ml/kcal) Nutritional Problem No current Nutrition Prob Problem N/A Malnutrition Alert Is there a minimum of two criteria No selected? Query Text:Check all the applicable criteria. A minimum of two criteria are recommended for diagnosis of either severe or non-severe malnutrition. Malnutrition Related to Morbid Obesity Malnutrition related to morbid obesity No Intervention/Recommendation Comments 1. Continue with [facility] soft chopped LUCY diet as ordered. 2. Monitor PO intake, wt, labs and skin integrity 3. F/U as low risk in 7 days, 11/07 Expected Outcomes/Goals Expected Outcomes/Goals 1. PO intake to meet at least 75% of nutritional needs. 2. Wt stability, skin to remain intact, labs to approach WNL.
[2017-11-17] MEDS: Atorvastatin Calcium 10 MG TAB PO SCH (21:00)
--- NOTE | 2017-11-17 23:03 | Progress Notes ---
DATE: 11/17/2017 Case was discussed with staff of the patient, reviewed records. The patient has no insight whatsoever. Continues to be unpredictable and impulsive. Continues to refuse medications. Continues to have poor insight about the whole process. Continues to need redirection. I will be adding Aricept to her medication to help improve her cognition maybe that would help. No side effects with the medication, no sedation, no nausea, no extrapyramidal symptoms. We will continue to work with the patient in group therapy, milieu therapy, adjust medication as needed. JOB# [id number]
[2017-11-18] MEDS: Multivitamin Tab PO SCH (09:54)
[2017-11-18] MEDS: CHLORPROMAZINE PO SCH ×2 (09:54→17:17)
[2017-11-18] MEDS: Prednisolone 1% Ophth Susp 5 mL Bottle EACH EYE SCH ×3 (09:56→20:35)
[2017-11-18] MEDS: Calcium Carb/Vit D 500 mg/200 U Tab PO SCH ×2 (09:56→17:17)
[2017-11-18] MEDS: chlorproMAZINE 25 mg/mL 2mL Amp IM PRN (17:14)
[2017-11-18] MEDS: Atorvastatin Calcium 10 MG TAB PO SCH (20:35)
--- NOTE | 2017-11-18 22:06 | Internal Medicine Prog Note ---
Internal Medicine Subjective - Subjective Service Date: 11/18/17 Patient seen and examined:: with staff Patient is:: awake, verbal, in bed, confused Per staff patient has:: no adverse event Internal Medicine Objective - Results Result Diagrams: 10/28/17 00:05 10/28/17 00:05 Recent Labs: Laboratory Last Values WBC 7.5 Th/cmm (4.8-10.8) 10/28/17 00:05 RBC 4.55 Mil/cmm (3.80-5.20) 10/28/17 00:05 Hgb 14.5 gm/dL (12-16) 10/28/17 00:05 Hct 43.6 % (41.0-60) 10/28/17 00:05 MCV 95.9 fl (81-100) 10/28/17 00:05 MCH 31.8 pg (27.0-31.0) H 10/28/17 00:05 MCHC Differential 33.2 pg (28.0-36.0) 10/28/17 00:05 RDW 13.3 % (11.5-20.0) 10/28/17 00:05 Plt Count 201 Th/cmm (150-400) 10/28/17 00:05 MPV 7.7 fl 10/28/17 00:05 Neutrophils % 59.9 % (40.0-80.0) 10/28/17 00:05 Lymphocytes % 27.9 % (20.0-50.0) 10/28/17 00:05 Monocytes % 8.9 % (2.0-10.0) 10/28/17 00:05 Eosinophils % 2.9 % (0.0-5.0) 10/28/17 00:05 Basophils % 0.4 % (0.0-2.0) 10/28/17 00:05 Sodium 139 mEq/L (136-145) 10/28/17 00:05 Potassium 4.5 mEq/L (3.5-5.1) 10/28/17 00:05 Chloride 110 mEq/L (98-107) H 10/28/17 00:05 Carbon Dioxide 24.1 mEq/L (21.0-31.0) 10/28/17 00:05 Anion Gap 9.4 (7.0-16.0) 10/28/17 00:05 BUN 23 mg/dL (7-25) 10/28/17 00:05 Creatinine 0.8 mg/dL (0.6-1.2) 10/28/17 00:05 Est GFR ( Amer) TNP 10/28/17 00:05 Est GFR (Non-Af Amer) TNP 10/28/17 00:05 BUN/Creatinine Ratio 28.8 10/28/17 00:05 Glucose 103 mg/dL (70-105) 10/28/17 00:05 Calcium 9.2 mg/dL (8.6-10.3) 10/28/17 00:05 Total Bilirubin 0.3 mg/dL (0.3-1.0) 10/28/17 00:05 AST 14 U/L (13-39) 10/28/17 00:05 ALT 13 U/L (7-52) 10/28/17 00:05 Alkaline Phosphatase 97 U/L (34-104) 10/28/17 00:05 Total Protein 5.8 gm/dL (6.0-8.3) L 10/28/17 00:05 Albumin 3.7 gm/dL (3.7-5.3) 10/28/17 00:05 Globulin 2.1 gm/dL 10/28/17 00:05 Albumin/Globulin Ratio 1.8 (1.0-1.8) 10/28/17 00:05 TSH 1.34 uIU/ml (0.34-5.60) 10/28/17 00:05 RPR NONREACTIVE (NONREACTIVE) 10/28/17 00:05 - Physical Exam Vitals and I&O: Vital Signs Temp 98.7 F 11/18/17 20:34 Pulse 72 11/18/17 20:34 Resp 19 11/18/17 20:34 BP 125/70 11/18/17 15:44 Pulse Ox 99 11/18/17 20:34 Intake & Output 11/18/17 11/18/17 11/19/17 06:59 18:59 06:59 Intake Total 1320 1200 120 Balance 1320 1200 120 Intake: Oral 1320 1200 120 Other: # Voids 3 4 3 # Bowel Movements 0 1 0 Active Medications: Current Medications Acetaminophen (Tylenol) 650 mg PO Q4HR PRN PRN Reason: Mild Pain / Temp above 100 Stop: 12/27/17 02:07 Al Hydrox/Mg Hydrox/Simethicone (Maalox) 30 ml PO Q4HR PRN PRN Reason: GI DISTRESS Stop: 12/27/17 02:07 Amlodipine Besylate (Norvasc) 10 mg PO DAILY [facility] Stop: 12/27/17 08:59 Last Admin: 11/18/17 09:55 Dose: Not Given Atorvastatin Calcium (Lipitor) 10 mg PO HS NANCY; Protocol Stop: 12/27/17 20:59 Last Admin: 11/18/17 20:35 Dose: Not Given Calcium/Vitamin D (Oscal W/Vitamin D) 1 tab PO BID ANNCY Stop: 12/27/17 08:59 Last Admin: 11/18/17 17:17 Dose: Not Given Chlorpromazine (Thorazine) 75 mg IM BID PRN PRN Reason: IF REFUSED PO Stop: 01/09/18 13:35 Last Admin: 11/18/17 17:14 Dose: 75 mg Chlorpromazine 50 mg/ (Chlorpromazine 25 mg) 75 mg PO BID [facility] Stop: 01/14/18 16:59 Last Admin: 11/18/17 17:17 Dose: Not Given Clonidine HCl (Fhkiully-Lpu-3) 1 patch TD Mo@0900 [facility] Stop: 01/02/18 08:59 Last Admin: 11/17/17 10:48 Dose: Not Given Docusate Sodium (Colace) 100 mg PO DAILY [facility] Stop: 12/27/17 08:59 Last Admin: 11/18/17 09:54 Dose: 100 mg Donepezil HCl (Aricept) 5 mg PO [facility] Stop: 01/16/18 20:59 Last Admin: 11/18/17 20:35 Dose: Not Given Hydralazine HCl (Apresoline) 50 mg PO DAILY [facility] Stop: 12/27/17 08:59 Last Admin: 11/18/17 09:55 Dose: Not Given Lorazepam (Ativan) 0.5 mg PO Q4HR PRN; Protocol PRN Reason: Anxiety/agitation Stop: 11/27/17 02:07 Last Admin: 11/08/17 17:42 Dose: 0.5 mg Losartan Potassium (Cozaar) 25 mg PO DAILY [facility] Stop: 12/27/17 08:59 Last Admin: 11/18/17 09:56 Dose: Not Given Magnesium Hydroxide (Milk Of Magnesia) 30 ml PO HS PRN PRN Reason: Constipation Metoprolol Tartrate (Lopressor) 50 mg PO BID NANCY Stop: 12/27/17 08:59 Last Admin: 11/18/17 17:17 Dose: Not Given Multivitamins/Vitamin C (Theragran) 1 tab PO DAILY NANCY Stop: 12/27/17 08:59 Last Admin: 11/18/17 09:54 Dose: 1 tab Prednisolone Acetate (Pred Forte 1% Ophth Susp) 2 drop EACH EYE TID NANCY Stop: 12/27/17 08:59 Last Admin: 11/18/17 20:35 Dose: Not Given Zolpidem Tartrate (Ambien) 5 mg PO HS PRN PRN Reason: Insomnia Stop: 12/27/17 02:07 Last Admin: 11/17/17 20:40 Dose: 5 mg General: demented HEENT: NC/AT, PERRLA, EOMI, anicteric sclerae, throat clear Neck: Supple, No JVD, No thyromegaly, +2 carotid pulse wo bruit, No LAD Lungs: CTAB Cardiovascular: Normal S1, Normal S2, without murmur Abdomen: non-tender, non-distended Extremities: clear Neurological: no change Internal Medicine Assmt/Plan - Assessment Assessment: 1.HTN. 2.HYPERLIPIDEMIA. 3.DJD. 4.DEMENTIA. - Plan Plan: CONTINUE ON CURRENT MEDICATION AND DIET. Nutritional Asmnt/Malnutr-PDOC - Dietary Evaluation Malnutrition Findings (Please click <Entered> for more info): Nutritional Asmnt/Malnutrition Start: 10/31/17 14: 08 Text: Status: Complete Freq: Protocol: Document 10/31/17 14:08 LCHENG (Rec: 10/31/17 14:15 LCHENG [email or web address]) Nutritional Asmnt/Malnutrition Patient General Information Nutritional Screening Moderate Risk Diagnosis psychosis Pertinent Medical Hx/Surgical Hx HTN, hyperlipidemia, DJD, dementia, psychosis Subjective Information Pt seen in gallo-chair at time of visit. Pt has episodes of agitation. per APPLIANCE SERVICE TECHNICIAN, pt eats everything. Per EMR, Po intake 100% of meals. Current Diet Order/ Nutrition Support mech soft chopped, LUCY Pertinent Medications lipitor, oscal w/vit D, colace , theragran Pertinent Labs 10/28 Cl 110 Nutritional Hx/Data Height 1.6 m Height (Calculated Centimeters) 160.0 Current Weight (lbs) 54.431 kg Weight (Calculated Kilograms) 54.4 Weight (Calculated Grams) 98838.1 [place] Body Weight 115 Body Mass Index (BMI) 21.2 Weight Status Approriate GI Symptoms GI Symptoms None Last BM 10/30 Difficult in: None Skin Integrity/Comment: intact Current %PO Good (75-100%) Estimated Nutritional Goals BEE in Kcals: Using Current wt Calories/Kcals/Kg 25-30 Kcals Calculated 9276-0200 Protein: Using Current wt Protein g/k Protein Calculated 55 Fluid: ml 1375-1650ml (1ml/kcal) Nutritional Problem No current Nutrition Prob Problem N/A Malnutrition Alert Is there a minimum of two criteria No selected? Query Text:Check all the applicable criteria. A minimum of two criteria are recommended for diagnosis of either severe or non-severe malnutrition. Malnutrition Related to Morbid Obesity Malnutrition related to morbid obesity No Intervention/Recommendation Comments 1. Continue with [facility] soft chopped LUCY diet as ordered. 2. Monitor PO intake, wt, labs and skin integrity 3. F/U as low risk in 7 days, 11/07 Expected Outcomes/Goals Expected Outcomes/Goals 1. PO intake to meet at least 75% of nutritional needs. 2. Wt stability, skin to remain intact, labs to approach WNL.
--- NOTE | 2017-11-19 00:56 | Progress Notes ---
DATE: 11/18/2017 Case discussed with staff of the patient. The patient continues to be aggressive, irritable; however, she started to be more compliant with the medication. The staff reports she is sleeping better, eating better. She continues to be unpredictable, impulsive, needing redirection. She is demented, confused. PLAN: We will continue to work with the patient in group therapy and milieu therapy, adjust medication as needed. JOB# [id number]
[2017-11-19] MEDS: Calcium Carb/Vit D 500 mg/200 U Tab PO SCH (08:43)
[2017-11-19] MEDS: CHLORPROMAZINE PO SCH (08:44)
[2017-11-19] MEDS: Multivitamin Tab PO SCH (08:45)
[2017-11-19] MEDS: Prednisolone 1% Ophth Susp 5 mL Bottle EACH EYE SCH ×2 (08:46→13:41)
--- NOTE | 2017-11-19 09:03 | Discharge Summary ---
DATE OF DISCHARGE: 11/19/2017 IDENTIFYING INFORMATION: The patient is an 82-year-old female. HISTORY OF PRESENT ILLNESS: The patient was referred from [facility] because of agitation, unable to redirect, very agitated when I talked to her through a forestry scientist, the patient was very irritable. She was able to tell me the date roughly she knows this is Friday, but she does not know why she is in the hospital. She was upset, not answering questions appropriately. Easily agitated. I know the patient well from [place] with a history of dementia. The patient believes that she was sent here because she could not pay the money for the rehab place where she was at. She is unpredictable, impulsive, poor historian with a history of psychosis, agitation. COURSE IN THE HOSPITAL: She was started back on medications: Amlodipine, atorvastatin, calcium, hydralazine, metoprolol, multivitamin, eyedrops prednisone, valsartan. I added Abilify. The patient refused to take it. So we had a Riese and as the patient is ALLERGIC TO OLANZAPINE, HALOPERIDOL, we could give her any of that and Prolixin was available, so started on ____ and increased the dose to 75 mg twice a day. She was Riese on the ground of grave disability and lack of capacity and she was given IM when she refuses oral medication. I also added Aricept to her medication. The patient to help with her cognition maybe that would help, as she improved, we felt she really could not improve any better. She still have episodes where she was agitated, but in general, she was easier to redirect. She was no longer yelling and screaming. She was sleeping well, eating well. So, we felt she could be discharged to a lesser level of care. The patient will be going to ____ [place]. The patient need help with her ADLs. FINAL DIAGNOSES: AXIS I: Psychosis, not otherwise specified, dementia. MEDICAL DIAGNOSES: Deferred to the as per Dr. Sheridan. [facility] She will be followed by psychiatrist, primary care physician and therapist ____ [place]. EXPECTED OUTCOME: Stable if the patient complies. JOB# [id number]
== END 2017-11-19 14:00 | DRG 884 ==
LOC: ER 21:48 → GERO 10-28 01:19
PROVIDERS: ADMIT Psychiatry & Neurology Psychiatry; ATTEND Psychiatry & Neurology Psychiatry
DX: F03.90 Unspecified dementia, unspecified severity, without behavioral disturbance, psychotic disturbance, mood disturbance, and anxiety (principal); F23 Brief psychotic disorder; I10 Essential (primary) hypertension; E78.5 Hyperlipidemia, unspecified; M19.90 Unspecified osteoarthritis, unspecified site; Z88.8 Allergy status to other drugs, medicaments and biological substances
CPT/HCPCS: 36415-UA; 80053-TC; 84443-TC; 85025-TC; 86592-TC; J1200; J2060; J2650; J3230; Q0161; Z7610

== ENCOUNTER 2017-11-24 19:28 | Emergency (ER) | payer MEDICARE, MEDICAID ==
--- NOTE | 2017-11-24 19:54 | ED Physician Chart ---
ED Chief Complaint/HPI - Patient Information Date Seen:: 11/24/17 Time Seen:: 19:50 Chief Complaint:: aggressive behavior History of Present Illness:: Patient is apparently been exhibiting extreme aggressive behavior at her snf facility. According to the facility patient refused her medications which the patient denies. Allergies:: Allergies Allergy/AdvReac Type Severity Reaction Status Date / Time haloperidol [From Haldol] Allergy Verified 11/24/17 19:35 olanzapine [From Zyprexa] Allergy Verified 11/24/17 19:35 Vitals:: Vital Signs - 8 hr 11/24/17 19:30 Temp 97.2 F HR 80 RR 18 BP 160/97 O2 Sat % 98 Historian:: Patient, EMS Review:: Nurse's Note Reviewed, Transfer documents Reviewed ED Review of Systems - Review of Systems General/Constitutional: No fever, No chills, No weight loss, No weakness, No diaphoresis, No edema, No loss of appetite Skin: No skin lesions, No rash, No bruising Head: No headache, No light-headedness Eyes: No loss of vision, No pain, No diplopia ENT: No earache, No nasal drainage, No sore throat, No tinnitus Neck: No neck pain, No swelling, No thyromegaly, No stiffness, No mass noted Cardio Vascular: No chest pain, No palpitations, No PND, No orthopnea, No edema Pulmonary: No SOB, No cough, No sputum, No wheezing GI: No nausea, No vomiting, No diarrhea, No pain, No melena, No hematochezia, No constipation, No hematemesis G/U: No dysuria, No frequency, No hematuria Musculoskeletal: No bone or joint pain, No back pain, No muscle pain Endocrine: No polyuria, No polydipsia Psychiatric: Prior psych history, No depression, No anxiety, No suicidal ideation Hematopoietic: No bruising, No lymphadenopathy Allergic/Immuno: No urticaria, No angioedema Neurological: No syncope, No focal symptoms, No weakness, No paresthesia, No headache, No seizure, No dizziness, No confusion, No vertigo ED Past Medical History - Past Medical History Past Medical History: HTN, Dyslipidemia, Arthritis, Other (anxiety psychosis; dementia; hypercholesterolemia;) Social History: Non Smoker, No Alcohol Surgical History: Cholecystectomy Psychiatricy History: Dementia Medication: Reviewed Family Medical History - Family Member Mother History Unknown: Yes Ethnicity: Living Status: Unknown ED Physical Exam - Physical Examination General/Constitutional: Awake, Well-developed, well-nourished, Alert, No distress, GCS 15, Non-toxic appearing Other Gen/Cons comments:: Patient is alert and oriented to exact date Head: Atraumatic Eyes: Lids, conjuctiva normal, PERRL, EOMI Skin: Nl inspection, No rash, No skin lesions, No ecchymosis, Well hydrated, No lymphadenopathy ENMT: External ears, nose nl, Nasal exam nl, Lips, teeth, gums nl Neck: Nontender, Full ROM w/o pain, No JVD, No nuchal rigidity, No bruit, No mass, No stridor Respiratory: Nl effort/Exclusion, Clear to Auscultation, No Wheeze/Rhonchi/Rales Cardio Vascular: RRR, No murmur, gallop, rubs, NL S1 S2 GI: No tenderness/rebounding/guarding, No organomegaly, No hernia, Normal BS's, Nondistended, No mass/bruits, No McBurney tenderness : No CVA tenderness Extremities: No tenderness or effusion, Full ROM, normal strength in all extremities, No edema, Normal digits & nails Neuro/Psych: Alert/oriented, DTR's symmetric, Normal sensory exam, Normal motor strength, Judgement/insight normal, Mood normal, Normal gait, No focal deficits Misc: Normal back, No paraspinal tenderness ED Labs/Radiology/EKG Results - Lab Results Results: Laboratory Results - last 24 hr 11/24/17 11/24/17 11/24/17 20:08 20:08 20:25 WBC 6.8 RBC 4.66 Hgb 14.9 Hct 44.6 MCV 95.6 MCH 32.0 H MCHC Differential 33.5 RDW 13.1 Plt Count 268 MPV 7.9 Neutrophils % 65.9 Lymphocytes % 23.1 Monocytes % 8.8 Eosinophils % 1.7 Basophils % 0.5 Sodium 138 Potassium 4.3 Chloride 107 Carbon Dioxide 23.9 Anion Gap 11.4 BUN 23 Creatinine 0.7 Est GFR ( Amer) TNP Est GFR (Non-Af Amer) TNP BUN/Creatinine Ratio 32.9 Glucose 116 H Calcium 9.7 Total Bilirubin 0.3 AST 13 ALT 13 Alkaline Phosphatase 100 Total Protein 6.0 Albumin 4.0 Globulin 2.0 Albumin/Globulin Ratio 2.0 H Triglycerides 74 Cholesterol 206 H LDL Cholesterol Direct 127 HDL Cholesterol 57 Urine Source CLEAN C Urine Color YELLOW Urine Clarity CLEAR Urine pH 6.0 Ur Specific [place] 1.020 Urine Protein NEGATIVE Urine Glucose (UA) NEGATIVE Urine Ketones NEGATIVE Urine Blood NEGATIVE Urine Nitrate NEGATIVE Urine Bilirubin NEGATIVE Urine Urobilinogen 0.2 Ur Leukocyte Esterase SMALL H Urine RBC 0-2 Urine WBC 2-5 Ur Epithelial Cells MODERATE Urine Bacteria NONE SEEN - EKG Interpretations Rate & Rhythm: normal sinus rhythm with a rate of 66 [place]: normal Comments:: Concave ST elevations in leads V2 to V4 ED Assessment - Assessment General Assessment: Patient was alert and oriented to the correct date in the emergency department. Patient is medically cleared to return to her facility ED Septic Shock - . Is Septic Shock (SBP<90, OR Lactate>4 mmol\L) present?: No - <6hrs of presentation: Vital Signs: Vital Signs - 8 hr 11/24/17 19:30 Temp 97.2 F HR 80 RR 18 BP 160/97 O2 Sat % 98 ED Reassessment (Disposition) - Reassessment Reassessment Condition:: Unchanged - Diagnosis Diagnosis:: aggressive behavior - Aftercare/Follow up Instructions Aftercare/Follow-Up Instructions:: Refer to Discharge Instructions - Patient Disposition Discharge/Transfer:: [facility] - SNF Condition at Disposition:: Stable, Unchanged
[2017-11-24 20:16] LABS: % BASOPHILS 0.5 % (0.0-2.0); % EOSINOPHILS 1.7 % (0.0-5.0); % LYMPHOCYTES 23.1 % (20.0-50.0); % MONOCYTES 8.8 % (2.0-10.0); % NEUTROPHILS 65.9 % (40.0-80.0); EOSINOPHILE ABSOLUTE 0.1 Th/cmm (0.1-0.4); HEMATOCRIT 44.6 % (41.0-60); HEMOGLOBIN 14.9 gm/dL (12-16); LYMPHOCYTE ABSOLUTE 1.6 Th/cmm (1.5-3.0); MEAN CELL VOLUME 95.6 fl (81-100); MEAN CORPUSCULAR HGB CONC 33.5 pg (28.0-36.0); MEAN PLATELET VOLUME 7.9 fl; MONOCYTE ABSOLUTE 0.6 Th/cmm (0.3-1.0); NEUTROPHILE ABSOLUTE 4.5 Th/cmm (1.8-8.0); PLATELET COUNT 268 Th/cmm (150-400); RED BLOOD COUNT 4.66 Mil/cmm (3.80-5.20); RED CELL DISTRIBUTION WIDTH 13.1 % (11.5-20.0); WHITE BLOOD COUNT 6.8 Th/cmm (4.8-10.8)
[2017-11-24 20:41] LABS: ALKALINE PHOSPHATASE 100 U/L (34-104); ANION GAP 11.4 (7.0-16.0); BILIRUBIN,TOTAL 0.3 mg/dL (0.3-1.0); BUN - UREA NITROGEN 23 mg/dL (7-25); CALCIUM SERUM 9.7 mg/dL (8.6-10.3); CARBON DIOXIDE 23.9 mEq/L (21.0-31.0); CHLORIDE 107 mEq/L (98-107); CHOLESTEROL 206 mg/dL (<200); CREATININE - SERUM 0.7 mg/dL (0.6-1.2); GLUCOSE 116 mg/dL (70-105); HDL -HIGH DENSITY LIPOPROTEIN 57 mg/dL (23-92); POTASSIUM SERUM 4.3 mEq/L (3.5-5.1); SGOT 13 U/L (13-39); SGPT/ALT 13 U/L (7-52); SODIUM SERUM 138 mEq/L (136-145); TRIGLYCERIDES 74 mg/dL (<150)
[2017-11-24 21:05] LABS: URINE MICROSCOPIC INDICATED? YES; URINE SOURCE CLEAN C
[2017-11-24 21:09] LABS: URINE BILIRUBIN NEGATIVE (NEGATIVE); URINE BLOOD NEGATIVE (NEGATIVE); URINE GLUCOSE (UA) NEGATIVE (NEGATIVE); URINE KETONE NEGATIVE (NEGATIVE); URINE LEUKOCYTE ESTERASE SMALL (NEGATIVE); URINE NITRATE NEGATIVE (NEGATIVE); URINE PROTEIN NEGATIVE (NEGATIVE); URINE UROBILINOGEN 0.2 E.U./dL (0.2 - 1.0)
[2017-11-24 21:10] LABS: URINE CLARITY CLEAR (CLEAR); URINE COLOR YELLOW
[2017-11-24 21:13] LABS: URINE BACTERIA NONE SEEN /hpf (NONE SEEN); URINE EPITHELIAL CELLS MODERATE /lpf (FEW); URINE RBC 0-2 /hpf (0-5)
[2017-11-25 21:43] LABS: A1C % 5.9 % (4.0-6.0)
== END 2017-11-24 22:40 ==
LOC: ER 19:28
DX: F91.8 Other conduct disorders (principal); I10 Essential (primary) hypertension; E78.5 Hyperlipidemia, unspecified; M19.90 Unspecified osteoarthritis, unspecified site; Z90.49 Acquired absence of other specified parts of digestive tract
CPT/HCPCS: 36415-UA; 80053-TC; 80061-TC; 81001-TC; 83036-90; 84443-TC; 85025-TC; 86592-TC; 93005

== ENCOUNTER 2018-08-11 19:04 | Inpatient (IN) | payer MEDICARE, OTHER ==
--- NOTE | 2018-08-11 20:06 | ED Physician Chart ---
ED Chief Complaint/HPI - Patient Information Date Seen:: 08/11/18 Time Seen:: 20:06 Chief Complaint:: Increased agitation History of Present Illness:: 83 yo female with history of dementia, psychosis, hyperlipidemia, CVA and polycythemia, was brought from SNF to ER for evaluation of increased confusion and agitation. Allergies:: Allergies Allergy/AdvReac Type Severity Reaction Status Date / Time haloperidol [From Haldol] Allergy Verified 11/24/17 19:35 olanzapine [From Zyprexa] Allergy Verified 11/24/17 19:35 Vitals:: Vital Signs - 8 hr 08/11/18 19:35 Temp 98.5 F HR 82 RR 16 BP 164/70 O2 Sat % 97 ED Review of Systems - Review of Systems General/Constitutional: No fever Skin: No rash Head: No headache Eyes: No pain ENT: No nasal drainage Neck: No neck pain Cardio Vascular: No chest pain Pulmonary: No SOB GI: No nausea, No vomiting Musculoskeletal: No bone or joint pain Psychiatric: Prior psych history Neurological: No focal symptoms, No seizure ED Past Medical History - Past Medical History Past Medical History: CVA/TIA, Dyslipidemia, Dementia, Other (dementia,psychosis ,hyperlipidemia,cva, polycythemia) Social History: Non Smoker, No Alcohol, No Drug Use Family Medical History - Family Member Mother History Unknown: Yes Ethnicity: Living Status: Unknown ED Physical Exam - Physical Examination General/Constitutional: Awake Other Gen/Cons comments:: Confused Head: Atraumatic Eyes: PERRL Skin: No skin lesions ENMT: Nasal exam nl Neck: No nuchal rigidity Respiratory: No Wheeze/Rhonchi/Rales Cardio Vascular: RRR, No murmur, gallop, rubs, NL S1 S2 GI: No tenderness/rebounding/guarding Extremities: normal strength in all extremities Other Neuro/Psych comments:: Confused ED Labs/Radiology/EKG Results - Lab Results Results: Laboratory Last Values WBC 9.7 Th/cmm (4.8-10.8) 08/11/18 20:48 RBC 4.62 Mil/cmm (3.80-5.20) 08/11/18 20:48 Hgb 15.0 gm/dL (12-16) 08/11/18 20:48 Hct 44.4 % (41.0-60) 08/11/18 20:48 MCV 96.2 fl (81-100) 08/11/18 20:48 MCH 32.4 pg (27.0-31.0) H 08/11/18 20:48 MCHC Differential 33.7 pg (28.0-36.0) 08/11/18 20:48 RDW 14.2 % (11.5-20.0) 08/11/18 20:48 Plt Count 227 Th/cmm (150-400) 08/11/18 20:48 MPV 8.3 fl 08/11/18 20:48 Neutrophils % 77.2 % (40.0-80.0) 08/11/18 20:48 Lymphocytes % 16.5 % (20.0-50.0) L 08/11/18 20:48 Monocytes % 5.0 % (2.0-10.0) 08/11/18 20:48 Eosinophils % 1.0 % (0.0-5.0) 08/11/18 20:48 Basophils % 0.3 % (0.0-2.0) 08/11/18 20:48 Sodium 137 mEq/L (136-145) 08/11/18 20:48 Potassium 4.4 mEq/L (3.5-5.1) 08/11/18 20:48 Chloride 106 mEq/L (98-107) 08/11/18 20:48 Carbon Dioxide 21.3 mEq/L (21.0-31.0) 08/11/18 20:48 Anion Gap 14.1 (7.0-16.0) 08/11/18 20:48 BUN 21 mg/dL (7-25) 08/11/18 20:48 Creatinine 0.8 mg/dL (0.6-1.2) 08/11/18 20:48 Est GFR ( Amer) TNP 08/11/18 20:48 Est GFR (Non-Af Amer) TNP 08/11/18 20:48 BUN/Creatinine Ratio 26.3 08/11/18 20:48 Glucose 129 mg/dL (70-105) H 08/11/18 20:48 Calcium 10.2 mg/dL (8.6-10.3) 08/11/18 20:48 Total Bilirubin 0.7 mg/dL (0.3-1.0) 08/11/18 20:48 AST 30 U/L (13-39) 08/11/18 20:48 ALT 21 U/L (7-52) 08/11/18 20:48 Alkaline Phosphatase 85 U/L (34-104) 08/11/18 20:48 Troponin I 0.01 ng/mL (0.01-0.05) 08/11/18 20:48 B-Natriuretic Peptide 25.8 pg/mL (5.0-100.0) 08/11/18 20:48 Total Protein 6.9 gm/dL (6.0-8.3) 08/11/18 20:48 Albumin 4.1 gm/dL (3.7-5.3) 08/11/18 20:48 Globulin 2.8 gm/dL 08/11/18 20:48 Albumin/Globulin Ratio 1.5 (1.0-1.8) 08/11/18 20:48 Triglycerides 68 mg/dL (<150) 08/11/18 20:48 Cholesterol 220 mg/dL (<200) H 08/11/18 20:48 LDL Cholesterol Direct 137 mg/dL (75-193) 08/11/18 20:48 HDL Cholesterol 70 mg/dL (23-92) 08/11/18 20:48 TSH 1.83 uIU/ml (0.34-5.60) 08/11/18 20:48 - Radiology Results Results: CXR: mild left basilar atelectasis ED Assessment - Assessment General Assessment: Hyperlipidemia Dementia Psychosis Assessment/Comments:: CBC, CMP, trop, bnp, tsh CXR, EKG ED Septic Shock - . Is Septic Shock (SBP<90, OR Lactate>4 mmol\L) present?: No - <6hrs of presentation: Vital Signs: Vital Signs - 8 hr 08/11/18 19:35 Temp 98.5 F HR 82 RR 16 BP 164/70 O2 Sat % 97 ED Reassessment (Disposition) - Reassessment Reassessment Condition:: Unchanged - Patient Disposition Discharge/Transfer:: Adarsh richardson/in this hosp Admitting Medical Physician:: Sia Galicia Admitting Psych Physician:: Dru Davis
[2018-08-11 20:57] LABS: % BASOPHILS 0.3 % (0.0-2.0); % LYMPHOCYTES 16.5 % (20.0-50.0); % NEUTROPHILS 77.2 % (40.0-80.0); EOSINOPHILE ABSOLUTE 0.1 Th/cmm (0.1-0.4); HEMATOCRIT 44.4 % (41.0-60); LYMPHOCYTE ABSOLUTE 1.6 Th/cmm (1.5-3.0); MEAN CELL VOLUME 96.2 fl (81-100); MEAN CORPUSCULAR HEMOGLOBIN 32.4 pg (27.0-31.0); MEAN CORPUSCULAR HGB CONC 33.7 pg (28.0-36.0); MEAN PLATELET VOLUME 8.3 fl; MONOCYTE ABSOLUTE 0.5 Th/cmm (0.3-1.0); NEUTROPHILE ABSOLUTE 7.5 Th/cmm (1.8-8.0); PLATELET COUNT 227 Th/cmm (150-400); RED BLOOD COUNT 4.62 Mil/cmm (3.80-5.20); RED CELL DISTRIBUTION WIDTH 14.2 % (11.5-20.0); WHITE BLOOD COUNT 9.7 Th/cmm (4.8-10.8)
[2018-08-11 21:10] LABS: ALB/GLOB RATIO 1.5 (1.0-1.8); ALBUMIN 4.1 gm/dL (3.7-5.3); ALKALINE PHOSPHATASE 85 U/L (34-104); ANION GAP 14.1 (7.0-16.0); BILIRUBIN,TOTAL 0.7 mg/dL (0.3-1.0); BUN - UREA NITROGEN 21 mg/dL (7-25); CALCIUM SERUM 10.2 mg/dL (8.6-10.3); CARBON DIOXIDE 21.3 mEq/L (21.0-31.0); CHLORIDE 106 mEq/L (98-107); CREATININE - SERUM 0.8 mg/dL (0.6-1.2); GLUCOSE 129 mg/dL (70-105); POTASSIUM SERUM 4.4 mEq/L (3.5-5.1); SGOT 30 U/L (13-39); SGPT/ALT 21 U/L (7-52); SODIUM SERUM 137 mEq/L (136-145); TOTAL PROTEIN,SERUM 6.9 gm/dL (6.0-8.3)
[2018-08-11 23:36] VITALS: BP 155/82
[2018-08-11] MEDS ORDERED: Magnesium Hydroxide (MOM) 30 mL UDC PO PRN (23:36)
[2018-08-11] MEDS ORDERED: Maalox 30 mL Cup PO PRN (23:36)
[2018-08-12] MEDS ORDERED: Acetaminophen 500 MG TAB PO PRN ×2 (00:15)
[2018-08-12] MEDS: NITROGLYCERIN OINT 2% 1 INCH PACKET TP SCH (05:51)
[2018-08-12] MEDS: Polyvinyl Alcohol Ophth Soln 15 mL Bottle EACH EYE SCH ×2 (05:53→12:24)
--- NOTE | 2018-08-12 08:22 | Diagnostic Imaging Report ---
Chest x-ray single view History: Shortness of breath Comparison: None The heart size is normal. No focal pulmonary parenchymal processes. No hilar or mediastinal abnormalities. Mild left basilar atelectasis is noted. Impression: Mild left basilar atelectasis.
[2018-08-12] MEDS: Prednisolone 1% Ophth Susp 5 mL Bottle EACH EYE SCH ×3 (09:00→20:59)
[2018-08-12] MEDS ORDERED: cloNIDine 0.1 mg/24 hr Tdm TD SCH (09:00)
[2018-08-12] MEDS ORDERED: Non-Formulary Item 1 EA (Paliperidone Palmitate [Invega Sustenna] 156 MG) IM SCH (09:00)
[2018-08-12 09:10] LABS: CHOLESTEROL 220 mg/dL (<200); HDL -HIGH DENSITY LIPOPROTEIN 70 mg/dL (23-92); TRIGLYCERIDES 68 mg/dL (<150)
[2018-08-12] MEDS: Docusate Sodium 100 mg/10 mL UD PO SCH (10:03)
[2018-08-12] MEDS: Multivitamin Tab PO SCH (10:04)
[2018-08-12] MEDS: Rivastigmine 4.6 mg/24 hr Tdm TD SCH (10:04)
[2018-08-12] MEDS: risperiDONE 1 mg/mL 30 mL Bottle PO SCH ×2 (10:06→16:28)
--- NOTE | 2018-08-12 15:30 | History & Physical ---
ADMIT DATE: 08/12/[address] Galicia. CHIEF COMPLAINT: Agitation. HISTORY OF PRESENT ILLNESS: The patient is an 83-year-old female who is admitted to the Geropsych Unit due to 1-day history of agitation. PAST MEDICAL HISTORY: History of CVA, dyslipidemia, dementia, psychosis, hyperlipidemia, polycythemia. SOCIAL HISTORY: The [facility] is a [facility], requiring 24-hour nursing care. FAMILY HISTORY: Noncontributory. REVIEW OF SYSTEMS: GENERAL: Denies any fever or chills. CARDIOVASCULAR: Denies chest pain. RESPIRATORY: Denies shortness of breath. GASTROINTESTINAL: Denies nausea, vomiting, abdominal pain. GENITOURINARY: Denies increased frequency. NEUROLOGIC: No headaches, seizures, or syncope. All systems are reviewed and are negative. PHYSICAL EXAMINATION: GENERAL: Elderly female, awake, alert, in no apparent distress. VITAL SIGNS: Temperature 97.7, heart rate 79, blood pressure 137/69, respirations 18, O2 97%. HEENT: Head: Normocephalic, atraumatic. NECK: Supple. No mass. LUNGS: Clear bilaterally. HEART: Regular rate and rhythm. ABDOMEN: Soft, nontender. LABORATORY DATA: WBC 10.7, H and H 15.0, hematocrit 44.0, platelet of 327. Sodium 137, potassium 4.4, chloride 106, BUN 21, creatinine 0.8. ASSESSMENT: Agitation, history of cerebrovascular accident, dyslipidemia, dementia, polycythemia. PLAN: Fall precautions will be initiated. Continue patient's home medications. We will continue to follow this patient. [facility]# [id number]
[2018-08-12] MEDS ORDERED: Non-Formulary Item 1 EA (Melatonin [Melatonin] 3 MG) PO SCH (21:00)
[2018-08-13] MEDS: Polyvinyl Alcohol Ophth Soln 15 mL Bottle EACH EYE SCH ×4 (00:40→17:05)
[2018-08-13] MEDS: NITROGLYCERIN OINT 2% 1 INCH PACKET TP SCH ×4 (00:41→17:04)
--- NOTE | 2018-08-13 05:51 | Psychiatric Evaluation ---
DATE OF SERVICE: 08/11/2018 PATIENT'S AGE: 83. SEX: Female. PHYSICIAN: Dr. Davis. CHIEF COMPLAINT: Confusion and increased agitation and uncooperative. HISTORY OF PRESENT ILLNESS: The patient is an 83-year-old female with history of psychosis and history of agitation. The patient was transferred to the hospital from [facility] [place] because of increased agitation and because of confusion. The patient also has been refusing to take medications and has been resisting care and getting irritable and agitated with the staff. The patient also is confused and she has not been able to follow any of staff directions in the facility. PAST PSYCHIATRIC HISTORY: The patient has history of dementia and also psychosis. PAST MEDICAL HISTORY: The patient has history of cerebrovascular accident as well as hypertension. SOCIAL HISTORY: The patient lives in [facility]. No known alcohol or any street drug use. ALLERGIES: No known allergies. MENTAL STATUS EXAMINATION: The patient appears older than stated age. Confused. Restless. Unable to answer any of my questions coherently. Thought processes are with poverty of speech. The patient is actively talking to self and seems to be responding. She did not answer question regarding hallucinations or delusions or regarding suicide or homicide. The patient is alert, but seems to be disoriented to time, place, person or situation. Impaired immediate and recent memory, but intact remote memory and she remembered her date. Poor insight. Poor judgment. ASSESSMENT: PRIMARY DIAGNOSIS: Unspecified psychosis. SECONDARY DIAGNOSIS: Dementia, moderate to severe, with psychotic features. MEDICAL DIAGNOSES: 1. Hypertension. 2. History of cerebrovascular accident. TREATMENT PLAN: We will monitor the patient's behavior and condition closely. We will continue gabapentin 100 mg 3 times a day and we will add Risperdal 0.25 mg twice a day. Also, continue adjusting psychotropic medications and work on behavioral modification. ESTIMATED LENGTH OF STAY: 5-7 days. THE PATIENT'S STRENGTHS AND WEAKNESSES: The patient's has reports from prison. Weaknesses, uncooperative with the staff and her poor judgment and poor impulse control. AFTER DISCHARGE PLAN: Outpatient treatment and followup will continue as an outpatient and the patient will return to the [facility] [place]. JOB# [id number]
[2018-08-13] MEDS: Docusate Sodium 100 mg/10 mL UD PO SCH (08:37)
[2018-08-13] MEDS: Multivitamin Tab PO SCH (08:38)
[2018-08-13] MEDS: risperiDONE 1 mg/mL 30 mL Bottle PO SCH ×2 (08:38→16:56)
[2018-08-13] MEDS: Rivastigmine 4.6 mg/24 hr Tdm TD SCH (08:39)
[2018-08-13] MEDS: Prednisolone 1% Ophth Susp 5 mL Bottle EACH EYE SCH ×3 (11:46→21:04)
--- NOTE | 2018-08-13 21:53 | Progress Notes ---
DATE: PSYCHIATRIC PROGRESS NOTE SUBJECTIVE: Chart reviewed and the patient interviewed. Also discussed the patient's condition with the staff and reviewed records and labs. The patient continued to be confused and guarded. The patient also still has episodes of yelling and screaming. She also still needs lots of redirections and slightly easier to redirect her. The patient also is still suspicious and is still paranoid. Otherwise, the patient started on Risperdal 0.25 mg twice a day with no side effects. ASSESSMENT: The patient is still psychotic, but less agitated. TREATMENT PLAN: Continue to monitor her behavior and her condition closely. Also, continue Risperdal same dose and continue to follow up closely. [facility]# [id number]
--- NOTE | 2018-08-13 22:31 | Internal Medicine Prog Note ---
Internal Medicine Subjective - Subjective Service Date: 08/13/18 Patient is:: asleep Per staff patient has:: tolerating meds Internal Medicine Objective - Results Result Diagrams: 08/11/18 20:48 08/11/18 20:48 Recent Labs: Laboratory Last Values WBC 9.7 Th/cmm (4.8-10.8) 08/11/18 20:48 RBC 4.62 Mil/cmm (3.80-5.20) 08/11/18 20:48 Hgb 15.0 gm/dL (12-16) 08/11/18 20:48 Hct 44.4 % (41.0-60) 08/11/18 20:48 MCV 96.2 fl (81-100) 08/11/18 20:48 MCH 32.4 pg (27.0-31.0) H 08/11/18 20:48 MCHC Differential 33.7 pg (28.0-36.0) 08/11/18 20:48 RDW 14.2 % (11.5-20.0) 08/11/18 20:48 Plt Count 227 Th/cmm (150-400) 08/11/18 20:48 MPV 8.3 fl 08/11/18 20:48 Neutrophils % 77.2 % (40.0-80.0) 08/11/18 20:48 Lymphocytes % 16.5 % (20.0-50.0) L 08/11/18 20:48 Monocytes % 5.0 % (2.0-10.0) 08/11/18 20:48 Eosinophils % 1.0 % (0.0-5.0) 08/11/18 20:48 Basophils % 0.3 % (0.0-2.0) 08/11/18 20:48 Sodium 137 mEq/L (136-145) 08/11/18 20:48 Potassium 4.4 mEq/L (3.5-5.1) 08/11/18 20:48 Chloride 106 mEq/L (98-107) 08/11/18 20:48 Carbon Dioxide 21.3 mEq/L (21.0-31.0) 08/11/18 20:48 Anion Gap 14.1 (7.0-16.0) 08/11/18 20:48 BUN 21 mg/dL (7-25) 08/11/18 20:48 Creatinine 0.8 mg/dL (0.6-1.2) 08/11/18 20:48 Est GFR ( Amer) TNP 08/11/18 20:48 Est GFR (Non-Af Amer) TNP 08/11/18 20:48 BUN/Creatinine Ratio 26.3 08/11/18 20:48 Glucose 129 mg/dL (70-105) H 08/11/18 20:48 Calcium 10.2 mg/dL (8.6-10.3) 08/11/18 20:48 Total Bilirubin 0.7 mg/dL (0.3-1.0) 08/11/18 20:48 AST 30 U/L (13-39) 08/11/18 20:48 ALT 21 U/L (7-52) 08/11/18 20:48 Alkaline Phosphatase 85 U/L (34-104) 08/11/18 20:48 Troponin I 0.01 ng/mL (0.01-0.05) 08/11/18 20:48 B-Natriuretic Peptide 25.8 pg/mL (5.0-100.0) 08/11/18 20:48 Total Protein 6.9 gm/dL (6.0-8.3) 08/11/18 20:48 Albumin 4.1 gm/dL (3.7-5.3) 08/11/18 20:48 Globulin 2.8 gm/dL 08/11/18 20:48 Albumin/Globulin Ratio 1.5 (1.0-1.8) 08/11/18 20:48 Triglycerides 68 mg/dL (<150) 08/11/18 20:48 Cholesterol 220 mg/dL (<200) H 08/11/18 20:48 LDL Cholesterol Direct 137 mg/dL (75-193) 08/11/18 20:48 HDL Cholesterol 70 mg/dL (23-92) 08/11/18 20:48 TSH 1.83 uIU/ml (0.34-5.60) 08/11/18 20:48 RPR NONREACTIVE (NONREACTIVE) 08/11/18 20:48 - Physical Exam Vitals and I&O: Vital Signs Temp 98.0 F 08/13/18 14:00 Pulse 85 08/13/18 17:04 Resp 19 08/13/18 20:00 BP 165/82 08/13/18 17:04 Pulse Ox 96 08/13/18 14:00 Intake & Output 08/13/18 08/13/18 08/14/18 06:59 18:59 06:59 Intake Total 250 960 Balance 250 960 Intake: Oral 250 960 Other: # Voids 1 3 # Bowel Movements 1 Active Medications: Current Medications Acetaminophen (Tylenol) 650 mg PO Q4HR PRN PRN Reason: Mild Pain / Temp above 100 Stop: 10/10/18 23:35 Acetaminophen (Tylenol Extra Strength) 500 mg PO Q4HR PRN PRN Reason: Mild Pain or Fever >101 Stop: 10/11/18 00:14 Acetaminophen (Tylenol Extra Strength) 1,000 mg PO Q8H PRN PRN Reason: Pain (Severe) Stop: 10/11/18 00:14 Al Hydrox/Mg Hydrox/Simethicone (Maalox) 30 ml PO Q4HR PRN PRN Reason: GI DISTRESS Stop: 10/10/18 23:35 Artificial Tears (Artificial Tears Ophth Soln) 2 drop EACH EYE Q6HR [facility] Stop: 10/11/18 05:59 Last Admin: 08/13/18 17:05 Dose: 2 drop Bisacodyl (Dulcolax 10 Mg Supp) 10 mg RC DAILY PRN PRN Reason: Constipation Stop: 10/11/18 00:14 Clonidine HCl (Jkikticr-Sxp-0) 1 patch TD QFRI@DAILY [facility] Stop: 10/11/18 08:59 Last Admin: 08/12/18 14:58 Dose: Not Given Clopidogrel Bisulfate (Plavix) 75 mg PO DAILY [facility] Stop: 10/11/18 08:59 Last Admin: 08/13/18 08:38 Dose: 75 mg Docusate Sodium (Colace) 100 mg PO DAILY [facility] Stop: 10/11/18 08:59 Last Admin: 08/13/18 08:37 Dose: 100 mg Gabapentin (Neurontin) 100 mg PO Q8HR [facility] Stop: 10/11/18 04:59 Last Admin: 08/13/18 21:03 Dose: 100 mg Loratadine (Claritin) 10 mg PO DAILY [facility] Stop: 10/11/18 08:59 Last Admin: 08/13/18 08:38 Dose: 10 mg Lorazepam (Ativan) 1 mg PO Q4H PRN; Protocol PRN Reason: Anxiety Stop: 10/11/18 00:14 Last Admin: 08/12/18 10:03 Dose: 1 mg Magnesium Hydroxide (Milk Of Magnesia) 30 ml PO HS PRN PRN Reason: Constipation Miscellaneous (Paliperidone Palmitate [Invega Sustenna]) 156 mg IM DAILY [facility] Stop: 10/11/18 08:59 Multivitamins/Vitamin C (Theragran) 1 tab PO DAILY [facility] Stop: 10/11/18 08:59 Last Admin: 08/13/18 08:38 Dose: 1 tab Nitroglycerin (Nitro-Bid) 2 inch TP Q6HR [facility] Stop: 10/11/18 05:59 Last Admin: 08/13/18 17:04 Dose: 2 inch Prednisolone Acetate (Pred Forte 1% Ophth Susp) 2 drop EACH EYE TID [facility] Stop: 10/11/18 08:59 Last Admin: 08/13/18 21:04 Dose: 2 drop Risperidone (Risperdal) 0.25 mg PO BID NANCY; Protocol Stop: 10/11/18 08:59 Last Admin: 08/13/18 16:56 Dose: 0.25 mg Rivastigmine (Exelon 4.6 Mg/24 Hr Tdm) 1 patch TD DAILY [facility] Stop: 10/11/18 08:59 Last Admin: 08/13/18 08:39 Dose: 1 patch Zolpidem Tartrate (Ambien) 5 mg PO HS PRN PRN Reason: Insomnia Stop: 10/10/18 23:35 General: alert HEENT: NC/AT, PERRLA Neck: Supple Abdomen: soft, non-tender, non-distended Extremities: excoriation Internal Medicine Assmt/Plan - Assessment Assessment: history of cva agitation dementia hyperlipidemia - Plan Plan: as per order sheet
[2018-08-14] MEDS: NITROGLYCERIN OINT 2% 1 INCH PACKET TP SCH ×4 (01:44→18:00)
[2018-08-14] MEDS: Polyvinyl Alcohol Ophth Soln 15 mL Bottle EACH EYE SCH ×3 (01:45→12:04)
[2018-08-14] MEDS: Prednisolone 1% Ophth Susp 5 mL Bottle EACH EYE SCH ×3 (09:00→21:20)
[2018-08-14] MEDS: Docusate Sodium 100 mg/10 mL UD PO SCH (09:00)
[2018-08-14] MEDS: Multivitamin Tab PO SCH (09:00)
[2018-08-14] MEDS: risperiDONE 1 mg/mL 30 mL Bottle PO SCH ×2 (09:00→17:07)
--- NOTE | 2018-08-14 15:36 | Internal Medicine Prog Note ---
Internal Medicine Subjective - Subjective Service Date: 08/14/18 Patient seen and examined:: with staff, chart reviewed Patient is:: asleep, in bed Patient Complaints of:: other (Hx of CVA.) Per staff patient has:: no adverse event, no episodes of fall, tolerating meds Internal Medicine Objective - Results Result Diagrams: 08/11/18 20:48 08/11/18 20:48 Recent Labs: Laboratory Last Values WBC 9.7 Th/cmm (4.8-10.8) 08/11/18 20:48 RBC 4.62 Mil/cmm (3.80-5.20) 08/11/18 20:48 Hgb 15.0 gm/dL (12-16) 08/11/18 20:48 Hct 44.4 % (41.0-60) 08/11/18 20:48 MCV 96.2 fl (81-100) 08/11/18 20:48 MCH 32.4 pg (27.0-31.0) H 08/11/18 20:48 MCHC Differential 33.7 pg (28.0-36.0) 08/11/18 20:48 RDW 14.2 % (11.5-20.0) 08/11/18 20:48 Plt Count 227 Th/cmm (150-400) 08/11/18 20:48 MPV 8.3 fl 08/11/18 20:48 Neutrophils % 77.2 % (40.0-80.0) 08/11/18 20:48 Lymphocytes % 16.5 % (20.0-50.0) L 08/11/18 20:48 Monocytes % 5.0 % (2.0-10.0) 08/11/18 20:48 Eosinophils % 1.0 % (0.0-5.0) 08/11/18 20:48 Basophils % 0.3 % (0.0-2.0) 08/11/18 20:48 Sodium 137 mEq/L (136-145) 08/11/18 20:48 Potassium 4.4 mEq/L (3.5-5.1) 08/11/18 20:48 Chloride 106 mEq/L (98-107) 08/11/18 20:48 Carbon Dioxide 21.3 mEq/L (21.0-31.0) 08/11/18 20:48 Anion Gap 14.1 (7.0-16.0) 08/11/18 20:48 BUN 21 mg/dL (7-25) 08/11/18 20:48 Creatinine 0.8 mg/dL (0.6-1.2) 08/11/18 20:48 Est GFR ( Amer) TNP 08/11/18 20:48 Est GFR (Non-Af Amer) TNP 08/11/18 20:48 BUN/Creatinine Ratio 26.3 08/11/18 20:48 Glucose 129 mg/dL (70-105) H 08/11/18 20:48 Calcium 10.2 mg/dL (8.6-10.3) 08/11/18 20:48 Total Bilirubin 0.7 mg/dL (0.3-1.0) 08/11/18 20:48 AST 30 U/L (13-39) 08/11/18 20:48 ALT 21 U/L (7-52) 08/11/18 20:48 Alkaline Phosphatase 85 U/L (34-104) 08/11/18 20:48 Troponin I 0.01 ng/mL (0.01-0.05) 08/11/18 20:48 B-Natriuretic Peptide 25.8 pg/mL (5.0-100.0) 08/11/18 20:48 Total Protein 6.9 gm/dL (6.0-8.3) 08/11/18 20:48 Albumin 4.1 gm/dL (3.7-5.3) 08/11/18 20:48 Globulin 2.8 gm/dL 08/11/18 20:48 Albumin/Globulin Ratio 1.5 (1.0-1.8) 08/11/18 20:48 Triglycerides 68 mg/dL (<150) 08/11/18 20:48 Cholesterol 220 mg/dL (<200) H 08/11/18 20:48 LDL Cholesterol Direct 137 mg/dL (75-193) 08/11/18 20:48 HDL Cholesterol 70 mg/dL (23-92) 08/11/18 20:48 TSH 1.83 uIU/ml (0.34-5.60) 08/11/18 20:48 RPR NONREACTIVE (NONREACTIVE) 08/11/18 20:48 - Physical Exam Vitals and I&O: Vital Signs Temp 98.3 F 08/14/18 14:00 Pulse 98 08/14/18 14:00 Resp 20 08/14/18 14:00 BP 156/73 08/14/18 14:00 Pulse Ox 96 08/14/18 14:00 Intake & Output 08/13/18 08/14/18 08/14/18 18:59 06:59 18:59 Intake Total 960 250 Balance 960 250 Intake: Oral 960 250 Other: # Voids 3 1 # Bowel Movements 1 Active Medications: Current Medications Acetaminophen (Tylenol) 650 mg PO Q4HR PRN PRN Reason: Mild Pain / Temp above 100 Stop: 10/10/18 23:35 Acetaminophen (Tylenol Extra Strength) 500 mg PO Q4HR PRN PRN Reason: Mild Pain or Fever >101 Stop: 10/11/18 00:14 Acetaminophen (Tylenol Extra Strength) 1,000 mg PO Q8H PRN PRN Reason: Pain (Severe) Stop: 10/11/18 00:14 Al Hydrox/Mg Hydrox/Simethicone (Maalox) 30 ml PO Q4HR PRN PRN Reason: GI DISTRESS Stop: 10/10/18 23:35 Artificial Tears (Artificial Tears Ophth Soln) 2 drop EACH EYE Q6HR [facility] Stop: 10/11/18 05:59 Last Admin: 08/14/18 06:22 Dose: Not Given Bisacodyl (Dulcolax 10 Mg Supp) 10 mg RC DAILY PRN PRN Reason: Constipation Stop: 10/11/18 00:14 Clonidine HCl (Rnlqyvqp-Dkf-1) 1 patch TD QFRI@DAILY [facility] Stop: 10/11/18 08:59 Last Admin: 08/12/18 14:58 Dose: Not Given Clopidogrel Bisulfate (Plavix) 75 mg PO DAILY [facility] Stop: 10/11/18 08:59 Last Admin: 08/14/18 09:00 Dose: 75 mg Docusate Sodium (Colace) 100 mg PO DAILY [facility] Stop: 10/11/18 08:59 Last Admin: 08/14/18 09:00 Dose: 100 mg Gabapentin (Neurontin) 100 mg PO Q8HR [facility] Stop: 10/11/18 04:59 Last Admin: 08/14/18 05:43 Dose: Not Given Loratadine (Claritin) 10 mg PO DAILY [facility] Stop: 10/11/18 08:59 Last Admin: 08/14/18 09:00 Dose: 10 mg Lorazepam (Ativan) 1 mg PO Q4H PRN; Protocol PRN Reason: Anxiety Stop: 10/11/18 00:14 Last Admin: 08/12/18 10:03 Dose: 1 mg Magnesium Hydroxide (Milk Of Magnesia) 30 ml PO HS PRN PRN Reason: Constipation Miscellaneous (Paliperidone Palmitate [Invega Sustenna]) 156 mg IM DAILY [facility] Stop: 10/11/18 08:59 Multivitamins/Vitamin C (Theragran) 1 tab PO DAILY [facility] Stop: 10/11/18 08:59 Last Admin: 08/14/18 09:00 Dose: 1 tab Nitroglycerin (Nitro-Bid) 2 inch TP Q6HR [facility] Stop: 10/11/18 05:59 Last Admin: 08/14/18 06:22 Dose: Not Given Prednisolone Acetate (Pred Forte 1% Ophth Susp) 2 drop EACH EYE TID [facility] Stop: 10/11/18 08:59 Last Admin: 08/14/18 09:00 Dose: Not Given Risperidone (Risperdal) 0.25 mg PO BID [facility]; Protocol Stop: 10/11/18 08:59 Last Admin: 08/14/18 09:00 Dose: 0.25 mg Rivastigmine (Exelon 4.6 Mg/24 Hr Tdm) 1 patch TD DAILY [facility] Stop: 10/11/18 08:59 Last Admin: 08/13/18 08:39 Dose: 1 patch Zolpidem Tartrate (Ambien) 5 mg PO HS PRN PRN Reason: Insomnia Stop: 10/10/18 23:35 Physical Exam: 83 y/o female patient has hx of CVA and Dementia. She is easily agitated. General: alert HEENT: NC/AT, PERRLA Neck: Supple Abdomen: soft, non-tender, non-distended Extremities: excoriation Neurological: no change, alert Internal Medicine Assmt/Plan - Assessment Assessment: history of cva agitation dementia hyperlipidemia - Plan Plan: as per order sheet Nutritional Asmnt/Malnutr-PDOC - Dietary Evaluation Malnutrition Findings (Please click <Entered> for more info): Nutritional Asmnt/Malnutrition Start: 08/14/18 10: 10 Text: Status: Active Freq: Protocol: Document 08/14/18 10:16 JIMENA (Rec: 08/14/18 10:29 JIMENA [email or web address]) Nutritional Asmnt/Malnutrition Patient General Information Nutritional Screening Moderate Risk Diagnosis psychosi Pertinent Medical Hx/Surgical Hx dementia, psychosis, hyperlipidemia, CVA, polycythemia, dyslipidemia Subjective Information Per EMR, PO intake 50-75%. Current Diet Order/ Nutrition Support cardiac, LUCY Pertinent Medications colace, theragran Pertinent Labs 08/11 Glucose 129 Nutritional Hx/Data Height 1.6 m Height (Calculated Centimeters) 160.0 Current Weight (lbs) 54.431 kg Weight (Calculated Kilograms) 54.4 Weight (Calculated Grams) 60383.1 [place]agon Body Weight 115 Body Mass Index (BMI) 21.2 Weight Status Approriate GI Symptoms GI Symptoms None Last BM 08/13 Difficult in: None Skin Integrity/Comment: intact Estimated Nutritional Goals BEE in Kcals: Using Current wt Calories/Kcals/Kg 25-30 Kcals Calculated 5831-7140 Protein: Using Current wt Protein g/k Protein Calculated 55 Fluid: ml 1375-1650ml (1ml/kcal) Nutritional Problem No current Nutrition Prob Problem N/A Intervention/Recommendation Comments 1. Continue with cardiac LUCY diet as ordered. 2. Monitor PO intake, wt, labs and skin integrity 3. F/U as Expected Outcomes/Goals Expected Outcomes/Goals 1. PO intake to meet at least 75% of nutritional needs. 2. Wt stability, skin to remain intact, labs to approach WNL.
[2018-08-14] MEDS: Rivastigmine 4.6 mg/24 hr Tdm TD SCH (17:03)
[2018-08-15] MEDS: Polyvinyl Alcohol Ophth Soln 15 mL Bottle EACH EYE SCH ×5 (02:30→17:39)
[2018-08-15] MEDS: NITROGLYCERIN OINT 2% 1 INCH PACKET TP SCH ×5 (02:34→17:39)
[2018-08-15] MEDS: Prednisolone 1% Ophth Susp 5 mL Bottle EACH EYE SCH ×3 (09:00→21:02)
[2018-08-15] MEDS: Rivastigmine 4.6 mg/24 hr Tdm TD SCH (09:00)
[2018-08-15] MEDS: Multivitamin Tab PO SCH (09:00)
[2018-08-15] MEDS: Docusate Sodium 100 mg/10 mL UD PO SCH (09:00)
[2018-08-15] MEDS: cloNIDine 0.1 mg/24 hr Tdm TD SCH (09:00)
[2018-08-15] MEDS: risperiDONE 1 mg/mL 30 mL Bottle PO SCH ×2 (10:38→16:47)
--- NOTE | 2018-08-15 13:21 | Progress Notes ---
DATE: SUBJECTIVE: Chart reviewed and the patient interviewed. Also, discussed the patient's condition with the staff and reviewed records and labs. The patient continued to be confused and continued to be guarded. She also is still easily agitated and in irritable mood. The patient also is resisting care and she is selective with medications and last night she refused to take her medications. Also, she needs lots of redirections. Otherwise, the patient has no side effects of the medications when she takes it. ASSESSMENT: The patient is still agitated and psychotic. TREATMENT PLAN: Continue to monitor her behavior and her condition closely. Also, continue adjusting psychotropic medications and work on behavioral modification. JOB# [id number]
--- NOTE | 2018-08-15 22:59 | Progress Notes ---
DATE: 08/15/2018 SUBJECTIVE: The patient was seen and evaluated. The patient's chart reviewed. LABORATORY DATA: CBC unremarkable. RPR nonreactive. IDENTIFYING DATA: She is an 83-year-old female who was initially brought in here for confusion and increased agitation, poor historian overall, refusing to take medications. Overnight, the patient continues to refuse taking her medications, noncompliant, easily agitated, irritable. Currently prescribed gabapentin 100 mg p.o. t.i.d., risperidone 0.25 b.i.d., and Exelon. On [id number] evaluation, the patient is Armenian speaking which at this time also upon approach, she starts raising her arms and agitated, pointing to the bed, and she is in her Donna chair, but irritable and disengaged. MENTAL STATUS EXAMINATION: Disorganized, agitated. ASSESSMENT AND PLAN: The patient has ongoing disorganized, extremely disheveled, and confusion, recovering from the severe memory impairment, unable to formulate a safe plan outside the structured environment. We will continue monitoring, evaluating, may consider riesing the patient on Friday. JOB# [id number]
[2018-08-16] MEDS: NITROGLYCERIN OINT 2% 1 INCH PACKET TP SCH ×4 (00:35→17:45)
[2018-08-16] MEDS: Polyvinyl Alcohol Ophth Soln 15 mL Bottle EACH EYE SCH ×4 (00:36→17:46)
[2018-08-16] MEDS: Prednisolone 1% Ophth Susp 5 mL Bottle EACH EYE SCH ×3 (09:32→21:07)
[2018-08-16] MEDS: Docusate Sodium 100 mg/10 mL UD PO SCH (09:32)
[2018-08-16] MEDS: Multivitamin Tab PO SCH (09:32)
[2018-08-16] MEDS: Rivastigmine 4.6 mg/24 hr Tdm TD SCH (09:33)
[2018-08-16] MEDS: risperiDONE 1 mg/mL 30 mL Bottle PO SCH ×2 (09:33→17:46)
--- NOTE | 2018-08-16 12:00 | Internal Medicine Prog Note ---
Internal Medicine Subjective - Subjective Patient seen and examined:: chart reviewed Patient is:: awake, asleep, in bed, other (irrtable,noncompliant with meds, confused) Patient Complaints of:: other (Hx of CVA.) Per staff patient has:: no adverse event, no episodes of fall, tolerating meds Internal Medicine Objective - Results Result Diagrams: 08/11/18 20:48 08/11/18 20:48 Recent Labs: Laboratory Last Values WBC 9.7 Th/cmm (4.8-10.8) 08/11/18 20:48 RBC 4.62 Mil/cmm (3.80-5.20) 08/11/18 20:48 Hgb 15.0 gm/dL (12-16) 08/11/18 20:48 Hct 44.4 % (41.0-60) 08/11/18 20:48 MCV 96.2 fl (81-100) 08/11/18 20:48 MCH 32.4 pg (27.0-31.0) H 08/11/18 20:48 MCHC Differential 33.7 pg (28.0-36.0) 08/11/18 20:48 RDW 14.2 % (11.5-20.0) 08/11/18 20:48 Plt Count 227 Th/cmm (150-400) 08/11/18 20:48 MPV 8.3 fl 08/11/18 20:48 Neutrophils % 77.2 % (40.0-80.0) 08/11/18 20:48 Lymphocytes % 16.5 % (20.0-50.0) L 08/11/18 20:48 Monocytes % 5.0 % (2.0-10.0) 08/11/18 20:48 Eosinophils % 1.0 % (0.0-5.0) 08/11/18 20:48 Basophils % 0.3 % (0.0-2.0) 08/11/18 20:48 Sodium 137 mEq/L (136-145) 08/11/18 20:48 Potassium 4.4 mEq/L (3.5-5.1) 08/11/18 20:48 Chloride 106 mEq/L (98-107) 08/11/18 20:48 Carbon Dioxide 21.3 mEq/L (21.0-31.0) 08/11/18 20:48 Anion Gap 14.1 (7.0-16.0) 08/11/18 20:48 BUN 21 mg/dL (7-25) 08/11/18 20:48 Creatinine 0.8 mg/dL (0.6-1.2) 08/11/18 20:48 Est GFR ( Amer) TNP 08/11/18 20:48 Est GFR (Non-Af Amer) TNP 08/11/18 20:48 BUN/Creatinine Ratio 26.3 08/11/18 20:48 Glucose 129 mg/dL (70-105) H 08/11/18 20:48 Calcium 10.2 mg/dL (8.6-10.3) 08/11/18 20:48 Total Bilirubin 0.7 mg/dL (0.3-1.0) 08/11/18 20:48 AST 30 U/L (13-39) 08/11/18 20:48 ALT 21 U/L (7-52) 08/11/18 20:48 Alkaline Phosphatase 85 U/L (34-104) 08/11/18 20:48 Troponin I 0.01 ng/mL (0.01-0.05) 08/11/18 20:48 B-Natriuretic Peptide 25.8 pg/mL (5.0-100.0) 08/11/18 20:48 Total Protein 6.9 gm/dL (6.0-8.3) 08/11/18 20:48 Albumin 4.1 gm/dL (3.7-5.3) 08/11/18 20:48 Globulin 2.8 gm/dL 08/11/18 20:48 Albumin/Globulin Ratio 1.5 (1.0-1.8) 08/11/18 20:48 Triglycerides 68 mg/dL (<150) 08/11/18 20:48 Cholesterol 220 mg/dL (<200) H 08/11/18 20:48 LDL Cholesterol Direct 137 mg/dL (75-193) 08/11/18 20:48 HDL Cholesterol 70 mg/dL (23-92) 08/11/18 20:48 TSH 1.83 uIU/ml (0.34-5.60) 08/11/18 20:48 RPR NONREACTIVE (NONREACTIVE) 08/11/18 20:48 - Physical Exam Vitals and I&O: Vital Signs Temp 98.1 F 08/16/18 05:46 Pulse 83 08/16/18 06:56 Resp 20 08/16/18 05:46 BP 142/71 08/16/18 06:56 Pulse Ox 97 08/16/18 05:46 Intake & Output 08/15/18 08/16/18 08/16/18 18:59 06:59 18:59 Intake Total 900 360 Output Total 1 Balance 900 359 Intake: Oral 900 360 Output: Urine/Stool Mix 1 Other: # Voids 3 1 # Bowel Movements 0 1 Active Medications: Current Medications Acetaminophen (Tylenol) 650 mg PO Q4HR PRN PRN Reason: Mild Pain / Temp above 100 Stop: 10/10/18 23:35 Acetaminophen (Tylenol Extra Strength) 500 mg PO Q4HR PRN PRN Reason: Mild Pain or Fever >101 Stop: 10/11/18 00:14 Acetaminophen (Tylenol Extra Strength) 1,000 mg PO Q8H PRN PRN Reason: Pain (Severe) Stop: 10/11/18 00:14 Al Hydrox/Mg Hydrox/Simethicone (Maalox) 30 ml PO Q4HR PRN PRN Reason: GI DISTRESS Stop: 10/10/18 23:35 Artificial Tears (Artificial Tears Ophth Soln) 2 drop EACH EYE Q6HR [facility] Stop: 10/11/18 05:59 Last Admin: 08/16/18 06:52 Dose: Not Given Bisacodyl (Dulcolax 10 Mg Supp) 10 mg RC DAILY PRN PRN Reason: Constipation Stop: 10/11/18 00:14 Clonidine HCl (Lvvjverm-Aks-6) 1 patch TD QSAT [facility] Stop: 10/14/18 08:59 Clopidogrel Bisulfate (Plavix) 75 mg PO DAILY [facility] Stop: 10/11/18 08:59 Last Admin: 08/16/18 09:31 Dose: 75 mg Docusate Sodium (Colace) 100 mg PO DAILY [facility] Stop: 10/11/18 08:59 Last Admin: 08/16/18 09:32 Dose: Not Given Gabapentin (Neurontin) 100 mg PO Q8HR [facility] Stop: 10/11/18 04:59 Last Admin: 08/16/18 05:51 Dose: 100 mg Loratadine (Claritin) 10 mg PO DAILY [facility] Stop: 10/11/18 08:59 Last Admin: 08/16/18 09:32 Dose: 10 mg Lorazepam (Ativan) 1 mg PO Q4H PRN; Protocol PRN Reason: Anxiety Stop: 10/11/18 00:14 Last Admin: 08/16/18 09:34 Dose: 1 mg Magnesium Hydroxide (Milk Of Magnesia) 30 ml PO HS PRN PRN Reason: Constipation Multivitamins/Vitamin C (Theragran) 1 tab PO DAILY [facility] Stop: 10/11/18 08:59 Last Admin: 08/16/18 09:32 Dose: 1 tab Nitroglycerin (Nitro-Bid) 2 inch TP Q6HR [facility] Stop: 10/11/18 05:59 Last Admin: 08/16/18 06:56 Dose: 2 inch Prednisolone Acetate (Pred Forte 1% Ophth Susp) 2 drop EACH EYE TID [facility] Stop: 10/11/18 08:59 Last Admin: 08/16/18 09:32 Dose: 2 drop Risperidone (Risperdal) 0.25 mg PO BID [facility]; Protocol Stop: 10/11/18 08:59 Last Admin: 08/16/18 09:33 Dose: 0.25 mg Rivastigmine (Exelon 4.6 Mg/24 Hr Tdm) 1 patch TD DAILY [facility] Stop: 10/11/18 08:59 Last Admin: 08/16/18 09:33 Dose: 1 patch Zolpidem Tartrate (Ambien) 5 mg PO HS PRN PRN Reason: Insomnia Stop: 10/10/18 23:35 Last Admin: 08/15/18 20:39 Dose: 5 mg Physical Exam: 83 y/o female patient has hx of CVA and Dementia. She is easily agitated. General: alert, demented HEENT: NC/AT, PERRLA Neck: Supple Abdomen: soft, non-tender, non-distended Extremities: excoriation Neurological: no change, alert Internal Medicine Assmt/Plan - Assessment Assessment: history of cva agitation dementia hyperlipidemia - Plan Plan: as per psych will monitor vitals diet labs Nutritional Asmnt/Malnutr-PDOC - Dietary Evaluation Malnutrition Findings (Please click <Entered> for more info): Nutritional Asmnt/Malnutrition Start: 08/14/18 10: 10 Text: Status: Complete Freq: Protocol: Document 08/14/18 10:16 LCHENG (Rec: 08/14/18 10:29 [email or web address] [email or web address]) Nutritional Asmnt/Malnutrition Patient General Information Nutritional Screening Moderate Risk Diagnosis psychosi Pertinent Medical Hx/Surgical Hx dementia, psychosis, hyperlipidemia, CVA, polycythemia, dyslipidemia Subjective Information Pt seen in dining room, Grenadian speaking. Per EMR, PO intake 50-75%. Current Diet Order/ Nutrition Support cardiac, LUCY Pertinent Medications colace, theragran Pertinent Labs 08/11 Glucose 129 Nutritional Hx/Data Height 1.6 m Height (Calculated Centimeters) 160.0 Current Weight (lbs) 54.431 kg Weight (Calculated Kilograms) 54.4 Weight (Calculated Grams) 32604.1 [place] Body Weight 115 Body Mass Index (BMI) 21.2 Weight Status Approriate GI Symptoms GI Symptoms None Last BM 08/13 Difficult in: None Skin Integrity/Comment: intact Estimated Nutritional Goals BEE in Kcals: Using Current wt Calories/Kcals/Kg 25-30 Kcals Calculated 0059-0709 Protein: Using Current wt Protein g/k Protein Calculated 55 Fluid: ml 1375-1650ml (1ml/kcal) Nutritional Problem No current Nutrition Prob Problem N/A Intervention/Recommendation Comments 1. Continue with cardiac LUCY diet as ordered. 2. Monitor PO intake, wt, labs and skin integrity 3. F/U as low risk in 7 days Expected Outcomes/Goals Expected Outcomes/Goals 1. PO intake to meet at least 75% of nutritional needs. 2. Wt stability, skin to remain intact, labs to approach WNL.
[2018-08-16] MEDS: cloNIDine 0.1 mg/24 hr Tdm TD SCH (13:49)
--- NOTE | 2018-08-16 23:32 | Progress Notes ---
DATE: 08/16/2018 SUBJECTIVE: The patient was seen and evaluated. The patient's chart reviewed. Today on [id number] evaluation, the patient denies any side effects of the medications, intermittent compliant with medications noted ____, although continued to be very confused. Today, the patient does not know where she is. She believes that she lives in [place]. Slovak speaking, disorganized, believes that she lives in [place]. MENTAL STATUS EXAMINATION: Disorganized, agitated, severe memory impairment. ASSESSMENT AND PLAN: Dementia with behavior disturbances. We will continue with the current medication regimen. She continues to intermittently refuse medications may consider visiting the patient in the near future. JOB# [id number]
[2018-08-17] MEDS: NITROGLYCERIN OINT 2% 1 INCH PACKET TP SCH ×2 (00:08→13:00)
[2018-08-17] MEDS: Polyvinyl Alcohol Ophth Soln 15 mL Bottle EACH EYE SCH ×2 (00:10→13:00)
[2018-08-17] MEDS: Docusate Sodium 100 mg/10 mL UD PO SCH (09:49)
[2018-08-17] MEDS: Multivitamin Tab PO SCH (09:50)
[2018-08-17] MEDS: Rivastigmine 4.6 mg/24 hr Tdm TD SCH (09:50)
[2018-08-17] MEDS: Prednisolone 1% Ophth Susp 5 mL Bottle EACH EYE SCH ×3 (09:52→21:14)
--- NOTE | 2018-08-17 12:14 | Internal Medicine Prog Note ---
Internal Medicine Subjective - Subjective Service Date: 08/17/18 Patient seen and examined:: with staff Patient is:: awake, asleep, in bed, other (irrtable,noncompliant with meds, confused.) Patient Complaints of:: other (Hx of CVA.) Per staff patient has:: no adverse event, no episodes of fall, tolerating meds Internal Medicine Objective - Results Result Diagrams: 08/11/18 20:48 08/11/18 20:48 Recent Labs: Laboratory Last Values WBC 9.7 Th/cmm (4.8-10.8) 08/11/18 20:48 RBC 4.62 Mil/cmm (3.80-5.20) 08/11/18 20:48 Hgb 15.0 gm/dL (12-16) 08/11/18 20:48 Hct 44.4 % (41.0-60) 08/11/18 20:48 MCV 96.2 fl (81-100) 08/11/18 20:48 MCH 32.4 pg (27.0-31.0) H 08/11/18 20:48 MCHC Differential 33.7 pg (28.0-36.0) 08/11/18 20:48 RDW 14.2 % (11.5-20.0) 08/11/18 20:48 Plt Count 227 Th/cmm (150-400) 08/11/18 20:48 MPV 8.3 fl 08/11/18 20:48 Neutrophils % 77.2 % (40.0-80.0) 08/11/18 20:48 Lymphocytes % 16.5 % (20.0-50.0) L 08/11/18 20:48 Monocytes % 5.0 % (2.0-10.0) 08/11/18 20:48 Eosinophils % 1.0 % (0.0-5.0) 08/11/18 20:48 Basophils % 0.3 % (0.0-2.0) 08/11/18 20:48 Sodium 137 mEq/L (136-145) 08/11/18 20:48 Potassium 4.4 mEq/L (3.5-5.1) 08/11/18 20:48 Chloride 106 mEq/L (98-107) 08/11/18 20:48 Carbon Dioxide 21.3 mEq/L (21.0-31.0) 08/11/18 20:48 Anion Gap 14.1 (7.0-16.0) 08/11/18 20:48 BUN 21 mg/dL (7-25) 08/11/18 20:48 Creatinine 0.8 mg/dL (0.6-1.2) 08/11/18 20:48 Est GFR ( Amer) TNP 08/11/18 20:48 Est GFR (Non-Af Amer) TNP 08/11/18 20:48 BUN/Creatinine Ratio 26.3 08/11/18 20:48 Glucose 129 mg/dL (70-105) H 08/11/18 20:48 Calcium 10.2 mg/dL (8.6-10.3) 08/11/18 20:48 Total Bilirubin 0.7 mg/dL (0.3-1.0) 08/11/18 20:48 AST 30 U/L (13-39) 08/11/18 20:48 ALT 21 U/L (7-52) 08/11/18 20:48 Alkaline Phosphatase 85 U/L (34-104) 08/11/18 20:48 Troponin I 0.01 ng/mL (0.01-0.05) 08/11/18 20:48 B-Natriuretic Peptide 25.8 pg/mL (5.0-100.0) 08/11/18 20:48 Total Protein 6.9 gm/dL (6.0-8.3) 08/11/18 20:48 Albumin 4.1 gm/dL (3.7-5.3) 08/11/18 20:48 Globulin 2.8 gm/dL 08/11/18 20:48 Albumin/Globulin Ratio 1.5 (1.0-1.8) 08/11/18 20:48 Triglycerides 68 mg/dL (<150) 08/11/18 20:48 Cholesterol 220 mg/dL (<200) H 08/11/18 20:48 LDL Cholesterol Direct 137 mg/dL (75-193) 08/11/18 20:48 HDL Cholesterol 70 mg/dL (23-92) 08/11/18 20:48 TSH 1.83 uIU/ml (0.34-5.60) 08/11/18 20:48 RPR NONREACTIVE (NONREACTIVE) 08/11/18 20:48 - Physical Exam Vitals and I&O: Vital Signs Temp 97.6 F 08/17/18 05:59 Pulse 66 08/17/18 05:59 Resp 19 08/17/18 05:59 BP 134/72 08/17/18 05:59 Pulse Ox 95 08/17/18 05:59 Intake & Output 08/16/18 08/17/18 08/17/18 18:59 06:59 18:59 Intake Total 850 300 Output Total 1 Balance 850 299 Intake: Oral 850 300 Output: Urine/Stool Mix 1 Other: # Voids 3 2 # Bowel Movements 0 0 Active Medications: Current Medications Acetaminophen (Tylenol) 650 mg PO Q4HR PRN PRN Reason: Mild Pain / Temp above 100 Stop: 10/10/18 23:35 Acetaminophen (Tylenol Extra Strength) 500 mg PO Q4HR PRN PRN Reason: Mild Pain or Fever >101 Stop: 10/11/18 00:14 Acetaminophen (Tylenol Extra Strength) 1,000 mg PO Q8H PRN PRN Reason: Pain (Severe) Stop: 10/11/18 00:14 Al Hydrox/Mg Hydrox/Simethicone (Maalox) 30 ml PO Q4HR PRN PRN Reason: GI DISTRESS Stop: 10/10/18 23:35 Artificial Tears (Artificial Tears Ophth Soln) 2 drop EACH EYE Q6HR [facility] Stop: 10/11/18 05:59 Last Admin: 08/17/18 00:10 Dose: 2 drop Bisacodyl (Dulcolax 10 Mg Supp) 10 mg RC DAILY PRN PRN Reason: Constipation Stop: 10/11/18 00:14 Clonidine HCl (Xtvcfgvi-Fyb-2) 1 patch TD QSAT [facility] Stop: 10/14/18 08:59 Last Admin: 08/16/18 13:49 Dose: 1 patch Clopidogrel Bisulfate (Plavix) 75 mg PO DAILY [facility] Stop: 10/11/18 08:59 Last Admin: 08/17/18 09:50 Dose: 75 mg Docusate Sodium (Colace) 100 mg PO DAILY [facility] Stop: 10/11/18 08:59 Last Admin: 08/17/18 09:49 Dose: 100 mg Gabapentin (Neurontin) 100 mg PO Q8HR [facility] Stop: 10/11/18 04:59 Last Admin: 08/17/18 05:05 Dose: 100 mg Loratadine (Claritin) 10 mg PO DAILY [facility] Stop: 10/11/18 08:59 Last Admin: 08/17/18 09:50 Dose: 10 mg Lorazepam (Ativan) 1 mg PO Q4H PRN; Protocol PRN Reason: Anxiety Stop: 10/11/18 00:14 Last Admin: 08/17/18 05:06 Dose: 1 mg Magnesium Hydroxide (Milk Of Magnesia) 30 ml PO HS PRN PRN Reason: Constipation Multivitamins/Vitamin C (Theragran) 1 tab PO DAILY [facility] Stop: 10/11/18 08:59 Last Admin: 08/17/18 09:50 Dose: 1 tab Nitroglycerin (Nitro-Bid) 2 inch TP Q6HR [facility] Stop: 10/11/18 05:59 Last Admin: 08/17/18 00:08 Dose: 2 inch Prednisolone Acetate (Pred Forte 1% Ophth Susp) 2 drop EACH EYE TID [facility] Stop: 10/11/18 08:59 Last Admin: 08/17/18 09:52 Dose: 2 drop Risperidone (Risperdal) 0.5 mg PO BID NANCY; Protocol Stop: 10/16/18 08:59 Last Admin: 08/17/18 09:51 Dose: 0.5 mg Rivastigmine (Exelon 4.6 Mg/24 Hr Tdm) 1 patch TD DAILY [facility] Stop: 10/11/18 08:59 Last Admin: 08/17/18 09:50 Dose: 1 patch Zolpidem Tartrate (Ambien) 5 mg PO HS PRN PRN Reason: Insomnia Stop: 10/10/18 23:35 Last Admin: 08/16/18 21:08 Dose: 5 mg Physical Exam: 83 y/o female patient has hx of CVA and Dementia. She is easily agitated and psychotic. General: alert, demented HEENT: NC/AT, PERRLA Neck: Supple Lungs: CTAB Abdomen: soft, non-tender, non-distended Extremities: excoriation Neurological: no change, alert Internal Medicine Assmt/Plan - Assessment Assessment: history of cva psychosis agitation dementia hyperlipidemia - Plan Plan: as per psych will monitor vitals diet labs Nutritional Asmnt/Malnutr-PDOC - Dietary Evaluation Malnutrition Findings (Please click <Entered> for more info): Nutritional Asmnt/Malnutrition Start: 08/14/18 10: 10 Text: Status: Complete Freq: Protocol: Document 08/14/18 10:16 JIMENA (Rec: 08/14/18 10:29 JIMENA [email or web address]) Nutritional Asmnt/Malnutrition Patient General Information Nutritional Screening Moderate Risk Diagnosis psychosi Pertinent Medical Hx/Surgical Hx dementia, psychosis, hyperlipidemia, CVA, polycythemia, dyslipidemia Subjective Information Pt seen in dining room, Uzbek speaking. Per EMR, PO intake 50-75%. Current Diet Order/ Nutrition Support cardiac, LUCY Pertinent Medications colace, theragran Pertinent Labs 08/11 Glucose 129 Nutritional Hx/Data Height 1.6 m Height (Calculated Centimeters) 160.0 Current Weight (lbs) 54.431 kg Weight (Calculated Kilograms) 54.4 Weight (Calculated Grams) 27357.1 [place] Body Weight 115 Body Mass Index (BMI) 21.2 Weight Status Approriate GI Symptoms GI Symptoms None Last BM 08/13 Difficult in: None Skin Integrity/Comment: intact Estimated Nutritional Goals BEE in Kcals: Using Current wt Calories/Kcals/Kg 25-30 Kcals Calculated 2297-2254 Protein: Using Current wt Protein g/k Protein Calculated 55 Fluid: ml 1375-1650ml (1ml/kcal) Nutritional Problem No current Nutrition Prob Problem N/A Intervention/Recommendation Comments 1. Continue with cardiac LUCY diet as ordered. 2. Monitor PO intake, wt, labs and skin integrity 3. F/U as low risk in 7 days Expected Outcomes/Goals Expected Outcomes/Goals 1. PO intake to meet at least 75% of nutritional needs. 2. Wt stability, skin to remain intact, labs to approach WNL.
[2018-08-18] MEDS: NITROGLYCERIN OINT 2% 1 INCH PACKET TP SCH ×5 (00:01→23:35)
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
[2018-08-18] MEDS: Polyvinyl Alcohol Ophth Soln 15 mL Bottle EACH EYE SCH ×5 (06:23→23:26)
[2018-08-18] MEDS: Docusate Sodium 100 mg/10 mL UD PO SCH (09:25)
[2018-08-18] MEDS: Prednisolone 1% Ophth Susp 5 mL Bottle EACH EYE SCH ×3 (09:25→21:26)
[2018-08-18] MEDS: Multivitamin Tab PO SCH (09:25)
[2018-08-18] MEDS: Rivastigmine 4.6 mg/24 hr Tdm TD SCH (09:25)
--- NOTE | 2018-08-18 16:59 | Internal Medicine Prog Note ---
Internal Medicine Subjective - Subjective Service Date: 08/18/18 Patient is:: awake, asleep, in bed, other (irrtable,noncompliant with meds, confused.) Patient Complaints of:: other (Hx of CVA.) Per staff patient has:: no adverse event, no episodes of fall, tolerating meds Internal Medicine Objective - Results Result Diagrams: 08/11/18 20:48 08/11/18 20:48 Recent Labs: Laboratory Last Values WBC 9.7 Th/cmm (4.8-10.8) 08/11/18 20:48 RBC 4.62 Mil/cmm (3.80-5.20) 08/11/18 20:48 Hgb 15.0 gm/dL (12-16) 08/11/18 20:48 Hct 44.4 % (41.0-60) 08/11/18 20:48 MCV 96.2 fl (81-100) 08/11/18 20:48 MCH 32.4 pg (27.0-31.0) H 08/11/18 20:48 MCHC Differential 33.7 pg (28.0-36.0) 08/11/18 20:48 RDW 14.2 % (11.5-20.0) 08/11/18 20:48 Plt Count 227 Th/cmm (150-400) 08/11/18 20:48 MPV 8.3 fl 08/11/18 20:48 Neutrophils % 77.2 % (40.0-80.0) 08/11/18 20:48 Lymphocytes % 16.5 % (20.0-50.0) L 08/11/18 20:48 Monocytes % 5.0 % (2.0-10.0) 08/11/18 20:48 Eosinophils % 1.0 % (0.0-5.0) 08/11/18 20:48 Basophils % 0.3 % (0.0-2.0) 08/11/18 20:48 Sodium 137 mEq/L (136-145) 08/11/18 20:48 Potassium 4.4 mEq/L (3.5-5.1) 08/11/18 20:48 Chloride 106 mEq/L (98-107) 08/11/18 20:48 Carbon Dioxide 21.3 mEq/L (21.0-31.0) 08/11/18 20:48 Anion Gap 14.1 (7.0-16.0) 08/11/18 20:48 BUN 21 mg/dL (7-25) 08/11/18 20:48 Creatinine 0.8 mg/dL (0.6-1.2) 08/11/18 20:48 Est GFR ( Amer) TNP 08/11/18 20:48 Est GFR (Non-Af Amer) TNP 08/11/18 20:48 BUN/Creatinine Ratio 26.3 08/11/18 20:48 Glucose 129 mg/dL (70-105) H 08/11/18 20:48 Calcium 10.2 mg/dL (8.6-10.3) 08/11/18 20:48 Total Bilirubin 0.7 mg/dL (0.3-1.0) 08/11/18 20:48 AST 30 U/L (13-39) 08/11/18 20:48 ALT 21 U/L (7-52) 08/11/18 20:48 Alkaline Phosphatase 85 U/L (34-104) 08/11/18 20:48 Troponin I 0.01 ng/mL (0.01-0.05) 08/11/18 20:48 B-Natriuretic Peptide 25.8 pg/mL (5.0-100.0) 08/11/18 20:48 Total Protein 6.9 gm/dL (6.0-8.3) 08/11/18 20:48 Albumin 4.1 gm/dL (3.7-5.3) 08/11/18 20:48 Globulin 2.8 gm/dL 08/11/18 20:48 Albumin/Globulin Ratio 1.5 (1.0-1.8) 08/11/18 20:48 Triglycerides 68 mg/dL (<150) 08/11/18 20:48 Cholesterol 220 mg/dL (<200) H 08/11/18 20:48 LDL Cholesterol Direct 137 mg/dL (75-193) 08/11/18 20:48 HDL Cholesterol 70 mg/dL (23-92) 08/11/18 20:48 TSH 1.83 uIU/ml (0.34-5.60) 08/11/18 20:48 RPR NONREACTIVE (NONREACTIVE) 08/11/18 20:48 - Physical Exam Vitals and I&O: Vital Signs Temp 97.8 F 08/18/18 15:43 Pulse 66 08/18/18 06:24 Resp 19 08/18/18 15:43 BP 123/57 08/18/18 06:24 Pulse Ox 94 08/18/18 06:11 Intake & Output 08/17/18 08/18/18 08/18/18 18:59 06:59 18:59 Intake Total 180 Balance 180 Intake: Oral 180 Other: # Voids 1 # Bowel Movements 0 Active Medications: Current Medications Acetaminophen (Tylenol) 650 mg PO Q4HR PRN PRN Reason: Mild Pain / Temp above 100 Stop: 10/10/18 23:35 Acetaminophen (Tylenol Extra Strength) 500 mg PO Q4HR PRN PRN Reason: Mild Pain or Fever >101 Stop: 10/11/18 00:14 Acetaminophen (Tylenol Extra Strength) 1,000 mg PO Q8H PRN PRN Reason: Pain (Severe) Stop: 10/11/18 00:14 Al Hydrox/Mg Hydrox/Simethicone (Maalox) 30 ml PO Q4HR PRN PRN Reason: GI DISTRESS Stop: 10/10/18 23:35 Artificial Tears (Artificial Tears Ophth Soln) 2 drop EACH EYE Q6HR [facility] Stop: 10/11/18 05:59 Last Admin: 08/18/18 11:59 Dose: 2 drop Bisacodyl (Dulcolax 10 Mg Supp) 10 mg RC DAILY PRN PRN Reason: Constipation Stop: 10/11/18 00:14 Clonidine HCl (Ucgkuizt-Kkf-9) 1 patch TD QSAT [facility] Stop: 10/14/18 08:59 Last Admin: 08/16/18 13:49 Dose: 1 patch Clopidogrel Bisulfate (Plavix) 75 mg PO DAILY [facility] Stop: 10/11/18 08:59 Last Admin: 08/18/18 09:25 Dose: 75 mg Docusate Sodium (Colace) 100 mg PO DAILY [facility] Stop: 10/11/18 08:59 Last Admin: 08/18/18 09:25 Dose: 100 mg Gabapentin (Neurontin) 100 mg PO Q8HR [facility] Stop: 10/11/18 04:59 Last Admin: 08/18/18 12:01 Dose: 100 mg Loratadine (Claritin) 10 mg PO DAILY [facility] Stop: 10/11/18 08:59 Last Admin: 08/18/18 09:25 Dose: 10 mg Lorazepam (Ativan) 1 mg PO Q4H PRN; Protocol PRN Reason: Anxiety Stop: 10/11/18 00:14 Last Admin: 08/17/18 05:06 Dose: 1 mg Magnesium Hydroxide (Milk Of Magnesia) 30 ml PO HS PRN PRN Reason: Constipation Multivitamins/Vitamin C (Theragran) 1 tab PO DAILY [facility] Stop: 10/11/18 08:59 Last Admin: 08/18/18 09:25 Dose: 1 tab Nitroglycerin (Nitro-Bid) 2 inch TP Q6HR [facility] Stop: 10/11/18 05:59 Last Admin: 08/18/18 12:00 Dose: Not Given Prednisolone Acetate (Pred Forte 1% Ophth Susp) 2 drop EACH EYE TID [facility] Stop: 10/11/18 08:59 Last Admin: 08/18/18 13:26 Dose: Not Given Risperidone (Risperdal) 0.5 mg PO BID NANCY; Protocol Stop: 10/16/18 08:59 Last Admin: 08/18/18 09:25 Dose: 0.5 mg Rivastigmine (Exelon 4.6 Mg/24 Hr Tdm) 1 patch TD DAILY [facility] Stop: 10/11/18 08:59 Last Admin: 08/18/18 09:25 Dose: 1 patch Zolpidem Tartrate (Ambien) 5 mg PO HS PRN PRN Reason: Insomnia Stop: 10/10/18 23:35 Last Admin: 08/17/18 21:15 Dose: 5 mg General: alert, demented HEENT: NC/AT, PERRLA Neck: Supple Lungs: CTAB Abdomen: soft, non-tender, non-distended Extremities: excoriation Neurological: no change, alert Internal Medicine Assmt/Plan - Assessment Assessment: history of cva psychosis agitation dementia hyperlipidemia - Plan Plan: fall precautions cpm Nutritional Asmnt/Malnutr-PDOC - Dietary Evaluation Malnutrition Findings (Please click <Entered> for more info): Nutritional Asmnt/Malnutrition Start: 08/14/18 10: 10 Text: Status: Complete Freq: Protocol: Document 08/14/18 10:16 LCHENDianna (Rec: 08/14/18 10:29 LCSYLVIAG [email or web address]) Nutritional Asmnt/Malnutrition Patient General Information Nutritional Screening Moderate Risk Diagnosis psychosi Pertinent Medical Hx/Surgical Hx dementia, psychosis, hyperlipidemia, CVA, polycythemia, dyslipidemia Subjective Information Pt seen in dining room, [place] speaking. Per EMR, PO intake 50-75%. Current Diet Order/ Nutrition Support cardiac, LUCY Pertinent Medications colace, theragran Pertinent Labs 08/11 Glucose 129 Nutritional Hx/Data Height 5 ft 3 in Height (Calculated Centimeters) 160.0 Current Weight (lbs) 120 lb Weight (Calculated Kilograms) 54.4 Weight (Calculated Grams) 52245.1 Jones Body Weight 115 Body Mass Index (BMI) 21.2 Weight Status Approriate GI Symptoms GI Symptoms None Last BM 08/13 Difficult in: None Skin Integrity/Comment: intact Estimated Nutritional Goals BEE in Kcals: Using Current wt Calories/Kcals/Kg 25-30 Kcals Calculated 4392-8978 Protein: Using Current wt Protein g/k Protein Calculated 55 Fluid: ml 1375-1650ml (1ml/kcal) Nutritional Problem No current Nutrition Prob Problem N/A Intervention/Recommendation Comments 1. Continue with cardiac LUCY diet as ordered. 2. Monitor PO intake, wt, labs and skin integrity 3. F/U as low risk in 7 days Expected Outcomes/Goals Expected Outcomes/Goals 1. PO intake to meet at least 75% of nutritional needs. 2. Wt stability, skin to remain intact, labs to approach WNL.
--- NOTE | 2018-08-18 19:30 | Progress Notes ---
DATE: 08/18/2018 SUBJECTIVE: Chart reviewed and the patient interviewed. Also discussed the patient's condition with the staff and reviewed records and labs. The patient is still guarded and she is still suspicious and paranoid. The patient also is still easily agitated and confused and needs lots of redirections. The patient also still mumbles and talking to herself in the Kisw[place]ili language. She also is still resisting care at times. Otherwise, the patient is compliant with taking her medication with no side effects of medications. ASSESSMENT: The patient is still suspicious and paranoid and needs lots of redirections. TREATMENT PLAN: We will continue to monitor her behavior and condition closely. Also, continue adjusting psychotropic medications and work on behavioral modification. The patient continued to take Risperdal at a dose of 0.5 mg twice a day with no side effects. JOB# [id number]
[2018-08-19] MEDS: Polyvinyl Alcohol Ophth Soln 15 mL Bottle EACH EYE SCH ×3 (05:16→23:11)
[2018-08-19] MEDS: NITROGLYCERIN OINT 2% 1 INCH PACKET TP SCH ×3 (05:17→23:10)
[2018-08-19] MEDS: Multivitamin Tab PO SCH (09:36)
[2018-08-19] MEDS: Docusate Sodium 100 mg/10 mL UD PO SCH (09:36)
[2018-08-19] MEDS: Rivastigmine 4.6 mg/24 hr Tdm TD SCH (09:36)
[2018-08-19] MEDS: Prednisolone 1% Ophth Susp 5 mL Bottle EACH EYE SCH ×3 (09:36→20:56)
--- NOTE | 2018-08-19 12:13 | Internal Medicine Prog Note ---
Internal Medicine Subjective - Subjective Service Date: 08/19/18 Patient seen and examined:: with staff Patient is:: awake, asleep, in bed, other (irrtable,noncompliant with meds, confused.) Patient Complaints of:: other (Hx of CVA.) Per staff patient has:: no adverse event, no episodes of fall, tolerating meds, other (Still suspicious and paranoid, needs alot of redirection.) Internal Medicine Objective - Results Result Diagrams: 08/11/18 20:48 08/11/18 20:48 Recent Labs: Laboratory Last Values WBC 9.7 Th/cmm (4.8-10.8) 08/11/18 20:48 RBC 4.62 Mil/cmm (3.80-5.20) 08/11/18 20:48 Hgb 15.0 gm/dL (12-16) 08/11/18 20:48 Hct 44.4 % (41.0-60) 08/11/18 20:48 MCV 96.2 fl (81-100) 08/11/18 20:48 MCH 32.4 pg (27.0-31.0) H 08/11/18 20:48 MCHC Differential 33.7 pg (28.0-36.0) 08/11/18 20:48 RDW 14.2 % (11.5-20.0) 08/11/18 20:48 Plt Count 227 Th/cmm (150-400) 08/11/18 20:48 MPV 8.3 fl 08/11/18 20:48 Neutrophils % 77.2 % (40.0-80.0) 08/11/18 20:48 Lymphocytes % 16.5 % (20.0-50.0) L 08/11/18 20:48 Monocytes % 5.0 % (2.0-10.0) 08/11/18 20:48 Eosinophils % 1.0 % (0.0-5.0) 08/11/18 20:48 Basophils % 0.3 % (0.0-2.0) 08/11/18 20:48 Sodium 137 mEq/L (136-145) 08/11/18 20:48 Potassium 4.4 mEq/L (3.5-5.1) 08/11/18 20:48 Chloride 106 mEq/L (98-107) 08/11/18 20:48 Carbon Dioxide 21.3 mEq/L (21.0-31.0) 08/11/18 20:48 Anion Gap 14.1 (7.0-16.0) 08/11/18 20:48 BUN 21 mg/dL (7-25) 08/11/18 20:48 Creatinine 0.8 mg/dL (0.6-1.2) 08/11/18 20:48 Est GFR ( Amer) TNP 08/11/18 20:48 Est GFR (Non-Af Amer) TNP 08/11/18 20:48 BUN/Creatinine Ratio 26.3 08/11/18 20:48 Glucose 129 mg/dL (70-105) H 08/11/18 20:48 Calcium 10.2 mg/dL (8.6-10.3) 08/11/18 20:48 Total Bilirubin 0.7 mg/dL (0.3-1.0) 08/11/18 20:48 AST 30 U/L (13-39) 08/11/18 20:48 ALT 21 U/L (7-52) 08/11/18 20:48 Alkaline Phosphatase 85 U/L (34-104) 08/11/18 20:48 Troponin I 0.01 ng/mL (0.01-0.05) 08/11/18 20:48 B-Natriuretic Peptide 25.8 pg/mL (5.0-100.0) 08/11/18 20:48 Total Protein 6.9 gm/dL (6.0-8.3) 08/11/18 20:48 Albumin 4.1 gm/dL (3.7-5.3) 08/11/18 20:48 Globulin 2.8 gm/dL 08/11/18 20:48 Albumin/Globulin Ratio 1.5 (1.0-1.8) 08/11/18 20:48 Triglycerides 68 mg/dL (<150) 08/11/18 20:48 Cholesterol 220 mg/dL (<200) H 08/11/18 20:48 LDL Cholesterol Direct 137 mg/dL (75-193) 08/11/18 20:48 HDL Cholesterol 70 mg/dL (23-92) 08/11/18 20:48 TSH 1.83 uIU/ml (0.34-5.60) 08/11/18 20:48 RPR NONREACTIVE (NONREACTIVE) 08/11/18 20:48 - Physical Exam Vitals and I&O: Vital Signs Temp 98.6 F 08/19/18 05:58 Pulse 58 08/19/18 05:58 Resp 18 08/19/18 05:58 BP 93/53 08/19/18 05:58 Pulse Ox 95 08/19/18 05:58 Intake & Output 08/18/18 08/19/18 08/19/18 18:59 06:59 18:59 Intake Total 120 Balance 120 Intake: Oral 120 Other: # Voids 1 # Bowel Movements 0 Active Medications: Current Medications Acetaminophen (Tylenol) 650 mg PO Q4HR PRN PRN Reason: Mild Pain / Temp above 100 Stop: 10/10/18 23:35 Acetaminophen (Tylenol Extra Strength) 500 mg PO Q4HR PRN PRN Reason: Mild Pain or Fever >101 Stop: 10/11/18 00:14 Acetaminophen (Tylenol Extra Strength) 1,000 mg PO Q8H PRN PRN Reason: Pain (Severe) Stop: 10/11/18 00:14 Al Hydrox/Mg Hydrox/Simethicone (Maalox) 30 ml PO Q4HR PRN PRN Reason: GI DISTRESS Stop: 10/10/18 23:35 Artificial Tears (Artificial Tears Ophth Soln) 2 drop EACH EYE Q6HR [facility] Stop: 10/11/18 05:59 Last Admin: 08/19/18 11:27 Dose: 2 drop Bisacodyl (Dulcolax 10 Mg Supp) 10 mg RC DAILY PRN PRN Reason: Constipation Stop: 10/11/18 00:14 Clonidine HCl (Zvdfgqrc-Vrp-0) 1 patch TD QSAT [facility] Stop: 10/14/18 08:59 Last Admin: 08/16/18 13:49 Dose: 1 patch Clopidogrel Bisulfate (Plavix) 75 mg PO DAILY [facility] Stop: 10/11/18 08:59 Last Admin: 08/19/18 09:36 Dose: 75 mg Docusate Sodium (Colace) 100 mg PO DAILY [facility] Stop: 10/11/18 08:59 Last Admin: 08/19/18 09:36 Dose: 100 mg Gabapentin (Neurontin) 100 mg PO Q8HR [facility] Stop: 10/11/18 04:59 Last Admin: 08/19/18 05:10 Dose: 100 mg Loratadine (Claritin) 10 mg PO DAILY [facility] Stop: 10/11/18 08:59 Last Admin: 08/19/18 09:36 Dose: 10 mg Lorazepam (Ativan) 1 mg PO Q4H PRN; Protocol PRN Reason: Anxiety Stop: 10/11/18 00:14 Last Admin: 08/17/18 05:06 Dose: 1 mg Magnesium Hydroxide (Milk Of Magnesia) 30 ml PO HS PRN PRN Reason: Constipation Multivitamins/Vitamin C (Theragran) 1 tab PO DAILY [facility] Stop: 10/11/18 08:59 Last Admin: 08/19/18 09:36 Dose: 1 tab Nitroglycerin (Nitro-Bid) 2 inch TP Q6HR [facility] Stop: 10/11/18 05:59 Last Admin: 08/19/18 11:26 Dose: Not Given Prednisolone Acetate (Pred Forte 1% Ophth Susp) 2 drop EACH EYE TID [facility] Stop: 10/11/18 08:59 Last Admin: 08/19/18 09:36 Dose: 2 drop Risperidone (Risperdal) 0.5 mg PO BID [facility]; Protocol Stop: 10/16/18 08:59 Last Admin: 08/19/18 09:36 Dose: 0.5 mg Rivastigmine (Exelon 4.6 Mg/24 Hr Tdm) 1 patch TD DAILY [facility] Stop: 10/11/18 08:59 Last Admin: 08/19/18 09:36 Dose: 1 patch Zolpidem Tartrate (Ambien) 5 mg PO HS PRN PRN Reason: Insomnia Stop: 10/10/18 23:35 Last Admin: 08/18/18 23:25 Dose: 5 mg Physical Exam: 83 y/o female patient has hx of CVA and Dementia. She is still easily agitated and psychotic. General: alert, demented HEENT: NC/AT, PERRLA Neck: Supple Lungs: CTAB Abdomen: soft, non-tender, non-distended Extremities: excoriation Neurological: no change, alert Internal Medicine Assmt/Plan - Assessment Assessment: history of cva suspicious and paranoid psychosis agitation dementia hyperlipidemia - Plan Plan: as per psych will monitor vitals diet labs Nutritional Asmnt/Malnutr-PDOC - Dietary Evaluation Malnutrition Findings (Please click <Entered> for more info): Nutritional Asmnt/Malnutrition Start: 08/14/18 10: 10 Text: Status: Complete Freq: Protocol: Document 08/14/18 10:16 JIMENA (Rec: 08/14/18 10:29 [email or web address]) Nutritional Asmnt/Malnutrition Patient General Information Nutritional Screening Moderate Risk Diagnosis psychosi Pertinent Medical Hx/Surgical Hx dementia, psychosis, hyperlipidemia, CVA, polycythemia, dyslipidemia Subjective Information Pt seen in dining room, Italian speaking. Per EMR, PO intake 50-75%. Current Diet Order/ Nutrition Support cardiac, LUCY Pertinent Medications colace, theragran Pertinent Labs 08/11 Glucose 129 Nutritional Hx/Data Height 1.6 m Height (Calculated Centimeters) 160.0 Current Weight (lbs) 54.431 kg Weight (Calculated Kilograms) 54.4 Weight (Calculated Grams) 28545.1 [place] Body Weight 115 Body Mass Index (BMI) 21.2 Weight Status Approriate GI Symptoms GI Symptoms None Last BM 08/13 Difficult in: None Skin Integrity/Comment: intact Estimated Nutritional Goals BEE in Kcals: Using Current wt Calories/Kcals/Kg 25-30 Kcals Calculated 1358-3258 Protein: Using Current wt Protein g/k Protein Calculated 55 Fluid: ml 1375-1650ml (1ml/kcal) Nutritional Problem No current Nutrition Prob Problem N/A Intervention/Recommendation Comments 1. Continue with cardiac LUCY diet as ordered. 2. Monitor PO intake, wt, labs and skin integrity 3. F/U as low risk in 7 days Expected Outcomes/Goals Expected Outcomes/Goals 1. PO intake to meet at least 75% of nutritional needs. 2. Wt stability, skin to remain intact, labs to approach WNL.
--- NOTE | 2018-08-20 03:00 | Progress Notes ---
DATE: 08/19/2018 SUBJECTIVE: Chart reviewed and the patient interviewed. Also, discussed the patient's condition with the staff and reviewed records and labs. The patient continued to be in irritable mood and restless and agitated. The patient also constantly wants to get off bed and have difficulty following directions from the staff. The patient also is selective when choosing her medications. The patient also is still suspicious and paranoid and seems to be confused. Otherwise, the patient is compliant with taking her Risperdal, but at times, patient is still refusing it and staff has to encourage her to take it. ASSESSMENT: The patient is still psychotic and is still agitated. TREATMENT PLAN: Continue to monitor her behavior and her condition closely. Also, continue to work on behavioral modification. Also, Risperdal was increased to 0.5 twice a day and will continue same dose and continue to work on behavioral modification. JOB# [id number]
[2018-08-20] MEDS: NITROGLYCERIN OINT 2% 1 INCH PACKET TP SCH ×3 (05:57→18:58)
[2018-08-20] MEDS: Polyvinyl Alcohol Ophth Soln 15 mL Bottle EACH EYE SCH ×3 (05:58→18:58)
[2018-08-20] MEDS: Docusate Sodium 100 mg/10 mL UD PO SCH (09:26)
[2018-08-20] MEDS: Prednisolone 1% Ophth Susp 5 mL Bottle EACH EYE SCH ×3 (09:26→21:18)
[2018-08-20] MEDS: Multivitamin Tab PO SCH (09:26)
[2018-08-20] MEDS: Rivastigmine 4.6 mg/24 hr Tdm TD SCH (09:27)
--- NOTE | 2018-08-20 09:55 | Internal Medicine Prog Note ---
Internal Medicine Subjective - Subjective Service Date: 08/20/18 Patient seen and examined:: with staff Patient is:: awake, asleep, in bed, other (irrtable, noncompliant with meds, paranoid, confused.) Patient Complaints of:: other (Hx of CVA.) Per staff patient has:: no adverse event, no episodes of fall, tolerating meds, other (Still suspicious and paranoid, needs alot of redirection.) Internal Medicine Objective - Results Result Diagrams: 08/11/18 20:48 08/11/18 20:48 Recent Labs: Laboratory Last Values WBC 9.7 Th/cmm (4.8-10.8) 08/11/18 20:48 RBC 4.62 Mil/cmm (3.80-5.20) 08/11/18 20:48 Hgb 15.0 gm/dL (12-16) 08/11/18 20:48 Hct 44.4 % (41.0-60) 08/11/18 20:48 MCV 96.2 fl (81-100) 08/11/18 20:48 MCH 32.4 pg (27.0-31.0) H 08/11/18 20:48 MCHC Differential 33.7 pg (28.0-36.0) 08/11/18 20:48 RDW 14.2 % (11.5-20.0) 08/11/18 20:48 Plt Count 227 Th/cmm (150-400) 08/11/18 20:48 MPV 8.3 fl 08/11/18 20:48 Neutrophils % 77.2 % (40.0-80.0) 08/11/18 20:48 Lymphocytes % 16.5 % (20.0-50.0) L 08/11/18 20:48 Monocytes % 5.0 % (2.0-10.0) 08/11/18 20:48 Eosinophils % 1.0 % (0.0-5.0) 08/11/18 20:48 Basophils % 0.3 % (0.0-2.0) 08/11/18 20:48 Sodium 137 mEq/L (136-145) 08/11/18 20:48 Potassium 4.4 mEq/L (3.5-5.1) 08/11/18 20:48 Chloride 106 mEq/L (98-107) 08/11/18 20:48 Carbon Dioxide 21.3 mEq/L (21.0-31.0) 08/11/18 20:48 Anion Gap 14.1 (7.0-16.0) 08/11/18 20:48 BUN 21 mg/dL (7-25) 08/11/18 20:48 Creatinine 0.8 mg/dL (0.6-1.2) 08/11/18 20:48 Est GFR ( Amer) TNP 08/11/18 20:48 Est GFR (Non-Af Amer) TNP 08/11/18 20:48 BUN/Creatinine Ratio 26.3 08/11/18 20:48 Glucose 129 mg/dL (70-105) H 08/11/18 20:48 Calcium 10.2 mg/dL (8.6-10.3) 08/11/18 20:48 Total Bilirubin 0.7 mg/dL (0.3-1.0) 08/11/18 20:48 AST 30 U/L (13-39) 08/11/18 20:48 ALT 21 U/L (7-52) 08/11/18 20:48 Alkaline Phosphatase 85 U/L (34-104) 08/11/18 20:48 Troponin I 0.01 ng/mL (0.01-0.05) 08/11/18 20:48 B-Natriuretic Peptide 25.8 pg/mL (5.0-100.0) 08/11/18 20:48 Total Protein 6.9 gm/dL (6.0-8.3) 08/11/18 20:48 Albumin 4.1 gm/dL (3.7-5.3) 08/11/18 20:48 Globulin 2.8 gm/dL 08/11/18 20:48 Albumin/Globulin Ratio 1.5 (1.0-1.8) 08/11/18 20:48 Triglycerides 68 mg/dL (<150) 08/11/18 20:48 Cholesterol 220 mg/dL (<200) H 08/11/18 20:48 LDL Cholesterol Direct 137 mg/dL (75-193) 08/11/18 20:48 HDL Cholesterol 70 mg/dL (23-92) 08/11/18 20:48 TSH 1.83 uIU/ml (0.34-5.60) 08/11/18 20:48 RPR NONREACTIVE (NONREACTIVE) 08/11/18 20:48 - Physical Exam Vitals and I&O: Vital Signs Temp 97.4 F 08/20/18 06:36 Pulse 72 08/20/18 06:36 Resp 19 08/20/18 06:36 BP 129/53 08/20/18 06:36 Pulse Ox 95 08/20/18 06:36 Intake & Output 08/19/18 08/20/18 08/20/18 18:59 06:59 18:59 Intake Total 1300 120 Balance 1300 120 Intake: Oral 1300 120 Other: # Voids 3 2 # Bowel Movements 1 0 Active Medications: Current Medications Acetaminophen (Tylenol) 650 mg PO Q4HR PRN PRN Reason: Mild Pain / Temp above 100 Stop: 10/10/18 23:35 Acetaminophen (Tylenol Extra Strength) 500 mg PO Q4HR PRN PRN Reason: Mild Pain or Fever >101 Stop: 10/11/18 00:14 Acetaminophen (Tylenol Extra Strength) 1,000 mg PO Q8H PRN PRN Reason: Pain (Severe) Stop: 10/11/18 00:14 Al Hydrox/Mg Hydrox/Simethicone (Maalox) 30 ml PO Q4HR PRN PRN Reason: GI DISTRESS Stop: 10/10/18 23:35 Artificial Tears (Artificial Tears Ophth Soln) 2 drop EACH EYE Q6HR [facility] Stop: 10/11/18 05:59 Last Admin: 08/20/18 05:58 Dose: 2 drop Bisacodyl (Dulcolax 10 Mg Supp) 10 mg RC DAILY PRN PRN Reason: Constipation Stop: 10/11/18 00:14 Clonidine HCl (Ywayzesf-Ron-6) 1 patch TD QSAT [facility] Stop: 10/14/18 08:59 Last Admin: 08/16/18 13:49 Dose: 1 patch Clopidogrel Bisulfate (Plavix) 75 mg PO DAILY [facility] Stop: 10/11/18 08:59 Last Admin: 08/20/18 09:25 Dose: 75 mg Docusate Sodium (Colace) 100 mg PO DAILY [facility] Stop: 10/11/18 08:59 Last Admin: 08/20/18 09:26 Dose: 100 mg Gabapentin (Neurontin) 100 mg PO Q8HR [facility] Stop: 10/11/18 04:59 Last Admin: 08/20/18 05:20 Dose: 100 mg Loratadine (Claritin) 10 mg PO DAILY [facility] Stop: 10/11/18 08:59 Last Admin: 08/20/18 09:26 Dose: 10 mg Lorazepam (Ativan) 1 mg PO Q4H PRN; Protocol PRN Reason: Anxiety Stop: 10/11/18 00:14 Last Admin: 08/17/18 05:06 Dose: 1 mg Magnesium Hydroxide (Milk Of Magnesia) 30 ml PO HS PRN PRN Reason: Constipation Multivitamins/Vitamin C (Theragran) 1 tab PO DAILY [facility] Stop: 10/11/18 08:59 Last Admin: 08/20/18 09:26 Dose: Not Given Nitroglycerin (Nitro-Bid) 2 inch TP Q6HR [facility] Stop: 10/11/18 05:59 Last Admin: 08/20/18 05:57 Dose: 2 inch Prednisolone Acetate (Pred Forte 1% Ophth Susp) 2 drop EACH EYE TID [facility] Stop: 10/11/18 08:59 Last Admin: 08/20/18 09:26 Dose: 2 drop Risperidone (Risperdal) 0.5 mg PO BID [facility]; Protocol Stop: 10/16/18 08:59 Last Admin: 08/20/18 09:25 Dose: 0.5 mg Rivastigmine (Exelon 4.6 Mg/24 Hr Tdm) 1 patch TD DAILY [facility] Stop: 10/11/18 08:59 Last Admin: 08/20/18 09:27 Dose: 1 patch Zolpidem Tartrate (Ambien) 5 mg PO HS PRN PRN Reason: Insomnia Stop: 10/10/18 23:35 Last Admin: 08/19/18 23:10 Dose: 5 mg Physical Exam: 83 y/o female patient has hx of CVA and Dementia. She is still easily agitated and psychotic. She wants to get out of bed, Fall precaution. General: alert, demented HEENT: NC/AT, PERRLA Neck: Supple Lungs: CTAB Abdomen: soft, non-tender, non-distended Extremities: excoriation Neurological: no change, alert Internal Medicine Assmt/Plan - Assessment Assessment: history of cva suspicious and paranoid psychosis agitation dementia/confused hyperlipidemia - Plan Plan: as per psych will monitor vitals diet labs Nutritional Asmnt/Malnutr-PDOC - Dietary Evaluation Malnutrition Findings (Please click <Entered> for more info): Nutritional Asmnt/Malnutrition Start: 08/14/18 10: 10 Text: Status: Complete Freq: Protocol: Document 08/14/18 10:16 LCHENG (Rec: 08/14/18 10:29 [email or web address]) Nutritional Asmnt/Malnutrition Patient General Information Nutritional Screening Moderate Risk Diagnosis psychosi Pertinent Medical Hx/Surgical Hx dementia, psychosis, hyperlipidemia, CVA, polycythemia, dyslipidemia Subjective Information Pt seen in dining room, Kosovan speaking. Per EMR, PO intake 50-75%. Current Diet Order/ Nutrition Support cardiac, LUCY Pertinent Medications colace, theragran Pertinent Labs 08/11 Glucose 129 Nutritional Hx/Data Height 1.6 m Height (Calculated Centimeters) 160.0 Current Weight (lbs) 54.431 kg Weight (Calculated Kilograms) 54.4 Weight (Calculated Grams) 85425.1 [place] Body Weight 115 Body Mass Index (BMI) 21.2 Weight Status Approriate GI Symptoms GI Symptoms None Last BM 08/13 Difficult in: None Skin Integrity/Comment: intact Estimated Nutritional Goals BEE in Kcals: Using Current wt Calories/Kcals/Kg 25-30 Kcals Calculated 6391-5718 Protein: Using Current wt Protein g/k Protein Calculated 55 Fluid: ml 1375-1650ml (1ml/kcal) Nutritional Problem No current Nutrition Prob Problem N/A Intervention/Recommendation Comments 1. Continue with cardiac LUCY diet as ordered. 2. Monitor PO intake, wt, labs and skin integrity 3. F/U as low risk in 7 days Expected Outcomes/Goals Expected Outcomes/Goals 1. PO intake to meet at least 75% of nutritional needs. 2. Wt stability, skin to remain intact, labs to approach WNL.
--- NOTE | 2018-08-20 22:24 | Progress Notes ---
DATE: 08/20/2018 PSYCHIATRIC PROGRESS NOTE SUBJECTIVE: Chart reviewed and the patient interviewed. Also discussed the patient's condition with the staff and reviewed records and labs. The patient is still isolative and withdrawn. She also is still forgetful and disheveled and confused. She needs lots of redirections. The patient also is still easily agitated and easily irritable. Otherwise, the patient is compliant with taking her medications with no side effect of medications. At times, the patient refuses to take her medicine and at times for some reason and not given to her by staff and checking on the reasons for that. Otherwise, the patient continued to take Risperdal at a dose of 0.5 mg twice a day. ASSESSMENT: The patient is still confused and psychotic. TREATMENT PLAN: Continue to monitor behavior and condition closely and continue adjusting psychotropic medications and work on behavioral modification. JOB# [id number]
[2018-08-21] MEDS: NITROGLYCERIN OINT 2% 1 INCH PACKET TP SCH ×3 (00:23→13:57)
[2018-08-21] MEDS: Polyvinyl Alcohol Ophth Soln 15 mL Bottle EACH EYE SCH ×3 (01:25→13:57)
[2018-08-21] MEDS: Multivitamin Tab PO SCH (09:33)
[2018-08-21] MEDS: Rivastigmine 4.6 mg/24 hr Tdm TD SCH (09:58)
[2018-08-21] MEDS: Prednisolone 1% Ophth Susp 5 mL Bottle EACH EYE SCH ×3 (09:58→21:29)
[2018-08-21] MEDS: Docusate Sodium 100 mg/10 mL UD PO SCH (09:58)
--- NOTE | 2018-08-21 16:35 | Internal Medicine Prog Note ---
Internal Medicine Subjective - Subjective Service Date: 08/21/18 Patient is:: awake, asleep, in bed, other (irrtable, noncompliant with meds, paranoid, confused.) Patient Complaints of:: other (Hx of CVA.) Per staff patient has:: no adverse event, no episodes of fall, tolerating meds, other (Still suspicious and paranoid, needs alot of redirection.) Internal Medicine Objective - Results Result Diagrams: 08/11/18 20:48 08/11/18 20:48 Recent Labs: Laboratory Last Values WBC 9.7 Th/cmm (4.8-10.8) 08/11/18 20:48 RBC 4.62 Mil/cmm (3.80-5.20) 08/11/18 20:48 Hgb 15.0 gm/dL (12-16) 08/11/18 20:48 Hct 44.4 % (41.0-60) 08/11/18 20:48 MCV 96.2 fl (81-100) 08/11/18 20:48 MCH 32.4 pg (27.0-31.0) H 08/11/18 20:48 MCHC Differential 33.7 pg (28.0-36.0) 08/11/18 20:48 RDW 14.2 % (11.5-20.0) 08/11/18 20:48 Plt Count 227 Th/cmm (150-400) 08/11/18 20:48 MPV 8.3 fl 08/11/18 20:48 Neutrophils % 77.2 % (40.0-80.0) 08/11/18 20:48 Lymphocytes % 16.5 % (20.0-50.0) L 08/11/18 20:48 Monocytes % 5.0 % (2.0-10.0) 08/11/18 20:48 Eosinophils % 1.0 % (0.0-5.0) 08/11/18 20:48 Basophils % 0.3 % (0.0-2.0) 08/11/18 20:48 Sodium 137 mEq/L (136-145) 08/11/18 20:48 Potassium 4.4 mEq/L (3.5-5.1) 08/11/18 20:48 Chloride 106 mEq/L (98-107) 08/11/18 20:48 Carbon Dioxide 21.3 mEq/L (21.0-31.0) 08/11/18 20:48 Anion Gap 14.1 (7.0-16.0) 08/11/18 20:48 BUN 21 mg/dL (7-25) 08/11/18 20:48 Creatinine 0.8 mg/dL (0.6-1.2) 08/11/18 20:48 Est GFR ( Amer) TNP 08/11/18 20:48 Est GFR (Non-Af Amer) TNP 08/11/18 20:48 BUN/Creatinine Ratio 26.3 08/11/18 20:48 Glucose 129 mg/dL (70-105) H 08/11/18 20:48 Calcium 10.2 mg/dL (8.6-10.3) 08/11/18 20:48 Total Bilirubin 0.7 mg/dL (0.3-1.0) 08/11/18 20:48 AST 30 U/L (13-39) 08/11/18 20:48 ALT 21 U/L (7-52) 08/11/18 20:48 Alkaline Phosphatase 85 U/L (34-104) 08/11/18 20:48 Troponin I 0.01 ng/mL (0.01-0.05) 08/11/18 20:48 B-Natriuretic Peptide 25.8 pg/mL (5.0-100.0) 08/11/18 20:48 Total Protein 6.9 gm/dL (6.0-8.3) 08/11/18 20:48 Albumin 4.1 gm/dL (3.7-5.3) 08/11/18 20:48 Globulin 2.8 gm/dL 08/11/18 20:48 Albumin/Globulin Ratio 1.5 (1.0-1.8) 08/11/18 20:48 Triglycerides 68 mg/dL (<150) 08/11/18 20:48 Cholesterol 220 mg/dL (<200) H 08/11/18 20:48 LDL Cholesterol Direct 137 mg/dL (75-193) 08/11/18 20:48 HDL Cholesterol 70 mg/dL (23-92) 08/11/18 20:48 TSH 1.83 uIU/ml (0.34-5.60) 08/11/18 20:48 RPR NONREACTIVE (NONREACTIVE) 08/11/18 20:48 - Physical Exam Vitals and I&O: Vital Signs Temp 97.4 F 08/21/18 14:00 Pulse 72 08/21/18 14:00 Resp 20 08/21/18 14:00 BP 156/81 08/21/18 14:00 Pulse Ox 97 08/21/18 14:00 Intake & Output 08/20/18 08/21/18 08/21/18 18:59 06:59 18:59 Intake Total 960 180 Balance 960 180 Intake: Oral 960 180 Other: # Voids 3 2 # Bowel Movements 0 0 Active Medications: Current Medications Acetaminophen (Tylenol) 650 mg PO Q4HR PRN PRN Reason: Mild Pain / Temp above 100 Stop: 10/10/18 23:35 Acetaminophen (Tylenol Extra Strength) 500 mg PO Q4HR PRN PRN Reason: Mild Pain or Fever >101 Stop: 10/11/18 00:14 Acetaminophen (Tylenol Extra Strength) 1,000 mg PO Q8H PRN PRN Reason: Pain (Severe) Stop: 10/11/18 00:14 Al Hydrox/Mg Hydrox/Simethicone (Maalox) 30 ml PO Q4HR PRN PRN Reason: GI DISTRESS Stop: 10/10/18 23:35 Artificial Tears (Artificial Tears Ophth Soln) 2 drop EACH EYE Q6HR [facility] Stop: 10/11/18 05:59 Last Admin: 08/21/18 13:57 Dose: Not Given Bisacodyl (Dulcolax 10 Mg Supp) 10 mg RC DAILY PRN PRN Reason: Constipation Stop: 10/11/18 00:14 Clonidine HCl (Yhckijhj-Vba-0) 1 patch TD QSAT [facility] Stop: 10/14/18 08:59 Last Admin: 08/16/18 13:49 Dose: 1 patch Clopidogrel Bisulfate (Plavix) 75 mg PO DAILY [facility] Stop: 10/11/18 08:59 Last Admin: 08/21/18 09:33 Dose: 75 mg Docusate Sodium (Colace) 100 mg PO DAILY [facility] Stop: 10/11/18 08:59 Last Admin: 08/21/18 09:58 Dose: Not Given Gabapentin (Neurontin) 100 mg PO Q8HR [facility] Stop: 10/11/18 04:59 Last Admin: 08/21/18 13:57 Dose: Not Given Loratadine (Claritin) 10 mg PO DAILY [facility] Stop: 10/11/18 08:59 Last Admin: 08/21/18 09:33 Dose: 10 mg Lorazepam (Ativan) 1 mg PO Q4H PRN; Protocol PRN Reason: Anxiety Stop: 10/11/18 00:14 Last Admin: 08/17/18 05:06 Dose: 1 mg Magnesium Hydroxide (Milk Of Magnesia) 30 ml PO HS PRN PRN Reason: Constipation Multivitamins/Vitamin C (Theragran) 1 tab PO DAILY [facility] Stop: 10/11/18 08:59 Last Admin: 08/21/18 09:33 Dose: 1 tab Nitroglycerin (Nitro-Bid) 2 inch TP Q6HR [facility] Stop: 10/11/18 05:59 Last Admin: 08/21/18 13:57 Dose: Not Given Prednisolone Acetate (Pred Forte 1% Ophth Susp) 2 drop EACH EYE TID [facility] Stop: 10/11/18 08:59 Last Admin: 08/21/18 15:44 Dose: Not Given Risperidone (Risperdal) 0.5 mg PO BID NANCY; Protocol Stop: 10/16/18 08:59 Last Admin: 08/21/18 09:33 Dose: 0.5 mg Rivastigmine (Exelon 4.6 Mg/24 Hr Tdm) 1 patch TD DAILY [facility] Stop: 10/11/18 08:59 Last Admin: 08/21/18 09:58 Dose: Not Given Zolpidem Tartrate (Ambien) 5 mg PO HS PRN PRN Reason: Insomnia Stop: 10/10/18 23:35 Last Admin: 08/20/18 21:18 Dose: 5 mg General: alert, demented HEENT: NC/AT, PERRLA Neck: Supple Lungs: CTAB Abdomen: soft, non-tender, non-distended Extremities: excoriation Neurological: no change, alert Internal Medicine Assmt/Plan - Assessment Assessment: history of cva psychosis agitation dementia hyperlipidemia - Plan Plan: fall precautions cpm Nutritional Asmnt/Malnutr-PDOC - Dietary Evaluation Malnutrition Findings (Please click <Entered> for more info): Nutritional Asmnt/Malnutrition Start: 08/14/18 10: 10 Text: Status: Complete Freq: Protocol: Document 08/14/18 10:16 KENYAG (Rec: 08/14/18 10:29 JIMENA [email or web address]) Nutritional Asmnt/Malnutrition Patient General Information Nutritional Screening Moderate Risk Diagnosis psychosi Pertinent Medical Hx/Surgical Hx dementia, psychosis, hyperlipidemia, CVA, polycythemia, dyslipidemia Subjective Information Pt seen in dining room, [place] speaking. Per EMR, PO intake 50-75%. Current Diet Order/ Nutrition Support cardiac, LUCY Pertinent Medications colace, theragran Pertinent Labs 08/11 Glucose 129 Nutritional Hx/Data Height 5 ft 3 in Height (Calculated Centimeters) 160.0 Current Weight (lbs) 120 lb Weight (Calculated Kilograms) 54.4 Weight (Calculated Grams) 56692.1 Hines Body Weight 115 Body Mass Index (BMI) 21.2 Weight Status Approriate GI Symptoms GI Symptoms None Last BM 08/13 Difficult in: None Skin Integrity/Comment: intact Estimated Nutritional Goals BEE in Kcals: Using Current wt Calories/Kcals/Kg 25-30 Kcals Calculated 0149-6601 Protein: Using Current wt Protein g/k Protein Calculated 55 Fluid: ml 1375-1650ml (1ml/kcal) Nutritional Problem No current Nutrition Prob Problem N/A Intervention/Recommendation Comments 1. Continue with cardiac LUCY diet as ordered. 2. Monitor PO intake, wt, labs and skin integrity 3. F/U as low risk in 7 days Expected Outcomes/Goals Expected Outcomes/Goals 1. PO intake to meet at least 75% of nutritional needs. 2. Wt stability, skin to remain intact, labs to approach WNL.
[2018-08-22] MEDS: NITROGLYCERIN OINT 2% 1 INCH PACKET TP SCH ×4 (00:26→17:01)
[2018-08-22] MEDS: Polyvinyl Alcohol Ophth Soln 15 mL Bottle EACH EYE SCH ×4 (00:27→17:01)
--- NOTE | 2018-08-22 02:01 | Progress Notes ---
DATE: Chart reviewed and the patient interviewed. Also discussed the patient's condition with the staff and reviewed records and labs. The patient is restless and she is still confused and actively hallucinating. The patient also is resisting care and forgetful. The patient is trying to get off the bed and exposing herself to high fall risk. Otherwise, the patient is compliant with taking her medications with no side effects of medications. ASSESSMENT: The patient is still psychotic and confused and needs monitoring as she has high fall risk. TREATMENT PLAN: Continue to monitor her behavior and her condition closely. Also, continue adjusting psychotropic medications and work on behavioral modification. JOB# [id number]
[2018-08-22] MEDS: Docusate Sodium 100 mg/10 mL UD PO SCH (09:49)
[2018-08-22] MEDS: Multivitamin Tab PO SCH (09:49)
[2018-08-22] MEDS: Prednisolone 1% Ophth Susp 5 mL Bottle EACH EYE SCH ×3 (09:49→20:12)
[2018-08-22] MEDS: Rivastigmine 4.6 mg/24 hr Tdm TD SCH (09:50)
[2018-08-22] MEDS: cloNIDine 0.1 mg/24 hr Tdm TD SCH (10:00)
[2018-08-23] MEDS: NITROGLYCERIN OINT 2% 1 INCH PACKET TP SCH ×4 (00:49→17:32)
[2018-08-23] MEDS: Polyvinyl Alcohol Ophth Soln 15 mL Bottle EACH EYE SCH ×4 (00:51→17:34)
--- NOTE | 2018-08-23 04:26 | Progress Notes ---
DATE: 08/22/[address] Davis. SUBJECTIVE: Case was discussed with staff of the patient, reviewed records. This is an 83-year-old female, who was admitted on 08/11/2018 because of agitation, confusion, and impulsive behavior with a history of psychosis, agitation, and dementia with CVA as well as hypertension. The patient continues to be confused, continues to be actively hallucinating and restless. Continues to be unable to make safe plan for self-care, unpredictable, impulsive, needing redirection. No side effects with the medication, no sedation, no nausea, and no extrapyramidal symptoms. She is on Risperdal 0.5 mg twice a day and that was increased on 08/17/2018. She is also on in on Exelon patch. We will continue to work with the patient in group therapy, milieu therapy, and adjust the medications as needed. JOB# [id number]
[2018-08-23] MEDS: Multivitamin Tab PO SCH (09:05)
[2018-08-23] MEDS: Docusate Sodium 100 mg/10 mL UD PO SCH (09:05)
[2018-08-23] MEDS: Prednisolone 1% Ophth Susp 5 mL Bottle EACH EYE SCH ×3 (09:06→20:23)
[2018-08-23] MEDS: Rivastigmine 4.6 mg/24 hr Tdm TD SCH (09:06)
--- NOTE | 2018-08-23 11:39 | Internal Medicine Prog Note ---
Internal Medicine Subjective - Subjective Patient seen and examined:: chart reviewed Patient is:: awake, asleep, in bed, other (still very paranoid and confused.) Patient Complaints of:: other (Hx of CVA.) Per staff patient has:: no adverse event, no episodes of fall, tolerating meds, other (Still suspicious and paranoid, needs alot of redirection.) Internal Medicine Objective - Results Result Diagrams: 08/11/18 20:48 08/11/18 20:48 Recent Labs: Laboratory Last Values WBC 9.7 Th/cmm (4.8-10.8) 08/11/18 20:48 RBC 4.62 Mil/cmm (3.80-5.20) 08/11/18 20:48 Hgb 15.0 gm/dL (12-16) 08/11/18 20:48 Hct 44.4 % (41.0-60) 08/11/18 20:48 MCV 96.2 fl (81-100) 08/11/18 20:48 MCH 32.4 pg (27.0-31.0) H 08/11/18 20:48 MCHC Differential 33.7 pg (28.0-36.0) 08/11/18 20:48 RDW 14.2 % (11.5-20.0) 08/11/18 20:48 Plt Count 227 Th/cmm (150-400) 08/11/18 20:48 MPV 8.3 fl 08/11/18 20:48 Neutrophils % 77.2 % (40.0-80.0) 08/11/18 20:48 Lymphocytes % 16.5 % (20.0-50.0) L 08/11/18 20:48 Monocytes % 5.0 % (2.0-10.0) 08/11/18 20:48 Eosinophils % 1.0 % (0.0-5.0) 08/11/18 20:48 Basophils % 0.3 % (0.0-2.0) 08/11/18 20:48 Sodium 137 mEq/L (136-145) 08/11/18 20:48 Potassium 4.4 mEq/L (3.5-5.1) 08/11/18 20:48 Chloride 106 mEq/L (98-107) 08/11/18 20:48 Carbon Dioxide 21.3 mEq/L (21.0-31.0) 08/11/18 20:48 Anion Gap 14.1 (7.0-16.0) 08/11/18 20:48 BUN 21 mg/dL (7-25) 08/11/18 20:48 Creatinine 0.8 mg/dL (0.6-1.2) 08/11/18 20:48 Est GFR ( Amer) TNP 08/11/18 20:48 Est GFR (Non-Af Amer) TNP 08/11/18 20:48 BUN/Creatinine Ratio 26.3 08/11/18 20:48 Glucose 129 mg/dL (70-105) H 08/11/18 20:48 Calcium 10.2 mg/dL (8.6-10.3) 08/11/18 20:48 Total Bilirubin 0.7 mg/dL (0.3-1.0) 08/11/18 20:48 AST 30 U/L (13-39) 08/11/18 20:48 ALT 21 U/L (7-52) 08/11/18 20:48 Alkaline Phosphatase 85 U/L (34-104) 08/11/18 20:48 Troponin I 0.01 ng/mL (0.01-0.05) 08/11/18 20:48 B-Natriuretic Peptide 25.8 pg/mL (5.0-100.0) 08/11/18 20:48 Total Protein 6.9 gm/dL (6.0-8.3) 08/11/18 20:48 Albumin 4.1 gm/dL (3.7-5.3) 08/11/18 20:48 Globulin 2.8 gm/dL 08/11/18 20:48 Albumin/Globulin Ratio 1.5 (1.0-1.8) 08/11/18 20:48 Triglycerides 68 mg/dL (<150) 08/11/18 20:48 Cholesterol 220 mg/dL (<200) H 08/11/18 20:48 LDL Cholesterol Direct 137 mg/dL (75-193) 08/11/18 20:48 HDL Cholesterol 70 mg/dL (23-92) 08/11/18 20:48 TSH 1.83 uIU/ml (0.34-5.60) 08/11/18 20:48 RPR NONREACTIVE (NONREACTIVE) 08/11/18 20:48 - Physical Exam Vitals and I&O: Vital Signs Temp 98.1 F 08/23/18 06:21 Pulse 80 08/23/18 06:32 Resp 20 08/23/18 06:21 BP 128/90 08/23/18 06:32 Pulse Ox 97 08/23/18 06:21 Intake & Output 08/22/18 08/23/18 08/23/18 18:59 06:59 18:59 Intake Total 960 120 Balance 960 120 Intake: Oral 960 120 Other: # Voids 3 3 # Bowel Movements 1 Active Medications: Current Medications Acetaminophen (Tylenol) 650 mg PO Q4HR PRN PRN Reason: Mild Pain / Temp above 100 Stop: 10/10/18 23:35 Acetaminophen (Tylenol Extra Strength) 500 mg PO Q4HR PRN PRN Reason: Mild Pain or Fever >101 Stop: 10/11/18 00:14 Acetaminophen (Tylenol Extra Strength) 1,000 mg PO Q8H PRN PRN Reason: Pain (Severe) Stop: 10/11/18 00:14 Al Hydrox/Mg Hydrox/Simethicone (Maalox) 30 ml PO Q4HR PRN PRN Reason: GI DISTRESS Stop: 10/10/18 23:35 Artificial Tears (Artificial Tears Ophth Soln) 2 drop EACH EYE Q6HR [facility] Stop: 10/11/18 05:59 Last Admin: 08/23/18 06:32 Dose: Not Given Bisacodyl (Dulcolax 10 Mg Supp) 10 mg RC DAILY PRN PRN Reason: Constipation Stop: 10/11/18 00:14 Clonidine HCl (Fbokvwrf-Rin-7) 1 patch TD QSAT [facility] Stop: 10/14/18 08:59 Last Admin: 08/22/18 10:00 Dose: 1 patch Clopidogrel Bisulfate (Plavix) 75 mg PO DAILY [facility] Stop: 10/11/18 08:59 Last Admin: 08/23/18 09:05 Dose: 75 mg Docusate Sodium (Colace) 100 mg PO DAILY [facility] Stop: 10/11/18 08:59 Last Admin: 08/23/18 09:05 Dose: 100 mg Gabapentin (Neurontin) 100 mg PO Q8HR [facility] Stop: 10/11/18 04:59 Last Admin: 08/22/18 20:12 Dose: 100 mg Loratadine (Claritin) 10 mg PO DAILY [facility] Stop: 10/11/18 08:59 Last Admin: 08/23/18 09:05 Dose: 10 mg Lorazepam (Ativan) 1 mg PO Q4H PRN; Protocol PRN Reason: Anxiety Stop: 10/11/18 00:14 Last Admin: 08/17/18 05:06 Dose: 1 mg Magnesium Hydroxide (Milk Of Magnesia) 30 ml PO HS PRN PRN Reason: Constipation Multivitamins/Vitamin C (Theragran) 1 tab PO DAILY [facility] Stop: 10/11/18 08:59 Last Admin: 08/23/18 09:05 Dose: 1 tab Nitroglycerin (Nitro-Bid) 2 inch TP Q6HR [facility] Stop: 10/11/18 05:59 Last Admin: 08/23/18 06:32 Dose: Not Given Prednisolone Acetate (Pred Forte 1% Ophth Susp) 2 drop EACH EYE TID [facility] Stop: 10/11/18 08:59 Last Admin: 08/23/18 09:06 Dose: 2 drop Risperidone (Risperdal) 0.5 mg PO BID [facility]; Protocol Stop: 10/16/18 08:59 Last Admin: 08/23/18 09:05 Dose: 0.5 mg Rivastigmine (Exelon 4.6 Mg/24 Hr Tdm) 1 patch TD DAILY [facility] Stop: 10/11/18 08:59 Last Admin: 08/23/18 09:06 Dose: 1 patch Zolpidem Tartrate (Ambien) 5 mg PO HS PRN PRN Reason: Insomnia Stop: 10/10/18 23:35 Last Admin: 08/22/18 20:12 Dose: 5 mg Physical Exam: 83 y/o female patient has hx of CVA and Dementia. She is still easily agitated and psychotic. She wants to get out of bed, Fall precaution. General: alert, demented HEENT: NC/AT, PERRLA Neck: Supple Lungs: CTAB Abdomen: soft, non-tender, non-distended Extremities: excoriation Neurological: no change, alert Internal Medicine Assmt/Plan - Assessment Assessment: history of cva suspicious and paranoid psychosis agitation dementia/confused hyperlipidemia - Plan Plan: as per psych will monitor vitals diet labs Nutritional Asmnt/Malnutr-PDOC - Dietary Evaluation Malnutrition Findings (Please click <Entered> for more info): Nutritional Asmnt/Malnutrition Start: 08/14/18 10: 10 Text: Status: Complete Freq: Protocol: Document 08/14/18 10:16 LCHENG (Rec: 08/14/18 10:29 [email or web address]) Nutritional Asmnt/Malnutrition Patient General Information Nutritional Screening Moderate Risk Diagnosis psychosi Pertinent Medical Hx/Surgical Hx dementia, psychosis, hyperlipidemia, CVA, polycythemia, dyslipidemia Subjective Information Pt seen in dining room, Kyrgy[place] speaking. Per EMR, PO intake 50-75%. Current Diet Order/ Nutrition Support cardiac, LUCY Pertinent Medications colace, theragran Pertinent Labs 08/11 Glucose 129 Nutritional Hx/Data Height 1.6 m Height (Calculated Centimeters) 160.0 Current Weight (lbs) 54.431 kg Weight (Calculated Kilograms) 54.4 Weight (Calculated Grams) 54818.1 [place] Body Weight 115 Body Mass Index (BMI) 21.2 Weight Status Approriate GI Symptoms GI Symptoms None Last BM 08/13 Difficult in: None Skin Integrity/Comment: intact Estimated Nutritional Goals BEE in Kcals: Using Current wt Calories/Kcals/Kg 25-30 Kcals Calculated 8209-5814 Protein: Using Current wt Protein g/k Protein Calculated 55 Fluid: ml 1375-1650ml (1ml/kcal) Nutritional Problem No current Nutrition Prob Problem N/A Intervention/Recommendation Comments 1. Continue with cardiac LUCY diet as ordered. 2. Monitor PO intake, wt, labs and skin integrity 3. F/U as low risk in 7 days Expected Outcomes/Goals Expected Outcomes/Goals 1. PO intake to meet at least 75% of nutritional needs. 2. Wt stability, skin to remain intact, labs to approach WNL.
--- NOTE | 2018-08-23 13:19 | Progress Notes ---
DATE: 08/23/2018 Case was discussed with staff of the patient, reviewed records. Covering for Dr. Davis. The patient continues to be unpredictable, impulsive, demented, confused, unable to make safe plan for self-care. Continues to be responding to internal stimuli. Continues to have poor insight, tolerated the Risperdal with no side effects, no sedation, no nausea and no extrapyramidal symptoms. We will continue to work with the patient in group therapy, milieu therapy, and adjust the medication as needed. JOB# [id number]
[2018-08-24] MEDS: NITROGLYCERIN OINT 2% 1 INCH PACKET TP SCH ×4 (00:07→18:01)
[2018-08-24] MEDS: Polyvinyl Alcohol Ophth Soln 15 mL Bottle EACH EYE SCH ×4 (00:08→18:00)
[2018-08-24] MEDS: Rivastigmine 4.6 mg/24 hr Tdm TD SCH (08:45)
[2018-08-24] MEDS: Multivitamin Tab PO SCH (08:46)
[2018-08-24] MEDS: Docusate Sodium 100 mg/10 mL UD PO SCH (08:46)
[2018-08-24] MEDS: Prednisolone 1% Ophth Susp 5 mL Bottle EACH EYE SCH ×3 (08:47→21:30)
--- NOTE | 2018-08-24 14:09 | Progress Notes ---
DATE: 08/24/2018 Case was discussed with staff of the patient, reviewed records. The patient continues to be internally preoccupied. Unable to carry on a conversation. She is demented, confused, unpredictable and impulsive, needing redirection. She is sleeping well ,eating well _ and needs prompting with her appetite. No side effects of the medication, no sedation, no nausea, no extrapyramidal symptoms. She is on Exelon patch for dementia. We will continue Risperdal. We will continue to work with the patient in group therapy, milieu therapy, and adjust the medications as needed. JOB# [id number] MTDHo
--- NOTE | 2018-08-24 20:28 | Internal Medicine Prog Note ---
Internal Medicine Subjective - Subjective Service Date: 08/24/18 Patient seen and examined:: with staff, chart reviewed Patient is:: awake, asleep, in bed, confused, other (paranoid and confused.) Patient Complaints of:: other (Hx of CVA.) Per staff patient has:: no adverse event, no episodes of fall, tolerating meds, other (Still suspicious and paranoid, needs alot of redirection.) Internal Medicine Objective - Results Result Diagrams: 08/11/18 20:48 08/11/18 20:48 Recent Labs: Laboratory Last Values WBC 9.7 Th/cmm (4.8-10.8) 08/11/18 20:48 RBC 4.62 Mil/cmm (3.80-5.20) 08/11/18 20:48 Hgb 15.0 gm/dL (12-16) 08/11/18 20:48 Hct 44.4 % (41.0-60) 08/11/18 20:48 MCV 96.2 fl (81-100) 08/11/18 20:48 MCH 32.4 pg (27.0-31.0) H 08/11/18 20:48 MCHC Differential 33.7 pg (28.0-36.0) 08/11/18 20:48 RDW 14.2 % (11.5-20.0) 08/11/18 20:48 Plt Count 227 Th/cmm (150-400) 08/11/18 20:48 MPV 8.3 fl 08/11/18 20:48 Neutrophils % 77.2 % (40.0-80.0) 08/11/18 20:48 Lymphocytes % 16.5 % (20.0-50.0) L 08/11/18 20:48 Monocytes % 5.0 % (2.0-10.0) 08/11/18 20:48 Eosinophils % 1.0 % (0.0-5.0) 08/11/18 20:48 Basophils % 0.3 % (0.0-2.0) 08/11/18 20:48 Sodium 137 mEq/L (136-145) 08/11/18 20:48 Potassium 4.4 mEq/L (3.5-5.1) 08/11/18 20:48 Chloride 106 mEq/L (98-107) 08/11/18 20:48 Carbon Dioxide 21.3 mEq/L (21.0-31.0) 08/11/18 20:48 Anion Gap 14.1 (7.0-16.0) 08/11/18 20:48 BUN 21 mg/dL (7-25) 08/11/18 20:48 Creatinine 0.8 mg/dL (0.6-1.2) 08/11/18 20:48 Est GFR ( Amer) TNP 08/11/18 20:48 Est GFR (Non-Af Amer) TNP 08/11/18 20:48 BUN/Creatinine Ratio 26.3 08/11/18 20:48 Glucose 129 mg/dL (70-105) H 08/11/18 20:48 Calcium 10.2 mg/dL (8.6-10.3) 08/11/18 20:48 Total Bilirubin 0.7 mg/dL (0.3-1.0) 08/11/18 20:48 AST 30 U/L (13-39) 08/11/18 20:48 ALT 21 U/L (7-52) 08/11/18 20:48 Alkaline Phosphatase 85 U/L (34-104) 08/11/18 20:48 Troponin I 0.01 ng/mL (0.01-0.05) 08/11/18 20:48 B-Natriuretic Peptide 25.8 pg/mL (5.0-100.0) 08/11/18 20:48 Total Protein 6.9 gm/dL (6.0-8.3) 08/11/18 20:48 Albumin 4.1 gm/dL (3.7-5.3) 08/11/18 20:48 Globulin 2.8 gm/dL 08/11/18 20:48 Albumin/Globulin Ratio 1.5 (1.0-1.8) 08/11/18 20:48 Triglycerides 68 mg/dL (<150) 08/11/18 20:48 Cholesterol 220 mg/dL (<200) H 08/11/18 20:48 LDL Cholesterol Direct 137 mg/dL (75-193) 08/11/18 20:48 HDL Cholesterol 70 mg/dL (23-92) 08/11/18 20:48 TSH 1.83 uIU/ml (0.34-5.60) 08/11/18 20:48 RPR NONREACTIVE (NONREACTIVE) 08/11/18 20:48 - Physical Exam Vitals and I&O: Vital Signs Temp 98.4 F 08/24/18 19:59 Pulse 77 08/24/18 19:59 Resp 18 08/24/18 19:59 BP 120/86 08/24/18 19:59 Pulse Ox 96 08/24/18 19:59 Intake & Output 08/24/18 08/24/18 08/25/18 06:59 18:59 06:59 Intake Total 120 800 60 Balance 120 800 60 Intake: Oral 120 800 60 Other: # Voids 3 4 1 # Bowel Movements 1 0 Active Medications: Current Medications Acetaminophen (Tylenol) 650 mg PO Q4HR PRN PRN Reason: Mild Pain / Temp above 100 Stop: 10/10/18 23:35 Acetaminophen (Tylenol Extra Strength) 500 mg PO Q4HR PRN PRN Reason: Mild Pain or Fever >101 Stop: 10/11/18 00:14 Acetaminophen (Tylenol Extra Strength) 1,000 mg PO Q8H PRN PRN Reason: Pain (Severe) Stop: 10/11/18 00:14 Al Hydrox/Mg Hydrox/Simethicone (Maalox) 30 ml PO Q4HR PRN PRN Reason: GI DISTRESS Stop: 10/10/18 23:35 Artificial Tears (Artificial Tears Ophth Soln) 2 drop EACH EYE Q6HR [facility] Stop: 10/11/18 05:59 Last Admin: 08/24/18 18:00 Dose: 2 drop Bisacodyl (Dulcolax 10 Mg Supp) 10 mg RC DAILY PRN PRN Reason: Constipation Stop: 10/11/18 00:14 Clonidine HCl (Xfyslzlc-Oud-6) 1 patch TD QSAT [facility] Stop: 10/14/18 08:59 Last Admin: 08/22/18 10:00 Dose: 1 patch Clopidogrel Bisulfate (Plavix) 75 mg PO DAILY [facility] Stop: 10/11/18 08:59 Last Admin: 08/24/18 08:46 Dose: 75 mg Docusate Sodium (Colace) 100 mg PO DAILY [facility] Stop: 10/11/18 08:59 Last Admin: 08/24/18 08:46 Dose: 100 mg Gabapentin (Neurontin) 100 mg PO Q8HR [facility] Stop: 10/11/18 04:59 Last Admin: 08/24/18 13:00 Dose: 100 mg Loratadine (Claritin) 10 mg PO DAILY [facility] Stop: 10/11/18 08:59 Last Admin: 08/24/18 08:47 Dose: 10 mg Lorazepam (Ativan) 1 mg PO Q4H PRN; Protocol PRN Reason: Anxiety Stop: 10/11/18 00:14 Last Admin: 08/17/18 05:06 Dose: 1 mg Magnesium Hydroxide (Milk Of Magnesia) 30 ml PO HS PRN PRN Reason: Constipation Multivitamins/Vitamin C (Theragran) 1 tab PO DAILY [facility] Stop: 10/11/18 08:59 Last Admin: 08/24/18 08:46 Dose: 1 tab Nitroglycerin (Nitro-Bid) 2 inch TP Q6HR [facility] Stop: 10/11/18 05:59 Last Admin: 08/24/18 18:01 Dose: 2 inch Prednisolone Acetate (Pred Forte 1% Ophth Susp) 2 drop EACH EYE TID [facility] Stop: 10/11/18 08:59 Last Admin: 08/24/18 14:00 Dose: 2 drop Risperidone (Risperdal) 0.5 mg PO BID [facility]; Protocol Stop: 10/16/18 08:59 Last Admin: 08/24/18 16:13 Dose: 0.5 mg Rivastigmine (Exelon 4.6 Mg/24 Hr Tdm) 1 patch TD DAILY [facility] Stop: 10/11/18 08:59 Last Admin: 08/24/18 08:45 Dose: 1 patch Zolpidem Tartrate (Ambien) 5 mg PO HS PRN PRN Reason: Insomnia Stop: 10/10/18 23:35 Last Admin: 08/23/18 20:24 Dose: 5 mg Physical Exam: 83 y/o female patient has hx of CVA and Dementia. She is agitated and psychotic. She wants to get out of bed, Fall precaution. General: alert, demented HEENT: NC/AT, PERRLA Neck: Supple Lungs: CTAB Abdomen: soft, non-tender, non-distended Extremities: excoriation Neurological: no change, alert Internal Medicine Assmt/Plan - Assessment Assessment: history of cva suspicious and paranoid psychosis agitation dementia/confused hyperlipidemia - Plan Plan: as per psych will monitor vitals diet labs Nutritional Asmnt/Malnutr-PDOC - Dietary Evaluation Malnutrition Findings (Please click <Entered> for more info): Nutritional Asmnt/Malnutrition Start: 08/14/18 10: 10 Text: Status: Complete Freq: Protocol: Document 08/14/18 10:16 LCSYLVIAG (Rec: 08/14/18 10:29 [email or web address]) Nutritional Asmnt/Malnutrition Patient General Information Nutritional Screening Moderate Risk Diagnosis psychosi Pertinent Medical Hx/Surgical Hx dementia, psychosis, hyperlipidemia, CVA, polycythemia, dyslipidemia Subjective Information Pt seen in dining room, [place] speaking. Per EMR, PO intake 50-75%. Current Diet Order/ Nutrition Support cardiac, LUCY Pertinent Medications colace, theragran Pertinent Labs 08/11 Glucose 129 Nutritional Hx/Data Height 1.6 m Height (Calculated Centimeters) 160.0 Current Weight (lbs) 54.431 kg Weight (Calculated Kilograms) 54.4 Weight (Calculated Grams) 92976.1 [place] Body Weight 115 Body Mass Index (BMI) 21.2 Weight Status Approriate GI Symptoms GI Symptoms None Last BM 08/13 Difficult in: None Skin Integrity/Comment: intact Estimated Nutritional Goals BEE in Kcals: Using Current wt Calories/Kcals/Kg 25-30 Kcals Calculated 9162-4016 Protein: Using Current wt Protein g/k Protein Calculated 55 Fluid: ml 1375-1650ml (1ml/kcal) Nutritional Problem No current Nutrition Prob Problem N/A Intervention/Recommendation Comments 1. Continue with cardiac LUCY diet as ordered. 2. Monitor PO intake, wt, labs and skin integrity 3. F/U as low risk in 7 days Expected Outcomes/Goals Expected Outcomes/Goals 1. PO intake to meet at least 75% of nutritional needs. 2. Wt stability, skin to remain intact, labs to approach WNL.
[2018-08-25] MEDS: NITROGLYCERIN OINT 2% 1 INCH PACKET TP SCH ×4 (00:35→17:38)
[2018-08-25] MEDS: Polyvinyl Alcohol Ophth Soln 15 mL Bottle EACH EYE SCH ×4 (00:41→17:38)
[2018-08-25] MEDS: Prednisolone 1% Ophth Susp 5 mL Bottle EACH EYE SCH ×3 (09:24→20:48)
[2018-08-25] MEDS: Docusate Sodium 100 mg/10 mL UD PO SCH (09:24)
[2018-08-25] MEDS: Rivastigmine 4.6 mg/24 hr Tdm TD SCH (09:26)
[2018-08-25] MEDS: Multivitamin Tab PO SCH (09:26)
--- NOTE | 2018-08-25 13:21 | Progress Notes ---
DATE: 08/25/2018 Case was discussed with staff of the patient. The patient today refused taking her medication. The patient isolate herself, unpredictable, impulsive, needing redirection. She is sleeping better, eating better. No side effects with the medication, no sedation or nausea. After discharge plan; I encouraged the patient to take her medication. We will continue to work with the patient in group therapy, milieu therapy, and adjust medications as needed. [facility]# [id number]
--- NOTE | 2018-08-25 14:05 | Internal Medicine Prog Note ---
Internal Medicine Subjective - Subjective Service Date: 08/25/18 Patient is:: awake, asleep, in bed, confused, other (paranoid and confused.) Patient Complaints of:: other (Hx of CVA.) Per staff patient has:: no adverse event, no episodes of fall, tolerating meds, other (Still suspicious and paranoid, needs alot of redirection.) Internal Medicine Objective - Results Result Diagrams: 08/11/18 20:48 08/11/18 20:48 Recent Labs: Laboratory Last Values WBC 9.7 Th/cmm (4.8-10.8) 08/11/18 20:48 RBC 4.62 Mil/cmm (3.80-5.20) 08/11/18 20:48 Hgb 15.0 gm/dL (12-16) 08/11/18 20:48 Hct 44.4 % (41.0-60) 08/11/18 20:48 MCV 96.2 fl (81-100) 08/11/18 20:48 MCH 32.4 pg (27.0-31.0) H 08/11/18 20:48 MCHC Differential 33.7 pg (28.0-36.0) 08/11/18 20:48 RDW 14.2 % (11.5-20.0) 08/11/18 20:48 Plt Count 227 Th/cmm (150-400) 08/11/18 20:48 MPV 8.3 fl 08/11/18 20:48 Neutrophils % 77.2 % (40.0-80.0) 08/11/18 20:48 Lymphocytes % 16.5 % (20.0-50.0) L 08/11/18 20:48 Monocytes % 5.0 % (2.0-10.0) 08/11/18 20:48 Eosinophils % 1.0 % (0.0-5.0) 08/11/18 20:48 Basophils % 0.3 % (0.0-2.0) 08/11/18 20:48 Sodium 137 mEq/L (136-145) 08/11/18 20:48 Potassium 4.4 mEq/L (3.5-5.1) 08/11/18 20:48 Chloride 106 mEq/L (98-107) 08/11/18 20:48 Carbon Dioxide 21.3 mEq/L (21.0-31.0) 08/11/18 20:48 Anion Gap 14.1 (7.0-16.0) 08/11/18 20:48 BUN 21 mg/dL (7-25) 08/11/18 20:48 Creatinine 0.8 mg/dL (0.6-1.2) 08/11/18 20:48 Est GFR ( Amer) TNP 08/11/18 20:48 Est GFR (Non-Af Amer) TNP 08/11/18 20:48 BUN/Creatinine Ratio 26.3 08/11/18 20:48 Glucose 129 mg/dL (70-105) H 08/11/18 20:48 Calcium 10.2 mg/dL (8.6-10.3) 08/11/18 20:48 Total Bilirubin 0.7 mg/dL (0.3-1.0) 08/11/18 20:48 AST 30 U/L (13-39) 08/11/18 20:48 ALT 21 U/L (7-52) 08/11/18 20:48 Alkaline Phosphatase 85 U/L (34-104) 08/11/18 20:48 Troponin I 0.01 ng/mL (0.01-0.05) 08/11/18 20:48 B-Natriuretic Peptide 25.8 pg/mL (5.0-100.0) 08/11/18 20:48 Total Protein 6.9 gm/dL (6.0-8.3) 08/11/18 20:48 Albumin 4.1 gm/dL (3.7-5.3) 08/11/18 20:48 Globulin 2.8 gm/dL 08/11/18 20:48 Albumin/Globulin Ratio 1.5 (1.0-1.8) 08/11/18 20:48 Triglycerides 68 mg/dL (<150) 08/11/18 20:48 Cholesterol 220 mg/dL (<200) H 08/11/18 20:48 LDL Cholesterol Direct 137 mg/dL (75-193) 08/11/18 20:48 HDL Cholesterol 70 mg/dL (23-92) 08/11/18 20:48 TSH 1.83 uIU/ml (0.34-5.60) 08/11/18 20:48 RPR NONREACTIVE (NONREACTIVE) 08/11/18 20:48 - Physical Exam Vitals and I&O: Vital Signs Temp 97.6 F 08/25/18 06:06 Pulse 66 08/25/18 06:25 Resp 20 08/25/18 06:06 BP 134/72 08/25/18 06:25 Pulse Ox 98 08/25/18 06:06 Intake & Output 08/24/18 08/25/18 08/25/18 18:59 06:59 18:59 Intake Total 800 60 Balance 800 60 Intake: Oral 800 60 Other: # Voids 4 3 # Bowel Movements 1 0 Active Medications: Current Medications Acetaminophen (Tylenol) 650 mg PO Q4HR PRN PRN Reason: Mild Pain / Temp above 100 Stop: 10/10/18 23:35 Acetaminophen (Tylenol Extra Strength) 500 mg PO Q4HR PRN PRN Reason: Mild Pain or Fever >101 Stop: 10/11/18 00:14 Acetaminophen (Tylenol Extra Strength) 1,000 mg PO Q8H PRN PRN Reason: Pain (Severe) Stop: 10/11/18 00:14 Al Hydrox/Mg Hydrox/Simethicone (Maalox) 30 ml PO Q4HR PRN PRN Reason: GI DISTRESS Stop: 10/10/18 23:35 Artificial Tears (Artificial Tears Ophth Soln) 2 drop EACH EYE Q6HR [facility] Stop: 10/11/18 05:59 Last Admin: 08/25/18 06:26 Dose: 2 drop Bisacodyl (Dulcolax 10 Mg Supp) 10 mg RC DAILY PRN PRN Reason: Constipation Stop: 10/11/18 00:14 Clonidine HCl ([id number]) 1 patch TD QSAT [facility] Stop: 10/14/18 08:59 Last Admin: 08/22/18 10:00 Dose: 1 patch Clopidogrel Bisulfate (Plavix) 75 mg PO DAILY [facility] Stop: 10/11/18 08:59 Last Admin: 08/25/18 09:23 Dose: 75 mg Docusate Sodium (Colace) 100 mg PO DAILY [facility] Stop: 10/11/18 08:59 Last Admin: 08/25/18 09:24 Dose: 100 mg Gabapentin (Neurontin) 100 mg PO Q8HR [facility] Stop: 10/11/18 04:59 Last Admin: 08/25/18 04:56 Dose: 100 mg Loratadine (Claritin) 10 mg PO DAILY NANCY Stop: 10/11/18 08:59 Last Admin: 08/25/18 09:24 Dose: 10 mg Lorazepam (Ativan) 1 mg PO Q4H PRN; Protocol PRN Reason: Anxiety Stop: 10/11/18 00:14 Last Admin: 08/25/18 09:24 Dose: 1 mg Magnesium Hydroxide (Milk Of Magnesia) 30 ml PO HS PRN PRN Reason: Constipation Multivitamins/Vitamin C (Theragran) 1 tab PO DAILY NANCY Stop: 10/11/18 08:59 Last Admin: 08/25/18 09:26 Dose: 1 tab Nitroglycerin (Nitro-Bid) 2 inch TP Q6HR NANCY Stop: 10/11/18 05:59 Last Admin: 08/25/18 06:25 Dose: 2 inch Prednisolone Acetate (Pred Forte 1% Ophth Susp) 2 drop EACH EYE TID NANCY Stop: 10/11/18 08:59 Last Admin: 08/25/18 09:24 Dose: 2 drop Risperidone (Risperdal) 0.5 mg PO BID NANCY; Protocol Stop: 10/16/18 08:59 Last Admin: 08/25/18 09:23 Dose: 0.5 mg Rivastigmine (Exelon 4.6 Mg/24 Hr Tdm) 1 patch TD DAILY [facility] Stop: 10/11/18 08:59 Last Admin: 08/25/18 09:26 Dose: 1 patch Zolpidem Tartrate (Ambien) 5 mg PO HS PRN PRN Reason: Insomnia Stop: 10/10/18 23:35 Last Admin: 08/24/18 21:36 Dose: 5 mg General: alert, demented HEENT: NC/AT, PERRLA Neck: Supple Lungs: CTAB Abdomen: soft, non-tender, non-distended Extremities: excoriation Neurological: no change, alert Internal Medicine Assmt/Plan - Assessment Assessment: history of cva psychosis agitation dementia hyperlipidemia - Plan Plan: fall precautions cpm Nutritional Asmnt/Malnutr-PDOC - Dietary Evaluation Malnutrition Findings (Please click <Entered> for more info): Nutritional Asmnt/Malnutrition Start: 08/14/18 10: 10 Text: Status: Complete Freq: Protocol: Document 08/14/18 10:16 LCHENG (Rec: 08/14/18 10:29 [email or web address] [id number]) Nutritional Asmnt/Malnutrition Patient General Information Nutritional Screening Moderate Risk Diagnosis psychosi Pertinent Medical Hx/Surgical Hx dementia, psychosis, hyperlipidemia, CVA, polycythemia, dyslipidemia Subjective Information Pt seen in dining room, Slovak speaking. Per EMR, PO intake 50-75%. Current Diet Order/ Nutrition Support cardiac, LUCY Pertinent Medications colace, theragran Pertinent Labs 08/11 Glucose 129 Nutritional Hx/Data Height 5 ft 3 in Height (Calculated Centimeters) 160.0 Current Weight (lbs) 120 lb Weight (Calculated Kilograms) 54.4 Weight (Calculated Grams) 50070.1 [place] Body Weight 115 Body Mass Index (BMI) 21.2 Weight Status Approriate GI Symptoms GI Symptoms None Last BM 08/13 Difficult in: None Skin Integrity/Comment: intact Estimated Nutritional Goals BEE in Kcals: Using Current wt Calories/Kcals/Kg 25-30 Kcals Calculated 4891-7703 Protein: Using Current wt Protein g/k Protein Calculated 55 Fluid: ml 1375-1650ml (1ml/kcal) Nutritional Problem No current Nutrition Prob Problem N/A Intervention/Recommendation Comments 1. Continue with cardiac LUCY diet as ordered. 2. Monitor PO intake, wt, labs and skin integrity 3. F/U as low risk in 7 days Expected Outcomes/Goals Expected Outcomes/Goals 1. PO intake to meet at least 75% of nutritional needs. 2. Wt stability, skin to remain intact, labs to approach WNL.
[2018-08-26] MEDS: Polyvinyl Alcohol Ophth Soln 15 mL Bottle EACH EYE SCH ×2 (00:35→05:50)
[2018-08-26] MEDS: NITROGLYCERIN OINT 2% 1 INCH PACKET TP SCH ×2 (01:15→06:21)
[2018-08-26] MEDS: Docusate Sodium 100 mg/10 mL UD PO SCH (09:49)
[2018-08-26] MEDS: Multivitamin Tab PO SCH (09:49)
[2018-08-26] MEDS: Prednisolone 1% Ophth Susp 5 mL Bottle EACH EYE SCH (09:49)
[2018-08-26] MEDS: Rivastigmine 4.6 mg/24 hr Tdm TD SCH (09:50)
--- NOTE | 2018-08-29 00:38 | Discharge Summary ---
DATE OF DISCHARGE: 08/26/2018 PATIENT'S AGE: 83-year-old SEX: Female. PHYSICIAN: Dru Davis MD, MPH FINAL DIAGNOSIS: PRIMARY DIAGNOSIS: Unspecified psychosis. SECONDARY DIAGNOSIS: Dementia, moderate to severe, with psychotic features. MEDICAL DIAGNOSES: Hypertension. History of cerebrovascular accident. REASON FOR HOSPITALIZATION: The patient was admitted to the hospital from [facility] because of increased agitation and the patient was uncooperative with her treatment and her care. HOSPITAL COURSE: The patient continued to be agitated and uncooperative with her treatment. She also continued to be in need of lots of redirections. On the other hand, the patient started on taking gabapentin in a dose of 100 mg 3 times a day. The patient was given Risperdal 0.5 mg twice a day. Gradually, the patient's affect was brighter. The patient was still confused, but calm and she was easy to redirect. The patient also was cooperative with her care. The patient was accepted back to the [facility]. Physical exam of the patient was basically within normal and the patient had no major medical problems. AFTER DISCHARGE PLAN: The patient discharged from the hospital and the patient will be continued on her treatment in [facility]. At the time of discharge, the patient was not suicidal or homicidal, and she was easier to redirect. EXPECTED OUTCOME AFTER DISCHARGE: Fair if the patient continues to take her psychotropic medications and follow up with discharge plans. JOB# [id number]
== END 2018-08-26 13:15 | DRG 885 ==
LOC: ER 19:04 → GERO 21:59
PROVIDERS: ADMIT Psychiatry & Neurology Psychiatry; ATTEND Psychiatry & Neurology Psychiatry
DX: F29 Unspecified psychosis not due to a substance or known physiological condition (principal); F03.91 Unspecified dementia, unspecified severity, with behavioral disturbance; E78.5 Hyperlipidemia, unspecified; F03.90 Unspecified dementia, unspecified severity, without behavioral disturbance, psychotic disturbance, mood disturbance, and anxiety; I10 Essential (primary) hypertension; D75.1 Secondary polycythemia; Z88.8 Allergy status to other drugs, medicaments and biological substances; Z86.73 Personal history of transient ischemic attack (TIA), and cerebral infarction without residual deficits
CPT/HCPCS: 36415-UA; 71045-TC; 80053-TC; 80061-TC; 83036-90; 83880-TC; 84443-TC; 84484-TC; 85025-TC; 86592-TC; 93005; J2650; Z7610

== ENCOUNTER 2018-10-19 19:15 | Inpatient (IN) | payer MEDICARE, OTHER ==
--- NOTE | 2018-10-19 19:56 | ED Physician Chart ---
ED Chief Complaint/HPI - Patient Information Date Seen:: 10/19/18 Time Seen:: 19:30 Chief Complaint:: Increased agitation with aggressive behavior. History of Present Illness:: Brought in by private auto with her daughter Keshia and son-in-law Gage because of agitation/aggressive behavior for at least a year. Pt has had multiple psych admissions for the same condition. She has had increased agitation/aggression. Pt is Indonesian speaking. Interpretation is provided by her daughter whose name is also Keshia. 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 No new bodily pain or discomfort. Pt has been diagnosed to have UTI this morning and has been on antibiotic therapy with Keflex. Allergies:: Allergies Allergy/AdvReac Type Severity Reaction Status Date / Time haloperidol [From Haldol] Allergy Verified 11/24/17 19:35 olanzapine [From Zyprexa] Allergy Verified 11/24/17 19:35 Vitals:: see Nurse Note. Historian:: Patient, Family Member (Daughter Keshia.) Family MD/PCP:: unknown LMP:: Postmenopausal. Review:: Nurse's Note Reviewed ED Review of Systems - Review of Systems General/Constitutional: Other (Pt does not cooperate for ROS.) ED Past Medical History - Past Medical History Past Medical History: HTN, Dyslipidemia, Dementia Family History: None Social History: Non Smoker, No Alcohol, No Drug Use, , Care Facility Employment:: Retired. Surgical History: Cholecystectomy (47 y/a) Psychiatricy History: Dementia Medication: Reviewed Family Medical History - Family Member Mother History Unknown: Yes Ethnicity: Living Status: Unknown ED Physical Exam - Physical Examination General/Constitutional: Awake, Well-developed, well-nourished (female), Alert, No distress, Non-toxic appearing Other Gen/Cons comments:: Breathes comfortably and speaks clearly. Pt is not fully cooperative. Head: Atraumatic Eyes: PERRL, EOMI Other Eyes comments:: There is hyperemia in both palpebral conjunctiva with trace light yellow exudate. Skin: Well hydrated, No lymphadenopathy ENMT: External ears, nose nl, Nasal exam nl, Oropharynx nl Neck: Nontender, Full ROM w/o pain, No JVD, No nuchal rigidity, No mass Respiratory: Nl effort/Exclusion, Clear to Auscultation, No Wheeze/Rhonchi/Rales Cardio Vascular: RRR, No murmur, gallop, rubs GI: No tenderness/rebounding/guarding, No organomegaly, Normal BS's, Nondistended, No mass/bruits Other GI comments:: abdomen is soft. Extremities: No tenderness or effusion, No edema Neuro/Psych: Alert/oriented (knows her name and that she is in a hospital. Spontaneous movements noticed in all 4 extremities. Pt does not cooperate for full neurological exam.) ED Labs/Radiology/EKG Results - Lab Results Results: Laboratory Results - last 24 hr 10/19/18 10/19/18 10/19/18 19:50 20:40 20:40 WBC 6.7 RBC 4.33 Hgb 13.8 Hct 41.5 MCV 96.0 MCH 31.8 H MCHC Differential 33.1 RDW 13.2 Plt Count 231 MPV 7.9 Neutrophils % 67.5 Lymphocytes % 17.6 L Monocytes % 10.6 H Eosinophils % 3.6 Basophils % 0.7 PT 9.9 INR 0.95 PTT (Actin FS) 25.0 L Sodium Potassium Chloride Carbon Dioxide Anion Gap BUN Creatinine Est GFR ( Amer) Est GFR (Non-Af Amer) BUN/Creatinine Ratio Glucose Calcium Total Bilirubin AST ALT Alkaline Phosphatase Total Protein Albumin Globulin Albumin/Globulin Ratio Urine Source CLEAN C Urine Color YELLOW Urine Clarity CLEAR Urine pH 6.0 Ur Specific [place] 1.020 Urine Protein NEGATIVE Urine Glucose (UA) NEGATIVE Urine Ketones NEGATIVE Urine Blood NEGATIVE Urine Nitrate NEGATIVE Urine Bilirubin NEGATIVE Urine Urobilinogen 0.2 Ur Leukocyte Esterase NEGATIVE Urine RBC 0-2 Urine WBC 2-5 Ur Epithelial Cells MODERATE Urine Bacteria 1+ H Urine Mucus FEW 10/19/18 20:40 WBC RBC Hgb Hct MCV MCH MCHC Differential RDW Plt Count MPV Neutrophils % Lymphocytes % Monocytes % Eosinophils % Basophils % PT INR PTT (Actin FS) Sodium 141 Potassium 4.1 Chloride 109 H Carbon Dioxide 24.2 Anion Gap 11.9 BUN 26 H Creatinine 0.9 Est GFR ( Amer) TNP Est GFR (Non-Af Amer) TNP BUN/Creatinine Ratio 28.9 Glucose 97 Calcium 9.1 Total Bilirubin 0.2 L AST 14 ALT 14 Alkaline Phosphatase 87 Total Protein 5.9 L Albumin 3.4 L Globulin 2.5 Albumin/Globulin Ratio 1.4 Urine Source Urine Color Urine Clarity Urine pH Ur Specific [place] Urine Protein Urine Glucose (UA) Urine Ketones Urine Blood Urine Nitrate Urine Bilirubin Urine Urobilinogen Ur Leukocyte Esterase Urine RBC Urine WBC Ur Epithelial Cells Urine Bacteria Urine Mucus Pending lab results: urine culture. ED Septic Shock - . Is Septic Shock (SBP<90, OR Lactate>4 mmol\L) present?: No ED Reassessment (Disposition) - Reassessment Reassessment:: 2149 Pt remains stable. No new complaint or findings. Remaining lab results are pending. 2219 Remaining lab results just became available and have been reviewed. Pt is medically cleared for Geropsych admission. - Diagnosis Diagnosis:: H/o dementia with chronic recurrent agitation/aggressive behavior. Bilateral bacterial conjunctivitis. Urinary tract infection. H/o HTN. - Patient Disposition Admitted to:: [facility] Admitting Medical Physician:: Aurora Galicia Admitting Psych Physician:: Dru Davis Time:: 22:25 Condition at Disposition:: Stable
[2018-10-19 20:50] LABS: % BASOPHILS 0.7 % (0.0-2.0); % EOSINOPHILS 3.6 % (0.0-5.0); % LYMPHOCYTES 17.6 % (20.0-50.0); % MONOCYTES 10.6 % (2.0-10.0); % NEUTROPHILS 67.5 % (40.0-80.0); EOSINOPHILE ABSOLUTE 0.2 Th/cmm (0.1-0.4); HEMATOCRIT 41.5 % (41.0-60); HEMOGLOBIN 13.8 gm/dL (12-16); LYMPHOCYTE ABSOLUTE 1.2 Th/cmm (1.5-3.0); MEAN CORPUSCULAR HEMOGLOBIN 31.8 pg (27.0-31.0); MEAN CORPUSCULAR HGB CONC 33.1 pg (28.0-36.0); MONOCYTE ABSOLUTE 0.7 Th/cmm (0.3-1.0); NEUTROPHILE ABSOLUTE 4.6 Th/cmm (1.8-8.0); PLATELET COUNT 231 Th/cmm (150-400); RED BLOOD COUNT 4.33 Mil/cmm (3.80-5.20); RED CELL DISTRIBUTION WIDTH 13.2 % (11.5-20.0); WHITE BLOOD COUNT 6.7 Th/cmm (4.8-10.8)
[2018-10-19 21:03] LABS: INR 0.95 (0.5-1.4)
[2018-10-19 21:05] LABS: ALB/GLOB RATIO 1.4 (1.0-1.8); ALBUMIN 3.4 gm/dL (3.7-5.3); ALKALINE PHOSPHATASE 87 U/L (34-104); ANION GAP 11.9 (7.0-16.0); BILIRUBIN,TOTAL 0.2 mg/dL (0.3-1.0); BUN - UREA NITROGEN 26 mg/dL (7-25); CALCIUM SERUM 9.1 mg/dL (8.6-10.3); CARBON DIOXIDE 24.2 mEq/L (21.0-31.0); CHLORIDE 109 mEq/L (98-107); CREATININE - SERUM 0.9 mg/dL (0.6-1.2); GLUCOSE 97 mg/dL (70-105); POTASSIUM SERUM 4.1 mEq/L (3.5-5.1); SGOT 14 U/L (13-39); SGPT/ALT 14 U/L (7-52); SODIUM SERUM 141 mEq/L (136-145); TOTAL PROTEIN,SERUM 5.9 gm/dL (6.0-8.3)
[2018-10-19 21:53] LABS: URINE SOURCE CLEAN C
[2018-10-19 22:00] LABS: URINE BILIRUBIN NEGATIVE (NEGATIVE); URINE BLOOD NEGATIVE (NEGATIVE); URINE CLARITY CLEAR (CLEAR); URINE COLOR YELLOW; URINE GLUCOSE (UA) NEGATIVE (NEGATIVE); URINE KETONE NEGATIVE (NEGATIVE); URINE LEUKOCYTE ESTERASE NEGATIVE (NEGATIVE); URINE NITRATE NEGATIVE (NEGATIVE); URINE PROTEIN NEGATIVE (NEGATIVE); URINE UROBILINOGEN 0.2 E.U./dL (0.2 - 1.0)
[2018-10-19 22:01] LABS: URINE MICROSCOPIC INDICATED? YES
[2018-10-19 22:03] LABS: URINE BACTERIA 1+ /hpf (NONE SEEN); URINE EPITHELIAL CELLS MODERATE /lpf (FEW); URINE RBC 0-2 /hpf (0-5)
[2018-10-19] MEDS ORDERED: Sulfamethoxazole/TMP 800/160mg Tab ONE (22:32)
[2018-10-19] MEDS ORDERED: Sulfamethoxazole/TMP 800/160mg Tab PO ONE (23:30)
[2018-10-19 23:59] VITALS: BP 156/76
[2018-10-20] MEDS: Polyvinyl Alcohol Ophth Soln 15 mL Bottle EACH EYE SCH ×4 (00:45→17:59)
[2018-10-20] MEDS: NITROGLYCERIN OINT 2% 1 INCH PACKET TP SCH ×4 (00:45→17:59)
[2018-10-20 03:49] LABS: CHOLESTEROL 180 mg/dL (<200); HDL -HIGH DENSITY LIPOPROTEIN 46 mg/dL (23-92); TRIGLYCERIDES 65 mg/dL (<150)
[2018-10-20] MEDS: Prednisolone 1% Ophth Susp 5 mL Bottle EACH EYE SCH ×3 (08:46→21:29)
--- NOTE | 2018-10-20 09:51 | History & Physical ---
ADMIT DATE: 10/20/2018 CHIEF COMPLAINT: Agitation and aggressive behavior. HISTORY OF PRESENT ILLNESS: This is an 83-year-old female who is from home, who was brought in by daughter and son-in-law due to patient having increase of agitation and aggressive behavior for at least a year. The patient's aggressiveness and agitation had increased yesterday. For this reason, she was brought to the ER to be evaluated. PAST MEDICAL HISTORY: Hypertension, dyslipidemia, dementia. FAMILY HISTORY: Noncontributory. SOCIAL HISTORY: The patient has a supportive family. MEDICATIONS: See medication list. PAST SURGICAL HISTORY: Cholecystectomy. REVIEW OF SYSTEMS: Unable to obtain, patient is confused. PHYSICAL EXAMINATION: GENERAL: The patient is an elderly female, awake, confused, in no apparent distress. VITAL SIGNS: Temperature 99.4, heart rate 78, blood pressure 162/88, respirations 18, O2 of 97%. HEENT: Head; normocephalic, atraumatic. NECK: Supple. No mass. LUNGS: Clear bilaterally. HEART: Regular rhythm. ABDOMEN: Soft, nontender. EXTREMITIES: No edema noted. LABORATORY DATA: WBC 6.7, H and H ____ and 41.5, platelet of 231. Sodium 141, potassium 4.1, chloride 109, BUN 26, creatinine 0.9, albumin of 3.4. Urinalysis positive for UTI. ASSESSMENT: Acute urinary tract infection, aggressive behavior, agitation, hypertension, dementia, dyslipidemia, vasomotor nephropathy. PLAN: The patient to be admitted to the Geropsych Unit. We will treat the patient with oral Levaquin. Fall precautions will be initiated. We will continue the patient's home medications. We will continue to monitor this patient. JOB# [id number]
--- NOTE | 2018-10-20 11:17 | Psychiatric Evaluation ---
DATE OF SERVICE: PATIENT'S AGE: 83. SEX: Female. PHYSICIAN: Dr. Davis. CHIEF COMPLAINT: Agitation and confusion. HISTORY OF PRESENT ILLNESS: The patient is an 83-year-old female who was brought into the hospital by her family because of increased agitation and uncooperativeness. The patient has been increasingly agitated and has been refusing to take her medications at home and also has been biting and yelling at people when they approach her. The patient also has been in angry and in irritable mood for no reason. Chart reviewed and the patient interviewed and was helped by the staff for translation with the Austrian language. She is extremely irritable and agitated and confused and also disheveled. The patient was also rambling and unable to answer questions currently. She also has been having difficulty following directions and uncooperative. PAST PSYCHIATRIC HISTORY: The patient has history of dementia and psychosis. PAST MEDICAL HISTORY: The patient has conjunctivitis as well as history of cholecystectomy. The patient also has history of hypertension and dyslipidemia. SOCIAL HISTORY: The patient was living originally in [facility] and then family took her out of there and she went to home. They had not been able to handle her at home. No known alcohol or street drug use or legal issues or abuse issues. ALLERGIES: The patient is allergic to DEPAKOTE, HALDOL and Zyprexa. MENTAL STATUS EXAMINATION: The patient appears her stated age. Disheveled. Austrian speaking. Rambling and disorganized thoughts and actively hallucinating and talking to self. The patient did not answer question regarding hallucinations or delusions or regarding suicide or homicide because of her confusion and rambling. The patient is alert, but seems to be disoriented to time, place, person and situation. Impaired immediate, recent and remote memories and she could not even able to remember her date. Poor insight and poor judgment. ASSESSMENT: PRIMARY DIAGNOSIS: Unspecified psychosis. SECONDARY DIAGNOSIS: Dementia, severe, with psychotic features. TREATMENT PLAN: We will monitor the patient's behavior and condition closely. We will restart psychotropic medications and we will adjust the dose. Also, work on behavior modification as well as placement issue. ESTIMATED LENGTH OF STAY: 5-7 days. THE PATIENT'S STRENGTHS AND WEAKNESSES: The patient's strength is not clear at this time except she has supportive family. Weaknesses is her poor impulse control and noncompliant with taking her medications. AFTER DISCHARGE PLANS: [facility] and outpatient treatment and followup will continue as an outpatient. CRITERIA FOR DISCHARGE: The patient will not be agitated or psychotic and will stabilize psychotropic medications and will establish outpatient treatment plans. [facility]# [id number]
[2018-10-21] MEDS: NITROGLYCERIN OINT 2% 1 INCH PACKET TP SCH ×4 (00:18→17:27)
[2018-10-21] MEDS: Polyvinyl Alcohol Ophth Soln 15 mL Bottle EACH EYE SCH ×4 (00:19→17:28)
[2018-10-21 08:10] LABS: A1C 5.8 % (4.8-5.6)
[2018-10-21] MEDS: Prednisolone 1% Ophth Susp 5 mL Bottle EACH EYE SCH ×3 (08:36→21:11)
--- NOTE | 2018-10-21 21:51 | Internal Medicine Prog Note ---
Internal Medicine Subjective - Subjective Service Date: 10/21/18 Patient seen and examined:: with staff Patient is:: awake, in bed, agitated Patient Complaints of:: other (Aggressive behavior.) Per staff patient has:: no adverse event, no episodes of fall Internal Medicine Objective - Results Result Diagrams: 10/19/18 20:40 10/19/18 20:40 Recent Labs: Laboratory Last Values WBC 6.7 Th/cmm (4.8-10.8) 10/19/18 20:40 RBC 4.33 Mil/cmm (3.80-5.20) 10/19/18 20:40 Hgb 13.8 gm/dL (12-16) 10/19/18 20:40 Hct 41.5 % (41.0-60) 10/19/18 20:40 MCV 96.0 fl (81-100) 10/19/18 20:40 MCH 31.8 pg (27.0-31.0) H 10/19/18 20:40 MCHC Differential 33.1 pg (28.0-36.0) 10/19/18 20:40 RDW 13.2 % (11.5-20.0) 10/19/18 20:40 Plt Count 231 Th/cmm (150-400) 10/19/18 20:40 MPV 7.9 fl 10/19/18 20:40 Neutrophils % 67.5 % (40.0-80.0) 10/19/18 20:40 Lymphocytes % 17.6 % (20.0-50.0) L 10/19/18 20:40 Monocytes % 10.6 % (2.0-10.0) H 10/19/18 20:40 Eosinophils % 3.6 % (0.0-5.0) 10/19/18 20:40 Basophils % 0.7 % (0.0-2.0) 10/19/18 20:40 PT 9.9 SECONDS (9.5-11.5) 10/19/18 20:40 INR 0.95 (0.5-1.4) 10/19/18 20:40 PTT (Actin FS) 25.0 SECONDS (26.0-38.0) L 10/19/18 20:40 Sodium 141 mEq/L (136-145) 10/19/18 20:40 Potassium 4.1 mEq/L (3.5-5.1) 10/19/18 20:40 Chloride 109 mEq/L (98-107) H 10/19/18 20:40 Carbon Dioxide 24.2 mEq/L (21.0-31.0) 10/19/18 20:40 Anion Gap 11.9 (7.0-16.0) 10/19/18 20:40 BUN 26 mg/dL (7-25) H 10/19/18 20:40 Creatinine 0.9 mg/dL (0.6-1.2) 10/19/18 20:40 Est GFR ( Amer) TNP 10/19/18 20:40 Est GFR (Non-Af Amer) TNP 10/19/18 20:40 BUN/Creatinine Ratio 28.9 10/19/18 20:40 Glucose 97 mg/dL (70-105) 10/19/18 20:40 Calcium 9.1 mg/dL (8.6-10.3) 10/19/18 20:40 Total Bilirubin 0.2 mg/dL (0.3-1.0) L 10/19/18 20:40 AST 14 U/L (13-39) 10/19/18 20:40 ALT 14 U/L (7-52) 10/19/18 20:40 Alkaline Phosphatase 87 U/L (34-104) 10/19/18 20:40 Total Protein 5.9 gm/dL (6.0-8.3) L 10/19/18 20:40 Albumin 3.4 gm/dL (3.7-5.3) L 10/19/18 20:40 Globulin 2.5 gm/dL 10/19/18 20:40 Albumin/Globulin Ratio 1.4 (1.0-1.8) 10/19/18 20:40 Triglycerides 65 mg/dL (<150) 10/19/18 20:40 Cholesterol 180 mg/dL (<200) 10/19/18 20:40 LDL Cholesterol Direct 129 mg/dL (75-193) 10/19/18 20:40 HDL Cholesterol 46 mg/dL (23-92) 10/19/18 20:40 Urine Source CLEAN C 10/19/18 19:50 Urine Color YELLOW 10/19/18 19:50 Urine Clarity CLEAR (CLEAR) 10/19/18 19:50 Urine pH 6.0 (4.6 - 8.0) 10/19/18 19:50 Ur Specific [place] 1.020 (1.005-1.030) 10/19/18 19:50 Urine Protein NEGATIVE mg/dL (NEGATIVE) 10/19/18 19:50 Urine Glucose (UA) NEGATIVE mg/dL (NEGATIVE) 10/19/18 19:50 Urine Ketones NEGATIVE mg/dL (NEGATIVE) 10/19/18 19:50 Urine Blood NEGATIVE (NEGATIVE) 10/19/18 19:50 Urine Nitrate NEGATIVE (NEGATIVE) 10/19/18 19:50 Urine Bilirubin NEGATIVE (NEGATIVE) 10/19/18 19:50 Urine Urobilinogen 0.2 E.U./dL (0.2 - 1.0) 10/19/18 19:50 Ur Leukocyte Esterase NEGATIVE (NEGATIVE) 10/19/18 19:50 Urine RBC 0-2 /hpf (0-5) 10/19/18 19:50 Urine WBC 2-5 /hpf (0-5) 10/19/18 19:50 Ur Epithelial Cells MODERATE /lpf (FEW) 10/19/18 19:50 Urine Bacteria 1+ /hpf (NONE SEEN) H 10/19/18 19:50 Urine Mucus FEW /lpf (FEW) 10/19/18 19:50 - Physical Exam Vitals and I&O: Vital Signs Temp 97.3 F 10/21/18 06:23 Pulse 80 10/21/18 12:03 Resp 19 10/21/18 07:32 BP 155/90 10/21/18 12:03 Pulse Ox 97 10/21/18 06:23 Intake & Output 10/21/18 10/21/18 10/22/18 06:59 18:59 06:59 Intake Total 120 250 Balance 120 250 Intake: Oral 120 250 Other: # Voids 2 # Bowel Movements 0 Active Medications: Current Medications Artificial Tears (Artificial Tears Ophth Soln) 2 drop EACH EYE Q6HR NANCY Stop: 12/19/18 00:00 Last Admin: 10/21/18 17:28 Dose: Not Given Donepezil HCl (Aricept) 5 mg PO DAILY NANCY Stop: 12/19/18 08:59 Last Admin: 10/21/18 08:36 Dose: 5 mg Gabapentin (Neurontin) 100 mg PO Q8HR [facility] Stop: 12/19/18 04:59 Last Admin: 10/21/18 21:11 Dose: 100 mg Lorazepam (Ativan) 1 mg PO Q4H PRN; Protocol PRN Reason: Anxiety Stop: 12/18/18 23:32 Last Admin: 10/20/18 10:08 Dose: 1 mg Nitroglycerin (Nitro-Bid) 2 inch TP Q6HR [facility] Stop: 12/19/18 00:00 Last Admin: 10/21/18 17:27 Dose: Not Given Prednisolone Acetate (Pred Forte 1% Ophth Susp) 2 drop EACH EYE TID NANCY Stop: 12/19/18 08:59 Last Admin: 10/21/18 21:11 Dose: 2 drop Risperidone (Risperdal) 0.5 mg PO BID NANCY; Protocol Stop: 12/19/18 08:59 Last Admin: 10/21/18 17:26 Dose: Not Given Zolpidem Tartrate (Ambien) 5 mg PO HS PRN PRN Reason: Insomnia Stop: 12/18/18 23:55 Physical Exam: 83 y/o female patient has increased agitation and aggressive behavior. General: demented HEENT: NC/AT, PERRLA Neck: Supple, No JVD Lungs: CTAB Cardiovascular: RRR, Normal S1 Abdomen: soft, non-tender Extremities: clear Neurological: no change Internal Medicine Assmt/Plan - Assessment Assessment: Dyslipidemia. Hypertension. Dementia. Acute psychosis. - Plan Plan: Continuation of care. Monitor Labs. Continue present meds as directed. Monitor vitals, Continue BP meds as directed. Monitor Diet/Nutritional support. Psych management per Psych. Pain Management. Fall precaution, frequent nursing rounds, and as needed restraints to prevent fall. Safety precaution. Supportive care. Continue collaborating with consulting specialists, case management and nursing team. Will Monitor patient and continue current treatment plan as ordered. Nutritional Asmnt/Malnutr-PDOC - Dietary Evaluation Malnutrition Findings (Please click <Entered> for more info): see orders.
[2018-10-22] MEDS: Polyvinyl Alcohol Ophth Soln 15 mL Bottle EACH EYE SCH ×4 (00:10→17:08)
[2018-10-22] MEDS: NITROGLYCERIN OINT 2% 1 INCH PACKET TP SCH ×3 (00:10→11:51)
--- NOTE | 2018-10-22 00:19 | Progress Notes ---
DATE: SUBJECTIVE: Chart was reviewed and the patient interviewed. Also discussed the patient's condition with the staff and reviewed records and labs. The patient is still easily agitated and restless. The patient also still has difficulty to redirect her. The patient also is still actively hallucinating and talking to herself and mumbles with disorganized thoughts. The patient also gets aggressive and agitated, especially when staff tried to help her with her ADLs. Otherwise, the patient started to take Risperdal, Aricept, and Neurontin with no side effects. TREATMENT PLAN: We will continue to monitor her behavior and condition closely. Also, continue current medications. Also, continue to work on her psychosis and follow up closely. JOB# [id number]
[2018-10-22] MEDS: Prednisolone 1% Ophth Susp 5 mL Bottle EACH EYE SCH ×3 (09:45→20:40)
--- NOTE | 2018-10-22 13:22 | Internal Medicine Prog Note ---
Internal Medicine Subjective - Subjective Service Date: 10/22/18 Patient is:: awake, in bed, agitated Patient Complaints of:: other (Aggressive behavior.) Per staff patient has:: no adverse event, no episodes of fall Internal Medicine Objective - Results Result Diagrams: 10/19/18 20:40 10/19/18 20:40 Recent Labs: Laboratory Last Values WBC 6.7 Th/cmm (4.8-10.8) 10/19/18 20:40 RBC 4.33 Mil/cmm (3.80-5.20) 10/19/18 20:40 Hgb 13.8 gm/dL (12-16) 10/19/18 20:40 Hct 41.5 % (41.0-60) 10/19/18 20:40 MCV 96.0 fl (81-100) 10/19/18 20:40 MCH 31.8 pg (27.0-31.0) H 10/19/18 20:40 MCHC Differential 33.1 pg (28.0-36.0) 10/19/18 20:40 RDW 13.2 % (11.5-20.0) 10/19/18 20:40 Plt Count 231 Th/cmm (150-400) 10/19/18 20:40 MPV 7.9 fl 10/19/18 20:40 Neutrophils % 67.5 % (40.0-80.0) 10/19/18 20:40 Lymphocytes % 17.6 % (20.0-50.0) L 10/19/18 20:40 Monocytes % 10.6 % (2.0-10.0) H 10/19/18 20:40 Eosinophils % 3.6 % (0.0-5.0) 10/19/18 20:40 Basophils % 0.7 % (0.0-2.0) 10/19/18 20:40 PT 9.9 SECONDS (9.5-11.5) 10/19/18 20:40 INR 0.95 (0.5-1.4) 10/19/18 20:40 PTT (Actin FS) 25.0 SECONDS (26.0-38.0) L 10/19/18 20:40 Sodium 141 mEq/L (136-145) 10/19/18 20:40 Potassium 4.1 mEq/L (3.5-5.1) 10/19/18 20:40 Chloride 109 mEq/L (98-107) H 10/19/18 20:40 Carbon Dioxide 24.2 mEq/L (21.0-31.0) 10/19/18 20:40 Anion Gap 11.9 (7.0-16.0) 10/19/18 20:40 BUN 26 mg/dL (7-25) H 10/19/18 20:40 Creatinine 0.9 mg/dL (0.6-1.2) 10/19/18 20:40 Est GFR ( Amer) TNP 10/19/18 20:40 Est GFR (Non-Af Amer) TNP 10/19/18 20:40 BUN/Creatinine Ratio 28.9 10/19/18 20:40 Glucose 97 mg/dL (70-105) 10/19/18 20:40 Calcium 9.1 mg/dL (8.6-10.3) 10/19/18 20:40 Total Bilirubin 0.2 mg/dL (0.3-1.0) L 10/19/18 20:40 AST 14 U/L (13-39) 10/19/18 20:40 ALT 14 U/L (7-52) 10/19/18 20:40 Alkaline Phosphatase 87 U/L (34-104) 10/19/18 20:40 Total Protein 5.9 gm/dL (6.0-8.3) L 10/19/18 20:40 Albumin 3.4 gm/dL (3.7-5.3) L 10/19/18 20:40 Globulin 2.5 gm/dL 10/19/18 20:40 Albumin/Globulin Ratio 1.4 (1.0-1.8) 10/19/18 20:40 Triglycerides 65 mg/dL (<150) 10/19/18 20:40 Cholesterol 180 mg/dL (<200) 10/19/18 20:40 LDL Cholesterol Direct 129 mg/dL (75-193) 10/19/18 20:40 HDL Cholesterol 46 mg/dL (23-92) 10/19/18 20:40 Urine Source CLEAN C 10/19/18 19:50 Urine Color YELLOW 10/19/18 19:50 Urine Clarity CLEAR (CLEAR) 10/19/18 19:50 Urine pH 6.0 (4.6 - 8.0) 10/19/18 19:50 Ur Specific [place] 1.020 (1.005-1.030) 10/19/18 19:50 Urine Protein NEGATIVE mg/dL (NEGATIVE) 10/19/18 19:50 Urine Glucose (UA) NEGATIVE mg/dL (NEGATIVE) 10/19/18 19:50 Urine Ketones NEGATIVE mg/dL (NEGATIVE) 10/19/18 19:50 Urine Blood NEGATIVE (NEGATIVE) 10/19/18 19:50 Urine Nitrate NEGATIVE (NEGATIVE) 10/19/18 19:50 Urine Bilirubin NEGATIVE (NEGATIVE) 10/19/18 19:50 Urine Urobilinogen 0.2 E.U./dL (0.2 - 1.0) 10/19/18 19:50 Ur Leukocyte Esterase NEGATIVE (NEGATIVE) 10/19/18 19:50 Urine RBC 0-2 /hpf (0-5) 10/19/18 19:50 Urine WBC 2-5 /hpf (0-5) 10/19/18 19:50 Ur Epithelial Cells MODERATE /lpf (FEW) 10/19/18 19:50 Urine Bacteria 1+ /hpf (NONE SEEN) H 10/19/18 19:50 Urine Mucus FEW /lpf (FEW) 10/19/18 19:50 - Physical Exam Vitals and I&O: Vital Signs Temp 97.5 F 10/22/18 05:52 Pulse 77 10/22/18 11:51 Resp 19 10/22/18 08:00 BP 125/77 10/22/18 11:51 Pulse Ox 100 10/22/18 05:52 Intake & Output 10/21/18 10/22/18 10/22/18 18:59 06:59 18:59 Intake Total 250 240 Balance 250 240 Intake: Oral 250 240 Other: # Voids 2 # Bowel Movements 0 Active Medications: Current Medications Artificial Tears (Artificial Tears Ophth Soln) 2 drop EACH EYE Q6HR NANCY Stop: 12/19/18 00:00 Last Admin: 10/22/18 11:51 Dose: 2 drop Donepezil HCl (Aricept) 5 mg PO DAILY NANCY Stop: 12/19/18 08:59 Last Admin: 10/22/18 09:46 Dose: Not Given Gabapentin (Neurontin) 100 mg PO Q8HR NANCY Stop: 12/19/18 04:59 Last Admin: 10/22/18 12:02 Dose: 100 mg Lorazepam (Ativan) 1 mg PO Q4H PRN; Protocol PRN Reason: Anxiety Stop: 12/18/18 23:32 Last Admin: 10/20/18 10:08 Dose: 1 mg Nitroglycerin (Nitro-Bid) 2 inch TP Q6HR NANCY Stop: 12/19/18 00:00 Last Admin: 10/22/18 11:51 Dose: 2 inch Prednisolone Acetate (Pred Forte 1% Ophth Susp) 2 drop EACH EYE TID NANCY Stop: 12/19/18 08:59 Last Admin: 10/22/18 09:45 Dose: 2 drop Risperidone (Risperdal) 0.5 mg PO BID [facility]; Protocol Stop: 12/19/18 08:59 Last Admin: 10/22/18 09:46 Dose: Not Given Zolpidem Tartrate (Ambien) 5 mg PO HS PRN PRN Reason: Insomnia Stop: 12/18/18 23:55 General: demented HEENT: NC/AT, PERRLA Neck: Supple, No JVD Lungs: CTAB Cardiovascular: RRR, Normal S1 Abdomen: soft, non-tender Extremities: clear Neurological: no change Internal Medicine Assmt/Plan - Assessment Assessment: Dyslipidemia. Hypertension. Dementia. Acute psychosis. - Plan Plan: Continuation of care. Monitor Labs. Continue present meds as directed. Monitor vitals, Continue BP meds as directed. Monitor Diet/Nutritional support. Psych management per Psych. Pain Management. Fall precaution, frequent nursing rounds, and as needed restraints to prevent fall. Safety precaution. Supportive care. Continue collaborating with consulting specialists, case management and nursing team. Will Monitor patient and continue current treatment plan as ordered.
--- NOTE | 2018-10-22 22:10 | Progress Notes ---
DATE: 10/22/2018 SUBJECTIVE: Chart was reviewed and the patient interviewed. Also discussed the patient's condition with the staff and reviewed records and labs. The patient is still having episodes of yelling and screaming, but seems to be less than before. The patient also is to get better last night and she seems to be quite and easier to redirect her. The patient also is still uncooperative with the staff and is selective with her medications and refused any psychotropic medications. ASSESSMENT: The patient is calm, but she is still agitated and psychotic and uncooperative with the staff. TREATMENT PLAN: Continue to monitor her behavior and her condition closely. Also, continue to monitor her medications and continue to follow up. [facility]# [id number]
[2018-10-23] MEDS: NITROGLYCERIN OINT 2% 1 INCH PACKET TP SCH ×4 (00:31→17:23)
[2018-10-23] MEDS: Polyvinyl Alcohol Ophth Soln 15 mL Bottle EACH EYE SCH ×4 (00:39→17:23)
[2018-10-23 07:57] LABS: EOSINOPHILE ABSOLUTE 0.1 Th/cmm (0.1-0.4); MONOCYTE ABSOLUTE 0.5 Th/cmm (0.3-1.0); WHITE BLOOD COUNT 5.8 Th/cmm (4.8-10.8)
[2018-10-23 08:02] LABS: % BASOPHILS 0.3 % (0.0-2.0); % LYMPHOCYTES 22.5 % (20.0-50.0); % MONOCYTES 8.7 % (2.0-10.0); % NEUTROPHILS 66.5 % (40.0-80.0); HEMATOCRIT 44.9 % (41.0-60); HEMOGLOBIN 14.9 gm/dL (12-16); LYMPHOCYTE ABSOLUTE 1.3 Th/cmm (1.5-3.0); MEAN CELL VOLUME 97.3 fl (81-100); MEAN CORPUSCULAR HEMOGLOBIN 32.3 pg (27.0-31.0); MEAN CORPUSCULAR HGB CONC 33.2 pg (28.0-36.0); NEUTROPHILE ABSOLUTE 3.9 Th/cmm (1.8-8.0); PLATELET COUNT 264 Th/cmm (150-400); RED BLOOD COUNT 4.61 Mil/cmm (3.80-5.20); RED CELL DISTRIBUTION WIDTH 13.1 % (11.5-20.0)
[2018-10-23 08:21] LABS: ANION GAP 12.5 (7.0-16.0); BUN - UREA NITROGEN 26 mg/dL (7-25); CALCIUM SERUM 9.6 mg/dL (8.6-10.3); CARBON DIOXIDE 21.7 mEq/L (21.0-31.0); CHLORIDE 106 mEq/L (98-107); CREATININE - SERUM 0.8 mg/dL (0.6-1.2); GLUCOSE 106 mg/dL (70-105); POTASSIUM SERUM 4.2 mEq/L (3.5-5.1); SODIUM SERUM 136 mEq/L (136-145)
[2018-10-23] MEDS: Prednisolone 1% Ophth Susp 5 mL Bottle EACH EYE SCH ×3 (09:12→20:09)
--- NOTE | 2018-10-23 13:54 | Progress Notes ---
DATE: SUBJECTIVE: Chart reviewed and the patient interviewed. Also discussed the patient's condition with the staff and reviewed records and labs. The patient still mumbles to herself and she still has difficulty following directions. The patient also is still easily agitated and restless. The patient also still needs lots of redirections. The patient also has problems sleeping at night. Otherwise, the patient is compliant with taking her medications with no side effects of medications. ASSESSMENT: The patient is still agitated and still psychotic and hallucinating. TREATMENT PLAN: We will monitor the patient's behavior and condition closely. Also, we will change Risperdal to be 0.5 mg in the morning and 1 mg at bedtime and will continue to follow up and work on behavioral modifications. [facility]# [id number]
--- NOTE | 2018-10-23 14:30 | Internal Medicine Prog Note ---
Internal Medicine Subjective - Subjective Service Date: 10/23/18 Patient seen and examined:: with staff Patient is:: awake, in bed, agitated Patient Complaints of:: other (Aggressive behavior.) Per staff patient has:: no adverse event, no episodes of fall Internal Medicine Objective - Results Result Diagrams: 10/23/18 07:15 10/23/18 07:15 Recent Labs: Laboratory Last Values WBC 5.8 Th/cmm (4.8-10.8) 10/23/18 07:15 RBC 4.61 Mil/cmm (3.80-5.20) 10/23/18 07:15 Hgb 14.9 gm/dL (12-16) 10/23/18 07:15 Hct 44.9 % (41.0-60) 10/23/18 07:15 MCV 97.3 fl (81-100) 10/23/18 07:15 MCH 32.3 pg (27.0-31.0) H 10/23/18 07:15 MCHC Differential 33.2 pg (28.0-36.0) 10/23/18 07:15 RDW 13.1 % (11.5-20.0) 10/23/18 07:15 Plt Count 264 Th/cmm (150-400) 10/23/18 07:15 MPV 8.6 fl 10/23/18 07:15 Neutrophils % 66.5 % (40.0-80.0) 10/23/18 07:15 Lymphocytes % 22.5 % (20.0-50.0) 10/23/18 07:15 Monocytes % 8.7 % (2.0-10.0) 10/23/18 07:15 Eosinophils % 2.0 % (0.0-5.0) 10/23/18 07:15 Basophils % 0.3 % (0.0-2.0) 10/23/18 07:15 PT 9.9 SECONDS (9.5-11.5) 10/19/18 20:40 INR 0.95 (0.5-1.4) 10/19/18 20:40 PTT (Actin FS) 25.0 SECONDS (26.0-38.0) L 10/19/18 20:40 Sodium 136 mEq/L (136-145) 10/23/18 07:15 Potassium 4.2 mEq/L (3.5-5.1) 10/23/18 07:15 Chloride 106 mEq/L (98-107) 10/23/18 07:15 Carbon Dioxide 21.7 mEq/L (21.0-31.0) 10/23/18 07:15 Anion Gap 12.5 (7.0-16.0) 10/23/18 07:15 BUN 26 mg/dL (7-25) H 10/23/18 07:15 Creatinine 0.8 mg/dL (0.6-1.2) 10/23/18 07:15 Est GFR ( Amer) TNP 10/23/18 07:15 Est GFR (Non-Af Amer) TNP 10/23/18 07:15 BUN/Creatinine Ratio 32.5 10/23/18 07:15 Glucose 106 mg/dL (70-105) H 10/23/18 07:15 Calcium 9.6 mg/dL (8.6-10.3) 10/23/18 07:15 Total Bilirubin 0.2 mg/dL (0.3-1.0) L 10/19/18 20:40 AST 14 U/L (13-39) 10/19/18 20:40 ALT 14 U/L (7-52) 10/19/18 20:40 Alkaline Phosphatase 87 U/L (34-104) 10/19/18 20:40 Total Protein 5.9 gm/dL (6.0-8.3) L 10/19/18 20:40 Albumin 3.4 gm/dL (3.7-5.3) L 10/19/18 20:40 Globulin 2.5 gm/dL 10/19/18 20:40 Albumin/Globulin Ratio 1.4 (1.0-1.8) 10/19/18 20:40 Triglycerides 65 mg/dL (<150) 10/19/18 20:40 Cholesterol 180 mg/dL (<200) 10/19/18 20:40 LDL Cholesterol Direct 129 mg/dL (75-193) 10/19/18 20:40 HDL Cholesterol 46 mg/dL (23-92) 10/19/18 20:40 Urine Source CLEAN C 10/19/18 19:50 Urine Color YELLOW 10/19/18 19:50 Urine Clarity CLEAR (CLEAR) 10/19/18 19:50 Urine pH 6.0 (4.6 - 8.0) 10/19/18 19:50 Ur Specific [place] 1.020 (1.005-1.030) 10/19/18 19:50 Urine Protein NEGATIVE mg/dL (NEGATIVE) 10/19/18 19:50 Urine Glucose (UA) NEGATIVE mg/dL (NEGATIVE) 10/19/18 19:50 Urine Ketones NEGATIVE mg/dL (NEGATIVE) 10/19/18 19:50 Urine Blood NEGATIVE (NEGATIVE) 10/19/18 19:50 Urine Nitrate NEGATIVE (NEGATIVE) 10/19/18 19:50 Urine Bilirubin NEGATIVE (NEGATIVE) 10/19/18 19:50 Urine Urobilinogen 0.2 E.U./dL (0.2 - 1.0) 10/19/18 19:50 Ur Leukocyte Esterase NEGATIVE (NEGATIVE) 10/19/18 19:50 Urine RBC 0-2 /hpf (0-5) 10/19/18 19:50 Urine WBC 2-5 /hpf (0-5) 10/19/18 19:50 Ur Epithelial Cells MODERATE /lpf (FEW) 10/19/18 19:50 Urine Bacteria 1+ /hpf (NONE SEEN) H 10/19/18 19:50 Urine Mucus FEW /lpf (FEW) 10/19/18 19:50 - Physical Exam Vitals and I&O: Vital Signs Temp 97.4 F 10/23/18 14:00 Pulse 71 10/23/18 14:00 Resp 20 10/23/18 14:00 BP 147/72 10/23/18 14:00 Pulse Ox 98 10/23/18 14:00 Intake & Output 10/22/18 10/23/18 10/23/18 18:59 06:59 18:59 Intake Total 1200 Balance 1200 Intake: Oral 1200 Other: # Bowel Movements 1 Active Medications: Current Medications Artificial Tears (Artificial Tears Ophth Soln) 2 drop EACH EYE Q6HR NANCY Stop: 12/19/18 00:00 Last Admin: 10/23/18 12:00 Dose: 2 drop Donepezil HCl (Aricept) 5 mg PO DAILY NANCY Stop: 12/19/18 08:59 Last Admin: 10/23/18 09:12 Dose: 5 mg Gabapentin (Neurontin) 100 mg PO Q8HR NANCY Stop: 12/19/18 04:59 Last Admin: 10/23/18 13:00 Dose: 100 mg Lorazepam (Ativan) 1 mg PO Q4H PRN; Protocol PRN Reason: Anxiety Stop: 12/18/18 23:32 Last Admin: 10/20/18 10:08 Dose: 1 mg Nitroglycerin (Nitro-Bid) 2 inch TP Q6HR NANCY Stop: 12/19/18 00:00 Last Admin: 10/23/18 12:00 Dose: 2 inch Prednisolone Acetate (Pred Forte 1% Ophth Susp) 2 drop EACH EYE TID NANCY Stop: 12/19/18 08:59 Last Admin: 10/23/18 13:46 Dose: 2 drop Risperidone (Risperdal) 0.25 mg PO DAILY NANCY; Protocol Stop: 12/22/18 08:59 Last Admin: 10/23/18 09:12 Dose: 0.25 mg Risperidone (Risperdal) 1 mg PO HS NANCY; Protocol Stop: 12/22/18 20:59 Zolpidem Tartrate (Ambien) 5 mg PO HS PRN PRN Reason: Insomnia Stop: 12/18/18 23:55 Last Admin: 10/22/18 22:13 Dose: 5 mg Physical Exam: 83 y/o female patient remains agitated with an aggressive behavior. General: demented HEENT: NC/AT, PERRLA Neck: Supple, No JVD Lungs: CTAB Cardiovascular: RRR, Normal S1 Abdomen: soft, non-tender Extremities: clear Neurological: no change Internal Medicine Assmt/Plan - Assessment Assessment: Dyslipidemia. Hypertension. Dementia. Acute psychosis. - Plan Plan: Continuation of care. Monitor Labs. Continue present meds as directed. Monitor vitals, Continue BP meds as directed. Monitor Diet/Nutritional support. Psych management per Psych. Pain Management. Fall precaution, frequent nursing rounds, and as needed restraints to prevent fall. Safety precaution. Supportive care. Continue collaborating with consulting specialists, case management and nursing team. Will Monitor patient and continue present care management. Nutritional Asmnt/Malnutr-PDOC - Dietary Evaluation Malnutrition Findings (Please click <Entered> for more info): see orders.
[2018-10-24] MEDS: NITROGLYCERIN OINT 2% 1 INCH PACKET TP SCH ×5 (00:10→17:30)
[2018-10-24] MEDS: Polyvinyl Alcohol Ophth Soln 15 mL Bottle EACH EYE SCH ×4 (00:11→17:30)
[2018-10-24] MEDS: Prednisolone 1% Ophth Susp 5 mL Bottle EACH EYE SCH ×3 (08:25→22:00)
--- NOTE | 2018-10-24 09:41 | Progress Notes ---
DATE: 10/24/2018 SUBJECTIVE: The patient was seen in her room. The patient is awake, but poor historian due to medical condition. The patient appears to be guarded, easily gets frustrated with episodes of behavioral outbursts. Otherwise, the patient appears to be in no acute distress. OBJECTIVE: VITAL SIGNS: Temperature 98.2, heart rate 67, blood pressure 136/72, respiration 19, 97% on room air. HEENT: Head is atraumatic and normocephalic. Eyes: Bilateral conjunctivae are clear. Bilateral pupils are equally round and reactive. NECK: Supple. No JVD. CARDIOVASCULAR: S1 and S2, without murmur. PULMONARY: Clear to auscultation. GASTROINTESTINAL: Soft and nontender without guarding. Positive bowel sounds. MUSCULOSKELETAL: No clubbing. No cyanosis noted. ASSESSMENT: 1. Psychosis. 2. Dementia. 3. Hypertension. 4. Hyperlipidemia. 5. Osteoarthritis. PLAN: We will keep the patient inpatient to Psychiatric Unit. We will follow up with the psychiatrist to monitor the patient's condition and behavior. Treatment plans were discussed with the patient's nurse. Treatment plans were discussed with Dr. Galicia. JOB# [id number]
[2018-10-25] MEDS: Polyvinyl Alcohol Ophth Soln 15 mL Bottle EACH EYE SCH ×4 (01:00→17:01)
[2018-10-25] MEDS: NITROGLYCERIN OINT 2% 1 INCH PACKET TP SCH ×5 (01:00→17:11)
--- NOTE | 2018-10-25 08:46 | Internal Medicine Prog Note ---
Internal Medicine Subjective - Subjective Patient seen and examined:: with staff Patient is:: asleep, arousable, in bed, talking, agitated Patient Complaints of:: other (Aggressive behavior.) Per staff patient has:: no adverse event, no episodes of fall Internal Medicine Objective - Results Result Diagrams: 10/23/18 07:15 10/23/18 07:15 Recent Labs: Laboratory Last Values WBC 5.8 Th/cmm (4.8-10.8) 10/23/18 07:15 RBC 4.61 Mil/cmm (3.80-5.20) 10/23/18 07:15 Hgb 14.9 gm/dL (12-16) 10/23/18 07:15 Hct 44.9 % (41.0-60) 10/23/18 07:15 MCV 97.3 fl (81-100) 10/23/18 07:15 MCH 32.3 pg (27.0-31.0) H 10/23/18 07:15 MCHC Differential 33.2 pg (28.0-36.0) 10/23/18 07:15 RDW 13.1 % (11.5-20.0) 10/23/18 07:15 Plt Count 264 Th/cmm (150-400) 10/23/18 07:15 MPV 8.6 fl 10/23/18 07:15 Neutrophils % 66.5 % (40.0-80.0) 10/23/18 07:15 Lymphocytes % 22.5 % (20.0-50.0) 10/23/18 07:15 Monocytes % 8.7 % (2.0-10.0) 10/23/18 07:15 Eosinophils % 2.0 % (0.0-5.0) 10/23/18 07:15 Basophils % 0.3 % (0.0-2.0) 10/23/18 07:15 PT 9.9 SECONDS (9.5-11.5) 10/19/18 20:40 INR 0.95 (0.5-1.4) 10/19/18 20:40 PTT (Actin FS) 25.0 SECONDS (26.0-38.0) L 10/19/18 20:40 Sodium 136 mEq/L (136-145) 10/23/18 07:15 Potassium 4.2 mEq/L (3.5-5.1) 10/23/18 07:15 Chloride 106 mEq/L (98-107) 10/23/18 07:15 Carbon Dioxide 21.7 mEq/L (21.0-31.0) 10/23/18 07:15 Anion Gap 12.5 (7.0-16.0) 10/23/18 07:15 BUN 26 mg/dL (7-25) H 10/23/18 07:15 Creatinine 0.8 mg/dL (0.6-1.2) 10/23/18 07:15 Est GFR ( Amer) TNP 10/23/18 07:15 Est GFR (Non-Af Amer) TNP 10/23/18 07:15 BUN/Creatinine Ratio 32.5 10/23/18 07:15 Glucose 106 mg/dL (70-105) H 10/23/18 07:15 Calcium 9.6 mg/dL (8.6-10.3) 10/23/18 07:15 Total Bilirubin 0.2 mg/dL (0.3-1.0) L 10/19/18 20:40 AST 14 U/L (13-39) 10/19/18 20:40 ALT 14 U/L (7-52) 10/19/18 20:40 Alkaline Phosphatase 87 U/L (34-104) 10/19/18 20:40 Total Protein 5.9 gm/dL (6.0-8.3) L 10/19/18 20:40 Albumin 3.4 gm/dL (3.7-5.3) L 10/19/18 20:40 Globulin 2.5 gm/dL 10/19/18 20:40 Albumin/Globulin Ratio 1.4 (1.0-1.8) 10/19/18 20:40 Triglycerides 65 mg/dL (<150) 10/19/18 20:40 Cholesterol 180 mg/dL (<200) 10/19/18 20:40 LDL Cholesterol Direct 129 mg/dL (75-193) 10/19/18 20:40 HDL Cholesterol 46 mg/dL (23-92) 10/19/18 20:40 Urine Source CLEAN C 10/19/18 19:50 Urine Color YELLOW 10/19/18 19:50 Urine Clarity CLEAR (CLEAR) 10/19/18 19:50 Urine pH 6.0 (4.6 - 8.0) 10/19/18 19:50 Ur Specific [place] 1.020 (1.005-1.030) 10/19/18 19:50 Urine Protein NEGATIVE mg/dL (NEGATIVE) 10/19/18 19:50 Urine Glucose (UA) NEGATIVE mg/dL (NEGATIVE) 10/19/18 19:50 Urine Ketones NEGATIVE mg/dL (NEGATIVE) 10/19/18 19:50 Urine Blood NEGATIVE (NEGATIVE) 10/19/18 19:50 Urine Nitrate NEGATIVE (NEGATIVE) 10/19/18 19:50 Urine Bilirubin NEGATIVE (NEGATIVE) 10/19/18 19:50 Urine Urobilinogen 0.2 E.U./dL (0.2 - 1.0) 10/19/18 19:50 Ur Leukocyte Esterase NEGATIVE (NEGATIVE) 10/19/18 19:50 Urine RBC 0-2 /hpf (0-5) 10/19/18 19:50 Urine WBC 2-5 /hpf (0-5) 10/19/18 19:50 Ur Epithelial Cells MODERATE /lpf (FEW) 10/19/18 19:50 Urine Bacteria 1+ /hpf (NONE SEEN) H 10/19/18 19:50 Urine Mucus FEW /lpf (FEW) 10/19/18 19:50 - Physical Exam Vitals and I&O: Vital Signs Temp 97.3 F 10/24/18 14:59 Pulse 65 10/24/18 17:30 Resp 18 10/24/18 14:59 BP 115/59 10/24/18 17:30 Pulse Ox 97 10/24/18 14:59 Intake & Output 10/24/18 10/25/18 10/25/18 18:59 06:59 18:59 Intake Total 1440 Output Total 3 Balance 1437 Intake: Oral 1200 Other 240 Output: Urine 3 Other: # Bowel Movements 1 Active Medications: Current Medications Artificial Tears (Artificial Tears Ophth Soln) 2 drop EACH EYE Q6HR NANCY Stop: 12/19/18 00:00 Last Admin: 10/25/18 06:08 Dose: 2 drop Donepezil HCl (Aricept) 5 mg PO DAILY NANCY Stop: 12/19/18 08:59 Last Admin: 10/24/18 08:25 Dose: 5 mg Gabapentin (Neurontin) 100 mg PO Q8HR NANCY Stop: 12/19/18 04:59 Last Admin: 10/25/18 06:00 Dose: Not Given Lorazepam (Ativan) 1 mg PO Q4H PRN; Protocol PRN Reason: Anxiety Stop: 12/18/18 23:32 Last Admin: 10/25/18 03:31 Dose: 1 mg Nitroglycerin (Nitro-Bid) 2 inch TP Q6HR NANCY Stop: 12/19/18 00:00 Last Admin: 10/25/18 06:29 Dose: Not Given Prednisolone Acetate (Pred Forte 1% Ophth Susp) 2 drop EACH EYE TID NANCY Stop: 12/19/18 08:59 Last Admin: 10/24/18 22:00 Dose: 2 drop Risperidone (Risperdal) 0.25 mg PO DAILY NANCY; Protocol Stop: 12/22/18 08:59 Last Admin: 10/24/18 08:24 Dose: 0.25 mg Risperidone (Risperdal) 1 mg PO HS NANCY; Protocol Stop: 12/22/18 20:59 Last Admin: 10/24/18 21:11 Dose: Not Given Zolpidem Tartrate (Ambien) 5 mg PO HS PRN PRN Reason: Insomnia Stop: 12/18/18 23:55 Last Admin: 10/23/18 20:10 Dose: 5 mg General: demented, NAD HEENT: NC/AT, PERRLA Neck: Supple, No JVD Lungs: CTAB Cardiovascular: RRR Abdomen: soft, non-tender Extremities: clear Neurological: no change Internal Medicine Assmt/Plan - Assessment Assessment: Dyslipidemia. Hypertension. Dementia. Acute psychosis. - Plan Plan: Continue plan of care Monitor vitals and behavior continue inpatient psych Fall precaution Continue to collaborate with consulting specialist and interdisciplinary team.
--- NOTE | 2018-10-25 08:54 | Progress Notes ---
DATE: 10/24/[address] Davis. IDENTIFYING DATA: An 83-year-old female brought in here after the patient presented with increased agitation, uncooperative behavior, angry and agitated and refused to take medication. Nursing staff reported the patient does mumble to herself, difficulty following directions. Today on [id number] evaluation, the patient is isolative, does not participate in interview, mostly reports everything is fine and suspicious. Reconciliation reviewed, Neurontin 100 mg 3 times a day, Aricept 5 mg a day, Risperidone 0.5 mg in the morning and 1 mg at nighttime. ASSESSMENT AND PLAN: An 83-year-old female with a history of severe dementia with behavior disturbances, who continues to need a lot of redirection. We will continue monitoring and evaluating, target the patient's ongoing symptoms and continue with primary psychiatrist's treatment plan. [facility]# [id number]
[2018-10-25] MEDS: Prednisolone 1% Ophth Susp 5 mL Bottle EACH EYE SCH ×3 (10:00→21:03)
[2018-10-26] MEDS: Polyvinyl Alcohol Ophth Soln 15 mL Bottle EACH EYE SCH ×5 (00:45→17:14)
--- NOTE | 2018-10-26 03:00 | Progress Notes ---
DATE: 10/25/2018 The patient was seen and evaluated. The patient is interviewed and chart reviewed by Dr. Brice. I am covering for Dr. Davis. SUBJECTIVE: Overnight, the patient slept about 2 hours. She has been refusing medication. She has been disrobing herself, needs a lot of redirection. MENTAL STATUS EXAMINATION: During interview, she responds with what-what and disengaged in interview. ASSESSMENT: Refusing medications and exposing, disrobing and poor sleep, unable to form a safe plan. PLAN: May consider the patient ____ tomorrow on an open court date. JOB# [id number]
[2018-10-26] MEDS: NITROGLYCERIN OINT 2% 1 INCH PACKET TP SCH ×4 (06:00→17:14)
[2018-10-26] MEDS: Prednisolone 1% Ophth Susp 5 mL Bottle EACH EYE SCH ×3 (08:00→21:45)
--- NOTE | 2018-10-26 11:00 | Internal Medicine Prog Note ---
Internal Medicine Subjective - Subjective Service Date: 10/26/18 Patient seen and examined:: with staff Patient is:: asleep, arousable, in bed, talking, agitated Patient Complaints of:: other (Aggressive behavior.) Per staff patient has:: no adverse event, no episodes of fall Internal Medicine Objective - Results Result Diagrams: 10/23/18 07:15 10/23/18 07:15 Recent Labs: Laboratory Last Values WBC 5.8 Th/cmm (4.8-10.8) 10/23/18 07:15 RBC 4.61 Mil/cmm (3.80-5.20) 10/23/18 07:15 Hgb 14.9 gm/dL (12-16) 10/23/18 07:15 Hct 44.9 % (41.0-60) 10/23/18 07:15 MCV 97.3 fl (81-100) 10/23/18 07:15 MCH 32.3 pg (27.0-31.0) H 10/23/18 07:15 MCHC Differential 33.2 pg (28.0-36.0) 10/23/18 07:15 RDW 13.1 % (11.5-20.0) 10/23/18 07:15 Plt Count 264 Th/cmm (150-400) 10/23/18 07:15 MPV 8.6 fl 10/23/18 07:15 Neutrophils % 66.5 % (40.0-80.0) 10/23/18 07:15 Lymphocytes % 22.5 % (20.0-50.0) 10/23/18 07:15 Monocytes % 8.7 % (2.0-10.0) 10/23/18 07:15 Eosinophils % 2.0 % (0.0-5.0) 10/23/18 07:15 Basophils % 0.3 % (0.0-2.0) 10/23/18 07:15 PT 9.9 SECONDS (9.5-11.5) 10/19/18 20:40 INR 0.95 (0.5-1.4) 10/19/18 20:40 PTT (Actin FS) 25.0 SECONDS (26.0-38.0) L 10/19/18 20:40 Sodium 136 mEq/L (136-145) 10/23/18 07:15 Potassium 4.2 mEq/L (3.5-5.1) 10/23/18 07:15 Chloride 106 mEq/L (98-107) 10/23/18 07:15 Carbon Dioxide 21.7 mEq/L (21.0-31.0) 10/23/18 07:15 Anion Gap 12.5 (7.0-16.0) 10/23/18 07:15 BUN 26 mg/dL (7-25) H 10/23/18 07:15 Creatinine 0.8 mg/dL (0.6-1.2) 10/23/18 07:15 Est GFR ( Amer) TNP 10/23/18 07:15 Est GFR (Non-Af Amer) TNP 10/23/18 07:15 BUN/Creatinine Ratio 32.5 10/23/18 07:15 Glucose 106 mg/dL (70-105) H 10/23/18 07:15 Calcium 9.6 mg/dL (8.6-10.3) 10/23/18 07:15 Total Bilirubin 0.2 mg/dL (0.3-1.0) L 10/19/18 20:40 AST 14 U/L (13-39) 10/19/18 20:40 ALT 14 U/L (7-52) 10/19/18 20:40 Alkaline Phosphatase 87 U/L (34-104) 10/19/18 20:40 Total Protein 5.9 gm/dL (6.0-8.3) L 10/19/18 20:40 Albumin 3.4 gm/dL (3.7-5.3) L 10/19/18 20:40 Globulin 2.5 gm/dL 10/19/18 20:40 Albumin/Globulin Ratio 1.4 (1.0-1.8) 10/19/18 20:40 Triglycerides 65 mg/dL (<150) 10/19/18 20:40 Cholesterol 180 mg/dL (<200) 10/19/18 20:40 LDL Cholesterol Direct 129 mg/dL (75-193) 10/19/18 20:40 HDL Cholesterol 46 mg/dL (23-92) 10/19/18 20:40 Urine Source CLEAN C 10/19/18 19:50 Urine Color YELLOW 10/19/18 19:50 Urine Clarity CLEAR (CLEAR) 10/19/18 19:50 Urine pH 6.0 (4.6 - 8.0) 10/19/18 19:50 Ur Specific [place] 1.020 (1.005-1.030) 10/19/18 19:50 Urine Protein NEGATIVE mg/dL (NEGATIVE) 10/19/18 19:50 Urine Glucose (UA) NEGATIVE mg/dL (NEGATIVE) 10/19/18 19:50 Urine Ketones NEGATIVE mg/dL (NEGATIVE) 10/19/18 19:50 Urine Blood NEGATIVE (NEGATIVE) 10/19/18 19:50 Urine Nitrate NEGATIVE (NEGATIVE) 10/19/18 19:50 Urine Bilirubin NEGATIVE (NEGATIVE) 10/19/18 19:50 Urine Urobilinogen 0.2 E.U./dL (0.2 - 1.0) 10/19/18 19:50 Ur Leukocyte Esterase NEGATIVE (NEGATIVE) 10/19/18 19:50 Urine RBC 0-2 /hpf (0-5) 10/19/18 19:50 Urine WBC 2-5 /hpf (0-5) 10/19/18 19:50 Ur Epithelial Cells MODERATE /lpf (FEW) 10/19/18 19:50 Urine Bacteria 1+ /hpf (NONE SEEN) H 10/19/18 19:50 Urine Mucus FEW /lpf (FEW) 10/19/18 19:50 - Physical Exam Vitals and I&O: Vital Signs Temp 97.5 F 10/26/18 06:06 Pulse 74 10/26/18 06:06 Resp 19 10/26/18 08:00 BP 143/88 10/26/18 06:06 Pulse Ox 98 10/26/18 06:06 Intake & Output 10/25/18 10/26/18 10/26/18 18:59 06:59 18:59 Intake Total 900 240 Balance 900 240 Intake: Oral 900 240 Other: # Voids 4 2 # Bowel Movements 1 0 Active Medications: Current Medications Artificial Tears (Artificial Tears Ophth Soln) 2 drop EACH EYE Q6HR NANCY Stop: 12/19/18 00:00 Last Admin: 10/26/18 06:00 Dose: 2 drop Donepezil HCl (Aricept) 5 mg PO DAILY NANCY Stop: 12/19/18 08:59 Last Admin: 10/26/18 08:00 Dose: 5 mg Gabapentin (Neurontin) 100 mg PO Q8HR NANCY Stop: 12/19/18 04:59 Last Admin: 10/26/18 05:15 Dose: 100 mg Lorazepam (Ativan) 1 mg PO Q4H PRN; Protocol PRN Reason: Anxiety Stop: 12/18/18 23:32 Last Admin: 10/25/18 21:04 Dose: 1 mg Nitroglycerin (Nitro-Bid) 2 inch TP Q6HR NANCY Stop: 12/19/18 00:00 Last Admin: 10/26/18 06:00 Dose: 2 inch Prednisolone Acetate (Pred Forte 1% Ophth Susp) 2 drop EACH EYE TID NANCY Stop: 12/19/18 08:59 Last Admin: 10/26/18 08:00 Dose: 2 drop Risperidone (Risperdal) 0.25 mg PO DAILY NANCY; Protocol Stop: 12/22/18 08:59 Last Admin: 10/26/18 07:59 Dose: 0.25 mg Risperidone (Risperdal) 1 mg PO HS NANCY; Protocol Stop: 12/22/18 20:59 Last Admin: 10/25/18 21:04 Dose: 1 mg Zolpidem Tartrate (Ambien) 5 mg PO HS PRN PRN Reason: Insomnia Stop: 12/18/18 23:55 Last Admin: 10/23/18 20:10 Dose: 5 mg Physical Exam: 83 y/o female patient remains agitated with an aggressive behavior. General: demented, NAD HEENT: NC/AT, PERRLA Neck: Supple, No JVD Lungs: CTAB Cardiovascular: RRR Abdomen: soft, non-tender Extremities: clear Neurological: no change Internal Medicine Assmt/Plan - Assessment Assessment: Dyslipidemia. Hypertension. Dementia. Acute psychosis. - Plan Plan: Continuation of care. Monitor Labs. Continue present meds as directed. Monitor vitals, Continue BP meds as directed. Monitor Diet/Nutritional support. Psych management per Psych. Pain Management. Fall precaution, frequent nursing rounds, and as needed restraints to prevent fall. Safety precaution. Supportive care. Continue collaborating with consulting specialists, case management and nursing team. Will Monitor patient and continue present care management.
--- NOTE | 2018-10-26 17:09 | Progress Notes ---
DATE: 10/26/2018 Case was discussed with staff of the patient, reviewed records. This is a will-known case to me as I have seen her before covering for Dr. Davis. The patient is 83-year-old female who was brought by family because of agitation, uncooperative, increasingly agitated and has been refusing to take her medication at home, biting and yelling at people who are approaching her. Have been in very angry mood and also with a history of dementia and psychosis. The patient consistently agitated and angry continuous, also refused medication, mumbling to herself, unable to follow staff direction, suspicious and paranoid. She is on Neurontin 100 mg 3 times a day, Aricept 5 mg daily, Risperdal 0.5 mg in the morning and 1 at bedtime with no side effects when she takes it. No sedation, no nausea, no extrapyramidal symptoms. We will continue to work with the patient in group therapy, milieu therapy, and adjust medication as needed. [facility]# [id number]
[2018-10-27] MEDS: NITROGLYCERIN OINT 2% 1 INCH PACKET TP SCH ×4 (00:45→17:31)
[2018-10-27] MEDS: Polyvinyl Alcohol Ophth Soln 15 mL Bottle EACH EYE SCH ×3 (06:21→17:31)
[2018-10-27] MEDS: Prednisolone 1% Ophth Susp 5 mL Bottle EACH EYE SCH ×3 (09:27→21:59)
--- NOTE | 2018-10-27 18:48 | Internal Medicine Prog Note ---
Internal Medicine Subjective - Subjective Service Date: 10/27/18 Patient is:: asleep, arousable, in bed, talking, agitated Patient Complaints of:: other (Aggressive behavior.) Per staff patient has:: no adverse event, no episodes of fall Internal Medicine Objective - Results Result Diagrams: 10/23/18 07:15 10/23/18 07:15 Recent Labs: Laboratory Last Values WBC 5.8 Th/cmm (4.8-10.8) 10/23/18 07:15 RBC 4.61 Mil/cmm (3.80-5.20) 10/23/18 07:15 Hgb 14.9 gm/dL (12-16) 10/23/18 07:15 Hct 44.9 % (41.0-60) 10/23/18 07:15 MCV 97.3 fl (81-100) 10/23/18 07:15 MCH 32.3 pg (27.0-31.0) H 10/23/18 07:15 MCHC Differential 33.2 pg (28.0-36.0) 10/23/18 07:15 RDW 13.1 % (11.5-20.0) 10/23/18 07:15 Plt Count 264 Th/cmm (150-400) 10/23/18 07:15 MPV 8.6 fl 10/23/18 07:15 Neutrophils % 66.5 % (40.0-80.0) 10/23/18 07:15 Lymphocytes % 22.5 % (20.0-50.0) 10/23/18 07:15 Monocytes % 8.7 % (2.0-10.0) 10/23/18 07:15 Eosinophils % 2.0 % (0.0-5.0) 10/23/18 07:15 Basophils % 0.3 % (0.0-2.0) 10/23/18 07:15 PT 9.9 SECONDS (9.5-11.5) 10/19/18 20:40 INR 0.95 (0.5-1.4) 10/19/18 20:40 PTT (Actin FS) 25.0 SECONDS (26.0-38.0) L 10/19/18 20:40 Sodium 136 mEq/L (136-145) 10/23/18 07:15 Potassium 4.2 mEq/L (3.5-5.1) 10/23/18 07:15 Chloride 106 mEq/L (98-107) 10/23/18 07:15 Carbon Dioxide 21.7 mEq/L (21.0-31.0) 10/23/18 07:15 Anion Gap 12.5 (7.0-16.0) 10/23/18 07:15 BUN 26 mg/dL (7-25) H 10/23/18 07:15 Creatinine 0.8 mg/dL (0.6-1.2) 10/23/18 07:15 Est GFR ( Amer) TNP 10/23/18 07:15 Est GFR (Non-Af Amer) TNP 10/23/18 07:15 BUN/Creatinine Ratio 32.5 10/23/18 07:15 Glucose 106 mg/dL (70-105) H 10/23/18 07:15 Calcium 9.6 mg/dL (8.6-10.3) 10/23/18 07:15 Total Bilirubin 0.2 mg/dL (0.3-1.0) L 10/19/18 20:40 AST 14 U/L (13-39) 10/19/18 20:40 ALT 14 U/L (7-52) 10/19/18 20:40 Alkaline Phosphatase 87 U/L (34-104) 10/19/18 20:40 Total Protein 5.9 gm/dL (6.0-8.3) L 10/19/18 20:40 Albumin 3.4 gm/dL (3.7-5.3) L 10/19/18 20:40 Globulin 2.5 gm/dL 10/19/18 20:40 Albumin/Globulin Ratio 1.4 (1.0-1.8) 10/19/18 20:40 Triglycerides 65 mg/dL (<150) 10/19/18 20:40 Cholesterol 180 mg/dL (<200) 10/19/18 20:40 LDL Cholesterol Direct 129 mg/dL (75-193) 10/19/18 20:40 HDL Cholesterol 46 mg/dL (23-92) 10/19/18 20:40 Urine Source CLEAN C 10/19/18 19:50 Urine Color YELLOW 10/19/18 19:50 Urine Clarity CLEAR (CLEAR) 10/19/18 19:50 Urine pH 6.0 (4.6 - 8.0) 10/19/18 19:50 Ur Specific [place] 1.020 (1.005-1.030) 10/19/18 19:50 Urine Protein NEGATIVE mg/dL (NEGATIVE) 10/19/18 19:50 Urine Glucose (UA) NEGATIVE mg/dL (NEGATIVE) 10/19/18 19:50 Urine Ketones NEGATIVE mg/dL (NEGATIVE) 10/19/18 19:50 Urine Blood NEGATIVE (NEGATIVE) 10/19/18 19:50 Urine Nitrate NEGATIVE (NEGATIVE) 10/19/18 19:50 Urine Bilirubin NEGATIVE (NEGATIVE) 10/19/18 19:50 Urine Urobilinogen 0.2 E.U./dL (0.2 - 1.0) 10/19/18 19:50 Ur Leukocyte Esterase NEGATIVE (NEGATIVE) 10/19/18 19:50 Urine RBC 0-2 /hpf (0-5) 10/19/18 19:50 Urine WBC 2-5 /hpf (0-5) 10/19/18 19:50 Ur Epithelial Cells MODERATE /lpf (FEW) 10/19/18 19:50 Urine Bacteria 1+ /hpf (NONE SEEN) H 10/19/18 19:50 Urine Mucus FEW /lpf (FEW) 10/19/18 19:50 - Physical Exam Vitals and I&O: Vital Signs Temp 97.6 F 10/27/18 14:00 Pulse 81 10/27/18 14:00 Resp 18 10/27/18 14:00 BP 161/72 10/27/18 14:00 Pulse Ox 94 10/27/18 14:00 Intake & Output 10/26/18 10/27/18 10/27/18 18:59 06:59 18:59 Intake Total 800 240 800 Balance 800 240 800 Intake: Oral 800 240 800 Other: # Voids 3 2 3 # Bowel Movements 0 1 Active Medications: Current Medications Artificial Tears (Artificial Tears Ophth Soln) 2 drop EACH EYE Q6HR NANCY Stop: 12/19/18 00:00 Last Admin: 10/27/18 17:31 Dose: Not Given Donepezil HCl (Aricept) 5 mg PO DAILY NANCY Stop: 12/19/18 08:59 Last Admin: 10/27/18 09:27 Dose: Not Given Gabapentin (Neurontin) 100 mg PO Q8HR NANCY Stop: 12/19/18 04:59 Last Admin: 10/27/18 13:39 Dose: Not Given Lorazepam (Ativan) 1 mg PO Q4H PRN; Protocol PRN Reason: Anxiety Stop: 12/18/18 23:32 Last Admin: 10/25/18 21:04 Dose: 1 mg Nitroglycerin (Nitro-Bid) 2 inch TP Q6HR NANCY Stop: 12/19/18 00:00 Last Admin: 10/27/18 17:31 Dose: Not Given Prednisolone Acetate (Pred Forte 1% Ophth Susp) 2 drop EACH EYE TID NANCY Stop: 12/19/18 08:59 Last Admin: 10/27/18 14:39 Dose: Not Given Risperidone (Risperdal) 0.25 mg PO DAILY NANCY; Protocol Stop: 12/22/18 08:59 Last Admin: 10/27/18 09:48 Dose: Not Given Risperidone (Risperdal) 1 mg PO HS NANCY; Protocol Stop: 12/22/18 20:59 Last Admin: 10/26/18 21:45 Dose: 1 mg Zolpidem Tartrate (Ambien) 5 mg PO HS PRN PRN Reason: Insomnia Stop: 12/18/18 23:55 Last Admin: 10/23/18 20:10 Dose: 5 mg General: demented, NAD HEENT: NC/AT, PERRLA Neck: Supple, No JVD Lungs: CTAB Cardiovascular: RRR Abdomen: soft, non-tender Extremities: clear Neurological: no change Internal Medicine Assmt/Plan - Assessment Assessment: Dyslipidemia. Hypertension. Dementia. Acute psychosis. - Plan Plan: Continuation of care. Monitor Labs. Continue present meds as directed. Monitor vitals, Continue BP meds as directed. Monitor Diet/Nutritional support. Psych management per Psych. Pain Management. Fall precaution, frequent nursing rounds, and as needed restraints to prevent fall. Safety precaution. Supportive care. Continue collaborating with consulting specialists, case management and nursing team. Will Monitor patient and continue current treatment plan as ordered.
--- NOTE | 2018-10-27 23:54 | Progress Notes ---
DATE: 10/27/2018 SUBJECTIVE: Case was discussed with staff of the patient, reviewed records. The patient continues to be internally preoccupied, stays to herself, unpredictable, impulsive, needing redirection, confused, and demented. No extrapyramidal symptoms. No sedation. No nausea. She continues to have poor insight. We will continue to work with the patient in group therapy, milieu therapy, and adjust medications as needed. [facility]# [id number]
[2018-10-28] MEDS: Polyvinyl Alcohol Ophth Soln 15 mL Bottle EACH EYE SCH ×4 (00:30→17:21)
[2018-10-28] MEDS: NITROGLYCERIN OINT 2% 1 INCH PACKET TP SCH ×4 (00:30→17:21)
[2018-10-28] MEDS: Prednisolone 1% Ophth Susp 5 mL Bottle EACH EYE SCH ×3 (09:37→21:32)
--- NOTE | 2018-10-28 15:07 | Internal Medicine Prog Note ---
Internal Medicine Subjective - Subjective Service Date: 10/28/18 Patient seen and examined:: with staff Patient is:: asleep, arousable, in bed, talking, agitated, confused Patient Complaints of:: other (Aggressive behavior.) Per staff patient has:: no adverse event, no episodes of fall Internal Medicine Objective - Results Result Diagrams: 10/23/18 07:15 10/23/18 07:15 Recent Labs: Laboratory Last Values WBC 5.8 Th/cmm (4.8-10.8) 10/23/18 07:15 RBC 4.61 Mil/cmm (3.80-5.20) 10/23/18 07:15 Hgb 14.9 gm/dL (12-16) 10/23/18 07:15 Hct 44.9 % (41.0-60) 10/23/18 07:15 MCV 97.3 fl (81-100) 10/23/18 07:15 MCH 32.3 pg (27.0-31.0) H 10/23/18 07:15 MCHC Differential 33.2 pg (28.0-36.0) 10/23/18 07:15 RDW 13.1 % (11.5-20.0) 10/23/18 07:15 Plt Count 264 Th/cmm (150-400) 10/23/18 07:15 MPV 8.6 fl 10/23/18 07:15 Neutrophils % 66.5 % (40.0-80.0) 10/23/18 07:15 Lymphocytes % 22.5 % (20.0-50.0) 10/23/18 07:15 Monocytes % 8.7 % (2.0-10.0) 10/23/18 07:15 Eosinophils % 2.0 % (0.0-5.0) 10/23/18 07:15 Basophils % 0.3 % (0.0-2.0) 10/23/18 07:15 PT 9.9 SECONDS (9.5-11.5) 10/19/18 20:40 INR 0.95 (0.5-1.4) 10/19/18 20:40 PTT (Actin FS) 25.0 SECONDS (26.0-38.0) L 10/19/18 20:40 Sodium 136 mEq/L (136-145) 10/23/18 07:15 Potassium 4.2 mEq/L (3.5-5.1) 10/23/18 07:15 Chloride 106 mEq/L (98-107) 10/23/18 07:15 Carbon Dioxide 21.7 mEq/L (21.0-31.0) 10/23/18 07:15 Anion Gap 12.5 (7.0-16.0) 10/23/18 07:15 BUN 26 mg/dL (7-25) H 10/23/18 07:15 Creatinine 0.8 mg/dL (0.6-1.2) 10/23/18 07:15 Est GFR ( Amer) TNP 10/23/18 07:15 Est GFR (Non-Af Amer) TNP 10/23/18 07:15 BUN/Creatinine Ratio 32.5 10/23/18 07:15 Glucose 106 mg/dL (70-105) H 10/23/18 07:15 Calcium 9.6 mg/dL (8.6-10.3) 10/23/18 07:15 Total Bilirubin 0.2 mg/dL (0.3-1.0) L 10/19/18 20:40 AST 14 U/L (13-39) 10/19/18 20:40 ALT 14 U/L (7-52) 10/19/18 20:40 Alkaline Phosphatase 87 U/L (34-104) 10/19/18 20:40 Total Protein 5.9 gm/dL (6.0-8.3) L 10/19/18 20:40 Albumin 3.4 gm/dL (3.7-5.3) L 10/19/18 20:40 Globulin 2.5 gm/dL 10/19/18 20:40 Albumin/Globulin Ratio 1.4 (1.0-1.8) 10/19/18 20:40 Triglycerides 65 mg/dL (<150) 10/19/18 20:40 Cholesterol 180 mg/dL (<200) 10/19/18 20:40 LDL Cholesterol Direct 129 mg/dL (75-193) 10/19/18 20:40 HDL Cholesterol 46 mg/dL (23-92) 10/19/18 20:40 Urine Source CLEAN C 10/19/18 19:50 Urine Color YELLOW 10/19/18 19:50 Urine Clarity CLEAR (CLEAR) 10/19/18 19:50 Urine pH 6.0 (4.6 - 8.0) 10/19/18 19:50 Ur Specific [place] 1.020 (1.005-1.030) 10/19/18 19:50 Urine Protein NEGATIVE mg/dL (NEGATIVE) 10/19/18 19:50 Urine Glucose (UA) NEGATIVE mg/dL (NEGATIVE) 10/19/18 19:50 Urine Ketones NEGATIVE mg/dL (NEGATIVE) 10/19/18 19:50 Urine Blood NEGATIVE (NEGATIVE) 10/19/18 19:50 Urine Nitrate NEGATIVE (NEGATIVE) 10/19/18 19:50 Urine Bilirubin NEGATIVE (NEGATIVE) 10/19/18 19:50 Urine Urobilinogen 0.2 E.U./dL (0.2 - 1.0) 10/19/18 19:50 Ur Leukocyte Esterase NEGATIVE (NEGATIVE) 10/19/18 19:50 Urine RBC 0-2 /hpf (0-5) 10/19/18 19:50 Urine WBC 2-5 /hpf (0-5) 10/19/18 19:50 Ur Epithelial Cells MODERATE /lpf (FEW) 10/19/18 19:50 Urine Bacteria 1+ /hpf (NONE SEEN) H 10/19/18 19:50 Urine Mucus FEW /lpf (FEW) 10/19/18 19:50 - Physical Exam Vitals and I&O: Vital Signs Temp 97.9 F 10/28/18 04:22 Pulse 75 10/28/18 06:47 Resp 18 10/28/18 04:22 BP 134/68 10/28/18 06:47 Pulse Ox 97 10/28/18 04:22 Intake & Output 10/27/18 10/28/18 10/28/18 18:59 06:59 18:59 Intake Total 800 480 Balance 800 480 Intake: Oral 800 480 Other: # Voids 3 2 # Bowel Movements 1 Active Medications: Current Medications Artificial Tears (Artificial Tears Ophth Soln) 2 drop EACH EYE Q6HR NANCY Stop: 12/19/18 00:00 Last Admin: 10/28/18 12:31 Dose: Not Given Donepezil HCl (Aricept) 5 mg PO DAILY NANCY Stop: 12/19/18 08:59 Last Admin: 06/26/19 09:37 Dose: Not Given Gabapentin (Neurontin) 100 mg PO Q8HR [facility] Stop: 12/19/18 04:59 Last Admin: 10/28/18 12:31 Dose: Not Given Lorazepam (Ativan) 1 mg PO Q4H PRN; Protocol PRN Reason: Anxiety Stop: 12/18/18 23:32 Last Admin: 10/25/18 21:04 Dose: 1 mg Nitroglycerin (Nitro-Bid) 2 inch TP Q6HR NANCY Stop: 12/19/18 00:00 Last Admin: 10/28/18 12:31 Dose: Not Given Prednisolone Acetate (Pred Forte 1% Ophth Susp) 2 drop EACH EYE TID NANCY Stop: 12/19/18 08:59 Last Admin: 10/28/18 09:37 Dose: Not Given Risperidone (Risperdal) 1 mg PO HS NANCY; Protocol Stop: 12/22/18 20:59 Last Admin: 10/27/18 21:47 Dose: 1 mg Risperidone (Risperdal) 0.5 mg PO DAILY [facility]; Protocol Stop: 12/27/18 08:59 Last Admin: 10/28/18 09:37 Dose: Not Given Zolpidem Tartrate (Ambien) 5 mg PO HS PRN PRN Reason: Insomnia Stop: 12/18/18 23:55 Last Admin: 10/27/18 21:48 Dose: 5 mg Physical Exam: 83 y/o female patient remains dis-oriented and demented. General: demented, NAD HEENT: NC/AT, PERRLA Neck: Supple, No JVD Lungs: CTAB Cardiovascular: RRR Abdomen: soft, non-tender Extremities: clear Neurological: no change Internal Medicine Assmt/Plan - Assessment Assessment: Dyslipidemia. Hypertension. Dementia. Acute psychosis. - Plan Plan: Continuation of care. Monitor Labs. Continue present meds as directed. Monitor vitals, Continue BP meds as directed. Monitor Diet/Nutritional support. Psych management per Psych. Pain Management. Fall precaution, frequent nursing rounds, and as needed restraints to prevent fall. Safety precaution. Supportive care. Continue collaborating with consulting specialists, case management and nursing team. Will Monitor patient and continue present care management. Nutritional Asmnt/Malnutr-PDOC - Dietary Evaluation Malnutrition Findings (Please click <Entered> for more info): see orders
[2018-10-29] MEDS: NITROGLYCERIN OINT 2% 1 INCH PACKET TP SCH ×4 (00:30→18:18)
[2018-10-29] MEDS: Polyvinyl Alcohol Ophth Soln 15 mL Bottle EACH EYE SCH ×4 (00:30→17:24)
[2018-10-29] MEDS: Prednisolone 1% Ophth Susp 5 mL Bottle EACH EYE SCH ×3 (09:19→21:00)
--- NOTE | 2018-10-29 17:33 | Internal Medicine Prog Note ---
Internal Medicine Subjective - Subjective Service Date: 10/29/18 Patient is:: asleep, arousable, in bed, talking, agitated, confused Patient Complaints of:: other (Aggressive behavior.) Per staff patient has:: no adverse event, no episodes of fall Internal Medicine Objective - Results Result Diagrams: 10/23/18 07:15 10/23/18 07:15 Recent Labs: Laboratory Last Values WBC 5.8 Th/cmm (4.8-10.8) 10/23/18 07:15 RBC 4.61 Mil/cmm (3.80-5.20) 10/23/18 07:15 Hgb 14.9 gm/dL (12-16) 10/23/18 07:15 Hct 44.9 % (41.0-60) 10/23/18 07:15 MCV 97.3 fl (81-100) 10/23/18 07:15 MCH 32.3 pg (27.0-31.0) H 10/23/18 07:15 MCHC Differential 33.2 pg (28.0-36.0) 10/23/18 07:15 RDW 13.1 % (11.5-20.0) 10/23/18 07:15 Plt Count 264 Th/cmm (150-400) 10/23/18 07:15 MPV 8.6 fl 10/23/18 07:15 Neutrophils % 66.5 % (40.0-80.0) 10/23/18 07:15 Lymphocytes % 22.5 % (20.0-50.0) 10/23/18 07:15 Monocytes % 8.7 % (2.0-10.0) 10/23/18 07:15 Eosinophils % 2.0 % (0.0-5.0) 10/23/18 07:15 Basophils % 0.3 % (0.0-2.0) 10/23/18 07:15 PT 9.9 SECONDS (9.5-11.5) 10/19/18 20:40 INR 0.95 (0.5-1.4) 10/19/18 20:40 PTT (Actin FS) 25.0 SECONDS (26.0-38.0) L 10/19/18 20:40 Sodium 136 mEq/L (136-145) 10/23/18 07:15 Potassium 4.2 mEq/L (3.5-5.1) 10/23/18 07:15 Chloride 106 mEq/L (98-107) 10/23/18 07:15 Carbon Dioxide 21.7 mEq/L (21.0-31.0) 10/23/18 07:15 Anion Gap 12.5 (7.0-16.0) 10/23/18 07:15 BUN 26 mg/dL (7-25) H 10/23/18 07:15 Creatinine 0.8 mg/dL (0.6-1.2) 10/23/18 07:15 Est GFR ( Amer) TNP 10/23/18 07:15 Est GFR (Non-Af Amer) TNP 10/23/18 07:15 BUN/Creatinine Ratio 32.5 10/23/18 07:15 Glucose 106 mg/dL (70-105) H 10/23/18 07:15 Calcium 9.6 mg/dL (8.6-10.3) 10/23/18 07:15 Total Bilirubin 0.2 mg/dL (0.3-1.0) L 10/19/18 20:40 AST 14 U/L (13-39) 10/19/18 20:40 ALT 14 U/L (7-52) 10/19/18 20:40 Alkaline Phosphatase 87 U/L (34-104) 10/19/18 20:40 Total Protein 5.9 gm/dL (6.0-8.3) L 10/19/18 20:40 Albumin 3.4 gm/dL (3.7-5.3) L 10/19/18 20:40 Globulin 2.5 gm/dL 10/19/18 20:40 Albumin/Globulin Ratio 1.4 (1.0-1.8) 10/19/18 20:40 Triglycerides 65 mg/dL (<150) 10/19/18 20:40 Cholesterol 180 mg/dL (<200) 10/19/18 20:40 LDL Cholesterol Direct 129 mg/dL (75-193) 10/19/18 20:40 HDL Cholesterol 46 mg/dL (23-92) 10/19/18 20:40 Urine Source CLEAN C 10/19/18 19:50 Urine Color YELLOW 10/19/18 19:50 Urine Clarity CLEAR (CLEAR) 10/19/18 19:50 Urine pH 6.0 (4.6 - 8.0) 10/19/18 19:50 Ur Specific [place] 1.020 (1.005-1.030) 10/19/18 19:50 Urine Protein NEGATIVE mg/dL (NEGATIVE) 10/19/18 19:50 Urine Glucose (UA) NEGATIVE mg/dL (NEGATIVE) 10/19/18 19:50 Urine Ketones NEGATIVE mg/dL (NEGATIVE) 10/19/18 19:50 Urine Blood NEGATIVE (NEGATIVE) 10/19/18 19:50 Urine Nitrate NEGATIVE (NEGATIVE) 10/19/18 19:50 Urine Bilirubin NEGATIVE (NEGATIVE) 10/19/18 19:50 Urine Urobilinogen 0.2 E.U./dL (0.2 - 1.0) 10/19/18 19:50 Ur Leukocyte Esterase NEGATIVE (NEGATIVE) 10/19/18 19:50 Urine RBC 0-2 /hpf (0-5) 10/19/18 19:50 Urine WBC 2-5 /hpf (0-5) 10/19/18 19:50 Ur Epithelial Cells MODERATE /lpf (FEW) 10/19/18 19:50 Urine Bacteria 1+ /hpf (NONE SEEN) H 10/19/18 19:50 Urine Mucus FEW /lpf (FEW) 10/19/18 19:50 - Physical Exam Vitals and I&O: Vital Signs Temp 98.0 F 10/29/18 14:09 Pulse 72 10/29/18 14:09 Resp 20 10/29/18 14:09 BP 129/62 10/29/18 14:09 Pulse Ox 95 10/29/18 14:09 Intake & Output 10/28/18 10/29/18 10/29/18 18:59 06:59 18:59 Intake Total 720 1200 Balance 720 1200 Intake: Oral 360 1200 Other 360 Other: # Voids 3 # Bowel Movements 1 1 Active Medications: Current Medications Artificial Tears (Artificial Tears Ophth Soln) 2 drop EACH EYE Q6HR NANCY Stop: 12/19/18 00:00 Last Admin: 10/29/18 17:24 Dose: 2 drop Donepezil HCl (Aricept) 5 mg PO DAILY NANCY Stop: 12/19/18 08:59 Last Admin: 10/29/18 09:19 Dose: Not Given Gabapentin (Neurontin) 100 mg PO Q8HR NANCY Stop: 12/19/18 04:59 Last Admin: 10/29/18 12:48 Dose: Not Given Lorazepam (Ativan) 1 mg PO Q4H PRN; Protocol PRN Reason: Anxiety Stop: 12/18/18 23:32 Last Admin: 10/25/18 21:04 Dose: 1 mg Nitroglycerin (Nitro-Bid) 2 inch TP Q6HR NANCY Stop: 12/19/18 00:00 Last Admin: 10/29/18 12:47 Dose: 2 inch Prednisolone Acetate (Pred Forte 1% Ophth Susp) 2 drop EACH EYE TID NANCY Stop: 12/19/18 08:59 Last Admin: 10/29/18 13:42 Dose: 2 drop Risperidone (Risperdal) 1 mg PO HS NANCY; Protocol Stop: 12/22/18 20:59 Last Admin: 10/28/18 21:23 Dose: Not Given Risperidone (Risperdal) 0.5 mg PO DAILY NANCY; Protocol Stop: 12/27/18 08:59 Last Admin: 10/29/18 09:20 Dose: Not Given Zolpidem Tartrate (Ambien) 5 mg PO HS PRN PRN Reason: Insomnia Stop: 12/18/18 23:55 Last Admin: 10/27/18 21:48 Dose: 5 mg General: demented, NAD HEENT: NC/AT, PERRLA Neck: Supple, No JVD Lungs: CTAB Cardiovascular: RRR Abdomen: soft, non-tender Extremities: clear Neurological: no change Internal Medicine Assmt/Plan - Assessment Assessment: Dyslipidemia. Hypertension. Dementia. Acute psychosis. - Plan Plan: Continuation of care. Monitor Labs. Continue present meds as directed. Monitor vitals, Continue BP meds as directed. Monitor Diet/Nutritional support. Psych management per Psych. Pain Management. Fall precaution, frequent nursing rounds, and as needed restraints to prevent fall. Safety precaution. Supportive care. Continue collaborating with consulting specialists, case management and nursing team. Will Monitor patient and continue current treatment plan as ordered.
--- NOTE | 2018-10-29 23:24 | Progress Notes ---
DATE: 10/28/2018 DATE: 10/28/2018 SUBJECTIVE: Chart was reviewed and the patient interviewed. Also, discussed the patient's condition with the staff and reviewed records and labs. The patient is still paranoid and she is still mumbling with a language that is difficult to understand. She also is still easily agitated and in angry mood. Otherwise, the patient is compliant with taking her medications with no side effects. Placement is an issue and the patient is still trying find placement for the patient and [facility] were notified since the patient came from chronic care and the family does not want her to go back there and trying to get sister facility to accept her. Otherwise, we will continue monitoring behavior and continue to follow up. [facility]# [id number]
--- NOTE | 2018-10-30 00:09 | Progress Notes ---
DATE: 10/29/2018 SUBJECTIVE: Chart was reviewed and the patient interviewed. Also discussed the patient's condition with the staff and reviewed records and labs. The patient continued to mumble in [place] language with words that difficult to understand. The patient is actively hallucinating and is talking to herself. The patient also is still restless and she is still unable to answer any of the questions coherently. She also easily agitated and she is still trying to grab people that walking around her for no reason, except her confusion. The patient also is still refusing to take Aricept and Risperdal and the Neurontin for no apparent reason. ASSESSMENT: The patient is still agitated and also still needs placement. TREATMENT PLAN: Continue to monitor her behavior. Also, continue to work on her agitation and her confusion as well as her compliance with taking her medications. I spoke with case liner yesterday, Bhargavi, and I told her to send the package to [facility] for placement and still waiting further outcome. JOB# [id number]
[2018-10-30] MEDS: NITROGLYCERIN OINT 2% 1 INCH PACKET TP SCH ×4 (00:15→19:00)
[2018-10-30] MEDS: Polyvinyl Alcohol Ophth Soln 15 mL Bottle EACH EYE SCH ×4 (00:15→18:59)
[2018-10-30] MEDS: Prednisolone 1% Ophth Susp 5 mL Bottle EACH EYE SCH ×3 (08:38→21:56)
--- NOTE | 2018-10-30 15:42 | Internal Medicine Prog Note ---
Internal Medicine Subjective - Subjective Service Date: 10/30/18 Patient seen and examined:: with staff Patient is:: awake, arousable, in bed, talking, agitated, confused Patient Complaints of:: other (Aggressive behavior.) Per staff patient has:: no adverse event, no episodes of fall Internal Medicine Objective - Results Result Diagrams: 10/23/18 07:15 10/23/18 07:15 Recent Labs: Laboratory Last Values WBC 5.8 Th/cmm (4.8-10.8) 10/23/18 07:15 RBC 4.61 Mil/cmm (3.80-5.20) 10/23/18 07:15 Hgb 14.9 gm/dL (12-16) 10/23/18 07:15 Hct 44.9 % (41.0-60) 10/23/18 07:15 MCV 97.3 fl (81-100) 10/23/18 07:15 MCH 32.3 pg (27.0-31.0) H 10/23/18 07:15 MCHC Differential 33.2 pg (28.0-36.0) 10/23/18 07:15 RDW 13.1 % (11.5-20.0) 10/23/18 07:15 Plt Count 264 Th/cmm (150-400) 10/23/18 07:15 MPV 8.6 fl 10/23/18 07:15 Neutrophils % 66.5 % (40.0-80.0) 10/23/18 07:15 Lymphocytes % 22.5 % (20.0-50.0) 10/23/18 07:15 Monocytes % 8.7 % (2.0-10.0) 10/23/18 07:15 Eosinophils % 2.0 % (0.0-5.0) 10/23/18 07:15 Basophils % 0.3 % (0.0-2.0) 10/23/18 07:15 PT 9.9 SECONDS (9.5-11.5) 10/19/18 20:40 INR 0.95 (0.5-1.4) 10/19/18 20:40 PTT (Actin FS) 25.0 SECONDS (26.0-38.0) L 10/19/18 20:40 Sodium 136 mEq/L (136-145) 10/23/18 07:15 Potassium 4.2 mEq/L (3.5-5.1) 10/23/18 07:15 Chloride 106 mEq/L (98-107) 10/23/18 07:15 Carbon Dioxide 21.7 mEq/L (21.0-31.0) 10/23/18 07:15 Anion Gap 12.5 (7.0-16.0) 10/23/18 07:15 BUN 26 mg/dL (7-25) H 10/23/18 07:15 Creatinine 0.8 mg/dL (0.6-1.2) 10/23/18 07:15 Est GFR ( Amer) TNP 10/23/18 07:15 Est GFR (Non-Af Amer) TNP 10/23/18 07:15 BUN/Creatinine Ratio 32.5 10/23/18 07:15 Glucose 106 mg/dL (70-105) H 10/23/18 07:15 Calcium 9.6 mg/dL (8.6-10.3) 10/23/18 07:15 Total Bilirubin 0.2 mg/dL (0.3-1.0) L 10/19/18 20:40 AST 14 U/L (13-39) 10/19/18 20:40 ALT 14 U/L (7-52) 10/19/18 20:40 Alkaline Phosphatase 87 U/L (34-104) 10/19/18 20:40 Total Protein 5.9 gm/dL (6.0-8.3) L 10/19/18 20:40 Albumin 3.4 gm/dL (3.7-5.3) L 10/19/18 20:40 Globulin 2.5 gm/dL 10/19/18 20:40 Albumin/Globulin Ratio 1.4 (1.0-1.8) 10/19/18 20:40 Triglycerides 65 mg/dL (<150) 10/19/18 20:40 Cholesterol 180 mg/dL (<200) 10/19/18 20:40 LDL Cholesterol Direct 129 mg/dL (75-193) 10/19/18 20:40 HDL Cholesterol 46 mg/dL (23-92) 10/19/18 20:40 Urine Source CLEAN C 10/19/18 19:50 Urine Color YELLOW 10/19/18 19:50 Urine Clarity CLEAR (CLEAR) 10/19/18 19:50 Urine pH 6.0 (4.6 - 8.0) 10/19/18 19:50 Ur Specific [employer] 1.020 (1.005-1.030) 10/19/18 19:50 Urine Protein NEGATIVE mg/dL (NEGATIVE) 10/19/18 19:50 Urine Glucose (UA) NEGATIVE mg/dL (NEGATIVE) 10/19/18 19:50 Urine Ketones NEGATIVE mg/dL (NEGATIVE) 10/19/18 19:50 Urine Blood NEGATIVE (NEGATIVE) 10/19/18 19:50 Urine Nitrate NEGATIVE (NEGATIVE) 10/19/18 19:50 Urine Bilirubin NEGATIVE (NEGATIVE) 10/19/18 19:50 Urine Urobilinogen 0.2 E.U./dL (0.2 - 1.0) 10/19/18 19:50 Ur Leukocyte Esterase NEGATIVE (NEGATIVE) 10/19/18 19:50 Urine RBC 0-2 /hpf (0-5) 10/19/18 19:50 Urine WBC 2-5 /hpf (0-5) 10/19/18 19:50 Ur Epithelial Cells MODERATE /lpf (FEW) 10/19/18 19:50 Urine Bacteria 1+ /hpf (NONE SEEN) H 10/19/18 19:50 Urine Mucus FEW /lpf (FEW) 10/19/18 19:50 - Physical Exam Vitals and I&O: Vital Signs Temp 97.4 F 10/30/18 14:00 Pulse 81 10/30/18 14:00 Resp 18 10/30/18 14:00 BP 156/66 10/30/18 14:00 Pulse Ox 98 10/30/18 14:00 Intake & Output 10/29/18 10/30/18 10/30/18 18:59 06:59 18:59 Intake Total 1200 240 Balance 1200 240 Intake: Oral 1200 240 Other: # Voids 2 # Bowel Movements 1 0 Active Medications: Current Medications Artificial Tears (Artificial Tears Ophth Soln) 2 drop EACH EYE Q6HR [facility] Stop: 12/19/18 00:00 Last Admin: 10/30/18 13:00 Dose: Not Given Donepezil HCl (Aricept) 5 mg PO DAILY NANCY Stop: 12/19/18 08:59 Last Admin: 10/30/18 08:38 Dose: 5 mg Gabapentin (Neurontin) 100 mg PO Q8HR NANCY Stop: 12/19/18 04:59 Last Admin: 10/30/18 14:00 Dose: 100 mg Lorazepam (Ativan) 1 mg PO Q4H PRN; Protocol PRN Reason: Anxiety Stop: 12/18/18 23:32 Last Admin: 10/25/18 21:04 Dose: 1 mg Nitroglycerin (Nitro-Bid) 2 inch TP Q6HR NANCY Stop: 12/19/18 00:00 Last Admin: 10/30/18 13:00 Dose: 2 inch Prednisolone Acetate (Pred Forte 1% Ophth Susp) 2 drop EACH EYE TID NANCY Stop: 12/19/18 08:59 Last Admin: 10/30/18 14:16 Dose: 2 drop Risperidone (Risperdal) 1 mg PO HS NANCY; Protocol Stop: 12/22/18 20:59 Last Admin: 10/29/18 21:07 Dose: 1 mg Risperidone (Risperdal) 0.5 mg PO DAILY NANCY; Protocol Stop: 12/27/18 08:59 Last Admin: 10/30/18 08:38 Dose: 0.5 mg Zolpidem Tartrate (Ambien) 5 mg PO HS PRN PRN Reason: Insomnia Stop: 12/18/18 23:55 Last Admin: 10/29/18 21:07 Dose: 5 mg Physical Exam: 83 y/o female patient is still paranoid, easily agitated. General: demented, NAD HEENT: NC/AT, PERRLA Neck: Supple, No JVD Lungs: CTAB Cardiovascular: RRR Abdomen: soft, non-tender Extremities: clear Neurological: no change Internal Medicine Assmt/Plan - Assessment Assessment: Dyslipidemia. Hypertension. Dementia. Acute psychosis. - Plan Plan: Continuation of care. Monitor Labs. Continue present meds as directed. Monitor vitals, Continue BP meds as directed. Monitor Diet/Nutritional support. Psych management per Psych. Pain Management. Fall precaution, frequent nursing rounds, and as needed restraints to prevent fall. Safety precaution. Supportive care. Continue collaborating with consulting specialists, case management and nursing team. Will Monitor patient and continue present care management. Nutritional Asmnt/Malnutr-PDOC - Dietary Evaluation Malnutrition Findings (Please click <Entered> for more info): see orders.
--- NOTE | 2018-10-30 22:44 | Progress Notes ---
DATE: 10/30/2018 SUBJECTIVE: Chart was reviewed and the patient interviewed. Also discussed the patient's condition with the staff and reviewed records and labs. The patient's affect is slightly brighter, but she is still confused and mumbling to herself in Croatian language. She is also still easily irritable and easily agitated. The patient also is demanding and she is in an angry mood. She also still needs lots of redirections. On the other hand, the patient is compliant with taking her medications at night, but refused to take Risperdal during the day. Vital signs are stable and no major behavioral problems. ASSESSMENT: The patient is still considered to be gravely disabled and confused. TREATMENT PLAN: Awaiting for placement and [facility] is evaluating the patient's condition for admitting her there. Still no outcome of that. At the same time, we will continue Risperdal and Neurontin and we will continue to follow up her condition closely. [facility]# [id number]
[2018-10-31] MEDS: NITROGLYCERIN OINT 2% 1 INCH PACKET TP SCH ×4 (00:19→17:19)
[2018-10-31] MEDS: Polyvinyl Alcohol Ophth Soln 15 mL Bottle EACH EYE SCH ×4 (01:03→17:20)
[2018-10-31] MEDS: Prednisolone 1% Ophth Susp 5 mL Bottle EACH EYE SCH ×3 (08:30→21:12)
--- NOTE | 2018-10-31 16:22 | Progress Notes ---
DATE: 10/31/2018 SUBJECTIVE: The patient was seen in the dining area. The patient appears to be confused and easily gets agitated, poor historian due to medical condition. Otherwise, the patient appears to be in no acute distress. OBJECTIVE: VITAL SIGNS: Temperature 98.2, heart rate 61, blood pressure 134/70, respirations 20, 97% on room air. HEENT: Head is atraumatic and normocephalic. Eyes: Bilateral conjunctivae are clear. Bilateral pupils are equally round and reactive. NECK: Supple. No JVD. CARDIOVASCULAR: S1 and S2, without murmur. PULMONARY: Clear to auscultation. GASTROINTESTINAL: Soft and nontender without guarding. Positive bowel sounds. MUSCULOSKELETAL: No clubbing. No cyanosis noted. ASSESSMENT: 1. Dementia. 2. Hypertension. 3. Hyperlipidemia. 4. Osteoarthritis. PLAN: We will keep the patient for further Inpatient Psychiatric Unit. We will follow up with a psychiatrist and monitor the patient's condition and behavior. Put the patient on fall precaution. Treatment plans were discussed with the patient's nurse. Treatment plans were discussed with Dr. Galicia. JOB# [id number]
--- NOTE | 2018-10-31 23:58 | Progress Notes ---
DATE: SUBJECTIVE: Chart was reviewed and the patient interviewed. Also discussed the patient's condition with the staff and reviewed records and labs. The patient is still suspicious and paranoid and is easily agitated. The patient also is still resisting care. She also still mumbled in [place]ian language and still unable to carry on coherent conversation and easily agitated with difficulty following directions. On the other hand, the patient is compliant with taking her medications with no side effects. ASSESSMENT: The patient is still psychotic and agitated. TREATMENT PLAN: Continue monitoring her behavior and her condition closely and continue adjusting psychotropic medications and work on behavioral education and discharge plans. JOB# [id number]
[2018-11-01] MEDS: NITROGLYCERIN OINT 2% 1 INCH PACKET TP SCH ×4 (00:42→18:31)
[2018-11-01] MEDS: Polyvinyl Alcohol Ophth Soln 15 mL Bottle EACH EYE SCH ×4 (00:44→18:32)
[2018-11-01] MEDS: Prednisolone 1% Ophth Susp 5 mL Bottle EACH EYE SCH ×3 (09:12→20:54)
--- NOTE | 2018-11-01 13:26 | Internal Medicine Prog Note ---
Internal Medicine Subjective - Subjective Service Date: 11/01/18 Patient is:: awake, arousable, in bed, talking, agitated, confused Patient Complaints of:: other (Aggressive behavior.) Per staff patient has:: no adverse event, no episodes of fall, refusing care Internal Medicine Objective - Results Result Diagrams: 10/23/18 07:15 10/23/18 07:15 Recent Labs: Laboratory Last Values WBC 5.8 Th/cmm (4.8-10.8) 10/23/18 07:15 RBC 4.61 Mil/cmm (3.80-5.20) 10/23/18 07:15 Hgb 14.9 gm/dL (12-16) 10/23/18 07:15 Hct 44.9 % (41.0-60) 10/23/18 07:15 MCV 97.3 fl (81-100) 10/23/18 07:15 MCH 32.3 pg (27.0-31.0) H 10/23/18 07:15 MCHC Differential 33.2 pg (28.0-36.0) 10/23/18 07:15 RDW 13.1 % (11.5-20.0) 10/23/18 07:15 Plt Count 264 Th/cmm (150-400) 10/23/18 07:15 MPV 8.6 fl 10/23/18 07:15 Neutrophils % 66.5 % (40.0-80.0) 10/23/18 07:15 Lymphocytes % 22.5 % (20.0-50.0) 10/23/18 07:15 Monocytes % 8.7 % (2.0-10.0) 10/23/18 07:15 Eosinophils % 2.0 % (0.0-5.0) 10/23/18 07:15 Basophils % 0.3 % (0.0-2.0) 10/23/18 07:15 PT 9.9 SECONDS (9.5-11.5) 10/19/18 20:40 INR 0.95 (0.5-1.4) 10/19/18 20:40 PTT (Actin FS) 25.0 SECONDS (26.0-38.0) L 10/19/18 20:40 Sodium 136 mEq/L (136-145) 10/23/18 07:15 Potassium 4.2 mEq/L (3.5-5.1) 10/23/18 07:15 Chloride 106 mEq/L (98-107) 10/23/18 07:15 Carbon Dioxide 21.7 mEq/L (21.0-31.0) 10/23/18 07:15 Anion Gap 12.5 (7.0-16.0) 10/23/18 07:15 BUN 26 mg/dL (7-25) H 10/23/18 07:15 Creatinine 0.8 mg/dL (0.6-1.2) 10/23/18 07:15 Est GFR ( Amer) TNP 10/23/18 07:15 Est GFR (Non-Af Amer) TNP 10/23/18 07:15 BUN/Creatinine Ratio 32.5 10/23/18 07:15 Glucose 106 mg/dL (70-105) H 10/23/18 07:15 Calcium 9.6 mg/dL (8.6-10.3) 10/23/18 07:15 Total Bilirubin 0.2 mg/dL (0.3-1.0) L 10/19/18 20:40 AST 14 U/L (13-39) 10/19/18 20:40 ALT 14 U/L (7-52) 10/19/18 20:40 Alkaline Phosphatase 87 U/L (34-104) 10/19/18 20:40 Total Protein 5.9 gm/dL (6.0-8.3) L 10/19/18 20:40 Albumin 3.4 gm/dL (3.7-5.3) L 10/19/18 20:40 Globulin 2.5 gm/dL 10/19/18 20:40 Albumin/Globulin Ratio 1.4 (1.0-1.8) 10/19/18 20:40 Triglycerides 65 mg/dL (<150) 10/19/18 20:40 Cholesterol 180 mg/dL (<200) 10/19/18 20:40 LDL Cholesterol Direct 129 mg/dL (75-193) 10/19/18 20:40 HDL Cholesterol 46 mg/dL (23-92) 10/19/18 20:40 Urine Source CLEAN C 10/19/18 19:50 Urine Color YELLOW 10/19/18 19:50 Urine Clarity CLEAR (CLEAR) 10/19/18 19:50 Urine pH 6.0 (4.6 - 8.0) 10/19/18 19:50 Ur Specific [place] 1.020 (1.005-1.030) 10/19/18 19:50 Urine Protein NEGATIVE mg/dL (NEGATIVE) 10/19/18 19:50 Urine Glucose (UA) NEGATIVE mg/dL (NEGATIVE) 10/19/18 19:50 Urine Ketones NEGATIVE mg/dL (NEGATIVE) 10/19/18 19:50 Urine Blood NEGATIVE (NEGATIVE) 10/19/18 19:50 Urine Nitrate NEGATIVE (NEGATIVE) 10/19/18 19:50 Urine Bilirubin NEGATIVE (NEGATIVE) 10/19/18 19:50 Urine Urobilinogen 0.2 E.U./dL (0.2 - 1.0) 10/19/18 19:50 Ur Leukocyte Esterase NEGATIVE (NEGATIVE) 10/19/18 19:50 Urine RBC 0-2 /hpf (0-5) 10/19/18 19:50 Urine WBC 2-5 /hpf (0-5) 10/19/18 19:50 Ur Epithelial Cells MODERATE /lpf (FEW) 10/19/18 19:50 Urine Bacteria 1+ /hpf (NONE SEEN) H 10/19/18 19:50 Urine Mucus FEW /lpf (FEW) 10/19/18 19:50 - Physical Exam Vitals and I&O: Vital Signs Temp 97.7 F 10/31/18 19:39 Pulse 74 11/01/18 06:10 Resp 19 11/01/18 08:00 BP 188/91 11/01/18 06:10 Pulse Ox 98 10/31/18 19:39 Intake & Output 10/31/18 11/01/18 11/01/18 18:59 06:59 18:59 Intake Total 1200 Balance 1200 Intake: Oral 1200 Other: # Bowel Movements 1 Active Medications: Current Medications Artificial Tears (Artificial Tears Ophth Soln) 2 drop EACH EYE Q6HR [facility] Stop: 12/19/18 00:00 Last Admin: 11/01/18 12:55 Dose: 2 drop Donepezil HCl (Aricept) 5 mg PO DAILY NANCY Stop: 12/19/18 08:59 Last Admin: 11/01/18 09:13 Dose: Not Given Gabapentin (Neurontin) 100 mg PO Q8HR [facility] Stop: 12/19/18 04:59 Last Admin: 11/01/18 05:04 Dose: Not Given Lorazepam (Ativan) 1 mg PO Q4H PRN; Protocol PRN Reason: Anxiety Stop: 12/18/18 23:32 Last Admin: 10/25/18 21:04 Dose: 1 mg Nitroglycerin (Nitro-Bid) 2 inch TP Q6HR [facility] Stop: 12/19/18 00:00 Last Admin: 11/01/18 06:10 Dose: 2 inch Prednisolone Acetate (Pred Forte 1% Ophth Susp) 2 drop EACH EYE TID [facility]ANC[facility] Stop: 12/19/18 08:59 Last Admin: 11/01/18 09:12 Dose: 2 drop Risperidone (Risperdal) 1 mg PO HS NANCY; Protocol Stop: 12/22/18 20:59 Last Admin: 10/31/18 21:43 Dose: Not Given Risperidone (Risperdal) 0.5 mg PO DAILY NANCY; Protocol Stop: 12/27/18 08:59 Last Admin: 11/01/18 09:13 Dose: Not Given Zolpidem Tartrate (Ambien) 5 mg PO HS PRN PRN Reason: Insomnia Stop: 12/18/18 23:55 Last Admin: 10/29/18 21:07 Dose: 5 mg Physical Exam: 83 y/o female patient is paranoid, agitated and is also resisting care. General: demented, NAD HEENT: NC/AT, PERRLA Neck: Supple, No JVD Lungs: CTAB Cardiovascular: RRR Abdomen: soft, non-tender Extremities: clear Neurological: no change Internal Medicine Assmt/Plan - Assessment Assessment: Dyslipidemia. Hypertension. Dementia. Acute psychosis. - Plan Plan: Continuation of care. Monitor Labs. Continue present meds as directed. Monitor vitals, Continue BP meds as directed. Monitor Diet/Nutritional support. Psych management per Psych. Pain Management. Fall precaution, frequent nursing rounds, and as needed restraints to prevent fall. Safety precaution. Supportive care. Continue collaborating with consulting specialists, case management and nursing team. Will Monitor patient and continue present care management. Nutritional Asmnt/Malnutr-PDOC - Dietary Evaluation Malnutrition Findings (Please click <Entered> for more info): see orders.
[2018-11-02] MEDS: NITROGLYCERIN OINT 2% 1 INCH PACKET TP SCH ×4 (00:15→17:01)
[2018-11-02] MEDS: Polyvinyl Alcohol Ophth Soln 15 mL Bottle EACH EYE SCH ×4 (00:18→17:03)
--- NOTE | 2018-11-02 01:14 | Progress Notes ---
DATE: 11/01/2018 SUBJECTIVE: Chart was reviewed and the patient interviewed. Also discussed the patient's condition with the staff and reviewed records and labs. The patient is still confused and is still mumbling in [place]ian language and easily agitated. The patient also is still resisting care. Also, is still suspicious and paranoid and restless. Otherwise, the patient is compliant with taking medications with no side effects of medications. ASSESSMENT: The patient is still agitated and is resisting care and confused. TREATMENT PLAN: Continue adjusting psychotropic medications and work on behavioral modification. JOB# [id number]
[2018-11-02] MEDS: Prednisolone 1% Ophth Susp 5 mL Bottle EACH EYE SCH ×3 (08:18→21:01)
--- NOTE | 2018-11-02 11:04 | Internal Medicine Prog Note ---
Internal Medicine Subjective - Subjective Service Date: 11/02/18 Patient seen and examined:: with staff Patient is:: awake, arousable, in bed, talking, agitated, confused Patient Complaints of:: other (Aggressive behavior.) Per staff patient has:: no adverse event, no episodes of fall, refusing care Internal Medicine Objective - Results Result Diagrams: 10/23/18 07:15 10/23/18 07:15 Recent Labs: Laboratory Last Values WBC 5.8 Th/cmm (4.8-10.8) 10/23/18 07:15 RBC 4.61 Mil/cmm (3.80-5.20) 10/23/18 07:15 Hgb 14.9 gm/dL (12-16) 10/23/18 07:15 Hct 44.9 % (41.0-60) 10/23/18 07:15 MCV 97.3 fl (81-100) 10/23/18 07:15 MCH 32.3 pg (27.0-31.0) H 10/23/18 07:15 MCHC Differential 33.2 pg (28.0-36.0) 10/23/18 07:15 RDW 13.1 % (11.5-20.0) 10/23/18 07:15 Plt Count 264 Th/cmm (150-400) 10/23/18 07:15 MPV 8.6 fl 10/23/18 07:15 Neutrophils % 66.5 % (40.0-80.0) 10/23/18 07:15 Lymphocytes % 22.5 % (20.0-50.0) 10/23/18 07:15 Monocytes % 8.7 % (2.0-10.0) 10/23/18 07:15 Eosinophils % 2.0 % (0.0-5.0) 10/23/18 07:15 Basophils % 0.3 % (0.0-2.0) 10/23/18 07:15 PT 9.9 SECONDS (9.5-11.5) 10/19/18 20:40 INR 0.95 (0.5-1.4) 10/19/18 20:40 PTT (Actin FS) 25.0 SECONDS (26.0-38.0) L 10/19/18 20:40 Sodium 136 mEq/L (136-145) 10/23/18 07:15 Potassium 4.2 mEq/L (3.5-5.1) 10/23/18 07:15 Chloride 106 mEq/L (98-107) 10/23/18 07:15 Carbon Dioxide 21.7 mEq/L (21.0-31.0) 10/23/18 07:15 Anion Gap 12.5 (7.0-16.0) 10/23/18 07:15 BUN 26 mg/dL (7-25) H 10/23/18 07:15 Creatinine 0.8 mg/dL (0.6-1.2) 10/23/18 07:15 Est GFR ( Amer) TNP 10/23/18 07:15 Est GFR (Non-Af Amer) TNP 10/23/18 07:15 BUN/Creatinine Ratio 32.5 10/23/18 07:15 Glucose 106 mg/dL (70-105) H 10/23/18 07:15 Calcium 9.6 mg/dL (8.6-10.3) 10/23/18 07:15 Total Bilirubin 0.2 mg/dL (0.3-1.0) L 10/19/18 20:40 AST 14 U/L (13-39) 10/19/18 20:40 ALT 14 U/L (7-52) 10/19/18 20:40 Alkaline Phosphatase 87 U/L (34-104) 10/19/18 20:40 Total Protein 5.9 gm/dL (6.0-8.3) L 10/19/18 20:40 Albumin 3.4 gm/dL (3.7-5.3) L 10/19/18 20:40 Globulin 2.5 gm/dL 10/19/18 20:40 Albumin/Globulin Ratio 1.4 (1.0-1.8) 10/19/18 20:40 Triglycerides 65 mg/dL (<150) 10/19/18 20:40 Cholesterol 180 mg/dL (<200) 10/19/18 20:40 LDL Cholesterol Direct 129 mg/dL (75-193) 10/19/18 20:40 HDL Cholesterol 46 mg/dL (23-92) 10/19/18 20:40 Urine Source CLEAN C 10/19/18 19:50 Urine Color YELLOW 10/19/18 19:50 Urine Clarity CLEAR (CLEAR) 10/19/18 19:50 Urine pH 6.0 (4.6 - 8.0) 10/19/18 19:50 Ur Specific [place] 1.020 (1.005-1.030) 10/19/18 19:50 Urine Protein NEGATIVE mg/dL (NEGATIVE) 10/19/18 19:50 Urine Glucose (UA) NEGATIVE mg/dL (NEGATIVE) 10/19/18 19:50 Urine Ketones NEGATIVE mg/dL (NEGATIVE) 10/19/18 19:50 Urine Blood NEGATIVE (NEGATIVE) 10/19/18 19:50 Urine Nitrate NEGATIVE (NEGATIVE) 10/19/18 19:50 Urine Bilirubin NEGATIVE (NEGATIVE) 10/19/18 19:50 Urine Urobilinogen 0.2 E.U./dL (0.2 - 1.0) 10/19/18 19:50 Ur Leukocyte Esterase NEGATIVE (NEGATIVE) 10/19/18 19:50 Urine RBC 0-2 /hpf (0-5) 10/19/18 19:50 Urine WBC 2-5 /hpf (0-5) 10/19/18 19:50 Ur Epithelial Cells MODERATE /lpf (FEW) 10/19/18 19:50 Urine Bacteria 1+ /hpf (NONE SEEN) H 10/19/18 19:50 Urine Mucus FEW /lpf (FEW) 10/19/18 19:50 - Physical Exam Vitals and I&O: Vital Signs Temp 97.1 F 11/02/18 06:07 Pulse 73 11/02/18 06:07 Resp 20 11/02/18 06:07 BP 153/74 11/02/18 06:07 Pulse Ox 95 11/02/18 06:07 Intake & Output 11/01/18 11/02/18 11/02/18 18:59 06:59 18:59 Other: # Voids 3 # Bowel Movements 0 Active Medications: Current Medications Artificial Tears (Artificial Tears Ophth Soln) 2 drop EACH EYE Q6HR [facility] Stop: 12/19/18 00:00 Last Admin: 11/02/18 06:05 Dose: 2 drop Donepezil HCl (Aricept) 5 mg PO DAILY [facility] Stop: 12/19/18 08:59 Last Admin: 11/02/18 08:18 Dose: 5 mg Gabapentin (Neurontin) 100 mg PO Q8HR [facility] Stop: 12/19/18 04:59 Last Admin: 11/02/18 05:10 Dose: Not Given Lorazepam (Ativan) 1 mg PO Q4H PRN; Protocol PRN Reason: Anxiety Stop: 12/18/18 23:32 Last Admin: 10/25/18 21:04 Dose: 1 mg Nitroglycerin (Nitro-Bid) 2 inch TP Q6HR [facility] Stop: 12/19/18 00:00 Last Admin: 11/02/18 06:04 Dose: 2 inch Prednisolone Acetate (Pred Forte 1% Ophth Susp) 2 drop EACH EYE TID [facility] Stop: 12/19/18 08:59 Last Admin: 11/02/18 08:18 Dose: 2 drop Risperidone (Risperdal) 1 mg PO HS NANCY; Protocol Stop: 12/22/18 20:59 Last Admin: 11/01/18 20:55 Dose: Not Given Risperidone (Risperdal) 0.5 mg PO DAILY NANCY; Protocol Stop: 12/27/18 08:59 Last Admin: 11/02/18 08:18 Dose: 0.5 mg Zolpidem Tartrate (Ambien) 5 mg PO HS PRN PRN Reason: Insomnia Stop: 12/18/18 23:55 Last Admin: 10/29/18 21:07 Dose: 5 mg Physical Exam: 83 y/o female patient is very paranoid, agitated and is still resisting care. General: demented, NAD HEENT: NC/AT, PERRLA Neck: Supple, No JVD Lungs: CTAB Cardiovascular: RRR Abdomen: soft, non-tender Extremities: clear Neurological: no change Internal Medicine Assmt/Plan - Assessment Assessment: Dyslipidemia. Hypertension. Dementia. Acute psychosis. - Plan Plan: Continuation of care. Monitor Labs. Continue present meds as directed. Monitor vitals, Continue BP meds as directed. Monitor Diet/Nutritional support. Psych management per Psych. Pain Management. Fall precaution, frequent nursing rounds, and as needed restraints to prevent fall. Safety precaution. Supportive care. Continue collaborating with consulting specialists, case management and nursing team. Will Monitor patient and continue present care management. Nutritional Asmnt/Malnutr-PDOC - Dietary Evaluation Malnutrition Findings (Please click <Entered> for more info): see orders.
[2018-11-03] MEDS: NITROGLYCERIN OINT 2% 1 INCH PACKET TP SCH ×3 (00:05→17:25)
[2018-11-03] MEDS: Polyvinyl Alcohol Ophth Soln 15 mL Bottle EACH EYE SCH ×3 (00:05→17:26)
[2018-11-03] MEDS: Prednisolone 1% Ophth Susp 5 mL Bottle EACH EYE SCH ×3 (08:51→21:09)
--- NOTE | 2018-11-03 11:42 | Internal Medicine Prog Note ---
Internal Medicine Subjective - Subjective Service Date: 11/03/18 Patient seen and examined:: with staff Patient is:: awake, arousable, in bed, talking, agitated, confused Patient Complaints of:: other (Aggressive behavior.) Per staff patient has:: no adverse event, no episodes of fall, refusing care Internal Medicine Objective - Results Result Diagrams: 10/23/18 07:15 10/23/18 07:15 Recent Labs: Laboratory Last Values WBC 5.8 Th/cmm (4.8-10.8) 10/23/18 07:15 RBC 4.61 Mil/cmm (3.80-5.20) 10/23/18 07:15 Hgb 14.9 gm/dL (12-16) 10/23/18 07:15 Hct 44.9 % (41.0-60) 10/23/18 07:15 MCV 97.3 fl (81-100) 10/23/18 07:15 MCH 32.3 pg (27.0-31.0) H 10/23/18 07:15 MCHC Differential 33.2 pg (28.0-36.0) 10/23/18 07:15 RDW 13.1 % (11.5-20.0) 10/23/18 07:15 Plt Count 264 Th/cmm (150-400) 10/23/18 07:15 MPV 8.6 fl 10/23/18 07:15 Neutrophils % 66.5 % (40.0-80.0) 10/23/18 07:15 Lymphocytes % 22.5 % (20.0-50.0) 10/23/18 07:15 Monocytes % 8.7 % (2.0-10.0) 10/23/18 07:15 Eosinophils % 2.0 % (0.0-5.0) 10/23/18 07:15 Basophils % 0.3 % (0.0-2.0) 10/23/18 07:15 PT 9.9 SECONDS (9.5-11.5) 10/19/18 20:40 INR 0.95 (0.5-1.4) 10/19/18 20:40 PTT (Actin FS) 25.0 SECONDS (26.0-38.0) L 10/19/18 20:40 Sodium 136 mEq/L (136-145) 10/23/18 07:15 Potassium 4.2 mEq/L (3.5-5.1) 10/23/18 07:15 Chloride 106 mEq/L (98-107) 10/23/18 07:15 Carbon Dioxide 21.7 mEq/L (21.0-31.0) 10/23/18 07:15 Anion Gap 12.5 (7.0-16.0) 10/23/18 07:15 BUN 26 mg/dL (7-25) H 10/23/18 07:15 Creatinine 0.8 mg/dL (0.6-1.2) 10/23/18 07:15 Est GFR ( Amer) TNP 10/23/18 07:15 Est GFR (Non-Af Amer) TNP 10/23/18 07:15 BUN/Creatinine Ratio 32.5 10/23/18 07:15 Glucose 106 mg/dL (70-105) H 10/23/18 07:15 Calcium 9.6 mg/dL (8.6-10.3) 10/23/18 07:15 Total Bilirubin 0.2 mg/dL (0.3-1.0) L 10/19/18 20:40 AST 14 U/L (13-39) 10/19/18 20:40 ALT 14 U/L (7-52) 10/19/18 20:40 Alkaline Phosphatase 87 U/L (34-104) 10/19/18 20:40 Total Protein 5.9 gm/dL (6.0-8.3) L 10/19/18 20:40 Albumin 3.4 gm/dL (3.7-5.3) L 10/19/18 20:40 Globulin 2.5 gm/dL 10/19/18 20:40 Albumin/Globulin Ratio 1.4 (1.0-1.8) 10/19/18 20:40 Triglycerides 65 mg/dL (<150) 10/19/18 20:40 Cholesterol 180 mg/dL (<200) 10/19/18 20:40 LDL Cholesterol Direct 129 mg/dL (75-193) 10/19/18 20:40 HDL Cholesterol 46 mg/dL (23-92) 10/19/18 20:40 Urine Source CLEAN C 10/19/18 19:50 Urine Color YELLOW 10/19/18 19:50 Urine Clarity CLEAR (CLEAR) 10/19/18 19:50 Urine pH 6.0 (4.6 - 8.0) 10/19/18 19:50 Ur Specific [place] 1.020 (1.005-1.030) 10/19/18 19:50 Urine Protein NEGATIVE mg/dL (NEGATIVE) 10/19/18 19:50 Urine Glucose (UA) NEGATIVE mg/dL (NEGATIVE) 10/19/18 19:50 Urine Ketones NEGATIVE mg/dL (NEGATIVE) 10/19/18 19:50 Urine Blood NEGATIVE (NEGATIVE) 10/19/18 19:50 Urine Nitrate NEGATIVE (NEGATIVE) 10/19/18 19:50 Urine Bilirubin NEGATIVE (NEGATIVE) 10/19/18 19:50 Urine Urobilinogen 0.2 E.U./dL (0.2 - 1.0) 10/19/18 19:50 Ur Leukocyte Esterase NEGATIVE (NEGATIVE) 10/19/18 19:50 Urine RBC 0-2 /hpf (0-5) 10/19/18 19:50 Urine WBC 2-5 /hpf (0-5) 10/19/18 19:50 Ur Epithelial Cells MODERATE /lpf (FEW) 10/19/18 19:50 Urine Bacteria 1+ /hpf (NONE SEEN) H 10/19/18 19:50 Urine Mucus FEW /lpf (FEW) 10/19/18 19:50 - Physical Exam Vitals and I&O: Vital Signs Temp 97.1 F 11/02/18 06:07 Pulse 64 11/03/18 05:30 Resp 20 11/02/18 19:48 BP 164/83 11/03/18 05:30 Pulse Ox 95 11/02/18 06:07 Active Medications: Current Medications Artificial Tears (Artificial Tears Ophth Soln) 2 drop EACH EYE Q6HR NANCY Stop: 12/19/18 00:00 Last Admin: 11/03/18 06:00 Dose: 2 drop Donepezil HCl (Aricept) 5 mg PO DAILY NANCY Stop: 12/19/18 08:59 Last Admin: 11/03/18 08:51 Dose: 5 mg Gabapentin (Neurontin) 100 mg PO Q8HR NANCY Stop: 12/19/18 04:59 Last Admin: 11/03/18 05:00 Dose: 100 mg Lorazepam (Ativan) 1 mg PO Q4H PRN; Protocol PRN Reason: Anxiety Stop: 12/18/18 23:32 Last Admin: 10/25/18 21:04 Dose: 1 mg Nitroglycerin (Nitro-Bid) 2 inch TP Q6HR NANCY Stop: 12/19/18 00:00 Last Admin: 11/03/18 05:30 Dose: 2 inch Prednisolone Acetate (Pred Forte 1% Ophth Susp) 2 drop EACH EYE TID NANCY Stop: 12/19/18 08:59 Last Admin: 11/03/18 08:51 Dose: Not Given Risperidone (Risperdal) 1 mg PO HS NANCY; Protocol Stop: 12/22/18 20:59 Last Admin: 11/02/18 21:01 Dose: 1 mg Risperidone (Risperdal) 0.5 mg PO DAILY NANCY; Protocol Stop: 12/27/18 08:59 Last Admin: 11/03/18 08:51 Dose: 0.5 mg Zolpidem Tartrate (Ambien) 5 mg PO HS PRN PRN Reason: Insomnia Stop: 12/18/18 23:55 Last Admin: 11/02/18 21:01 Dose: 5 mg Physical Exam: 83 y/o female patient is still very paranoid, agitated and is resisting care. General: demented, NAD HEENT: NC/AT, PERRLA Neck: Supple, No JVD Lungs: CTAB Cardiovascular: RRR Abdomen: soft, non-tender Extremities: clear Neurological: no change Internal Medicine Assmt/Plan - Assessment Assessment: Dyslipidemia. Hypertension. Dementia. Acute psychosis. - Plan Plan: Continuation of care. Monitor Labs. Continue present meds as directed. Monitor vitals, Continue BP meds as directed. Monitor Diet/Nutritional support. Psych management per Psych. Pain Management. Fall precaution, frequent nursing rounds, and as needed restraints to prevent fall. Safety precaution. Supportive care. Continue collaborating with consulting specialists, case management and nursing team. Will Monitor patient and continue present care management. Nutritional Asmnt/Malnutr-PDOC - Dietary Evaluation Malnutrition Findings (Please click <Entered> for more info): see orders.
--- NOTE | 2018-11-03 17:23 | Progress Notes ---
DATE: 11/03/2018 SUBJECTIVE: Chart was reviewed and the patient interviewed. Also discussed the patient's condition with the staff and reviewed records and labs. The patient continued to be restless and confused. The patient also is suspicious and is still paranoid. The patient also is still having mood swings and in irritable mood and she is agitated. Otherwise, the patient is compliant with taking her medications with no side effects of medications. ASSESSMENT: The patient is still confused and is still restless and agitated and needs placement. TREATMENT PLAN: Continue current medications and continue to work on placement issue and discharge plans. JOB# [id number]
[2018-11-04] MEDS: Polyvinyl Alcohol Ophth Soln 15 mL Bottle EACH EYE SCH ×2 (00:19→06:03)
[2018-11-04] MEDS: NITROGLYCERIN OINT 2% 1 INCH PACKET TP SCH ×2 (00:20→06:03)
[2018-11-04] MEDS: Prednisolone 1% Ophth Susp 5 mL Bottle EACH EYE SCH ×2 (09:51→21:18)
--- NOTE | 2018-11-04 13:10 | Internal Medicine Prog Note ---
Internal Medicine Subjective - Subjective Service Date: 11/04/18 Patient seen and examined:: with staff Patient is:: awake, arousable, in bed, talking, agitated, confused Patient Complaints of:: other (Aggressive behavior.) Per staff patient has:: no adverse event, no episodes of fall, refusing care Internal Medicine Objective - Results Result Diagrams: 10/23/18 07:15 10/23/18 07:15 Recent Labs: Laboratory Last Values WBC 5.8 Th/cmm (4.8-10.8) 10/23/18 07:15 RBC 4.61 Mil/cmm (3.80-5.20) 10/23/18 07:15 Hgb 14.9 gm/dL (12-16) 10/23/18 07:15 Hct 44.9 % (41.0-60) 10/23/18 07:15 MCV 97.3 fl (81-100) 10/23/18 07:15 MCH 32.3 pg (27.0-31.0) H 10/23/18 07:15 MCHC Differential 33.2 pg (28.0-36.0) 10/23/18 07:15 RDW 13.1 % (11.5-20.0) 10/23/18 07:15 Plt Count 264 Th/cmm (150-400) 10/23/18 07:15 MPV 8.6 fl 10/23/18 07:15 Neutrophils % 66.5 % (40.0-80.0) 10/23/18 07:15 Lymphocytes % 22.5 % (20.0-50.0) 10/23/18 07:15 Monocytes % 8.7 % (2.0-10.0) 10/23/18 07:15 Eosinophils % 2.0 % (0.0-5.0) 10/23/18 07:15 Basophils % 0.3 % (0.0-2.0) 10/23/18 07:15 PT 9.9 SECONDS (9.5-11.5) 10/19/18 20:40 INR 0.95 (0.5-1.4) 10/19/18 20:40 PTT (Actin FS) 25.0 SECONDS (26.0-38.0) L 10/19/18 20:40 Sodium 136 mEq/L (136-145) 10/23/18 07:15 Potassium 4.2 mEq/L (3.5-5.1) 10/23/18 07:15 Chloride 106 mEq/L (98-107) 10/23/18 07:15 Carbon Dioxide 21.7 mEq/L (21.0-31.0) 10/23/18 07:15 Anion Gap 12.5 (7.0-16.0) 10/23/18 07:15 BUN 26 mg/dL (7-25) H 10/23/18 07:15 Creatinine 0.8 mg/dL (0.6-1.2) 10/23/18 07:15 Est GFR ( Amer) TNP 10/23/18 07:15 Est GFR (Non-Af Amer) TNP 10/23/18 07:15 BUN/Creatinine Ratio 32.5 10/23/18 07:15 Glucose 106 mg/dL (70-105) H 10/23/18 07:15 Calcium 9.6 mg/dL (8.6-10.3) 10/23/18 07:15 Total Bilirubin 0.2 mg/dL (0.3-1.0) L 10/19/18 20:40 AST 14 U/L (13-39) 10/19/18 20:40 ALT 14 U/L (7-52) 10/19/18 20:40 Alkaline Phosphatase 87 U/L (34-104) 10/19/18 20:40 Total Protein 5.9 gm/dL (6.0-8.3) L 10/19/18 20:40 Albumin 3.4 gm/dL (3.7-5.3) L 10/19/18 20:40 Globulin 2.5 gm/dL 10/19/18 20:40 Albumin/Globulin Ratio 1.4 (1.0-1.8) 10/19/18 20:40 Triglycerides 65 mg/dL (<150) 10/19/18 20:40 Cholesterol 180 mg/dL (<200) 10/19/18 20:40 LDL Cholesterol Direct 129 mg/dL (75-193) 10/19/18 20:40 HDL Cholesterol 46 mg/dL (23-92) 10/19/18 20:40 Urine Source CLEAN C 10/19/18 19:50 Urine Color YELLOW 10/19/18 19:50 Urine Clarity CLEAR (CLEAR) 10/19/18 19:50 Urine pH 6.0 (4.6 - 8.0) 10/19/18 19:50 Ur Specific [place] 1.020 (1.005-1.030) 10/19/18 19:50 Urine Protein NEGATIVE mg/dL (NEGATIVE) 10/19/18 19:50 Urine Glucose (UA) NEGATIVE mg/dL (NEGATIVE) 10/19/18 19:50 Urine Ketones NEGATIVE mg/dL (NEGATIVE) 10/19/18 19:50 Urine Blood NEGATIVE (NEGATIVE) 10/19/18 19:50 Urine Nitrate NEGATIVE (NEGATIVE) 10/19/18 19:50 Urine Bilirubin NEGATIVE (NEGATIVE) 10/19/18 19:50 Urine Urobilinogen 0.2 E.U./dL (0.2 - 1.0) 10/19/18 19:50 Ur Leukocyte Esterase NEGATIVE (NEGATIVE) 10/19/18 19:50 Urine RBC 0-2 /hpf (0-5) 10/19/18 19:50 Urine WBC 2-5 /hpf (0-5) 10/19/18 19:50 Ur Epithelial Cells MODERATE /lpf (FEW) 10/19/18 19:50 Urine Bacteria 1+ /hpf (NONE SEEN) H 10/19/18 19:50 Urine Mucus FEW /lpf (FEW) 10/19/18 19:50 - Physical Exam Vitals and I&O: Vital Signs Temp 97.8 F 11/04/18 06:12 Pulse 59 11/04/18 06:12 Resp 20 11/04/18 08:00 BP 145/72 11/04/18 06:12 Pulse Ox 97 11/04/18 06:12 Intake & Output 11/03/18 11/04/18 11/04/18 18:59 06:59 18:59 Intake Total 240 Balance 240 Intake: Oral 240 Other: # Voids 2 # Bowel Movements 0 Active Medications: Current Medications Artificial Tears (Artificial Tears Ophth Soln) 2 drop EACH EYE Q6HR [facility] Stop: 12/19/18 00:00 Last Admin: 11/04/18 06:03 Dose: 2 drop Donepezil HCl (Aricept) 5 mg PO DAILY ANNCY Stop: 12/19/18 08:59 Last Admin: 11/04/18 09:51 Dose: 5 mg Gabapentin (Neurontin) 100 mg PO Q8HR NANCY Stop: 12/19/18 04:59 Last Admin: 11/04/18 05:10 Dose: 100 mg Lorazepam (Ativan) 1 mg PO Q4H PRN; Protocol PRN Reason: Anxiety Stop: 12/18/18 23:32 Last Admin: 10/25/18 21:04 Dose: 1 mg Nitroglycerin (Nitro-Bid) 2 inch TP Q6HR NANCY Stop: 12/19/18 00:00 Last Admin: 11/04/18 06:03 Dose: Not Given Prednisolone Acetate (Pred Forte 1% Ophth Susp) 2 drop EACH EYE TID NANCY Stop: 12/19/18 08:59 Last Admin: 11/04/18 09:51 Dose: 2 drop Risperidone (Risperdal) 1 mg PO HS NANCY; Protocol Stop: 12/22/18 20:59 Last Admin: 11/03/18 21:10 Dose: 1 mg Risperidone (Risperdal) 0.5 mg PO DAILY NANCY; Protocol Stop: 12/27/18 08:59 Last Admin: 11/04/18 09:53 Dose: 0.5 mg Zolpidem Tartrate (Ambien) 5 mg PO HS PRN PRN Reason: Insomnia Stop: 12/18/18 23:55 Last Admin: 11/03/18 21:10 Dose: 5 mg Physical Exam: 83 y/o female patient is confused, remains paranoid and agitated, still is resisting care. General: demented, NAD HEENT: NC/AT, PERRLA Neck: Supple, No JVD Lungs: CTAB Cardiovascular: RRR Abdomen: soft, non-tender Extremities: clear Neurological: no change Internal Medicine Assmt/Plan - Assessment Assessment: Dyslipidemia. Hypertension. Dementia. Acute psychosis. - Plan Plan: Continuation of care. Monitor Labs. Continue present meds as directed. Monitor vitals, Continue BP meds as directed. Monitor Diet/Nutritional support. Psych management per Psych. Pain Management. Fall precaution, frequent nursing rounds, and as needed restraints to prevent fall. Safety precaution. Supportive care. Continue collaborating with consulting specialists, case management and nursing team. Will Monitor patient and continue present care management. Nutritional Asmnt/Malnutr-PDOC - Dietary Evaluation Malnutrition Findings (Please click <Entered> for more info): see orders.
--- NOTE | 2018-11-04 23:31 | Progress Notes ---
DATE: 11/04/2018 SUBJECTIVE: Chart was reviewed and the patient interviewed. Also discussed the patient's condition with the staff and reviewed records and labs.. The patient continued to be confused. The patient also is still restless and agitated and having episodes of irritability and anger. On the other hand, the patient is compliant with taking her medications and easier to redirect her. ASSESSMENT: The patient is still psychotic, but showing some improvement, but the patient still needs placement. TREATMENT PLAN: Continue to monitor her behavior and her condition closely. Also, continue to work on things, coping and continue to follow up. [facility]# [id number]
[2018-11-05] MEDS: NITROGLYCERIN OINT 2% 1 INCH PACKET TP SCH ×5 (00:28→19:00)
[2018-11-05] MEDS: Polyvinyl Alcohol Ophth Soln 15 mL Bottle EACH EYE SCH ×4 (00:28→17:24)
[2018-11-05] MEDS: Prednisolone 1% Ophth Susp 5 mL Bottle EACH EYE SCH ×3 (09:27→21:32)
--- NOTE | 2018-11-05 15:59 | Progress Notes ---
DATE: 11/05/2018 Case was discussed with staff of the patient, reviewed records. Covering for Dr. Davis. This is a well known case to me. I have seen her many times covering for Dr. Davis. The patient continues to be confused, agitated, and restless with episode of anger outbursts. She is compliant with the medication with no side effects. There have been some improvement reported and working also on discharge plan and unable to participate in meaningful conversation or make safe plan for self-care. We will continue to work with the patient in group therapy, milieu therapy, and adjust medication as needed. JOB# [id number] ROBERT
--- NOTE | 2018-11-05 20:27 | Progress Notes ---
DATE: 11/02/2018 SUBJECTIVE: Chart was reviewed and the patient interviewed. Also discussed the patient's condition with the staff and reviewed the records and labs. The patient continued to be confused. The patient also is anxious and restless and paranoid. The patient also is interacting minimally with others. The patient denies any intention to harm herself or others, but the patient is still confused and restless and wandering around the unit aimlessly. Otherwise, the patient is more compliant with taking medications with no side effects of medications. ASSESSMENT: The patient is still confused and needs placement. TREATMENT PLAN: Continue monitoring her behavior and her condition closely. Also, continue gabapentin in a dose of 100 mg 3 times a day and Aricept 5 mg daily and Risperdal 1 mg at bedtime and 0.5 mg in the morning. It seems that placement is a problem since no place want to take the patient while she has no Medicare days left. At the same time, we will continue monitoring her behavior and condition closely and we will continue to follow up. [facility]# [id number]
[2018-11-06] MEDS: NITROGLYCERIN OINT 2% 1 INCH PACKET TP SCH ×4 (00:39→17:02)
[2018-11-06] MEDS: Polyvinyl Alcohol Ophth Soln 15 mL Bottle EACH EYE SCH ×4 (00:42→17:02)
--- NOTE | 2018-11-06 07:34 | Internal Medicine Prog Note ---
Internal Medicine Subjective - Subjective Service Date: 11/06/18 Patient is:: awake, arousable, in bed, talking, agitated, confused Patient Complaints of:: other (Aggressive behavior.) Per staff patient has:: no adverse event, no episodes of fall, refusing care Internal Medicine Objective - Results Result Diagrams: 10/23/18 07:15 10/23/18 07:15 Recent Labs: Laboratory Last Values WBC 5.8 Th/cmm (4.8-10.8) 10/23/18 07:15 RBC 4.61 Mil/cmm (3.80-5.20) 10/23/18 07:15 Hgb 14.9 gm/dL (12-16) 10/23/18 07:15 Hct 44.9 % (41.0-60) 10/23/18 07:15 MCV 97.3 fl (81-100) 10/23/18 07:15 MCH 32.3 pg (27.0-31.0) H 10/23/18 07:15 MCHC Differential 33.2 pg (28.0-36.0) 10/23/18 07:15 RDW 13.1 % (11.5-20.0) 10/23/18 07:15 Plt Count 264 Th/cmm (150-400) 10/23/18 07:15 MPV 8.6 fl 10/23/18 07:15 Neutrophils % 66.5 % (40.0-80.0) 10/23/18 07:15 Lymphocytes % 22.5 % (20.0-50.0) 10/23/18 07:15 Monocytes % 8.7 % (2.0-10.0) 10/23/18 07:15 Eosinophils % 2.0 % (0.0-5.0) 10/23/18 07:15 Basophils % 0.3 % (0.0-2.0) 10/23/18 07:15 PT 9.9 SECONDS (9.5-11.5) 10/19/18 20:40 INR 0.95 (0.5-1.4) 10/19/18 20:40 PTT (Actin FS) 25.0 SECONDS (26.0-38.0) L 10/19/18 20:40 Sodium 136 mEq/L (136-145) 10/23/18 07:15 Potassium 4.2 mEq/L (3.5-5.1) 10/23/18 07:15 Chloride 106 mEq/L (98-107) 10/23/18 07:15 Carbon Dioxide 21.7 mEq/L (21.0-31.0) 10/23/18 07:15 Anion Gap 12.5 (7.0-16.0) 10/23/18 07:15 BUN 26 mg/dL (7-25) H 10/23/18 07:15 Creatinine 0.8 mg/dL (0.6-1.2) 10/23/18 07:15 Est GFR ( Amer) TNP 10/23/18 07:15 Est GFR (Non-Af Amer) TNP 10/23/18 07:15 BUN/Creatinine Ratio 32.5 10/23/18 07:15 Glucose 106 mg/dL (70-105) H 10/23/18 07:15 Calcium 9.6 mg/dL (8.6-10.3) 10/23/18 07:15 Total Bilirubin 0.2 mg/dL (0.3-1.0) L 10/19/18 20:40 AST 14 U/L (13-39) 10/19/18 20:40 ALT 14 U/L (7-52) 10/19/18 20:40 Alkaline Phosphatase 87 U/L (34-104) 10/19/18 20:40 Total Protein 5.9 gm/dL (6.0-8.3) L 10/19/18 20:40 Albumin 3.4 gm/dL (3.7-5.3) L 10/19/18 20:40 Globulin 2.5 gm/dL 10/19/18 20:40 Albumin/Globulin Ratio 1.4 (1.0-1.8) 10/19/18 20:40 Triglycerides 65 mg/dL (<150) 10/19/18 20:40 Cholesterol 180 mg/dL (<200) 10/19/18 20:40 LDL Cholesterol Direct 129 mg/dL (75-193) 10/19/18 20:40 HDL Cholesterol 46 mg/dL (23-92) 10/19/18 20:40 Urine Source CLEAN C 10/19/18 19:50 Urine Color YELLOW 10/19/18 19:50 Urine Clarity CLEAR (CLEAR) 10/19/18 19:50 Urine pH 6.0 (4.6 - 8.0) 10/19/18 19:50 Ur Specific [place] 1.020 (1.005-1.030) 10/19/18 19:50 Urine Protein NEGATIVE mg/dL (NEGATIVE) 10/19/18 19:50 Urine Glucose (UA) NEGATIVE mg/dL (NEGATIVE) 10/19/18 19:50 Urine Ketones NEGATIVE mg/dL (NEGATIVE) 10/19/18 19:50 Urine Blood NEGATIVE (NEGATIVE) 10/19/18 19:50 Urine Nitrate NEGATIVE (NEGATIVE) 10/19/18 19:50 Urine Bilirubin NEGATIVE (NEGATIVE) 10/19/18 19:50 Urine Urobilinogen 0.2 E.U./dL (0.2 - 1.0) 10/19/18 19:50 Ur Leukocyte Esterase NEGATIVE (NEGATIVE) 10/19/18 19:50 Urine RBC 0-2 /hpf (0-5) 10/19/18 19:50 Urine WBC 2-5 /hpf (0-5) 10/19/18 19:50 Ur Epithelial Cells MODERATE /lpf (FEW) 10/19/18 19:50 Urine Bacteria 1+ /hpf (NONE SEEN) H 10/19/18 19:50 Urine Mucus FEW /lpf (FEW) 10/19/18 19:50 - Physical Exam Vitals and I&O: Vital Signs Temp 97.6 F 11/06/18 06:17 Pulse 72 11/06/18 06:37 Resp 18 11/06/18 06:17 BP 123/66 11/06/18 06:37 Pulse Ox 97 11/06/18 06:17 Intake & Output 11/05/18 11/06/18 11/06/18 18:59 06:59 18:59 Intake Total 120 Balance 120 Intake: Oral 120 Other: # Voids 3 3 # Bowel Movements 0 Active Medications: Current Medications Artificial Tears (Artificial Tears Ophth Soln) 2 drop EACH EYE Q6HR NANCY Stop: 12/19/18 00:00 Last Admin: 11/06/18 06:37 Dose: 2 drop Donepezil HCl (Aricept) 5 mg PO DAILY NANCY Stop: 12/19/18 08:59 Last Admin: 11/05/18 09:26 Dose: Not Given Gabapentin (Neurontin) 100 mg PO Q8HR NANCY Stop: 12/19/18 04:59 Last Admin: 11/06/18 05:18 Dose: Not Given Lorazepam (Ativan) 1 mg PO Q4H PRN; Protocol PRN Reason: Anxiety Stop: 12/18/18 23:32 Last Admin: 11/05/18 21:31 Dose: 1 mg Nitroglycerin (Nitro-Bid) 2 inch TP Q6HR NANCY Stop: 12/19/18 00:00 Last Admin: 11/06/18 06:37 Dose: 2 inch Prednisolone Acetate (Pred Forte 1% Ophth Susp) 2 drop EACH EYE TID NANCY Stop: 12/19/18 08:59 Last Admin: 11/05/18 21:32 Dose: 2 drop Risperidone (Risperdal) 1 mg PO HS NANCY; Protocol Stop: 12/22/18 20:59 Last Admin: 11/05/18 21:31 Dose: 1 mg Risperidone (Risperdal) 0.5 mg PO DAILY NANCY; Protocol Stop: 12/27/18 08:59 Last Admin: 11/05/18 09:26 Dose: Not Given Zolpidem Tartrate (Ambien) 5 mg PO HS PRN PRN Reason: Insomnia Stop: 12/18/18 23:55 Last Admin: 11/05/18 21:31 Dose: 5 mg General: demented, NAD HEENT: NC/AT, PERRLA Neck: Supple, No JVD Lungs: CTAB Cardiovascular: RRR Abdomen: soft, non-tender Extremities: clear Neurological: no change Internal Medicine Assmt/Plan - Assessment Assessment: Dyslipidemia. Hypertension. Dementia. Acute psychosis. - Plan Plan: Continuation of care. Monitor Labs. Continue present meds as directed. Monitor vitals, Continue BP meds as directed. Monitor Diet/Nutritional support. Psych management per Psych. Pain Management. Fall precaution, frequent nursing rounds, and as needed restraints to prevent fall. Safety precaution. Supportive care. Continue collaborating with consulting specialists, case management and nursing team. Will Monitor patient and continue current treatment plan as ordered.
[2018-11-06] MEDS: Prednisolone 1% Ophth Susp 5 mL Bottle EACH EYE SCH ×3 (12:42→22:01)
[2018-11-07] MEDS: Polyvinyl Alcohol Ophth Soln 15 mL Bottle EACH EYE SCH ×4 (00:53→17:00)
[2018-11-07] MEDS: NITROGLYCERIN OINT 2% 1 INCH PACKET TP SCH ×4 (00:55→16:59)
[2018-11-07] MEDS: Prednisolone 1% Ophth Susp 5 mL Bottle EACH EYE SCH ×4 (08:40→20:28)
--- NOTE | 2018-11-07 10:25 | Progress Notes ---
DATE: SUBJECTIVE: Chart was reviewed and the patient interviewed. Also discussed the patient's condition with the staff and reviewed records and labs. The patient is guarded and is still easily agitated, but easier to redirect her. The patient also is still having episodes of anger, but seems to be less than before. She feels that she still needs close monitoring. Otherwise, the patient is cooperative with her treatment and complaint with taking her medications, with no side effects of medications. ASSESSMENT: The patient is still psychotic and needs close monitoring. TREATMENT PLAN: Continue to monitor behavior. Also, continue working on placement issue and discharge plans. JOB# [id number]
--- NOTE | 2018-11-07 16:44 | Progress Notes ---
DATE: 11/07/2018 SUBJECTIVE: The patient was seen in her room. The patient is awake, easily arousable. Appears to be agitated, easily gets frustrated and appears to be guarded. Otherwise, the patient appears to be in no acute distress with episodes of agitation and confusion. OBJECTIVE: VITAL SIGNS: Temperature 99.5, heart rate 86, blood pressure 153/88, respirations 20, 99% on room air. HEENT: Head is atraumatic and normocephalic. Eyes: Bilateral conjunctivae are clear. Bilateral pupils are equally round and reactive. NECK: Supple. No JVD. CARDIOVASCULAR: S1, S2, without murmur. PULMONARY: Clear to auscultation. GASTROINTESTINAL: Soft and nontender without guarding. Positive bowel sounds. MUSCULOSKELETAL: No clubbing. No cyanosis noted. ASSESSMENT: 1. Dementia. 2. Coronary artery disease. 3. Osteoarthritis. PLAN: We will keep the patient to inpatient Psychiatric Unit. We will follow up with psychiatrist to monitor the patient's condition and behavior. Treatment plans were discussed with the patient's nurse. Treatment plans were discussed with Dr. Galicia. JOB# [id number]
--- NOTE | 2018-11-07 21:51 | Progress Notes ---
DATE: 11/07/2018 SUBJECTIVE: Case was discussed with staff of the patient, reviewed records. This is a well-known case to me. I have seen her before covering for Dr. Davis. The patient continues to be easily agitated, but easier to redirect. She continues to be unpredictable, impulsive, getting irritable and angry sometimes, but less than before. She continues to need close monitoring. She is generally cooperative with treatment. She has been compliant with the medication with no side effects, no sedation, no nausea, and no extrapyramidal symptoms. We will continue to work with the patient in group therapy, milieu therapy, and adjust the medications as needed. JOB# [id number]
[2018-11-08] MEDS: NITROGLYCERIN OINT 2% 1 INCH PACKET TP SCH ×4 (00:22→17:47)
[2018-11-08] MEDS: Polyvinyl Alcohol Ophth Soln 15 mL Bottle EACH EYE SCH ×4 (00:23→17:47)
[2018-11-08] MEDS: Prednisolone 1% Ophth Susp 5 mL Bottle EACH EYE SCH ×3 (09:03→21:03)
--- NOTE | 2018-11-08 10:11 | Internal Medicine Prog Note ---
Internal Medicine Subjective - Subjective Patient seen and examined:: with staff Patient is:: awake, arousable, in wheelchair, talking, agitated, confused Patient Complaints of:: other (Aggressive behavior.) Per staff patient has:: no adverse event, no episodes of fall, refusing care Internal Medicine Objective - Results Result Diagrams: 10/23/18 07:15 10/23/18 07:15 Recent Labs: Laboratory Last Values WBC 5.8 Th/cmm (4.8-10.8) 10/23/18 07:15 RBC 4.61 Mil/cmm (3.80-5.20) 10/23/18 07:15 Hgb 14.9 gm/dL (12-16) 10/23/18 07:15 Hct 44.9 % (41.0-60) 10/23/18 07:15 MCV 97.3 fl (81-100) 10/23/18 07:15 MCH 32.3 pg (27.0-31.0) H 10/23/18 07:15 MCHC Differential 33.2 pg (28.0-36.0) 10/23/18 07:15 RDW 13.1 % (11.5-20.0) 10/23/18 07:15 Plt Count 264 Th/cmm (150-400) 10/23/18 07:15 MPV 8.6 fl 10/23/18 07:15 Neutrophils % 66.5 % (40.0-80.0) 10/23/18 07:15 Lymphocytes % 22.5 % (20.0-50.0) 10/23/18 07:15 Monocytes % 8.7 % (2.0-10.0) 10/23/18 07:15 Eosinophils % 2.0 % (0.0-5.0) 10/23/18 07:15 Basophils % 0.3 % (0.0-2.0) 10/23/18 07:15 PT 9.9 SECONDS (9.5-11.5) 10/19/18 20:40 INR 0.95 (0.5-1.4) 10/19/18 20:40 PTT (Actin FS) 25.0 SECONDS (26.0-38.0) L 10/19/18 20:40 Sodium 136 mEq/L (136-145) 10/23/18 07:15 Potassium 4.2 mEq/L (3.5-5.1) 10/23/18 07:15 Chloride 106 mEq/L (98-107) 10/23/18 07:15 Carbon Dioxide 21.7 mEq/L (21.0-31.0) 10/23/18 07:15 Anion Gap 12.5 (7.0-16.0) 10/23/18 07:15 BUN 26 mg/dL (7-25) H 10/23/18 07:15 Creatinine 0.8 mg/dL (0.6-1.2) 10/23/18 07:15 Est GFR ( Amer) TNP 10/23/18 07:15 Est GFR (Non-Af Amer) TNP 10/23/18 07:15 BUN/Creatinine Ratio 32.5 10/23/18 07:15 Glucose 106 mg/dL (70-105) H 10/23/18 07:15 Calcium 9.6 mg/dL (8.6-10.3) 10/23/18 07:15 Total Bilirubin 0.2 mg/dL (0.3-1.0) L 10/19/18 20:40 AST 14 U/L (13-39) 10/19/18 20:40 ALT 14 U/L (7-52) 10/19/18 20:40 Alkaline Phosphatase 87 U/L (34-104) 10/19/18 20:40 Total Protein 5.9 gm/dL (6.0-8.3) L 10/19/18 20:40 Albumin 3.4 gm/dL (3.7-5.3) L 10/19/18 20:40 Globulin 2.5 gm/dL 10/19/18 20:40 Albumin/Globulin Ratio 1.4 (1.0-1.8) 10/19/18 20:40 Triglycerides 65 mg/dL (<150) 10/19/18 20:40 Cholesterol 180 mg/dL (<200) 10/19/18 20:40 LDL Cholesterol Direct 129 mg/dL (75-193) 10/19/18 20:40 HDL Cholesterol 46 mg/dL (23-92) 10/19/18 20:40 Urine Source CLEAN C 10/19/18 19:50 Urine Color YELLOW 10/19/18 19:50 Urine Clarity CLEAR (CLEAR) 10/19/18 19:50 Urine pH 6.0 (4.6 - 8.0) 10/19/18 19:50 Ur Specific [place] 1.020 (1.005-1.030) 10/19/18 19:50 Urine Protein NEGATIVE mg/dL (NEGATIVE) 10/19/18 19:50 Urine Glucose (UA) NEGATIVE mg/dL (NEGATIVE) 10/19/18 19:50 Urine Ketones NEGATIVE mg/dL (NEGATIVE) 10/19/18 19:50 Urine Blood NEGATIVE (NEGATIVE) 10/19/18 19:50 Urine Nitrate NEGATIVE (NEGATIVE) 10/19/18 19:50 Urine Bilirubin NEGATIVE (NEGATIVE) 10/19/18 19:50 Urine Urobilinogen 0.2 E.U./dL (0.2 - 1.0) 10/19/18 19:50 Ur Leukocyte Esterase NEGATIVE (NEGATIVE) 10/19/18 19:50 Urine RBC 0-2 /hpf (0-5) 10/19/18 19:50 Urine WBC 2-5 /hpf (0-5) 10/19/18 19:50 Ur Epithelial Cells MODERATE /lpf (FEW) 10/19/18 19:50 Urine Bacteria 1+ /hpf (NONE SEEN) H 10/19/18 19:50 Urine Mucus FEW /lpf (FEW) 10/19/18 19:50 - Physical Exam Vitals and I&O: Vital Signs Temp 98.6 F 11/07/18 21:23 Pulse 83 11/08/18 00:22 Resp 18 11/08/18 07:47 BP 155/69 11/07/18 21:23 Pulse Ox 97 11/07/18 21:23 Intake & Output 11/07/18 11/08/18 11/08/18 18:59 06:59 18:59 Intake Total 600 120 Balance 600 120 Intake: Oral 360 120 Other 240 Other: # Voids 3 2 # Bowel Movements 0 0 Active Medications: Current Medications Artificial Tears (Artificial Tears Ophth Soln) 2 drop EACH EYE Q6HR [facility] Stop: 12/19/18 00:00 Last Admin: 11/08/18 06:00 Dose: Not Given Donepezil HCl (Aricept) 5 mg PO DAILY [facility] Stop: 12/19/18 08:59 Last Admin: 11/08/18 09:03 Dose: 5 mg Gabapentin (Neurontin) 100 mg PO Q8HR [facility] Stop: 12/19/18 04:59 Last Admin: 11/08/18 05:34 Dose: Not Given Lorazepam (Ativan) 1 mg PO Q4H PRN; Protocol PRN Reason: Anxiety Stop: 12/18/18 23:32 Last Admin: 11/05/18 21:31 Dose: 1 mg Nitroglycerin (Nitro-Bid) 2 inch TP Q6HR [facility] Stop: 12/19/18 00:00 Last Admin: 11/08/18 06:00 Dose: Not Given Prednisolone Acetate (Pred Forte 1% Ophth Susp) 2 drop EACH EYE TID [facility] Stop: 12/19/18 08:59 Last Admin: 11/08/18 09:03 Dose: Not Given Risperidone (Risperdal) 1 mg PO HS [facility]Y; Protocol Stop: 12/22/18 20:59 Last Admin: 11/07/18 20:29 Dose: 1 mg Risperidone (Risperdal) 0.5 mg PO DAILY [facility]; Protocol Stop: 12/27/18 08:59 Last Admin: 11/08/18 09:03 Dose: 0.5 mg Zolpidem Tartrate (Ambien) 5 mg PO HS PRN PRN Reason: Insomnia Stop: 12/18/18 23:55 Last Admin: 11/05/18 21:31 Dose: 5 mg General: demented, NAD HEENT: NC/AT, PERRLA Neck: Supple, No JVD Lungs: CTAB Cardiovascular: RRR Abdomen: soft, non-tender Extremities: clear Neurological: no change Internal Medicine Assmt/Plan - Assessment Assessment: Dyslipidemia. Hypertension. Dementia. Acute psychosis. - Plan Plan: Continue plan of care Monitor vitals and behavior continue inpatient psych Fall precaution Continue to collaborate with consulting specialist and interdisciplinary team.
--- NOTE | 2018-11-08 23:47 | Progress Notes ---
DATE: 11/08/2018 Case was discussed with staff of the patient, reviewed records. The patient continues to be confused, internally preoccupied, unable to make safe plan for self-care. Continues to need redirection. She is compliant with the medication. She is still impulsive, unpredictable, irritable and no side effects of the medication, no sedation, no nausea. Also, working on placement for this patient and we will to work with the patient in group therapy, milieu therapy, and adjust the medication as needed. JOB# [id number]
[2018-11-09] MEDS: Polyvinyl Alcohol Ophth Soln 15 mL Bottle EACH EYE SCH ×4 (00:12→18:10)
[2018-11-09] MEDS: NITROGLYCERIN OINT 2% 1 INCH PACKET TP SCH ×4 (00:12→18:11)
[2018-11-09] MEDS: Prednisolone 1% Ophth Susp 5 mL Bottle EACH EYE SCH ×3 (08:31→21:17)
--- NOTE | 2018-11-09 10:09 | Internal Medicine Prog Note ---
Internal Medicine Subjective - Subjective Service Date: 11/09/18 Patient seen and examined:: with staff Patient is:: awake, arousable, in wheelchair, talking, agitated, confused Patient Complaints of:: other (Aggressive behavior.) Per staff patient has:: no adverse event, no episodes of fall, refusing care Internal Medicine Objective - Results Result Diagrams: 10/23/18 07:15 10/23/18 07:15 Recent Labs: Laboratory Last Values WBC 5.8 Th/cmm (4.8-10.8) 10/23/18 07:15 RBC 4.61 Mil/cmm (3.80-5.20) 10/23/18 07:15 Hgb 14.9 gm/dL (12-16) 10/23/18 07:15 Hct 44.9 % (41.0-60) 10/23/18 07:15 MCV 97.3 fl (81-100) 10/23/18 07:15 MCH 32.3 pg (27.0-31.0) H 10/23/18 07:15 MCHC Differential 33.2 pg (28.0-36.0) 10/23/18 07:15 RDW 13.1 % (11.5-20.0) 10/23/18 07:15 Plt Count 264 Th/cmm (150-400) 10/23/18 07:15 MPV 8.6 fl 10/23/18 07:15 Neutrophils % 66.5 % (40.0-80.0) 10/23/18 07:15 Lymphocytes % 22.5 % (20.0-50.0) 10/23/18 07:15 Monocytes % 8.7 % (2.0-10.0) 10/23/18 07:15 Eosinophils % 2.0 % (0.0-5.0) 10/23/18 07:15 Basophils % 0.3 % (0.0-2.0) 10/23/18 07:15 PT 9.9 SECONDS (9.5-11.5) 10/19/18 20:40 INR 0.95 (0.5-1.4) 10/19/18 20:40 PTT (Actin FS) 25.0 SECONDS (26.0-38.0) L 10/19/18 20:40 Sodium 136 mEq/L (136-145) 10/23/18 07:15 Potassium 4.2 mEq/L (3.5-5.1) 10/23/18 07:15 Chloride 106 mEq/L (98-107) 10/23/18 07:15 Carbon Dioxide 21.7 mEq/L (21.0-31.0) 10/23/18 07:15 Anion Gap 12.5 (7.0-16.0) 10/23/18 07:15 BUN 26 mg/dL (7-25) H 10/23/18 07:15 Creatinine 0.8 mg/dL (0.6-1.2) 10/23/18 07:15 Est GFR ( Amer) TNP 10/23/18 07:15 Est GFR (Non-Af Amer) TNP 10/23/18 07:15 BUN/Creatinine Ratio 32.5 10/23/18 07:15 Glucose 106 mg/dL (70-105) H 10/23/18 07:15 Calcium 9.6 mg/dL (8.6-10.3) 10/23/18 07:15 Total Bilirubin 0.2 mg/dL (0.3-1.0) L 10/19/18 20:40 AST 14 U/L (13-39) 10/19/18 20:40 ALT 14 U/L (7-52) 10/19/18 20:40 Alkaline Phosphatase 87 U/L (34-104) 10/19/18 20:40 Total Protein 5.9 gm/dL (6.0-8.3) L 10/19/18 20:40 Albumin 3.4 gm/dL (3.7-5.3) L 10/19/18 20:40 Globulin 2.5 gm/dL 10/19/18 20:40 Albumin/Globulin Ratio 1.4 (1.0-1.8) 10/19/18 20:40 Triglycerides 65 mg/dL (<150) 10/19/18 20:40 Cholesterol 180 mg/dL (<200) 10/19/18 20:40 LDL Cholesterol Direct 129 mg/dL (75-193) 10/19/18 20:40 HDL Cholesterol 46 mg/dL (23-92) 10/19/18 20:40 Urine Source CLEAN C 10/19/18 19:50 Urine Color YELLOW 10/19/18 19:50 Urine Clarity CLEAR (CLEAR) 10/19/18 19:50 Urine pH 6.0 (4.6 - 8.0) 10/19/18 19:50 Ur Specific [place] 1.020 (1.005-1.030) 10/19/18 19:50 Urine Protein NEGATIVE mg/dL (NEGATIVE) 10/19/18 19:50 Urine Glucose (UA) NEGATIVE mg/dL (NEGATIVE) 10/19/18 19:50 Urine Ketones NEGATIVE mg/dL (NEGATIVE) 10/19/18 19:50 Urine Blood NEGATIVE (NEGATIVE) 10/19/18 19:50 Urine Nitrate NEGATIVE (NEGATIVE) 10/19/18 19:50 Urine Bilirubin NEGATIVE (NEGATIVE) 10/19/18 19:50 Urine Urobilinogen 0.2 E.U./dL (0.2 - 1.0) 10/19/18 19:50 Ur Leukocyte Esterase NEGATIVE (NEGATIVE) 10/19/18 19:50 Urine RBC 0-2 /hpf (0-5) 10/19/18 19:50 Urine WBC 2-5 /hpf (0-5) 10/19/18 19:50 Ur Epithelial Cells MODERATE /lpf (FEW) 10/19/18 19:50 Urine Bacteria 1+ /hpf (NONE SEEN) H 10/19/18 19:50 Urine Mucus FEW /lpf (FEW) 10/19/18 19:50 - Physical Exam Vitals and I&O: Vital Signs Temp 98.6 F 11/08/18 20:51 Pulse 72 11/09/18 06:28 Resp 20 11/08/18 20:51 BP 123/68 11/09/18 06:28 Pulse Ox 95 11/08/18 20:51 Intake & Output 11/08/18 11/09/18 11/09/18 18:59 06:59 18:59 Intake Total 800 240 Balance 800 240 Intake: Oral 800 240 Other: # Voids 3 2 # Bowel Movements 1 Active Medications: Current Medications Artificial Tears (Artificial Tears Ophth Soln) 2 drop EACH EYE Q6HR [facility] Stop: 12/19/18 00:00 Last Admin: 11/09/18 06:29 Dose: 2 drop Donepezil HCl (Aricept) 5 mg PO DAILY [facility] Stop: 12/19/18 08:59 Last Admin: 11/09/18 08:30 Dose: 5 mg Gabapentin (Neurontin) 100 mg PO Q8HR [facility] Stop: 12/19/18 04:59 Last Admin: 11/09/18 05:00 Dose: 100 mg Lorazepam (Ativan) 1 mg PO Q4H PRN; Protocol PRN Reason: Anxiety Stop: 12/18/18 23:32 Last Admin: 11/09/18 00:00 Dose: 1 mg Nitroglycerin (Nitro-Bid) 2 inch TP Q6HR [facility] Stop: 12/19/18 00:00 Last Admin: 11/09/18 06:28 Dose: 2 inch Prednisolone Acetate (Pred Forte 1% Ophth Susp) 2 drop EACH EYE TID [facility] Stop: 12/19/18 08:59 Last Admin: 11/09/18 08:31 Dose: 2 drop Risperidone (Risperdal) 1 mg PO HS [facility]; Protocol Stop: 12/22/18 20:59 Last Admin: 11/08/18 21:03 Dose: 1 mg Risperidone (Risperdal) 0.5 mg PO DAILY [facility]; Protocol Stop: 12/27/18 08:59 Last Admin: 11/09/18 08:30 Dose: 0.5 mg Zolpidem Tartrate (Ambien) 5 mg PO HS PRN PRN Reason: Insomnia Stop: 12/18/18 23:55 Last Admin: 11/08/18 21:04 Dose: 5 mg Physical Exam: 83 y/o female patient is still very confused, remains paranoid and agitated, still is resisting care. General: demented, NAD HEENT: NC/AT, PERRLA Neck: Supple, No JVD Lungs: CTAB Cardiovascular: RRR Abdomen: soft, non-tender Extremities: clear Neurological: no change Internal Medicine Assmt/Plan - Assessment Assessment: Dyslipidemia. Hypertension. Dementia. Acute psychosis. - Plan Plan: Continuation of care. Monitor Labs. Continue present meds as directed. Monitor vitals, Continue BP meds as directed. Monitor Diet/Nutritional support. Psych management per Psych. Pain Management. Fall precaution, frequent nursing rounds, and as needed restraints to prevent fall. Safety precaution. Supportive care. Continue collaborating with consulting specialists, case management and nursing team. Will Monitor patient and continue present care management. Nutritional Asmnt/Malnutr-PDOC - Dietary Evaluation Malnutrition Findings (Please click <Entered> for more info): see orders.
--- NOTE | 2018-11-09 20:51 | Progress Notes ---
DATE: 11/09/2018 Case was discussed with staff of the patient, reviewed treatment plan and goals. The patient continues to be demented, confused, irritable, stays to herself, unable to make safe plan for self-care or participate in a meaningful conversation. Continues to have poor insight. No side effects of the medication, no sedation, no nausea, no extrapyramidal symptoms. We will continue outpatient group therapy, milieu therapy, and adjust the medications as needed. [facility]# [id number]
[2018-11-10] MEDS: NITROGLYCERIN OINT 2% 1 INCH PACKET TP SCH ×3 (00:18→16:02)
[2018-11-10] MEDS: Polyvinyl Alcohol Ophth Soln 15 mL Bottle EACH EYE SCH ×3 (00:31→16:03)
[2018-11-10] MEDS: Prednisolone 1% Ophth Susp 5 mL Bottle EACH EYE SCH ×3 (08:09→20:53)
--- NOTE | 2018-11-10 14:00 | Internal Medicine Prog Note ---
Internal Medicine Subjective - Subjective Service Date: 11/10/18 Patient seen and examined:: with staff Patient is:: awake, arousable, in wheelchair, talking, agitated, confused Patient Complaints of:: other (Aggressive behavior.) Per staff patient has:: no adverse event, no episodes of fall, refusing care Internal Medicine Objective - Results Result Diagrams: 10/23/18 07:15 10/23/18 07:15 Recent Labs: Laboratory Last Values WBC 5.8 Th/cmm (4.8-10.8) 10/23/18 07:15 RBC 4.61 Mil/cmm (3.80-5.20) 10/23/18 07:15 Hgb 14.9 gm/dL (12-16) 10/23/18 07:15 Hct 44.9 % (41.0-60) 10/23/18 07:15 MCV 97.3 fl (81-100) 10/23/18 07:15 MCH 32.3 pg (27.0-31.0) H 10/23/18 07:15 MCHC Differential 33.2 pg (28.0-36.0) 10/23/18 07:15 RDW 13.1 % (11.5-20.0) 10/23/18 07:15 Plt Count 264 Th/cmm (150-400) 10/23/18 07:15 MPV 8.6 fl 10/23/18 07:15 Neutrophils % 66.5 % (40.0-80.0) 10/23/18 07:15 Lymphocytes % 22.5 % (20.0-50.0) 10/23/18 07:15 Monocytes % 8.7 % (2.0-10.0) 10/23/18 07:15 Eosinophils % 2.0 % (0.0-5.0) 10/23/18 07:15 Basophils % 0.3 % (0.0-2.0) 10/23/18 07:15 PT 9.9 SECONDS (9.5-11.5) 10/19/18 20:40 INR 0.95 (0.5-1.4) 10/19/18 20:40 PTT (Actin FS) 25.0 SECONDS (26.0-38.0) L 10/19/18 20:40 Sodium 136 mEq/L (136-145) 10/23/18 07:15 Potassium 4.2 mEq/L (3.5-5.1) 10/23/18 07:15 Chloride 106 mEq/L (98-107) 10/23/18 07:15 Carbon Dioxide 21.7 mEq/L (21.0-31.0) 10/23/18 07:15 Anion Gap 12.5 (7.0-16.0) 10/23/18 07:15 BUN 26 mg/dL (7-25) H 10/23/18 07:15 Creatinine 0.8 mg/dL (0.6-1.2) 10/23/18 07:15 Est GFR ( Amer) TNP 10/23/18 07:15 Est GFR (Non-Af Amer) TNP 10/23/18 07:15 BUN/Creatinine Ratio 32.5 10/23/18 07:15 Glucose 106 mg/dL (70-105) H 10/23/18 07:15 Calcium 9.6 mg/dL (8.6-10.3) 10/23/18 07:15 Total Bilirubin 0.2 mg/dL (0.3-1.0) L 10/19/18 20:40 AST 14 U/L (13-39) 10/19/18 20:40 ALT 14 U/L (7-52) 10/19/18 20:40 Alkaline Phosphatase 87 U/L (34-104) 10/19/18 20:40 Total Protein 5.9 gm/dL (6.0-8.3) L 10/19/18 20:40 Albumin 3.4 gm/dL (3.7-5.3) L 10/19/18 20:40 Globulin 2.5 gm/dL 10/19/18 20:40 Albumin/Globulin Ratio 1.4 (1.0-1.8) 10/19/18 20:40 Triglycerides 65 mg/dL (<150) 10/19/18 20:40 Cholesterol 180 mg/dL (<200) 10/19/18 20:40 LDL Cholesterol Direct 129 mg/dL (75-193) 10/19/18 20:40 HDL Cholesterol 46 mg/dL (23-92) 10/19/18 20:40 Urine Source CLEAN C 10/19/18 19:50 Urine Color YELLOW 10/19/18 19:50 Urine Clarity CLEAR (CLEAR) 10/19/18 19:50 Urine pH 6.0 (4.6 - 8.0) 10/19/18 19:50 Ur Specific [place] 1.020 (1.005-1.030) 10/19/18 19:50 Urine Protein NEGATIVE mg/dL (NEGATIVE) 10/19/18 19:50 Urine Glucose (UA) NEGATIVE mg/dL (NEGATIVE) 10/19/18 19:50 Urine Ketones NEGATIVE mg/dL (NEGATIVE) 10/19/18 19:50 Urine Blood NEGATIVE (NEGATIVE) 10/19/18 19:50 Urine Nitrate NEGATIVE (NEGATIVE) 10/19/18 19:50 Urine Bilirubin NEGATIVE (NEGATIVE) 10/19/18 19:50 Urine Urobilinogen 0.2 E.U./dL (0.2 - 1.0) 10/19/18 19:50 Ur Leukocyte Esterase NEGATIVE (NEGATIVE) 10/19/18 19:50 Urine RBC 0-2 /hpf (0-5) 10/19/18 19:50 Urine WBC 2-5 /hpf (0-5) 10/19/18 19:50 Ur Epithelial Cells MODERATE /lpf (FEW) 10/19/18 19:50 Urine Bacteria 1+ /hpf (NONE SEEN) H 10/19/18 19:50 Urine Mucus FEW /lpf (FEW) 10/19/18 19:50 - Physical Exam Vitals and I&O: Vital Signs Temp 97.7 F 11/10/18 06:21 Pulse 57 11/10/18 06:21 Resp 18 11/10/18 13:25 BP 134/60 11/10/18 06:21 Pulse Ox 97 11/10/18 06:21 Intake & Output 11/09/18 11/10/18 11/10/18 18:59 06:59 18:59 Intake Total 950 240 Balance 950 240 Intake: Oral 950 240 Other: # Voids 4 2 # Bowel Movements 1 Stool Characteristics [place] Active Medications: Current Medications Artificial Tears (Artificial Tears Ophth Soln) 2 drop EACH EYE Q6HR [facility] Stop: 12/19/18 00:00 Last Admin: 11/10/18 06:20 Dose: Not Given Donepezil HCl (Aricept) 5 mg PO DAILY [facility] Stop: 12/19/18 08:59 Last Admin: 11/10/18 08:09 Dose: Not Given Gabapentin (Neurontin) 100 mg PO Q8HR [facility] Stop: 12/19/18 04:59 Last Admin: 11/10/18 04:22 Dose: 100 mg Lorazepam (Ativan) 1 mg PO Q4H PRN; Protocol PRN Reason: Anxiety Stop: 12/18/18 23:32 Last Admin: 11/10/18 04:22 Dose: 1 mg Nitroglycerin (Nitro-Bid) 2 inch TP Q6HR [facility] Stop: 12/19/18 00:00 Last Admin: 11/10/18 06:19 Dose: Not Given Prednisolone Acetate (Pred Forte 1% Ophth Susp) 2 drop EACH EYE TID [facility] Stop: 12/19/18 08:59 Last Admin: 11/10/18 08:09 Dose: Not Given Risperidone (Risperdal) 1 mg PO HS NANCY; Protocol Stop: 12/22/18 20:59 Last Admin: 11/09/18 21:17 Dose: 1 mg Risperidone (Risperdal) 0.5 mg PO DAILY [facility]; Protocol Stop: 12/27/18 08:59 Last Admin: 11/10/18 08:09 Dose: Not Given Zolpidem Tartrate (Ambien) 5 mg PO HS PRN PRN Reason: Insomnia Stop: 12/18/18 23:55 Last Admin: 11/08/18 21:04 Dose: 5 mg Physical Exam: 83 y/o female patient is demented and confused, remains paranoid and agitated, still is resisting care. General: demented, NAD HEENT: NC/AT, PERRLA Neck: Supple, No JVD Lungs: CTAB Cardiovascular: RRR Abdomen: soft, non-tender Extremities: clear Neurological: no change Internal Medicine Assmt/Plan - Assessment Assessment: Dyslipidemia. Hypertension. Dementia. Acute psychosis. - Plan Plan: Continuation of care. Monitor Labs. Continue present meds as directed. Monitor vitals, Continue BP meds as directed. Monitor Diet/Nutritional support. Psych management per Psych. Pain Management. Fall precaution, frequent nursing rounds, and as needed restraints to prevent fall. Safety precaution. Supportive care. Continue collaborating with consulting specialists, case management and nursing team. Will Monitor patient and continue present care management. Nutritional Asmnt/Malnutr-PDOC - Dietary Evaluation Malnutrition Findings (Please click <Entered> for more info): see chart.
[2018-11-11] MEDS: NITROGLYCERIN OINT 2% 1 INCH PACKET TP SCH ×4 (00:27→17:30)
[2018-11-11] MEDS: Polyvinyl Alcohol Ophth Soln 15 mL Bottle EACH EYE SCH ×4 (00:28→17:30)
--- NOTE | 2018-11-11 01:31 | Progress Notes ---
DATE: 11/10/2018 Case was discussed with staff of the patient, reviewed records. The patient continues to have poor insight. Continues to be confused, demented, unable to make safe plan for self-care, very poor insight. No side effects of the medication, no sedation, no nausea, no extrapyramidal symptoms and we will continue outpatient group therapy, milieu therapy, adjust the medications as needed. [facility]# [id number]
--- NOTE | 2018-11-11 12:09 | Internal Medicine Prog Note ---
Internal Medicine Subjective - Subjective Service Date: 11/11/18 Patient seen and examined:: with staff Patient is:: awake, arousable, in wheelchair, talking, agitated, confused Patient Complaints of:: other (Aggressive behavior.) Per staff patient has:: no adverse event, no episodes of fall, refusing care Internal Medicine Objective - Results Result Diagrams: 10/23/18 07:15 10/23/18 07:15 Recent Labs: Laboratory Last Values WBC 5.8 Th/cmm (4.8-10.8) 10/23/18 07:15 RBC 4.61 Mil/cmm (3.80-5.20) 10/23/18 07:15 Hgb 14.9 gm/dL (12-16) 10/23/18 07:15 Hct 44.9 % (41.0-60) 10/23/18 07:15 MCV 97.3 fl (81-100) 10/23/18 07:15 MCH 32.3 pg (27.0-31.0) H 10/23/18 07:15 MCHC Differential 33.2 pg (28.0-36.0) 10/23/18 07:15 RDW 13.1 % (11.5-20.0) 10/23/18 07:15 Plt Count 264 Th/cmm (150-400) 10/23/18 07:15 MPV 8.6 fl 10/23/18 07:15 Neutrophils % 66.5 % (40.0-80.0) 10/23/18 07:15 Lymphocytes % 22.5 % (20.0-50.0) 10/23/18 07:15 Monocytes % 8.7 % (2.0-10.0) 10/23/18 07:15 Eosinophils % 2.0 % (0.0-5.0) 10/23/18 07:15 Basophils % 0.3 % (0.0-2.0) 10/23/18 07:15 PT 9.9 SECONDS (9.5-11.5) 10/19/18 20:40 INR 0.95 (0.5-1.4) 10/19/18 20:40 PTT (Actin FS) 25.0 SECONDS (26.0-38.0) L 10/19/18 20:40 Sodium 136 mEq/L (136-145) 10/23/18 07:15 Potassium 4.2 mEq/L (3.5-5.1) 10/23/18 07:15 Chloride 106 mEq/L (98-107) 10/23/18 07:15 Carbon Dioxide 21.7 mEq/L (21.0-31.0) 10/23/18 07:15 Anion Gap 12.5 (7.0-16.0) 10/23/18 07:15 BUN 26 mg/dL (7-25) H 10/23/18 07:15 Creatinine 0.8 mg/dL (0.6-1.2) 10/23/18 07:15 Est GFR ( Amer) TNP 10/23/18 07:15 Est GFR (Non-Af Amer) TNP 10/23/18 07:15 BUN/Creatinine Ratio 32.5 10/23/18 07:15 Glucose 106 mg/dL (70-105) H 10/23/18 07:15 Calcium 9.6 mg/dL (8.6-10.3) 10/23/18 07:15 Total Bilirubin 0.2 mg/dL (0.3-1.0) L 10/19/18 20:40 AST 14 U/L (13-39) 10/19/18 20:40 ALT 14 U/L (7-52) 10/19/18 20:40 Alkaline Phosphatase 87 U/L (34-104) 10/19/18 20:40 Total Protein 5.9 gm/dL (6.0-8.3) L 10/19/18 20:40 Albumin 3.4 gm/dL (3.7-5.3) L 10/19/18 20:40 Globulin 2.5 gm/dL 10/19/18 20:40 Albumin/Globulin Ratio 1.4 (1.0-1.8) 10/19/18 20:40 Triglycerides 65 mg/dL (<150) 10/19/18 20:40 Cholesterol 180 mg/dL (<200) 10/19/18 20:40 LDL Cholesterol Direct 129 mg/dL (75-193) 10/19/18 20:40 HDL Cholesterol 46 mg/dL (23-92) 10/19/18 20:40 Urine Source CLEAN C 10/19/18 19:50 Urine Color YELLOW 10/19/18 19:50 Urine Clarity CLEAR (CLEAR) 10/19/18 19:50 Urine pH 6.0 (4.6 - 8.0) 10/19/18 19:50 Ur Specific [place] 1.020 (1.005-1.030) 10/19/18 19:50 Urine Protein NEGATIVE mg/dL (NEGATIVE) 10/19/18 19:50 Urine Glucose (UA) NEGATIVE mg/dL (NEGATIVE) 10/19/18 19:50 Urine Ketones NEGATIVE mg/dL (NEGATIVE) 10/19/18 19:50 Urine Blood NEGATIVE (NEGATIVE) 10/19/18 19:50 Urine Nitrate NEGATIVE (NEGATIVE) 10/19/18 19:50 Urine Bilirubin NEGATIVE (NEGATIVE) 10/19/18 19:50 Urine Urobilinogen 0.2 E.U./dL (0.2 - 1.0) 10/19/18 19:50 Ur Leukocyte Esterase NEGATIVE (NEGATIVE) 10/19/18 19:50 Urine RBC 0-2 /hpf (0-5) 10/19/18 19:50 Urine WBC 2-5 /hpf (0-5) 10/19/18 19:50 Ur Epithelial Cells MODERATE /lpf (FEW) 10/19/18 19:50 Urine Bacteria 1+ /hpf (NONE SEEN) H 10/19/18 19:50 Urine Mucus FEW /lpf (FEW) 10/19/18 19:50 - Physical Exam Vitals and I&O: Vital Signs Temp 97.6 F 11/11/18 06:33 Pulse 70 11/11/18 06:56 Resp 18 11/11/18 06:33 BP 125/68 11/11/18 06:56 Pulse Ox 99 11/11/18 06:33 Intake & Output 11/10/18 11/11/18 11/11/18 18:59 06:59 18:59 Intake Total 120 Balance 120 Intake: Oral 120 Other: # Voids 1 # Bowel Movements 0 Stool Characteristics Brown Active Medications: Current Medications Artificial Tears (Artificial Tears Ophth Soln) 2 drop EACH EYE Q6HR NANCY Stop: 12/19/18 00:00 Last Admin: 11/11/18 06:57 Dose: 2 drop Donepezil HCl (Aricept) 5 mg PO DAILY NANCY Stop: 12/19/18 08:59 Last Admin: 11/10/18 08:09 Dose: Not Given Gabapentin (Neurontin) 100 mg PO Q8HR NANCY Stop: 12/19/18 04:59 Last Admin: 11/11/18 05:00 Dose: 100 mg Lorazepam (Ativan) 1 mg PO Q4H PRN; Protocol PRN Reason: Anxiety Stop: 12/18/18 23:32 Last Admin: 11/11/18 00:28 Dose: 1 mg Nitroglycerin (Nitro-Bid) 2 inch TP Q6HR NANCY Stop: 12/19/18 00:00 Last Admin: 11/11/18 06:56 Dose: 2 inch Prednisolone Acetate (Pred Forte 1% Ophth Susp) 2 drop EACH EYE TID NANCY Stop: 12/19/18 08:59 Last Admin: 11/10/18 20:53 Dose: 2 drop Risperidone (Risperdal) 1 mg PO HS NANCY; Protocol Stop: 12/22/18 20:59 Last Admin: 11/10/18 20:53 Dose: 1 mg Risperidone (Risperdal) 0.5 mg PO DAILY NANCY; Protocol Stop: 12/27/18 08:59 Last Admin: 11/10/18 08:09 Dose: Not Given Zolpidem Tartrate (Ambien) 5 mg PO HS PRN PRN Reason: Insomnia Stop: 12/18/18 23:55 Last Admin: 11/10/18 20:53 Dose: 5 mg Physical Exam: 83 y/o female patient continues to be very confused, remains paranoid and agitated, still is resisting care. General: demented, NAD HEENT: NC/AT, PERRLA Neck: Supple, No JVD Lungs: CTAB Cardiovascular: RRR Abdomen: soft, non-tender Extremities: clear Neurological: no change Internal Medicine Assmt/Plan - Assessment Assessment: Dyslipidemia. Hypertension. Dementia. Acute psychosis. - Plan Plan: Continuation of care. Monitor Labs. Continue present meds as directed. Monitor vitals, Continue BP meds as directed. Monitor Diet/Nutritional support. Psych management per Psych. Pain Management. Fall precaution, frequent nursing rounds, and as needed restraints to prevent fall. Safety precaution. Supportive care. Continue collaborating with consulting specialists, case management and nursing team. Will Monitor patient and continue present care management. Nutritional Asmnt/Malnutr-PDOC - Dietary Evaluation Malnutrition Findings (Please click <Entered> for more info): see orders.
[2018-11-11] MEDS: Prednisolone 1% Ophth Susp 5 mL Bottle EACH EYE SCH ×3 (12:21→20:45)
[2018-11-12] MEDS: Polyvinyl Alcohol Ophth Soln 15 mL Bottle EACH EYE SCH ×4 (02:06→17:34)
[2018-11-12] MEDS: NITROGLYCERIN OINT 2% 1 INCH PACKET TP SCH ×4 (02:06→17:34)
[2018-11-12] MEDS: Prednisolone 1% Ophth Susp 5 mL Bottle EACH EYE SCH ×3 (09:22→20:45)
--- NOTE | 2018-11-12 11:36 | Progress Notes ---
DATE: SUBJECTIVE: Chart was reviewed and the patient interviewed. Also discussed the patient's condition with the staff and reviewed records and labs. The patient is still anxious and still needs redirections. She also is still restless and is still having mood swings. Otherwise, the patient is more compliant with taking medications with no side effects of medications. ASSESSMENT: The patient is still irritable and still needs placement and behavior modification. TREATMENT PLAN: Continue to monitor behavior and condition closely and continue to work on her discharge plans and placement issue. JOB# [id number]
--- NOTE | 2018-11-12 13:01 | Internal Medicine Prog Note ---
Internal Medicine Subjective - Subjective Service Date: 11/12/18 Patient is:: awake, arousable, in wheelchair, talking, agitated, confused Patient Complaints of:: other (Aggressive behavior.) Per staff patient has:: no adverse event, no episodes of fall, refusing care Internal Medicine Objective - Results Result Diagrams: 10/23/18 07:15 10/23/18 07:15 Recent Labs: Laboratory Last Values WBC 5.8 Th/cmm (4.8-10.8) 10/23/18 07:15 RBC 4.61 Mil/cmm (3.80-5.20) 10/23/18 07:15 Hgb 14.9 gm/dL (12-16) 10/23/18 07:15 Hct 44.9 % (41.0-60) 10/23/18 07:15 MCV 97.3 fl (81-100) 10/23/18 07:15 MCH 32.3 pg (27.0-31.0) H 10/23/18 07:15 MCHC Differential 33.2 pg (28.0-36.0) 10/23/18 07:15 RDW 13.1 % (11.5-20.0) 10/23/18 07:15 Plt Count 264 Th/cmm (150-400) 10/23/18 07:15 MPV 8.6 fl 10/23/18 07:15 Neutrophils % 66.5 % (40.0-80.0) 10/23/18 07:15 Lymphocytes % 22.5 % (20.0-50.0) 10/23/18 07:15 Monocytes % 8.7 % (2.0-10.0) 10/23/18 07:15 Eosinophils % 2.0 % (0.0-5.0) 10/23/18 07:15 Basophils % 0.3 % (0.0-2.0) 10/23/18 07:15 PT 9.9 SECONDS (9.5-11.5) 10/19/18 20:40 INR 0.95 (0.5-1.4) 10/19/18 20:40 PTT (Actin FS) 25.0 SECONDS (26.0-38.0) L 10/19/18 20:40 Sodium 136 mEq/L (136-145) 10/23/18 07:15 Potassium 4.2 mEq/L (3.5-5.1) 10/23/18 07:15 Chloride 106 mEq/L (98-107) 10/23/18 07:15 Carbon Dioxide 21.7 mEq/L (21.0-31.0) 10/23/18 07:15 Anion Gap 12.5 (7.0-16.0) 10/23/18 07:15 BUN 26 mg/dL (7-25) H 10/23/18 07:15 Creatinine 0.8 mg/dL (0.6-1.2) 10/23/18 07:15 Est GFR ( Amer) TNP 10/23/18 07:15 Est GFR (Non-Af Amer) TNP 10/23/18 07:15 BUN/Creatinine Ratio 32.5 10/23/18 07:15 Glucose 106 mg/dL (70-105) H 10/23/18 07:15 Calcium 9.6 mg/dL (8.6-10.3) 10/23/18 07:15 Total Bilirubin 0.2 mg/dL (0.3-1.0) L 10/19/18 20:40 AST 14 U/L (13-39) 10/19/18 20:40 ALT 14 U/L (7-52) 10/19/18 20:40 Alkaline Phosphatase 87 U/L (34-104) 10/19/18 20:40 Total Protein 5.9 gm/dL (6.0-8.3) L 10/19/18 20:40 Albumin 3.4 gm/dL (3.7-5.3) L 10/19/18 20:40 Globulin 2.5 gm/dL 10/19/18 20:40 Albumin/Globulin Ratio 1.4 (1.0-1.8) 10/19/18 20:40 Triglycerides 65 mg/dL (<150) 10/19/18 20:40 Cholesterol 180 mg/dL (<200) 10/19/18 20:40 LDL Cholesterol Direct 129 mg/dL (75-193) 10/19/18 20:40 HDL Cholesterol 46 mg/dL (23-92) 10/19/18 20:40 Urine Source CLEAN C 10/19/18 19:50 Urine Color YELLOW 10/19/18 19:50 Urine Clarity CLEAR (CLEAR) 10/19/18 19:50 Urine pH 6.0 (4.6 - 8.0) 10/19/18 19:50 Ur Specific [place] 1.020 (1.005-1.030) 10/19/18 19:50 Urine Protein NEGATIVE mg/dL (NEGATIVE) 10/19/18 19:50 Urine Glucose (UA) NEGATIVE mg/dL (NEGATIVE) 10/19/18 19:50 Urine Ketones NEGATIVE mg/dL (NEGATIVE) 10/19/18 19:50 Urine Blood NEGATIVE (NEGATIVE) 10/19/18 19:50 Urine Nitrate NEGATIVE (NEGATIVE) 10/19/18 19:50 Urine Bilirubin NEGATIVE (NEGATIVE) 10/19/18 19:50 Urine Urobilinogen 0.2 E.U./dL (0.2 - 1.0) 10/19/18 19:50 Ur Leukocyte Esterase NEGATIVE (NEGATIVE) 10/19/18 19:50 Urine RBC 0-2 /hpf (0-5) 10/19/18 19:50 Urine WBC 2-5 /hpf (0-5) 10/19/18 19:50 Ur Epithelial Cells MODERATE /lpf (FEW) 10/19/18 19:50 Urine Bacteria 1+ /hpf (NONE SEEN) H 10/19/18 19:50 Urine Mucus FEW /lpf (FEW) 10/19/18 19:50 - Physical Exam Vitals and I&O: Vital Signs Temp 97.6 F 11/12/18 06:31 Pulse 61 11/12/18 06:56 Resp 18 11/12/18 06:31 BP 117/69 11/12/18 06:56 Pulse Ox 98 11/12/18 06:31 Intake & Output 11/11/18 11/12/18 11/12/18 18:59 06:59 18:59 Intake Total 1100 120 Balance 1100 120 Intake: Oral 1100 120 Other: # Voids 3 Active Medications: Current Medications Artificial Tears (Artificial Tears Ophth Soln) 2 drop EACH EYE Q6HR [facility] Stop: 12/19/18 00:00 Last Admin: 11/12/18 06:54 Dose: 2 drop Donepezil HCl (Aricept) 5 mg PO DAILY [facility] Stop: 12/19/18 08:59 Last Admin: 11/12/18 09:22 Dose: 5 mg Gabapentin (Neurontin) 100 mg PO Q8HR [facility] Stop: 12/19/18 04:59 Last Admin: 11/11/18 21:00 Dose: 100 mg Lorazepam (Ativan) 1 mg PO Q4H PRN; Protocol PRN Reason: Anxiety Stop: 12/18/18 23:32 Last Admin: 11/11/18 00:28 Dose: 1 mg Nitroglycerin (Nitro-Bid) 2 inch TP Q6HR [facility] Stop: 12/19/18 00:00 Last Admin: 11/12/18 06:56 Dose: Not Given Prednisolone Acetate (Pred Forte 1% Ophth Susp) 2 drop EACH EYE TID [facility] Stop: 12/19/18 08:59 Last Admin: 11/12/18 09:22 Dose: Not Given Risperidone (Risperdal) 1 mg PO HS [facility]; Protocol Stop: 12/22/18 20:59 Last Admin: 11/11/18 21:00 Dose: 1 mg Risperidone (Risperdal) 0.5 mg PO DAILY [facility]ANCY; Protocol Stop: 12/27/18 08:59 Last Admin: 11/12/18 09:22 Dose: 0.5 mg Zolpidem Tartrate (Ambien) 5 mg PO HS PRN PRN Reason: Insomnia Stop: 12/18/18 23:55 Last Admin: 11/11/18 21:00 Dose: 5 mg General: demented, NAD HEENT: NC/AT, PERRLA Neck: Supple, No JVD Lungs: CTAB Cardiovascular: RRR Abdomen: soft, non-tender Extremities: clear Neurological: no change Internal Medicine Assmt/Plan - Assessment Assessment: Dyslipidemia. Hypertension. Dementia. Acute psychosis. - Plan Plan: Continuation of care. Monitor Labs. Continue present meds as directed. Monitor vitals, Continue BP meds as directed. Monitor Diet/Nutritional support. Psych management per Psych. Pain Management. Fall precaution, frequent nursing rounds, and as needed restraints to prevent fall. Safety precaution. Supportive care. Continue collaborating with consulting specialists, case management and nursing team. Will Monitor patient and continue current treatment plan as ordered.
--- NOTE | 2018-11-12 22:49 | Progress Notes ---
DATE: SUBJECTIVE: Chart was reviewed and the patient interviewed. Also discussed the patient's condition with the staff and reviewed records and labs. The patient is still anxious and restless, but she seems to be slightly less agitated. The patient also is sleeping better at night. The patient also is compliant with taking her medications. Otherwise, no side effects of medications. ASSESSMENT: The patient is still anxious and waiting for placement. TREATMENT PLAN: Continue working on discharge plans and placement issue and continue monitoring her behavior. [facility]# [id number]
[2018-11-13] MEDS: Polyvinyl Alcohol Ophth Soln 15 mL Bottle EACH EYE SCH ×4 (00:17→17:22)
[2018-11-13] MEDS: NITROGLYCERIN OINT 2% 1 INCH PACKET TP SCH ×4 (00:17→17:22)
--- NOTE | 2018-11-13 08:03 | Progress Notes ---
DATE: 11/13/2018 SUBJECTIVE: Chart was reviewed and the patient interviewed. Also, discussed the patient's condition with the staff and reviewed records and labs. The patient is still in angry and in irritable mood. The patient also is still guarded and withdrawn and interacting minimally with others. The patient also denies any intention to harm herself or others. No side effects of medications. ASSESSMENT: The patient currently seems to be on her baseline. TREATMENT PLAN: Continue working on her discharge plans and placement issue and continue to follow up. JOB# [id number]
[2018-11-13] MEDS: Prednisolone 1% Ophth Susp 5 mL Bottle EACH EYE SCH (14:13)
--- NOTE | 2018-11-13 17:17 | Internal Medicine Prog Note ---
Internal Medicine Subjective - Subjective Service Date: 11/13/18 Patient is:: awake, arousable, in wheelchair, talking, agitated, confused Patient Complaints of:: other (Aggressive behavior.) Per staff patient has:: no adverse event, no episodes of fall, refusing care Internal Medicine Objective - Results Result Diagrams: 10/23/18 07:15 10/23/18 07:15 Recent Labs: Laboratory Last Values WBC 5.8 Th/cmm (4.8-10.8) 10/23/18 07:15 RBC 4.61 Mil/cmm (3.80-5.20) 10/23/18 07:15 Hgb 14.9 gm/dL (12-16) 10/23/18 07:15 Hct 44.9 % (41.0-60) 10/23/18 07:15 MCV 97.3 fl (81-100) 10/23/18 07:15 MCH 32.3 pg (27.0-31.0) H 10/23/18 07:15 MCHC Differential 33.2 pg (28.0-36.0) 10/23/18 07:15 RDW 13.1 % (11.5-20.0) 10/23/18 07:15 Plt Count 264 Th/cmm (150-400) 10/23/18 07:15 MPV 8.6 fl 10/23/18 07:15 Neutrophils % 66.5 % (40.0-80.0) 10/23/18 07:15 Lymphocytes % 22.5 % (20.0-50.0) 10/23/18 07:15 Monocytes % 8.7 % (2.0-10.0) 10/23/18 07:15 Eosinophils % 2.0 % (0.0-5.0) 10/23/18 07:15 Basophils % 0.3 % (0.0-2.0) 10/23/18 07:15 PT 9.9 SECONDS (9.5-11.5) 10/19/18 20:40 INR 0.95 (0.5-1.4) 10/19/18 20:40 PTT (Actin FS) 25.0 SECONDS (26.0-38.0) L 10/19/18 20:40 Sodium 136 mEq/L (136-145) 10/23/18 07:15 Potassium 4.2 mEq/L (3.5-5.1) 10/23/18 07:15 Chloride 106 mEq/L (98-107) 10/23/18 07:15 Carbon Dioxide 21.7 mEq/L (21.0-31.0) 10/23/18 07:15 Anion Gap 12.5 (7.0-16.0) 10/23/18 07:15 BUN 26 mg/dL (7-25) H 10/23/18 07:15 Creatinine 0.8 mg/dL (0.6-1.2) 10/23/18 07:15 Est GFR ( Amer) TNP 10/23/18 07:15 Est GFR (Non-Af Amer) TNP 10/23/18 07:15 BUN/Creatinine Ratio 32.5 10/23/18 07:15 Glucose 106 mg/dL (70-105) H 10/23/18 07:15 Calcium 9.6 mg/dL (8.6-10.3) 10/23/18 07:15 Total Bilirubin 0.2 mg/dL (0.3-1.0) L 10/19/18 20:40 AST 14 U/L (13-39) 10/19/18 20:40 ALT 14 U/L (7-52) 10/19/18 20:40 Alkaline Phosphatase 87 U/L (34-104) 10/19/18 20:40 Total Protein 5.9 gm/dL (6.0-8.3) L 10/19/18 20:40 Albumin 3.4 gm/dL (3.7-5.3) L 10/19/18 20:40 Globulin 2.5 gm/dL 10/19/18 20:40 Albumin/Globulin Ratio 1.4 (1.0-1.8) 10/19/18 20:40 Triglycerides 65 mg/dL (<150) 10/19/18 20:40 Cholesterol 180 mg/dL (<200) 10/19/18 20:40 LDL Cholesterol Direct 129 mg/dL (75-193) 10/19/18 20:40 HDL Cholesterol 46 mg/dL (23-92) 10/19/18 20:40 Urine Source CLEAN C 10/19/18 19:50 Urine Color YELLOW 10/19/18 19:50 Urine Clarity CLEAR (CLEAR) 10/19/18 19:50 Urine pH 6.0 (4.6 - 8.0) 10/19/18 19:50 Ur Specific [place] 1.020 (1.005-1.030) 10/19/18 19:50 Urine Protein NEGATIVE mg/dL (NEGATIVE) 10/19/18 19:50 Urine Glucose (UA) NEGATIVE mg/dL (NEGATIVE) 10/19/18 19:50 Urine Ketones NEGATIVE mg/dL (NEGATIVE) 10/19/18 19:50 Urine Blood NEGATIVE (NEGATIVE) 10/19/18 19:50 Urine Nitrate NEGATIVE (NEGATIVE) 10/19/18 19:50 Urine Bilirubin NEGATIVE (NEGATIVE) 10/19/18 19:50 Urine Urobilinogen 0.2 E.U./dL (0.2 - 1.0) 10/19/18 19:50 Ur Leukocyte Esterase NEGATIVE (NEGATIVE) 10/19/18 19:50 Urine RBC 0-2 /hpf (0-5) 10/19/18 19:50 Urine WBC 2-5 /hpf (0-5) 10/19/18 19:50 Ur Epithelial Cells MODERATE /lpf (FEW) 10/19/18 19:50 Urine Bacteria 1+ /hpf (NONE SEEN) H 10/19/18 19:50 Urine Mucus FEW /lpf (FEW) 10/19/18 19:50 - Physical Exam Vitals and I&O: Vital Signs Temp 99.2 F 11/13/18 14:00 Pulse 70 11/13/18 14:00 Resp 18 11/13/18 15:46 BP 131/58 11/13/18 14:00 Pulse Ox 97 11/13/18 14:00 Intake & Output 11/12/18 11/13/18 11/13/18 18:59 06:59 18:59 Intake Total 740 Balance 740 Intake: Oral 740 Other: # Voids 3 # Bowel Movements 0 Active Medications: Current Medications Artificial Tears (Artificial Tears Ophth Soln) 2 drop EACH EYE Q6HR [facility] Stop: 12/19/18 00:00 Last Admin: 11/13/18 14:12 Dose: Not Given Donepezil HCl (Aricept) 5 mg PO DAILY [facility] Stop: 12/19/18 08:59 Last Admin: 11/13/18 14:13 Dose: Not Given Gabapentin (Neurontin) 100 mg PO Q8HR [facility] Stop: 12/19/18 04:59 Last Admin: 11/13/18 14:13 Dose: Not Given Lorazepam (Ativan) 1 mg PO Q4H PRN; Protocol PRN Reason: Anxiety Stop: 12/18/18 23:32 Last Admin: 11/13/18 00:51 Dose: 1 mg Nitroglycerin (Nitro-Bid) 2 inch TP Q6HR [facility] Stop: 12/19/18 00:00 Last Admin: 11/13/18 14:12 Dose: Not Given Prednisolone Acetate (Pred Forte 1% Ophth Susp) 2 drop EACH EYE TID [facility] Stop: 12/19/18 08:59 Last Admin: 11/13/18 14:13 Dose: Not Given Risperidone (Risperdal) 1 mg PO HS [facility]; Protocol Stop: 12/22/18 20:59 Last Admin: 11/12/18 20:44 Dose: 1 mg Risperidone (Risperdal) 0.5 mg PO DAILY [facility]; Protocol Stop: 12/27/18 08:59 Last Admin: 11/13/18 14:13 Dose: Not Given Zolpidem Tartrate (Ambien) 5 mg PO HS PRN PRN Reason: Insomnia Stop: 12/18/18 23:55 Last Admin: 11/12/18 22:04 Dose: 5 mg General: demented, NAD HEENT: NC/AT, PERRLA Neck: Supple, No JVD Lungs: CTAB Cardiovascular: RRR Abdomen: soft, non-tender Extremities: clear Neurological: no change Internal Medicine Assmt/Plan - Assessment Assessment: Dyslipidemia. Hypertension. Dementia. Acute psychosis. - Plan Plan: Continuation of care. Monitor Labs. Continue present meds as directed. Monitor vitals, Continue BP meds as directed. Monitor Diet/Nutritional support. Psych management per Psych. Pain Management. Fall precaution, frequent nursing rounds, and as needed restraints to prevent fall. Safety precaution. Supportive care. Continue collaborating with consulting specialists, case management and nursing team. Will Monitor patient and continue current treatment plan as ordered.
== END 2018-11-13 17:20 | DRG 885 ==
LOC: ER 19:15 → GERO2 22:30 → GERO 11-03 17:34
PROVIDERS: ADMIT Psychiatry & Neurology Psychiatry; ATTEND Psychiatry & Neurology Psychiatry
DX: F23 Brief psychotic disorder (principal); N17.0 Acute kidney failure with tubular necrosis; F03.91 Unspecified dementia, unspecified severity, with behavioral disturbance; N39.0 Urinary tract infection, site not specified; M17.0 Bilateral primary osteoarthritis of knee; I10 Essential (primary) hypertension; E78.5 Hyperlipidemia, unspecified; H10.89 Other conjunctivitis; I25.10 Atherosclerotic heart disease of native coronary artery without angina pectoris; Z90.49 Acquired absence of other specified parts of digestive tract
CPT/HCPCS: 36415-UA; 80048-TC; 80053-TC; 80061-TC; 81001-TC; 83036-90; 85025-TC; 85610-TC; J2650